=== PATIENT | female | born 1950 | race Caucasian/White ===

== ENCOUNTER 2017-02-26 22:56 | Inpatient (IN) | payer BC ==
[~2017-02-26] VITALS: Ht 154.9 cm; Wt 104.4 kg
[~2017-02-26 22:56] MED LIST: ASPI81TA2 PO; BUME1TAB PO; CARV6.252 PO; CHOL100013 PO; FURO-68 PO; FURO20TA3 PO; HYDR-2666 PO; LEVO88TA4 PO; LISI10TA2 PO; METO25TA4 PO; NAPR375T3 PO; PANT40TA5 PO; PARO20TA3 PO; POTA20TA12 PO; POTA20TA4 PO
[2017-02-26 23:32] LABS: BASO # 0.1 x10^3/uL (0.0-0.2); BASO % 1 % (0-3); EOS % 1 % (0-3); HEMATOCRIT 40.6 % (36.0-47.0); HEMOGLOBIN 13.2 g/dL (12.0-15.5); LYMPH # 2.4 x10^3/uL (1.0-4.8); LYMPH % 21 % (24-48); MEAN CORPUSCULAR HEMOGLOBIN 28 pg (25-35); MEAN CORPUSCULAR HGB CONC 33 g/dL (31-37); MEAN CORPUSCULAR VOLUME 85 fL (79-100); MONO % 6 % (0-9); NEUT % 71 % (31-73); PLATELET COUNT 292 x10^3/uL (140-400); RED CELL DISTRIBUTION WIDTH 15.1 % (11.5-14.5); WHITE BLOOD COUNT 11.2 x10^3/uL (4.0-11.0)
[2017-02-26 23:44] LABS: GFR 55.8; POTASSIUM 3.5 mmol/L (3.5-5.1)
[2017-02-26] MEDS ORDERED: BENZONATATE 100 MG CAPSULE. PO ONE (23:45)
--- NOTE | 2017-02-27 00:04 | PHYS DOC ---
Past Medical History Past Medical History: CHF, Hypertension, Other Additional Past Medical Histor: CARDIOMYOPATHY, SEVERE SLEEP APNEA, SPINAL PROBLEMS Past Surgical History: Other Additional Past Surgical Histo: HERNIA REPAIR, pacemaker Alcohol Use: None Drug Use: None Adult General Chief Complaint Chief Complaint: SHORTNESS OF BREATH HPI HPI Patient is a 66 year old female who presents with cough & shortness of breath. Patient reports illness x 6 days associated with dry cough, nasal congestion, sore throat, shortness of breath. She has dyspnea with very minimal exertion. She reports fever of 101 at home. Denies chest pain, abdominal pain, vomiting, diarrhea, increased lower extremity edema. She has been unable to use CPAP due to congestion & cough. She has history of CHF & sick sinus syndrome with pacemaker, denies asthma, COPD, tobacco use. PCP is Dr. Reyes. Review of Systems Review of Systems Constitutional: Denies fever or chills Eyes: Denies change in visual acuity HENT: 40 nasal congestion and sore throat Respiratory: Reports cough and shortness of breath Cardiovascular: Denies chest pain or edema GI: Denies abdominal pain, nausea, vomiting, or diarrhea Musculoskeletal: Denies back pain or joint pain Integument: Denies rash or skin lesions Neurologic: Denies headache, focal weakness or sensory changes Current Medications Current Medications Current Medications Medications (Trade) Dose Ordered Sig/Anuj Start Time Stop Time Status Last Admin Dose Admin Acetaminophen (Tylenol) 650 mg PRN Q4HRS PRN 02/27/17 00:45 02/28/17 00:44 Benzonatate (Tessalon Perle) 100 mg 1X ONCE 02/26/17 23:45 02/26/17 23:46 DC 02/26/17 23:41 100 MG Furosemide (Lasix) 40 mg 1X ONCE 02/27/17 01:00 02/27/17 01:01 Morphine Sulfate 2 mg PRN Q2HR PRN 02/27/17 00:45 02/28/17 00:44 Ondansetron HCl (Zofran) 4 mg PRN Q8HRS PRN 02/27/17 00:45 02/28/17 00:44 Allergies Allergies Allergies Coded Allergies Type Severity Reaction Last Updated Verified atorvastatin Allergy Intermediate 02/26/17 Yes codeine Allergy Intermediate 10/02/16 Yes erythromycin base Allergy Intermediate 08/25/15 Yes Physical Exam Physical Exam Constitutional: Obese, no acute distress, non-toxic appearance. HENT: Normocephalic, atraumatic, bilateral external ears normal, oropharynx moist, posterior oropharynx mild erythema without tonsillar enlargement or exudate, nose normal. Eyes: conjunctiva normal, no discharge. Neck: supple, no stridor. Cardiovascular: RRR, no murmurs, no edema. Lungs & Thorax: LCTAB, no wheezing, no respiratory distress. Oxygen saturation 99% on room air Abdomen: soft, nontender, nondistended. Skin: Warm, dry, no erythema, no rash. Back: No tenderness. Extremities: No tenderness, no edema. No calf tenderness or swelling Neurologic: Alert and oriented X 3, no focal deficits noted. Psychologic: Affect normal, judgement normal, mood normal. Current Patient Data Vital Signs Vital Signs Date Time Temp Pulse Resp B/P Pulse Ox O2 Delivery O2 Flow Rate FiO2 02/26/17 23:05 99.4 80 18 199/104 95 Room Air 99.4 Lab Values Laboratory Tests Test 02/26/17 23:22 White Blood Count 11.2x10^3/uL (4.0-11.0) H Red Blood Count 4.80x10^6/uL (3.50-5.40) Hemoglobin 13.2g/dL (12.0-15.5) Hematocrit 40.6% (36.0-47.0) Mean Corpuscular Volume 85fL (79-100) Mean Corpuscular Hemoglobin 28pg (25-35) Mean Corpuscular Hemoglobin Concent 33g/dL (31-37) Red Cell Distribution Width 15.1% (11.5-14.5) H Platelet Count 292x10^3/uL (140-400) Neutrophils (%) (Auto) 71% (31-73) Lymphocytes (%) (Auto) 21% (24-48) L Monocytes (%) (Auto) 6% (0-9) Eosinophils (%) (Auto) 1% (0-3) Basophils (%) (Auto) 1% (0-3) Neutrophils # (Auto) 8.0x10^3uL (1.8-7.7) H Lymphocytes # (Auto) 2.4x10^3/uL (1.0-4.8) Monocytes # (Auto) 0.7x10^3/uL (0.0-1.1) Eosinophils # (Auto) 0.1x10^3/uL (0.0-0.7) Basophils # (Auto) 0.1x10^3/uL (0.0-0.2) Sodium Level 142mmol/L (136-145) Potassium Level 3.5mmol/L (3.5-5.1) Chloride Level 107mmol/L (98-107) Carbon Dioxide Level 26mmol/L (21-32) Anion Gap 9 (6-14) Blood Urea Nitrogen 15mg/dL (7-20) Creatinine 1.0mg/dL (0.6-1.0) Estimated GFR (Cockcroft-Gault) 55.8 Glucose Level 107mg/dL (70-99) H Calcium Level 9.0mg/dL (8.5-10.1) Troponin I Quantitative < 0.017ng/mL (0.000-0.055) FH-Xri-S-Type Natriuretic Peptide 896pg/mL (0-124) H Laboratory Tests 02/26/17 23:22 Laboratory Tests 02/26/17 23:22 EKG EKG Interpreted by me: Normal sinus rhythm rate 88, no ST elevation, T waves inverted in leads 1, aVL, V5 through V6, no ST depression, normal intervals, PVCs. [] Radiology/Procedures Radiology/Procedures CXR: interpreted by me: no cardiomegaly, no infiltrate, no pneumothorax, no acute process.[] Course & Med Decision Making Course & Med Decision Making Pertinent Labs and Imaging studies reviewed. (See chart for details) Patient presents with shortness of breath & URI symptoms. She has O2 sat 92-93 % on room air at rest. Lungs are clear, CXR unremarkable for acute process. BNP is mildly elevated, previously admitted for CHF with BNP in 500s. I discussed results with the patient, she does not feel well enough to go home. Will give IV lasix here & admit. She agrees with plan of care. Discussed with Dr. Rashid who agrees to accept for admission to inpatient status, on behalf of Dr. Reyes. Cardiology consult to Dr. Pulliam. Patient admitted in stable condition. [] Dragon Disclaimer Dragon Disclaimer This electronic medical record was generated, in whole or in part, using a voice recognition dictation system. Departure Departure Impression: Primary Impression: Acute on chronic systolic heart failure Additional Impression: Upper respiratory infection Disposition: ADMITTED INPATIENT Admitting Physician: Amandeep Aceves Condition: STABLE Referrals: AMANDEEP REYES MD (PCP) Problem Qualifiers IRAM DWYER MD Feb 27, 2017 00:04
[2017-02-27] MEDS ORDERED: MORPHINE SULFATE 2 MG/ML DISP.SYRIN. IV PRN (00:45)
[2017-02-27] MEDS ORDERED: ONDANSETRON PF 4 MG/2 ML VIAL. IV PRN (00:45)
[2017-02-27] MEDS ORDERED: ACETAMINOPHEN 325 MG TABLET. PO PRN (00:45)
[2017-02-27] MEDS ORDERED: FUROSEMIDE 40 MG/4 ML VIAL. IVP ONE (01:00)
[2017-02-27 03:42] VITALS: BP 146/86
--- NOTE | 2017-02-27 06:26 | ACF ---
Admission Forms Criteria HEART FAILURE: COMMON COMPLICATIONS Clinical Indications for Inpatient Care (Place 'X' for any and all applicable criteria): Ongoing inpatient care may be indicated for heart failure with ANY ONE of the following (1)(2)(3)(4)(5): [ ]I. Ongoing need for care for primary condition requiring frequent therapy adjustments because of changes in cardiac function (eg, drug dosage changes for drugs that are renally metabolized) [ ]II. New-onset heart failure [ ]III. Heart failure with decreased urine output not responsive to attempts to optimize volume status [ ]IV. Acute cardiac ischemia causing or associated with failure [X]V. Complications of heart failure, including ANY ONE of the following: [ ]a) Pericardial effusion [ ]b) Symptomatic pleural effusion [ ]c) O2 saturation <90% or PO2 < 60 mm Hg (8.0 kPa) on room air or require baseline supplemental O2 [ ]d) Tachypnea [X]e) Dyspnea [ ]f) Syncope [ ]g) Change in mental status [ ]h) Acute renal insufficiency that is severe (reduction of more than 50% in estimated glomerular filtration rate from baseline) or progressive reduction of more than 25% in estimated glomerular filtration rate from baseline, with creatinine continuing to rise) [ ]i) Hemodynamic instability [ ]j) Anasarca [ ]k) Clinically significant metabolic abnormalities due to heart failure (eg, new-onset metabolic acidosis) Extended stay beyond goal length of stay for primary condition may be needed until ALL of the following are present(1)(3): [ ]a) Stable and effective diuretic regimen established (or patient on stable dialysis regimen if in chronic renal failure) [ ]b) Breathing comfortably at rest [ ]c) Saturation of arterial oxygen greater than 90% or at acceptable baseline [ ]d) Pulmonary edema absent or improved [ ]e) Hemodynamic stability [ ]f) Volume status acceptable on oral medication [ ]g) Peripheral or sacral edema absent or improved [ ]h) Renal function stable and manageable at a lower level of care [ ]i) Complications (eg, pleural effusion) resolved or manageable at a lower level of care [ ]j) Patient or caregiver has received written discharge instructions or educational material addressing activity level, diet, discharge medications, follow-up appointment, weight monitoring, and what to do if symptoms worsen The original [facility] [employer] [facility] [employer] content created by [employer] has been revised. The portions of the content which have been revised are identified through the use of italic text or in bold, and [facility] has neither reviewed nor approved the modified material.All other unmodified content is copyright [facility]. Please see references footnoted in the original [facility] edition 2016 Admission Criteria Met?: Yes LJ LEBRON Feb 27, 2017 06:26
--- NOTE | 2017-02-27 06:52 | EKG ---
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
[2017-02-27 07:00] VITALS: BP_SYST 126; BP_SYST 138; BP_DIAS 77; BP_DIAS 85
--- NOTE | 2017-02-27 08:20 | RAD ---
Exam: PA and lateral chest radiograph History: Shortness of breath, cough. Comparison: 10/03/2016. Findings: Cardiac silhouette is borderline in size. Dual-lead pacemaker by left subclavian approach is unchanged. Bilateral lung gonzalez are free of focal infiltrate. No pleural effusion is seen. The spine is unchanged with fusion of multiple vertebral bodies, may be on a congenital basis. Midthoracic vertebral compression is unchanged. Impression: No acute cardiopulmonary process.
[2017-02-27] MEDS ORDERED: LEVO100T5 PO (08:29)
[2017-02-27] MEDS ORDERED: METO25TA4 PO (08:29)
[2017-02-27] MEDS ORDERED: FLUO20CA8 PO (08:29)
[2017-02-27] MEDS ORDERED: NAPROXEN 500 MG TABLET PO PRN (08:30)
[2017-02-27] MEDS ORDERED: HYDROCODONE/APAP 5/325MG TABLET. PO PRN (08:30)
--- NOTE | 2017-02-27 08:37 | PDOC ---
PROGRESS NOTES Subjective Subjective Patient reports some SOA persists, not worsening. Denies CP or palpitations. Objective Objective Vital Signs Date Time Temp Pulse Resp B/P Pulse Ox O2 Delivery O2 Flow Rate FiO2 02/27/17 07:00 97.9 77 18 138/85 Room Air 91.0 97.9 02/27/17 03:42 94 Intake and Output 02/27/17 07:00 Intake Total 210 ml Balance 210 ml Intake Oral 210 ml # Voids 1 Physical Exam Abdomen: Normal bowel sounds, Soft, No tenderness Heart: Regular rate Extremities: No edema General: Alert, Oriented X3, No acute distress HEENT: Other (mild TTP over frontal sinus) Lungs: Clear to auscultation Assessment Assessment Problems Medical Problems: (1) Acute on chronic systolic heart failure Status: Acute (2) CHF (congestive heart failure) Status: Acute (3) Upper respiratory infection Status: Acute Plan Plan of Care 1. AE systolic CHF - BNP moderately elevated. Troponin WNL and EKG without acute ischemic changes. Patient may have missed a few days of her Bumex last week with her illness. Not hypoxic on RA. Received one extra dose of Lasix at admission, will continue her usual po Bumex daily. Cardiology consult pending. 2. Acute bronchitis and sinusitis - patient reports she had the onset of cough and fever last week. Fevers have resolved, still having some cough and also developed sinus pain. CXR without infiltrate, patient without wheezing or hx of asthma or smoking. Will start Augmentin and follow. 3. HTN - resume home meds. 4. glucose intolerance - check A1C, ADA diet ordered. 5. AR - meds daily for better control of symptoms. 6. hypothyroidism - lab due, ordered. 7. OA - continue po [place] prn. 8. urinary retention - patient reports she feels her bladder doesn't empty completely. Post-void residuals ordered, check UA also. Comment Review of Relevant I have reviewed the following items lei (where applicable) has been applied. Labs Laboratory Tests Test 02/26/17 23:22 02/27/17 06:35 White Blood Count 11.2x10^3/uL (4.0-11.0) Red Blood Count 4.80x10^6/uL (3.50-5.40) Hemoglobin 13.2g/dL (12.0-15.5) Hematocrit 40.6% (36.0-47.0) Mean Corpuscular Volume 85fL (79-100) Mean Corpuscular Hemoglobin 28pg (25-35) Mean Corpuscular Hemoglobin Concent 33g/dL (31-37) Red Cell Distribution Width 15.1% (11.5-14.5) Platelet Count 292x10^3/uL (140-400) Neutrophils (%) (Auto) 71% (31-73) Lymphocytes (%) (Auto) 21% (24-48) Monocytes (%) (Auto) 6% (0-9) Eosinophils (%) (Auto) 1% (0-3) Basophils (%) (Auto) 1% (0-3) Neutrophils # (Auto) 8.0x10^3uL (1.8-7.7) Lymphocytes # (Auto) 2.4x10^3/uL (1.0-4.8) Monocytes # (Auto) 0.7x10^3/uL (0.0-1.1) Eosinophils # (Auto) 0.1x10^3/uL (0.0-0.7) Basophils # (Auto) 0.1x10^3/uL (0.0-0.2) Sodium Level 142mmol/L (136-145) Potassium Level 3.5mmol/L (3.5-5.1) Chloride Level 107mmol/L (98-107) Carbon Dioxide Level 26mmol/L (21-32) Anion Gap 9 (6-14) Blood Urea Nitrogen 15mg/dL (7-20) Creatinine 1.0mg/dL (0.6-1.0) Estimated GFR (Cockcroft-Gault) 55.8 Glucose Level 107mg/dL (70-99) Calcium Level 9.0mg/dL (8.5-10.1) Troponin I Quantitative < 0.017ng/mL (0.000-0.055) < 0.017ng/mL (0.000-0.055) TY-Ubq-G-Type Natriuretic Peptide 896pg/mL (0-124) Laboratory Tests Test 02/26/17 23:22 02/27/17 06:35 White Blood Count 11.2x10^3/uL (4.0-11.0) Red Blood Count 4.80x10^6/uL (3.50-5.40) Hemoglobin 13.2g/dL (12.0-15.5) Hematocrit 40.6% (36.0-47.0) Mean Corpuscular Volume 85fL (79-100) Mean Corpuscular Hemoglobin 28pg (25-35) Mean Corpuscular Hemoglobin Concent 33g/dL (31-37) Red Cell Distribution Width 15.1% (11.5-14.5) Platelet Count 292x10^3/uL (140-400) Neutrophils (%) (Auto) 71% (31-73) Lymphocytes (%) (Auto) 21% (24-48) Monocytes (%) (Auto) 6% (0-9) Eosinophils (%) (Auto) 1% (0-3) Basophils (%) (Auto) 1% (0-3) Neutrophils # (Auto) 8.0x10^3uL (1.8-7.7) Lymphocytes # (Auto) 2.4x10^3/uL (1.0-4.8) Monocytes # (Auto) 0.7x10^3/uL (0.0-1.1) Eosinophils # (Auto) 0.1x10^3/uL (0.0-0.7) Basophils # (Auto) 0.1x10^3/uL (0.0-0.2) Sodium Level 142mmol/L (136-145) Potassium Level 3.5mmol/L (3.5-5.1) Chloride Level 107mmol/L (98-107) Carbon Dioxide Level 26mmol/L (21-32) Anion Gap 9 (6-14) Blood Urea Nitrogen 15mg/dL (7-20) Creatinine 1.0mg/dL (0.6-1.0) Estimated GFR (Cockcroft-Gault) 55.8 Glucose Level 107mg/dL (70-99) Calcium Level 9.0mg/dL (8.5-10.1) Troponin I Quantitative < 0.017ng/mL (0.000-0.055) < 0.017ng/mL (0.000-0.055) GG-Sfr-A-Type Natriuretic Peptide 896pg/mL (0-124) Medications Current Medications Benzonatate (Tessalon Perle) 100 mg 1X ONCE PO Last administered on 02/26/17 23:41; Start 02/26/17 at 23:45; Stop 02/26/17 at 23:46; Status DC Furosemide (Lasix) 40 mg 1X ONCE IVP Last administered on 02/27/17 02:41; Start 02/27/17 at 01:00; Stop 02/27/17 at 01:01; Status DC Ondansetron HCl (Zofran) 4 mg PRN Q8HRS PRN IV NAUSEA/VOMITING; Start 02/27/17 at 00:45; Stop 02/28/17 at 00:44 Morphine Sulfate 2 mg PRN Q2HR PRN IV SEVERE PAIN; Start 02/27/17 at 00:45; Stop 02/28/17 at 00:44 Acetaminophen (Tylenol) 650 mg PRN Q4HRS PRN PO FEVER; Start 02/27/17 at 00:45; Stop 02/28/17 at 00:44 Aspirin (Children'S Aspirin) 81 mg DAILY PO ; Start 02/27/17 at 09:00; Status UNV Bumetanide (Bumex) 1 mg DAILY PO ; Start 02/27/17 at 09:00; Status UNV Acetaminophen/ Hydrocodone Bitart (Lortab 5/325) 1 tab BID PRN PO PAIN; Start 02/27/17 at 08:30; Status UNV Lisinopril (Prinivil) 40 mg DAILY PO ; Start 02/27/17 at 09:00; Status UNV Pantoprazole Sodium (Protonix) 40 mg DAILYAC PO ; Start 02/28/17 at 07:30; Status UNV Potassium Chloride (Klor-Con) 20 meq DAILY PO ; Start 02/27/17 at 09:00; Status UNV Naproxen (Naprosyn) 500 mg BID PRN PO PAIN; Start 02/27/17 at 08:30; Status UNV Active Scripts Active Levothyroxine Sodium 100 Mcg Tablet 1 Tab PO DAILY Fluoxetine Hcl 20 Mg Capsule 3 Cap PO DAILY Metoprolol Tartrate 25 Mg Tablet 0.5 Tab PO BID Pantoprazole Sodium 40 Mg Tablet.dr 40 Mg PO DAILYAC Bumetanide 1 Mg Tablet 1 Tab PO DAILY Klor-Con M20 (Potassium Chloride) 20 Meq Tab.er.prt 20 Meq PO DAILY Reported Hydrocodone-Apap 5-325 (Hydrocodone Bit/Acetaminophen) 1 Each Tablet 1 Tab PO BID PRN Vitamin D (Cholecalciferol (Vitamin D3)) 1,000 Unit Capsule 1,000 Unit PO Naproxen 375 Mg Tablet 375 Mg PO PRN Aspirin 81 Mg Tab.chew 1 Tab PO DAILY Lisinopril 10 Mg Tablet 4 Tab PO DAILY Vitals/I & O Vital Sign - Last 24 Hours 02/26/17 02/26/17 02/26/17 02/26/17 23:05 23:14 23:22 23:52 Temp 99.4 99.4 Pulse 80 84 80 71 Resp 18 B/P 199/104 184/79 186/91 160/83 Pulse Ox 95 95 93 92 O2 Delivery Room Air Room Air Room Air Room Air 02/27/17 02/27/17 02/27/17 02/27/17 01:22 02:10 02:40 03:42 Temp 98.4 98.4 Pulse 80 77 76 73 Resp 24 B/P 174/80 162/77 155/84 146/86 Pulse Ox 94 95 94 94 O2 Delivery Room Air Room Air Room Air Room Air 02/27/17 02/27/17 04:38 07:00 Temp 97.9 97.9 Pulse 77 Resp 18 B/P 138/85 O2 Delivery Room Air Room Air O2 Flow Rate 91.0 Intake and Output 02/26/17 02/26/17 02/27/17 15:00 23:00 07:00 Intake Total 210 ml Balance 210 ml CHANTEL PRATT MD Feb 27, 2017 08:37
[2017-02-27 09:20] LABS: FREE T4 1.18 ng/dL (0.76-1.46)
[2017-02-27] MEDS: ASPIRIN CHEWABLE 81 MG TABLET. PO SCH (09:29)
[2017-02-27] MEDS: BUMETANIDE 1 MG TABLET. PO SCH (09:29)
[2017-02-27] MEDS: PANTOPRAZOLE 40 MG TABLET.DR. PO SCH (09:29)
[2017-02-27] MEDS: CETIRIZINE HCL 10 MG TABLET. PO SCH (09:29)
[2017-02-27] MEDS: POTASSIUM CHLORIDE 20 MEQ TABLET.ER. PO SCH (09:29)
[2017-02-27] MEDS: AMOXICILLIN/K CLAV 875/125MG TABLET. PO SCH ×2 (09:30→21:27)
[2017-02-27] MEDS: LISINOPRIL 40 MG TABLET. PO SCH (09:30)
--- NOTE | 2017-02-27 09:38 | HP ---
ADMIT DATE: 02/27/2017 CHIEF COMPLAINT: Shortness of breath. HISTORY OF PRESENT ILLNESS: The patient is a 66-year-old female with a known history of nonischemic cardiomyopathy who presented to the Emergency Room with the above complaint. The patient reported the onset of a febrile illness on the previous week. She had temperatures up to 101 and had some cough and fatigue. She stayed home from work and rested for a few days. Her fevers resolved, but she continued to have a cough and started to notice increasing shortness of breath. She had to stop and rest when walking across the room, which was unusual for her. When this persisted, she came to the Emergency Room. Initial evaluation there showed that she was not hypoxic on room air. Chest x-ray was clear. She was afebrile. Her BNP was elevated at 896. She was given a dose of Lasix and admitted for further treatment. PAST MEDICAL HISTORY: Nonischemic cardiomyopathy, ejection fraction 50% on echocardiogram last year, mild diastolic dysfunction also noted; sick sinus syndrome, status post pacemaker placement; hypothyroidism; hypertension; hyperlipidemia; glucose intolerance; GERD; obstructive sleep apnea; depression; osteoarthritis with chronic pain; allergic rhinitis. PAST SURGICAL HISTORY: Pacemaker placement in 09/2016, hernia repair. ALLERGIES: THE PATIENT IS ALLERGIC TO ATORVASTATIN, CODEINE, AND ERYTHROMYCIN. HOME MEDICATIONS: Martin 5/325 p.r.n., aspirin 81 mg daily, bumetanide 1 mg daily, fluoxetine 60 mg daily, levothyroxine 100 mcg daily, lisinopril 40 mg daily, metoprolol tartrate 25 mg tablet one-half tablet b.i.d., Naprosyn p.r.n., omeprazole 40 mg daily, potassium 20 mEq daily, wujk-fyl-viygvad vitamin D daily. FAMILY HISTORY: Noncontributory. SOCIAL HISTORY: The patient is . She lives with her daughter and son-in-law. 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 She does not smoke cigarettes. She does not drink alcohol to excess. REVIEW OF SYSTEMS: The patient had a febrile illness last week as in the HPI. The fever and chills have resolved. She has recently developed sinus pain and drainage. She has allergic rhinitis and has tried taking some mubc-xok-yghypub medication for this. She denies any episodes of chest pain or palpitations. She denies a history of asthma, wheezing, or previous inhaler use. She may have missed several doses of her Bumex when she was not feeling well last week, but states she otherwise has been taking her medications daily. She denies abdominal pain, nausea, vomiting or problems with her bowels. She denies dysuria, but has noticed a feeling of incomplete bladder emptying at times. She has some mild chronic lower extremity edema when she is on her feet at work all day, but wears support hose to help with this. She did receive a flu shot last fall. Her chronic back pain is fairly well controlled with her usual hydrocodone. PHYSICAL EXAMINATION: GENERAL: The patient is alert and oriented x 3, resting comfortably in bed, in no acute distress. HEENT: PERRL, EOMI, sclerae clear. There is mild tenderness to palpation over the frontal sinuses. Oropharynx: Mucous membranes moist. NECK: Supple, without lymphadenopathy. CHEST: Clear to auscultation with normal respiratory effort and good breath sounds throughout. CARDIOVASCULAR: Regular rhythm without murmur. ABDOMEN: Soft and nontender, normoactive bowel sounds are present. EXTREMITIES: Without edema. ASSESSMENT AND PLAN: 1. Acute exacerbation of systolic congestive heart failure. The patient's BNP was moderately elevated, troponin is within normal limits, and an EKG is without acute ischemic change. It is possible that missing several days of her Bumex has had an effect on her. She is not hypoxic on room air. She received one extra dose of Lasix at admission. We will continue her usual p.o. Bumex daily and follow her response to this. Cardiology consult is pending. 2. Acute bronchitis and sinusitis. Chest exam is normal and the chest x-ray did not show acute infiltrate. We will start Augmentin for treatment of possible sinusitis. 3. Hypertension. Continue home medications. 4. Glucose intolerance. Check an A1c. An ADA diet is ordered. 5. Allergic rhinitis. Resume medications daily for better control of her symptoms. 6. Hypothyroidism. The patient is due for her lab on this. This has been ordered and we will continue her levothyroxine, adjusting the dose as indicated. 7. Osteoarthritis, this is stable. Continue p.o. hydrocodone as needed. 8. Urinary retention. This is a new complaint for the patient. A UA is ordered although she does not have other symptoms of urinary tract infection. We will order post-void residuals to be checked while she is here. CHANTEL PRATT MD DR: MATIAS/fredo JOB#: [id number] / [id number] DAVID
[2017-02-27 11:30] VITALS: BP 137/84
[2017-02-27] MEDS: FLUTICASONE 50MCG/NASAL SPRAY 16GM BOTTLE. NS SCH (12:03)
--- NOTE | 2017-02-27 12:14 | PDOC2 ---
CARDIAC CONSULT DATE OF CONSULT Date of Consult DATE: 02/27/17 TIME: 12:01 REASON FOR CONSULT Reason for Consult: CHF REFERRING PHYSICIAN Referring Physician: Dr. Pascal SOURCE Source: Chart review, Patient HISTORY OF PRESENT ILLNESS HISTORY OF PRESENT ILLNESS This is a 66 yo female who presented with complaints of shortness of breath and cough. Patient has a history of chronic systolic heart failure with non- ischemic cardiomyopathy who underwent cardiac cath in 2011, which failed to show any significant CAD. In Oct 2013, Her EF was 25-30%, at which time she refused ICD placement. She underwent repeat echo in Nov, which revealed EF improved to 40%. Most recent echo showed further LV fucntion improvement with an EF of 50%. Additionally history of SVT and underwent LINQ placement. Biotronik dual chamber pacemaker implanted 10/11 for SSS. Patient reports having respiratory illness associated with cough, congestion, chills, fevers, body aches, and fatigue since last Sunday. Reports shortness of breath began over the weekend and progressively worsened. Had some mild LE edema. Missed a couple of doses of Bumex while she was ill. Given IV Lasix in ED. Cough persists but SOA and LE edema has resolved. Denies any chest pain, palpitations, or dizziness. Unable to lay flat in bed due to NURY. Reports living in "cramped" 1-room hotel with daughter, son-in-law, and grandson over the last year as she lost her home due to foreclosure. PAST MEDICAL HISTORY Cardiovascular: AFIB, CHF (systolic with NICM EF ), HTN, Hyperlipidemia, Other (sss s/p PPM, SVT) Pulmonary: Pneumonia, Other (NURY with CPAP) GI: GERD Heme/Onc: No pertinent hx Psych: Anxiety, Depression Musculoskeletal: low back pain, Osteoarthritis, Other (DDD) Infectious disease: No pertinent hx ENT: No pertinent hx Renal/: Other (renal stones) Endocrine: Hypothyroidism Dermatology: Eczema PAST SURGICAL HISTORY Past Surgical History: Pacemaker (Biotronik dual chamber implanted 10/11), Hernia Repair FAMILY HISTORY Family History: Cancer (lung ), Diabetes, Other (renal dx) SOCIAL HISTORY Smoke: No Drugs: None Lives: with Family (in hotel) CURRENT MEDICATIONS CURRENT MEDICATIONS Current Medications Medications (Trade) Dose Ordered Sig/Anuj Route PRN Reason Start Time Stop Time Status Last Admin Dose Admin Benzonatate (Tessalon Perle) 100 mg 1X ONCE PO 02/26/17 23:45 02/26/17 23:46 DC 02/26/17 23:41 Furosemide (Lasix) 40 mg 1X ONCE IVP 02/27/17 01:00 02/27/17 01:01 DC 02/27/17 02:41 Aspirin (Children'S Aspirin) 81 mg DAILY PO 02/27/17 09:00 02/27/17 09:29 Bumetanide (Bumex) 1 mg DAILY PO 02/27/17 09:00 02/27/17 09:29 Lisinopril (Prinivil) 40 mg DAILY PO 02/27/17 09:00 02/27/17 09:30 Pantoprazole Sodium (Protonix) 40 mg DAILYAC PO 02/27/17 09:00 02/27/17 09:29 Potassium Chloride (Klor-Con) 20 meq DAILY PO 02/27/17 09:00 02/27/17 09:29 Cetirizine HCl (Zyrtec) 10 mg DAILY PO 02/27/17 09:00 02/27/17 09:29 Amoxicillin/ Clavulanate Potassium (Augmentin 875/ 125mg) 1 tab BID PO 02/27/17 09:00 02/27/17 09:30 ALLERGIES ALLERGIES: Coded Allergies: atorvastatin (Verified Allergy, Intermediate, 02/26/17) codeine (Verified Allergy, Intermediate, 10/02/16) TOLERATES HYDROCODONE erythromycin base (Verified Allergy, Intermediate, 08/25/15) ROS Review of System 14 point ROS conducted with pertinent positives noted above in HPI. PHYSICAL EXAM General: Alert, Oriented X3, Cooperative, No acute distress HEENT: Atraumatic, Mucous membr. moist/pink Lungs: Clear to auscultation, Normal air movement Heart: Regular rate, Normal S1, Normal S2 Abdomen: Soft, No tenderness Extremities: No edema, Normal pulses Skin: No breakdown, No significant lesion Neuro: Normal speech, Sensation intact Psych/Mental Status: Mental status NL, Mood NL MUSCULOSKELETAL: Osteoarthritic changes both hands VITALS VITALS Vital Signs Date Time Temp Pulse Resp B/P Pulse Ox O2 Delivery O2 Flow Rate FiO2 02/27/17 11:30 98.0 83 18 137/84 Room Air 98.0 98.0 02/27/17 03:42 94 LABS Lab: Laboratory Tests Test 02/26/17 23:22 02/27/17 06:35 White Blood Count 11.2x10^3/uL (4.0-11.0) Red Blood Count 4.80x10^6/uL (3.50-5.40) Hemoglobin 13.2g/dL (12.0-15.5) Hematocrit 40.6% (36.0-47.0) Mean Corpuscular Volume 85fL (79-100) Mean Corpuscular Hemoglobin 28pg (25-35) Mean Corpuscular Hemoglobin Concent 33g/dL (31-37) Red Cell Distribution Width 15.1% (11.5-14.5) Platelet Count 292x10^3/uL (140-400) Neutrophils (%) (Auto) 71% (31-73) Lymphocytes (%) (Auto) 21% (24-48) Monocytes (%) (Auto) 6% (0-9) Eosinophils (%) (Auto) 1% (0-3) Basophils (%) (Auto) 1% (0-3) Neutrophils # (Auto) 8.0x10^3uL (1.8-7.7) Lymphocytes # (Auto) 2.4x10^3/uL (1.0-4.8) Monocytes # (Auto) 0.7x10^3/uL (0.0-1.1) Eosinophils # (Auto) 0.1x10^3/uL (0.0-0.7) Basophils # (Auto) 0.1x10^3/uL (0.0-0.2) Sodium Level 142mmol/L (136-145) Potassium Level 3.5mmol/L (3.5-5.1) Chloride Level 107mmol/L (98-107) Carbon Dioxide Level 26mmol/L (21-32) Anion Gap 9 (6-14) Blood Urea Nitrogen 15mg/dL (7-20) Creatinine 1.0mg/dL (0.6-1.0) Estimated GFR (Cockcroft-Gault) 55.8 Glucose Level 107mg/dL (70-99) Calcium Level 9.0mg/dL (8.5-10.1) Troponin I Quantitative < 0.017ng/mL (0.000-0.055) < 0.017ng/mL (0.000-0.055) VP-Gat-B-Type Natriuretic Peptide 896pg/mL (0-124) Thyroid Stimulating Hormone (TSH) 4.379uIU/mL (0.358-3.74) Free Thyroxine 1.18ng/dL (0.76-1.46) ECHOCARDIOGRAM ECHOCARDIOGRAM <Conclusion> Left ventricle systolic function is low normal. The Ejection Fraction is 50%. Transmitral Doppler flow pattern is Grade I-abnormal relaxation pattern. Trace mitral regurgitation. Mild tricuspid regurgitation. Mild to moderate pulmonary hypertension. The PA pressure was estimated at 40 mmHg. There is no evidence of significant pericardial effusion. DATE: 09/28/16 1301 <Conclusion> Left ventricle systolic function is mild to moderately impaired. The Ejection Fraction is estimated at 40%. Transmitral Doppler flow pattern is Grade I-abnormal relaxation pattern. There is mild concentric left ventricular hypertrophy. The left atrium is mildly dilated. Trace mitral regurgitation. Mild tricuspid regurgitation. The PA pressure was estimated at 39 mmHg. There is no evidence of significant pericardial effusion. DATE: 12/24/15 1657 ASSESSMENT/PLAN ASSESSMENT/PLAN 1. Mild acute on chronic diastolic heart failure with a history of NICM 10/11 echo with LV improved; EF 50% multifactorial given acute illness and missed Bumex NT Pro BNP mildly elevated; CXR without significant pleural fluid improved with IV Lasix in ED appears compensated; continue with routine oral Bumex 2. Dyspnea multifactorial given URI/bronchitis and diastolic HF improved. 3. Hypertension controlled with meds 4. Hyperlipidemia check lipids statin therapy if indicated. 5. h/o ventricular arrhythmia continue rate control agents 6. SSS s/p Biotronik PPM will interrogate device 7. NURY with home CPAP 8. Hypothyroidism on replacement therapy per PCP Problems: MEGHAN ENNIS APRN Feb 27, 2017 12:14
[2017-02-27] MEDS: METOPROLOL TART IMMED RELEASE 25 MG TABLET. PO SCH ×2 (13:55→21:27)
[2017-02-27 15:02] VITALS: BP 138/81
[2017-02-27 15:35] LABS: BILIRUBIN,URINE NEGATIVE (NEG); GLUCOSE,URINE NEGATIVE (NEG); NITRITE,URINE NEGATIVE (NEG); PROTEIN,URINE NEGATIVE (NEG-TRACE); UROBILINOGEN,URINE 0.2 mg/dL (0.2 mg/dL)
[2017-02-27 16:05] LABS: BACTERIA,URINE 0 /HPF (0-FEW); RBC,URINE 0 /HPF (0-2); SQUAMOUS EPITHELIAL CELL,UR FEW /LPF; WBC,URINE 0 /HPF (0-4)
[2017-02-27 19:09] VITALS: BP 138/87
[2017-02-27 23:28] VITALS: BP 132/82
[2017-02-28 03:10] VITALS: BP 137/87
[2017-02-28 06:36] VITALS: BP 142/86
[2017-02-28 06:44] LABS: CALCIUM 9.1 mg/dL (8.5-10.1); CREATININE 0.9 mg/dL (0.6-1.0); POTASSIUM 4.4 mmol/L (3.5-5.1)
[2017-02-28] MEDS ORDERED: LEVOTHYROXINE 100 MCG TABLET PO SCH (07:00)
[2017-02-28 07:15] LABS: CHOLESTEROL/HDL RATIO 4.4
[2017-02-28] MEDS: PANTOPRAZOLE 40 MG TABLET.DR. PO SCH (08:34)
[2017-02-28] MEDS: CETIRIZINE HCL 10 MG TABLET. PO SCH (08:34)
[2017-02-28] MEDS: AMOXICILLIN/K CLAV 875/125MG TABLET. PO SCH (08:34)
[2017-02-28] MEDS: FLUTICASONE 50MCG/NASAL SPRAY 16GM BOTTLE. NS SCH (08:34)
[2017-02-28] MEDS: BUMETANIDE 1 MG TABLET. PO SCH (08:35)
[2017-02-28] MEDS: POTASSIUM CHLORIDE 20 MEQ TABLET.ER. PO SCH (08:35)
[2017-02-28] MEDS: ASPIRIN CHEWABLE 81 MG TABLET. PO SCH (08:35)
[2017-02-28 08:36] VITALS: BP 142/86
[2017-02-28] MEDS: LISINOPRIL 40 MG TABLET. PO SCH (08:36)
[2017-02-28] MEDS: METOPROLOL TART IMMED RELEASE 25 MG TABLET. PO SCH (08:36)
--- NOTE | 2017-02-28 08:43 | PDOC ---
PROGRESS NOTES Subjective Subjective Patient states she feels better, ready to go home. Objective Objective Vital Signs Date Time Temp Pulse Resp B/P Pulse Ox O2 Delivery O2 Flow Rate FiO2 02/28/17 06:36 97.6 69 18 142/86 95 Room Air 97.6 02/27/17 19:13 98.0 Intake and Output 02/28/17 07:00 Intake Total 1130 ml Output Total 1920 ml Balance -790 ml Intake Oral 1130 ml Output Urine Total 1920 ml Physical Exam Abdomen: Normal bowel sounds, Soft, No tenderness Heart: Regular rate Extremities: No edema General: Alert, Oriented X3, No acute distress Lungs: Clear to auscultation Assessment Assessment Problems Medical Problems: (1) Acute on chronic systolic heart failure Status: Acute (2) CHF (congestive heart failure) Status: Acute (3) Upper respiratory infection Status: Acute Plan Plan of Care 1. AE systolic CHF - improved with one extra dose of Lasix. Otherwise stable, no hypoxia. Home today if Cardiology is in agreement. 2. acute sinusitis and bronchitis - symptoms improving, continue Augmentin. 3. AR - continue meds daily. 4. glucose intolerance - diet controlled with A1C 5.7 Continue to watch diet. 5. HTN - controlled, continue home meds. 6. hypothyroidism - TSH mildly increased, will increase Levothyroxine to 112 mcg daily. 7. possible urinary retention - UA unremarkable and no significant PVR when checked yesterday. Comment Review of Relevant I have reviewed the following items lei (where applicable) has been applied. Labs Laboratory Tests Test 02/26/17 23:22 02/27/17 06:35 02/27/17 12:35 02/27/17 14:35 White Blood Count 11.2x10^3/uL (4.0-11.0) Red Blood Count 4.80x10^6/uL (3.50-5.40) Hemoglobin 13.2g/dL (12.0-15.5) Hematocrit 40.6% (36.0-47.0) Mean Corpuscular Volume 85fL (79-100) Mean Corpuscular Hemoglobin 28pg (25-35) Mean Corpuscular Hemoglobin Concent 33g/dL (31-37) Red Cell Distribution Width 15.1% (11.5-14.5) Platelet Count 292x10^3/uL (140-400) Neutrophils (%) (Auto) 71% (31-73) Lymphocytes (%) (Auto) 21% (24-48) Monocytes (%) (Auto) 6% (0-9) Eosinophils (%) (Auto) 1% (0-3) Basophils (%) (Auto) 1% (0-3) Neutrophils # (Auto) 8.0x10^3uL (1.8-7.7) Lymphocytes # (Auto) 2.4x10^3/uL (1.0-4.8) Monocytes # (Auto) 0.7x10^3/uL (0.0-1.1) Eosinophils # (Auto) 0.1x10^3/uL (0.0-0.7) Basophils # (Auto) 0.1x10^3/uL (0.0-0.2) Sodium Level 142mmol/L (136-145) Potassium Level 3.5mmol/L (3.5-5.1) Chloride Level 107mmol/L (98-107) Carbon Dioxide Level 26mmol/L (21-32) Anion Gap 9 (6-14) Blood Urea Nitrogen 15mg/dL (7-20) Creatinine 1.0mg/dL (0.6-1.0) Estimated GFR (Cockcroft-Gault) 55.8 Glucose Level 107mg/dL (70-99) Calcium Level 9.0mg/dL (8.5-10.1) Troponin I Quantitative < 0.017ng/mL (0.000-0.055) < 0.017ng/mL (0.000-0.055) < 0.017ng/mL (0.000-0.055) GG-Utn-F-Type Natriuretic Peptide 896pg/mL (0-124) Hemoglobin A1c 5.7% (4.8-5.6) Thyroid Stimulating Hormone (TSH) 4.379uIU/mL (0.358-3.74) Free Thyroxine 1.18ng/dL (0.76-1.46) Urine Collection Type Unknown Urine Color Yellow Urine Clarity Clear Urine pH 5.0 Urine Specific [place] 1.010 Urine Protein Negativemg/dL (NEG-TRACE) Urine Glucose (UA) Negativemg/dL (NEG) Urine Ketones (Stick) Negativemg/dL (NEG) Urine Blood Negative (NEG) Urine Nitrite Negative (NEG) Urine Bilirubin Negative (NEG) Urine Urobilinogen Dipstick 0.2mg/dL (0.2 mg/dL) Urine Leukocyte Esterase Negative (NEG) Urine RBC 0/HPF (0-2) Urine WBC 0/HPF (0-4) Urine Squamous Epithelial Cells Few/LPF Urine Bacteria 0/HPF (0-FEW) Urine Hyaline Casts Moderate/HPF Urine Mucus Slight/LPF Test 02/28/17 05:05 Sodium Level 145mmol/L (136-145) Potassium Level 4.4mmol/L (3.5-5.1) Chloride Level 107mmol/L (98-107) Carbon Dioxide Level 31mmol/L (21-32) Anion Gap 7 (6-14) Blood Urea Nitrogen 17mg/dL (7-20) Creatinine 0.9mg/dL (0.6-1.0) Estimated GFR (Cockcroft-Gault) 63.0 Glucose Level 100mg/dL (70-99) Calcium Level 9.1mg/dL (8.5-10.1) Triglycerides Level 92mg/dL (0-150) Cholesterol Level 183mg/dL (0-200) LDL Cholesterol, Calculated 123mg/dL (0-100) VLDL Cholesterol, Calculated 18mg/dL (0-40) HDL Cholesterol 42mg/dL (40-60) Cholesterol/HDL Ratio 4.4 Laboratory Tests Test 02/27/17 12:35 02/27/17 14:35 02/28/17 05:05 Troponin I Quantitative < 0.017ng/mL (0.000-0.055) Urine Collection Type Unknown Urine Color Yellow Urine Clarity Clear Urine pH 5.0 Urine Specific [place] 1.010 Urine Protein Negativemg/dL (NEG-TRACE) Urine Glucose (UA) Negativemg/dL (NEG) Urine Ketones (Stick) Negativemg/dL (NEG) Urine Blood Negative (NEG) Urine Nitrite Negative (NEG) Urine Bilirubin Negative (NEG) Urine Urobilinogen Dipstick 0.2mg/dL (0.2 mg/dL) Urine Leukocyte Esterase Negative (NEG) Urine RBC 0/HPF (0-2) Urine WBC 0/HPF (0-4) Urine Squamous Epithelial Cells Few/LPF Urine Bacteria 0/HPF (0-FEW) Urine Hyaline Casts Moderate/HPF Urine Mucus Slight/LPF Sodium Level 145mmol/L (136-145) Potassium Level 4.4mmol/L (3.5-5.1) Chloride Level 107mmol/L (98-107) Carbon Dioxide Level 31mmol/L (21-32) Anion Gap 7 (6-14) Blood Urea Nitrogen 17mg/dL (7-20) Creatinine 0.9mg/dL (0.6-1.0) Estimated GFR (Cockcroft-Gault) 63.0 Glucose Level 100mg/dL (70-99) Calcium Level 9.1mg/dL (8.5-10.1) Triglycerides Level 92mg/dL (0-150) Cholesterol Level 183mg/dL (0-200) LDL Cholesterol, Calculated 123mg/dL (0-100) VLDL Cholesterol, Calculated 18mg/dL (0-40) HDL Cholesterol 42mg/dL (40-60) Cholesterol/HDL Ratio 4.4 Medications Current Medications Benzonatate (Tessalon Perle) 100 mg 1X ONCE PO Last administered on 02/26/17 23:41; Start 02/26/17 at 23:45; Stop 02/26/17 at 23:46; Status DC Furosemide (Lasix) 40 mg 1X ONCE IVP Last administered on 02/27/17 02:41; Start 02/27/17 at 01:00; Stop 02/27/17 at 01:01; Status DC Ondansetron HCl (Zofran) 4 mg PRN Q8HRS PRN IV NAUSEA/VOMITING; Start 02/27/17 at 00:45; Stop 02/28/17 at 00:44; Status DC Morphine Sulfate 2 mg PRN Q2HR PRN IV SEVERE PAIN; Start 02/27/17 at 00:45; Stop 02/28/17 at 00:44; Status DC Acetaminophen (Tylenol) 650 mg PRN Q4HRS PRN PO FEVER; Start 02/27/17 at 00:45; Stop 02/28/17 at 00:44; Status DC Aspirin (Children'S Aspirin) 81 mg DAILY PO Last administered on 02/27/17 09:29 ; Start 02/27/17 at 09:00 Bumetanide (Bumex) 1 mg DAILY PO Last administered on 02/27/17 09:29; Start 02/27/17 at 09:00 Acetaminophen/ Hydrocodone Bitart (Lortab 5/325) 1 tab PRN BID PRN PO PAIN; Start 02/27/17 at 08:30 Lisinopril (Prinivil) 40 mg DAILY PO Last administered on 02/27/17 09:30; Start 02/27/17 at 09:00 Pantoprazole Sodium (Protonix) 40 mg DAILYAC PO Last administered on 02/27/17 09:29; Start 02/27/17 at 09:00 Potassium Chloride (Klor-Con) 20 meq DAILY PO Last administered on 02/27/17 09: 29; Start 02/27/17 at 09:00 Naproxen (Naprosyn) 500 mg PRN BID PRN PO PAIN; Start 02/27/17 at 08:30 Cetirizine HCl (Zyrtec) 10 mg DAILY PO Last administered on 02/27/17 09:29; Start 02/27/17 at 09:00 Fluticasone Propionate (Flonase) 2 spray DAILY NS Last administered on 12:03; Start 02/27/17 at 09:00 Amoxicillin/ Clavulanate Potassium (Augmentin 875/ 125mg) 1 tab BID PO Last administered on 02/27/17 21:27; Start 02/27/17 at 09:00 Levothyroxine Sodium (Synthroid) 100 mcg DAILY07 PO Last administered on 06:41; Start 02/28/17 at 07:00 Metoprolol Tartrate (Lopressor) 12.5 mg BID PO Last administered on 02/27/17 21 :27; Start 02/27/17 at 14:00 Active Scripts Active Levothyroxine Sodium 100 Mcg Tablet 1 Tab PO DAILY Fluoxetine Hcl 20 Mg Capsule 3 Cap PO DAILY Metoprolol Tartrate 25 Mg Tablet 0.5 Tab PO BID Pantoprazole Sodium 40 Mg Tablet.dr 40 Mg PO DAILYAC Bumetanide 1 Mg Tablet 1 Tab PO DAILY Klor-Con M20 (Potassium Chloride) 20 Meq Tab.er.prt 20 Meq PO DAILY Reported Hydrocodone-Apap 5-325 (Hydrocodone Bit/Acetaminophen) 1 Each Tablet 1 Tab PO BID PRN Vitamin D (Cholecalciferol (Vitamin D3)) 1,000 Unit Capsule 1,000 Unit PO Naproxen 375 Mg Tablet 375 Mg PO PRN Aspirin 81 Mg Tab.chew 1 Tab PO DAILY Lisinopril 10 Mg Tablet 4 Tab PO DAILY Vitals/I & O Vital Sign - Last 24 Hours 02/27/17 02/27/17 02/27/17 02/27/17 09:30 11:30 13:55 15:02 Temp 98.0 98.3 98.0 98.3 Pulse 77 83 83 81 Resp B/P 138/85 137/84 137/84 138/81 Pulse Ox 91 O2 Delivery Room Air Room Air O2 Flow Rate 98.0 02/27/17 02/27/17 02/27/17 02/27/17 19:09 19:13 21:27 23:28 Temp 98.2 98.2 98.2 98.2 Pulse 76 76 70 Resp 18 B/P 138/87 138/87 132/82 Pulse Ox 94 95 O2 Delivery Room Air Room Air Room Air O2 Flow Rate 98.0 02/28/17 02/28/17 03:10 06:36 Temp 97.6 97.6 97.6 97.6 Pulse 67 69 B/P 137/87 142/86 Pulse Ox 92 95 O2 Delivery Room Air Room Air Intake and Output 02/27/17 02/27/17 02/28/17 15:00 23:00 07:00 Intake Total 780 ml 350 ml Output Total 500 ml 620 ml 800 ml Balance -500 ml 160 ml -450 ml CHANTEL PRATT MD Feb 28, 2017 08:43
[2017-02-28] MEDS ORDERED: FLUT16SP NS (08:48)
[2017-02-28] MEDS ORDERED: AMOX1TAB61 PO (08:48)
[2017-02-28] MEDS ORDERED: LEVO112T4 PO (08:48)
[2017-02-28] MEDS ORDERED: CETI10TA16 PO (08:48)
--- NOTE | 2017-02-28 09:48 | DS ---
DATE OF DISCHARGE: 02/28/2017 CHIEF COMPLAINT: Shortness of breath. HISTORY OF PRESENT ILLNESS: The patient is a 66-year-old female with a known history of nonischemic cardiomyopathy, who presented to the Emergency Room with the above complaint. The patient reported the onset of febrile illness in the previous week. She had temperature is up to 101 and had some cough and fatigue. She stayed home from work and rest in for few days. Her fever is resolved, but she continued to have a cough and started to notice increasing shortness of breath. She had to stop and rest, when walking across the room, which was unusual for her. When this persisted, she came to the Emergency Room. Initial evaluation there showed that she was not hypoxic on room air. Chest x-ray was clear. She was afebrile. Her BNP was elevated at 896. She was given 1 dose of IV Lasix and admitted for further treatment. HOSPITAL COURSE: The patient was admitted and seen in consultation by Cardiology. She remained afebrile, without hypoxia on room air during her hospital stay. She had some increased diuresis after the IV Lasix. She was also resumed on her usual Bumex daily. She had good improvement in her subjective shortness of breath with this. She was also started on Augmentin for treatment of sinusitis. She reported that this seemed to be helping her symptoms also. ____ any changes to her cardiac medications. The patient's blood pressure was controlled with her usual medications. She has a history of glucose intolerance. An A1c was 5.7 indicating that this is well controlled with diet only and she is advised to continue to watch her diet for this. The patient was due for her usual thyroid lab, they showed a free T4 of 1.18 and a TSH mildly above the normal range at 4.379. Her levothyroxine will be increased to 112 mcg daily. Fasting lipids showed a total cholesterol of 182 with an LDL of 123 and triglycerides of 92. The patient is intolerant of statin, so was advised to continue to watch her diet to avoid fatty foods. She had complained of a feeling of urinary retention or incomplete voiding. UA was checked and was within normal limits. A postvoid residual was done one time yesterday after the patient had voided 300 mL and she had only 64 mL of postvoid residual. On bladder scan which is probably not clinically significant. The patient has allergic rhinitis and is advised to take her medication daily to help with the symptoms of this. She feels much better and will be discharged home today. FINAL DIAGNOSES: 1. Acute exacerbation of systolic congestive heart failure. 2. Acute sinusitis. 3. Acute bronchitis. 4. Allergic rhinitis. 5. Glucose intolerance. 6. Hypertension. 7. Hypothyroidism. DISCHARGE MEDICATIONS: Aspirin 81 mg daily, Augmentin 875 one b.i.d. x 5 days, Zyrtec 10 mg daily, Flonase nasal sprays daily, levothyroxine 112 mcg daily, Bumex 1 mg daily, vitamin D3 of 1000 international units daily, fluoxetine 60 mg daily, [place] 5/325 p.r.n., lisinopril 40 mg daily, metoprolol tartrate 25 mg one-half tablet b.i.d., Naproxen 375 mg p.r.n., pantoprazole 40 mg daily and potassium 20 mEq daily. FOLLOWUP: Followup is with Dr. Reyes within 2 weeks. Follow up with Cardiology as advised. CHANTEL PRATT MD DR: MATIAS/fredo JOB#: [id number] / [id number]
--- NOTE | 2017-02-28 09:52 | PDOC ---
CARDIO Progress Notes Date and Time Date of Service 02/28/17 Time of Evaluation 0915 Subjective Subjective: No Chest Pain, No shortness of breath, Other (intermittent cough persists ) Comments: no acute events overnight Vitals Vitals Vital Signs Date Time Temp Pulse Resp B/P Pulse Ox O2 Delivery O2 Flow Rate FiO2 02/28/17 08:36 69 142/86 02/28/17 06:36 97.6 18 95 Room Air 97.6 02/27/17 19:13 98.0 Weight Weight [ ] Input and Output Intake and Output Intake and Output 02/28/17 07:00 Intake Total 1130 ml Output Total 1920 ml Balance -790 ml Intake Oral 1130 ml Output Urine Total 1920 ml Laboratory Labs Laboratory Tests Test 02/27/17 12:35 02/27/17 14:35 02/28/17 05:05 Troponin I Quantitative < 0.017ng/mL (0.000-0.055) Urine Collection Type Unknown Urine Color Yellow Urine Clarity Clear Urine pH 5.0 Urine Specific [place] 1.010 Urine Protein Negativemg/dL (NEG-TRACE) Urine Glucose (UA) Negativemg/dL (NEG) Urine Ketones (Stick) Negativemg/dL (NEG) Urine Blood Negative (NEG) Urine Nitrite Negative (NEG) Urine Bilirubin Negative (NEG) Urine Urobilinogen Dipstick 0.2mg/dL (0.2 mg/dL) Urine Leukocyte Esterase Negative (NEG) Urine RBC 0/HPF (0-2) Urine WBC 0/HPF (0-4) Urine Squamous Epithelial Cells Few/LPF Urine Bacteria 0/HPF (0-FEW) Urine Hyaline Casts Moderate/HPF Urine Mucus Slight/LPF Sodium Level 145mmol/L (136-145) Potassium Level 4.4mmol/L (3.5-5.1) Chloride Level 107mmol/L (98-107) Carbon Dioxide Level 31mmol/L (21-32) Anion Gap 7 (6-14) Blood Urea Nitrogen 17mg/dL (7-20) Creatinine 0.9mg/dL (0.6-1.0) Estimated GFR (Cockcroft-Gault) 63.0 Glucose Level 100mg/dL (70-99) Calcium Level 9.1mg/dL (8.5-10.1) Triglycerides Level 92mg/dL (0-150) Cholesterol Level 183mg/dL (0-200) LDL Cholesterol, Calculated 123mg/dL (0-100) VLDL Cholesterol, Calculated 18mg/dL (0-40) HDL Cholesterol 42mg/dL (40-60) Cholesterol/HDL Ratio 4.4 Physical Exam HEENT: Neck Supple W Full Motion Chest: Symmetric LUNGS: Clear to Auscultation Heart: S1S2, RRR, other (tele: SR with intermittent pacing) Abdomen: Soft N/T Extremities: 2+ Dorsalis Pedis, No Edema, No Calf Tenderness Neurology: alert, oriented, follow commands Assessment Assessment 1. Mild acute on chronic diastolic heart failure with a history of NICM LV improved; 10/11 echo with EF of 50% compensated; continue with routine oral Bumex- compliance and weight monitor discussed may discharge from CV standpoint and f/u in our office in 4-6 weeks 2. Dyspnea multifactorial given URI/bronchitis and diastolic HF resolved. cough persists- treatment per PCP 3. Hypertension controlled with meds 4. Hyperlipidemia LDL 123 allergy to statins lifestyle/dietary modification 5. h/o ventricular arrhythmia continue rate control agents 6. SSS s/p Biotronik PPM device interrogation with normal device function 7. NURY with home CPAP 8. Hypothyroidism on replacement therapy per PCP MEGHAN ENNIS APRN Feb 28, 2017 09:52
== END 2017-02-28 13:20 | disposition home or self-care (01) | DRG 292 ==
LOC: ER 22:56 → 2 SOUTH 02-27 00:33
PROVIDERS: ADMIT Family Medicine; ATTEND Family Medicine
DX: I50.43 Acute on chronic combined systolic (congestive) and diastolic (congestive) heart failure (principal); I42.8 Other cardiomyopathies; J20.9 Acute bronchitis, unspecified; E03.9 Hypothyroidism, unspecified; E78.5 Hyperlipidemia, unspecified; E74.39 Other disorders of intestinal carbohydrate absorption; K21.9 Gastro-esophageal reflux disease without esophagitis; G47.33 Obstructive sleep apnea (adult) (pediatric); I11.0 Hypertensive heart disease with heart failure; I48.91 Unspecified atrial fibrillation; I49.5 Sick sinus syndrome; J01.90 Acute sinusitis, unspecified; J30.9 Allergic rhinitis, unspecified; M19.90 Unspecified osteoarthritis, unspecified site; R33.9 Retention of urine, unspecified; Z80.1 Family history of malignant neoplasm of trachea, bronchus and lung; Z87.442 Personal history of urinary calculi; Z95.0 Presence of cardiac pacemaker; Z83.3 Family history of diabetes mellitus; Z88.6 Allergy status to analgesic agent; Z88.8 Allergy status to other drugs, medicaments and biological substances; Z79.899 Other long term (current) drug therapy
CPT/HCPCS: 36415; 71020; 80048; 80061; 81001; 83036; 83880; 84439; 84443; 84484; 85027; 93005; 96374; J1940; 99285-25

== ENCOUNTER → 2017-11-22 | Outpatient (CLI) | payer BC ==
[2017-11-22 12:26] LABS: BILIRUBIN,URINE NEGATIVE (NEG); GLUCOSE,URINE NEGATIVE (NEG); HEMATOCRIT 39.2 % (36.0-47.0); HEMOGLOBIN 12.9 g/dL (12.0-15.5); MEAN CORPUSCULAR HEMOGLOBIN 28 pg (25-35); MEAN CORPUSCULAR HGB CONC 33 g/dL (31-37); MEAN CORPUSCULAR VOLUME 85 fL (79-100); NITRITE,URINE NEGATIVE (NEG); PLATELET COUNT 323 x10^3/uL (140-400); PROTEIN,URINE NEGATIVE (NEG-TRACE); RED BLOOD COUNT 4.62 x10^6/uL (3.50-5.40); RED CELL DISTRIBUTION WIDTH 14.9 % (11.5-14.5); UROBILINOGEN,URINE 0.2 mg/dL (0.2 mg/dL); WHITE BLOOD COUNT 7.9 x10^3/uL (4.0-11.0)
[2017-11-22 12:47] LABS: ANION GAP 9 (6-14); BLOOD UREA NITROGEN 15 mg/dL (7-20); CALCIUM 8.7 mg/dL (8.5-10.1); CARBON DIOXIDE 28 mmol/L (21-32); CHLORIDE 105 mmol/L (98-107); CHOLESTEROL 209 mg/dL (0-200); CREATININE 0.8 mg/dL (0.6-1.0); GLUCOSE 88 mg/dL (70-99); HDLC 62 mg/dL (40-60); NON-HDL CHOLESTEROL 147 mg/dL (0-129); POTASSIUM 4.1 mmol/L (3.5-5.1); SODIUM 142 mmol/L (136-145); TRIGLYCERIDES 68 mg/dL (0-150)
[2017-11-22 12:48] LABS: CHOLESTEROL/HDL RATIO 3.4
[2017-11-22 12:54] LABS: BACTERIA,URINE 0 /HPF (0-FEW); RBC,URINE 0 /HPF (0-2); WBC,URINE 0 /HPF (0-4)
== END | disposition home or self-care (01) ==
LOC: LAB 11:45
DX: I10 Essential (primary) hypertension (principal); E03.9 Hypothyroidism, unspecified
CPT/HCPCS: 36415; 80048; 80061; 81001; 84443; 85027

== ENCOUNTER → 2018-07-18 | Outpatient (CLI) | payer OTHER ==
[~2018-07-18] MED LIST changes: +AMOX1TAB61 PO; +ASPI-630 PO; -ASPI81TA2 PO; +CETI10TA16 PO; +FLUO20CA8 PO; +FLUT16SP NS; -HYDR-2666 PO; +HYDR-2758 PO; +LEVO100T5 PO; +LEVO112T4 PO; +NAPR-695 PO; -NAPR375T3 PO
--- NOTE | 2018-07-18 12:43 | CARD ---
MR#: [id number] Date of Study: 07/18/2018 Ordering Physician: TERRY FLORES, Referring Physician: TERRY FLORES, Tech: Jes Cowart JAZMYNE APPROVED REPORT EXAM: Two-dimensional and M-mode echocardiogram with Doppler and color Doppler. Other Information Quality : Good INDICATION Cardiomyopathy Surgery/Intervention Pacemaker: 2D DIMENSIONS RVDd2.9 (2.9-3.5cm)Left Atrium(2D)5.1 (1.6-4.0cm) IVSd1.1 (0.7-1.1cm)Aortic Root(2D)2.8 (2.0-3.7cm) LVDd5.2 (3.9-5.9cm)LVOT Diameter2.2 (1.8-2.4cm) PWd1.1 (0.7-1.1cm)LVDs2.5 (2.5-4.0cm) FS (%) 30.0 %SV105.5 ml LVEF(%)60.0 (>50%) Aortic Valve AoV Peak Tre.139.0cm/sAoV VTI26.1cm AO Peak GR.7.7mmHgLVOT Peak Tre.94.1cm/s AO Mean GR.5mmHgAVA (VMAX)2.55cm2 GALE (VTI)2.50cm2 Mitral Valve MV E Maczfoya46.1cm/sMV DECEL PWUD403bz MV A Ypwckgwj47.0cm/sE/A Ratio0.6 Tricuspid Valve TR P. Kczgjvyp807bk/sRAP DAMRIDAQ0bgCs TR Peak Gr.99ilSmRUTY41kpGe Pulmonary Vein S1 Kqiddext04.4cm/sD2 Fzhcpnmm47.1cm/s LEFT VENTRICLE The left ventricle is normal size. There is normal left ventricular wall thickness. The left ventricu lar systolic function is normal and the ejection fraction is within normal range. The Ejection Fracti on is 55-60%. There is normal LV segmental wall motion. Transmitral Doppler flow pattern is Grade I-a bnormal relaxation pattern. RIGHT VENTRICLE The right ventricle is normal size. The right ventricular systolic function is normal. There is a dev ice lead in the right ventricle. ATRIA The left atrium is mildly to moderately dilated. The right atrium size is normal. A device lead is se en in the right atrium consistent with history. The interatrial septum is intact with no evidence for an atrial septal defect or patent foramen ovale as noted on 2-D or Doppler imaging. AORTIC VALVE The aortic valve is calcified but opens well. Doppler and Color Flow revealed no significant aortic r egurgitation. There is no significant aortic valvular stenosis. MITRAL VALVE The mitral valve is normal in structure. There is no evidence of mitral valve prolapse. There is no m itral valve stenosis. Doppler and Color-flow revealed trace mitral regurgitation. TRICUSPID VALVE The tricuspid valve is normal in structure and function. Doppler and Color Flow revealed mild tricusp id regurgitation. There is mild pulmonary hypertension. The PA pressure was estimated at 38 mmHg. The re is no tricuspid valve stenosis. PULMONIC VALVE The pulmonic valve is not well visualized. Doppler and Color Flow revealed trace to mild pulmonic ayleen vular regurgitation. There is no pulmonic valvular stenosis. GREAT VESSELS The aortic root is normal in size. The ascending aorta is mildly dilated at 3.5 cm. The IVC is normal in size and collapses >50% with inspiration. PERICARDIAL EFFUSION There is no evidence of significant pericardial effusion. Critical Notification Critical Value: No <Conclusion> The left ventricle is normal size. The left ventricular systolic function is normal and the ejection fraction is within normal range. The Ejection Fraction is 55-60%. There is a device lead in the right ventricle. The right atrium size is normal. A device lead is seen in the right atrium consistent with history. There is no significant aortic valvular stenosis. Doppler and Color Flow revealed no significant aortic regurgitation. Doppler and Color-flow revealed trace mitral regurgitation. Doppler and Color Flow revealed mild tricuspid regurgitation. There is mild pulmonary hypertension. The PA pressure was estimated at 38 mmHg. The ascending aorta is mildly dilated at 3.5 cm. Signed by : Terry Flores MD Electronically Approved : 07/18/2018 12:43:06
== END | disposition home or self-care (01) ==
LOC: ECHO 10:24
PROVIDERS: ATTEND Internal Medicine Cardiovascular Disease
DX: I07.1 Rheumatic tricuspid insufficiency (principal); I27.20 Pulmonary hypertension, unspecified; I11.0 Hypertensive heart disease with heart failure; I50.43 Acute on chronic combined systolic (congestive) and diastolic (congestive) heart failure; E11.9 Type 2 diabetes mellitus without complications; E78.5 Hyperlipidemia, unspecified; F32.9 Major depressive disorder, single episode, unspecified; E03.9 Hypothyroidism, unspecified; J44.9 Chronic obstructive pulmonary disease, unspecified; M19.90 Unspecified osteoarthritis, unspecified site; I48.91 Unspecified atrial fibrillation; K21.9 Gastro-esophageal reflux disease without esophagitis; E66.9 Obesity, unspecified; Z95.0 Presence of cardiac pacemaker; Z87.442 Personal history of urinary calculi; Z79.82 Long term (current) use of aspirin; Z80.1 Family history of malignant neoplasm of trachea, bronchus and lung; Z83.3 Family history of diabetes mellitus; Z88.0 Allergy status to penicillin; Z88.1 Allergy status to other antibiotic agents; Z88.8 Allergy status to other drugs, medicaments and biological substances; Z88.5 Allergy status to narcotic agent; Z88.6 Allergy status to analgesic agent
CPT/HCPCS: 93306

== ENCOUNTER 2019-04-16 21:13 | Observation (INO) | payer BC, MEDICARE ==
[~2019-04-16] VITALS: Ht 154.9 cm; Wt 110.8 kg
[~2019-04-16 21:13] MED LIST changes: -BUME1TAB PO; +BUME1TAB3 PO; +CARV6.2511 PO; -CARV6.252 PO; -HYDR-2758 PO; +HYDR-2761 PO
[2019-04-16] MEDS ORDERED: FAMOTIDINE 20 MG/2 ML VIAL IVP ONE (22:00)
[2019-04-16] MEDS ORDERED: methylPREDNISolone SOD SUCC PF 125 MG/2 ML VIAL. IV ONE (22:00)
[2019-04-16] MEDS ORDERED: diphenhydrAMINE 50 MG/ML VIAL IVP ONE (22:00)
[2019-04-16 22:15] LABS: BASO # 0.2 x10^3/uL (0.0-0.2); BASO % 1 % (0-3); EOS # 0.2 x10^3/uL (0.0-0.7); EOS % 1 % (0-3); HEMATOCRIT 35.5 % (36.0-47.0); HEMOGLOBIN 11.4 g/dL (12.0-15.5); LYMPH # 3.6 x10^3/uL (1.0-4.8); LYMPH % 27 % (24-48); MEAN CORPUSCULAR HEMOGLOBIN 27 pg (25-35); MEAN CORPUSCULAR HGB CONC 32 g/dL (31-37); MEAN CORPUSCULAR VOLUME 85 fL (79-100); MONO # 1.1 x10^3/uL (0.0-1.1); MONO % 8 % (0-9); NEUT # 8.3 x10^3uL (1.8-7.7); NEUT % 63 % (31-73); PLATELET COUNT 318 x10^3/uL (140-400); RED CELL DISTRIBUTION WIDTH 15.8 % (11.5-14.5); WHITE BLOOD COUNT 13.3 x10^3/uL (4.0-11.0)
[2019-04-16 22:24] LABS: CALCIUM 8.7 mg/dL (8.5-10.1); CREATININE 1.2 mg/dL (0.6-1.0); GFR 44.9; POTASSIUM 3.8 mmol/L (3.5-5.1)
[2019-04-16 22:31] LABS: ALBUMIN 3.3 g/dL (3.4-5.0); ALBUMIN/GLOBULIN RATIO 0.9 (1.0-1.7); TOTAL BILIRUBIN 0.3 mg/dL (0.2-1.0); TOTAL PROTEIN 6.8 g/dL (6.4-8.2)
[2019-04-16] MEDS ORDERED: IV NORMAL SALINE 1000ML BAG 1,000 ML IV ONE (23:00)
[2019-04-16] MEDS ORDERED: CLINDAMYCIN 900MG PREMIX 50 ML IV ONE (23:00)
--- NOTE | 2019-04-16 23:09 | PHYS DOC ---
Past Medical History Past Medical History: CHF, Hypertension, Other Additional Past Medical Histor: CARDIOMYOPATHY, SEVERE SLEEP APNEA, SPINAL P ROBLEMS Past Surgical History: Pacemaker, Other Additional Past Surgical Histo: HERNIA REPAIR, pacemaker Alcohol Use: None Drug Use: None Adult General Chief Complaint Chief Complaint: DIZZY/LIGHT HEADED HPI HPI Patient is a 68-year-old female who presents with complaint of acute onset of swelling in her neck that started just a couple of hours ago. Patient states that she has pain when she swallows in her neck. She denies any fever. Patient does indicate that she is on an JUANA inhibitor. She denies having had any history of allergic reaction to JUANA inhibitor in the past however. She denies any fever, nausea or vomiting.[] Review of Systems Review of Systems Constitutional: Denies fever or chills [] HENT: Denies nasal congestion. Positive mouth pain and painful swallowing. [] Respiratory: Denies cough or shortness of breath [] Cardiovascular: No additional information not addressed in HPI [] GI: Denies abdominal pain, nausea, vomiting or diarrhea [] Integument: Redness, tenderness and swelling noted below the chin, extending into the neck.[] Neurologic: Denies headache, focal weakness or sensory changes [] All other systems were reviewed and found to be within normal limits, except as documented in this note. Current Medications Current Medications Current Medications Medications (Trade) Dose Ordered Sig/Anuj Start Time Stop Time Status Last Admin Dose Admin Clindamycin Phosphate 50 ml @ 100 mls/hr 1X ONCE 04/16/19 23:00 04/16/19 23:29 DC 04/16/19 23:04 100 MLS/HR Diphenhydramine HCl (Benadryl) 50 mg 1X ONCE 04/16/19 22:00 04/16/19 22:01 DC 04/16/19 22:18 50 MG Famotidine (Pepcid Vial) 20 mg 1X ONCE 04/16/19 22:00 04/16/19 22:01 DC 04/16/19 22:12 20 MG Methylprednisolone Sodium Succinate (SOLU-Medrol 125MG VIAL) 125 mg 1X ONCE 04/16/19 22:00 04/16/19 22:01 DC 04/16/19 22:16 125 MG Sodium Chloride 1,000 ml @ 125 mls/hr 1X ONCE 04/16/19 23:00 04/17/19 06:59 04/16/19 23:03 125 MLS/HR Allergies Allergies Allergies Coded Allergies Type Severity Reaction Last Updated Verified atorvastatin Allergy Intermediate 02/26/17 Yes codeine Allergy Intermediate 10/02/16 Yes erythromycin base Allergy Intermediate 08/25/15 Yes Physical Exam Physical Exam Constitutional: Well developed, well nourished, no acute distress, non-toxic appearance. [] HENT: Normocephalic, atraumatic, bilateral external ears normal, oropharynx moist, no oral exudates, nose normal. [] Eyes: PERRLA, EOMI, conjunctiva normal, no discharge. [] Neck: Normal range of motion, mild erythema is noted to the neck just below the chin with soft tissue swelling and tenderness. [] Cardiovascular: Regular rate and rhythm[] Lungs & Thorax: Bilateral breath sounds clear to auscultation [] Abdomen: Bowel sounds normal, soft, no tenderness. [] Skin: Warm, dry. There is erythema and soft tissue swelling in the neck just below the chin with induration. [] Extremities: No tenderness, no cyanosis, no clubbing, ROM intact. [] Neurologic: Alert and oriented X 3, no focal deficits noted. [] Current Patient Data Vital Signs Vital Signs Date Time Temp Pulse Resp B/P (MAP) Pulse Ox O2 Delivery O2 Flow Rate FiO2 04/16/19 23:41 79 20 97 04/16/19 21:35 97.9 145/79 (101) Room Air 97.9 Lab Values Laboratory Tests Test 04/16/19 22:05 White Blood Count 13.3 x10^3/uL (4.0-11.0) H Red Blood Count 4.20 x10^6/uL (3.50-5.40) Hemoglobin 11.4 g/dL (12.0-15.5) L Hematocrit 35.5 % (36.0-47.0) L Mean Corpuscular Volume 85 fL (79-100) Mean Corpuscular Hemoglobin 27 pg (25-35) Mean Corpuscular Hemoglobin Concent 32 g/dL (31-37) Red Cell Distribution Width 15.8 % (11.5-14.5) H Platelet Count 318 x10^3/uL (140-400) Neutrophils (%) (Auto) 63 % (31-73) Lymphocytes (%) (Auto) 27 % (24-48) Monocytes (%) (Auto) 8 % (0-9) Eosinophils (%) (Auto) 1 % (0-3) Basophils (%) (Auto) 1 % (0-3) Neutrophils # (Auto) 8.3 x10^3uL (1.8-7.7) H Lymphocytes # (Auto) 3.6 x10^3/uL (1.0-4.8) Monocytes # (Auto) 1.1 x10^3/uL (0.0-1.1) Eosinophils # (Auto) 0.2 x10^3/uL (0.0-0.7) Basophils # (Auto) 0.2 x10^3/uL (0.0-0.2) Sodium Level 145 mmol/L (136-145) Potassium Level 3.8 mmol/L (3.5-5.1) Chloride Level 106 mmol/L (98-107) Carbon Dioxide Level 30 mmol/L (21-32) Anion Gap 9 (6-14) Blood Urea Nitrogen 18 mg/dL (7-20) Creatinine 1.2 mg/dL (0.6-1.0) H Estimated GFR (Cockcroft-Gault) 44.9 BUN/Creatinine Ratio 15 (6-20) Glucose Level 83 mg/dL (70-99) Calcium Level 8.7 mg/dL (8.5-10.1) Total Bilirubin 0.3 mg/dL (0.2-1.0) Aspartate Amino Transferase (AST) 14 U/L (15-37) L Alanine Aminotransferase (ALT) 19 U/L (14-59) Alkaline Phosphatase 101 U/L (46-116) Total Protein 6.8 g/dL (6.4-8.2) Albumin 3.3 g/dL (3.4-5.0) L Albumin/Globulin Ratio 0.9 (1.0-1.7) L Laboratory Tests 04/16/19 22:05 Laboratory Tests 04/16/19 22:05 EKG EKG [] Radiology/Procedures Radiology/Procedures [] Impressions: CT SOFT TISSUE NECK WO CONTRST dated 04/16/2019 10:58 PM Indication: Sudden onset of anterior neck swelling possible Ludwigs angina., Pain. Comparison: No comparison is available. Technique: Contiguous axial imaging of the neck performed without the administration of intravenous contrast. One or more of the following individualized dose reduction techniques were utilized for this examination: 1. Automated exposure control 2. Adjustment of the mA and/or kV according to patient size 3. Use of iterative reconstruction technique Findings: There is focal inflammatory stranding surrounding the right submandibular gland which is asymmetrically enlarged compared to the left side. There is no definite calcific stone along the course of Phuc's duct. There may be slight dilation of [place] duct at the tongue base relative to the left side. No significant edema within the muscles on the floor the mouth. No focal fluid collection or soft tissue gas. The airway does not appear to be narrowed the parapharyngeal fat planes are preserved. There are borderline enlarged bilateral submandibular and cervical chain lymph nodes measuring up to 12 mm long axis. Thyroid gland is unremarkable. Parotid glands are unremarkable. Paranasal sinuses are clear. Imaged portions the brain parenchyma unremarkable. Limited images of the lung apices are clear. No acute bony abnormality. Multilevel spondylosis. IMPRESSION: 1. Inflammatory stranding surrounding the right submandibular gland which is asymmetrically enlarged relative to the left side, suggesting acute sialadenitis. There is no definite calcific stone along the course of [place]'s duct. Consider infectious or inflammatory causes of adenitis. 2. No significant edema at the floor the mouth. No evidence of abscess. 3. Borderline enlarged bilateral cervical chain lymph nodes, nonspecific. Electronically signed by: Darío Lopez MD (04/16/2019 11:27 PM) [facility] DICTATED and SIGNED BY: DARÍO LOPEZ MD DATE: 04/16/19 926 Course & Med Decision Making Course & Med Decision Making Pertinent Labs and Imaging studies reviewed. (See chart for details) [] Dragon Disclaimer Dragon Disclaimer This electronic medical record was generated, in whole or in part, using a voice recognition dictation system. Departure Departure Impression: Primary Impression: Cristhian's angina Disposition: ADMITTED INPATIENT Admitting Physician: Darío Lyn Condition: IMPROVED Referrals: AMANDEEP CASTELLON MD (PCP) MENG HILL Jr. DO April 16, 2019 23:09
--- NOTE | 2019-04-16 23:30 | RAD ---
CT SOFT TISSUE NECK WO CONTRST dated 04/16/2019 10:58 PM Indication: Sudden onset of anterior neck swelling possible Ludwigs angina., Pain. Comparison: No comparison is available. Technique: Contiguous axial imaging of the neck performed without the administration of intravenous contrast. One or more of the following individualized dose reduction techniques were utilized for this examination: 1. Automated exposure control 2. Adjustment of the mA and/or kV according to patient size 3. Use of iterative reconstruction technique Findings: There is focal inflammatory stranding surrounding the right submandibular gland which is asymmetrically enlarged compared to the left side. There is no definite calcific stone along the course of [place]'s duct. There may be slight dilation of Phuc duct at the tongue base relative to the left side. No significant edema within the muscles on the floor the mouth. No focal fluid collection or soft tissue gas. The airway does not appear to be narrowed the parapharyngeal fat planes are preserved. There are borderline enlarged bilateral submandibular and cervical chain lymph nodes measuring up to 12 mm long axis. Thyroid gland is unremarkable. Parotid glands are unremarkable. Paranasal sinuses are clear. Imaged portions the brain parenchyma unremarkable. Limited images of the lung apices are clear. No acute bony abnormality. Multilevel spondylosis. IMPRESSION: 1. Inflammatory stranding surrounding the right submandibular gland which is asymmetrically enlarged relative to the left side, suggesting acute sialadenitis. There is no definite calcific stone along the course of Phuc's duct. Consider infectious or inflammatory causes of adenitis. 2. No significant edema at the floor the mouth. No evidence of abscess. 3. Borderline enlarged bilateral cervical chain lymph nodes, nonspecific. Electronically signed by: Darío Lopez MD (04/16/2019 11:27 PM) [facility]
[2019-04-17] MEDS ORDERED: ACETAMINOPHEN 325 MG TABLET. PO PRN (00:15)
[2019-04-17] MEDS ORDERED: ONDANSETRON PF 4 MG/2 ML VIAL. IV PRN (00:15)
[2019-04-17] MEDS ORDERED: METO25TA4 PO (02:07)
[2019-04-17] MEDS ORDERED: METO50TA6 PO (02:07)
[2019-04-17] MEDS ORDERED: HYDR-2765 PO (02:14)
[2019-04-17] MEDS ORDERED: HYDR12.58 PO (02:14)
[2019-04-17] MEDS ORDERED: MULT1TAB52 PO (02:14)
[2019-04-17] MEDS ORDERED: FLUO20CA8 PO (02:14)
[2019-04-17] MEDS ORDERED: LORA10TA68 PO (02:14)
[2019-04-17] MEDS ORDERED: IBUP-1060 PO (02:14)
[2019-04-17] MEDS ORDERED: FURO20TA3 PO (02:14)
[2019-04-17 02:45] VITALS: BP 147/80
--- NOTE | 2019-04-17 06:52 | EKG ---
[facility] [address] [place] [address] Test Date: 2019-04-16 Test Time: 21:36:27 Pat Name: SUGAR BAKER Department: Room: Gender: F Patient Registration Rep: : [id number] Requested By: MENG HILL Order Number: [id number] Reading MD: Measurements Intervals [place] Rate: 69 P: 49 GA: 160 QRS: -8 QRSD: 110 T: 20 QT: 398 QTc: 428 Interpretive Statements SINUS RHYTHM VENTRICULAR PREMATURE COMPLEX(ES) LEFT ATRIAL ABNORMALITY LEFTWARD AXIS T ABNORMALITY IN HIGH LATERAL LEADS ABNORMAL ECG RI6.01 Unconfirmed report No previous ECG available for comparison
[2019-04-17 07:47] VITALS: BP 129/69
[2019-04-17 11:21] VITALS: BP 128/60
[2019-04-17] MEDS ORDERED: HYDROcodone/APAP 7.5/325MG 1 TAB TABLET PO PRN (11:45)
[2019-04-17] MEDS ORDERED: AMOX1TAB61 PO (11:49)
[2019-04-17] MEDS ORDERED: PRED-220 PO (11:49)
[2019-04-17] MEDS ORDERED: AMOXICILLIN/K CLAV 875/125MG TABLET. PO SCH (12:00)
[2019-04-17] MEDS ORDERED: IBUPROFEN 400 MG TABLET. PO PRN (12:00)
[2019-04-17] MEDS ORDERED: predniSONE 20 MG TABLET PO ONE (12:00)
[2019-04-17] MEDS ORDERED: CETIRIZINE HCL 10 MG TABLET. PO SCH (12:00)
[2019-04-17] MEDS ORDERED: MULTIVITAMIN with MINERAL TABLET. PO SCH (12:00)
[2019-04-17] MEDS ORDERED: LEVOTHYROXINE 112 MCG TABLET PO SCH (12:00)
[2019-04-17] MEDS ORDERED: ASPIRIN CHEWABLE 81 MG TABLET. PO SCH (12:00)
[2019-04-17] MEDS ORDERED: hydroCHLOROthiazide 12.5 MG CAPSULE PO SCH (12:00)
[2019-04-17] MEDS ORDERED: METOPROLOL TART IMMED RELEASE 25 MG TABLET. PO SCH (12:00)
[2019-04-17] MEDS ORDERED: POTASSIUM CHLORIDE 20 MEQ TABLET.ER. PO SCH (12:00)
[2019-04-17] MEDS ORDERED: FLUoxetine HCL 20 MG CAPSULE PO SCH (12:00)
[2019-04-17] MEDS ORDERED: PANTOPRAZOLE 40 MG TABLET.DR. PO SCH (12:00)
[2019-04-17] MEDS ORDERED: LISINOPRIL 20 MG TABLET PO SCH (12:00)
--- NOTE | 2019-04-17 12:02 | SSS ---
ADMIT DATE: ADMITTING DIAGNOSIS: Cristhian angina. DISMISSAL DIAGNOSIS: Right salivary gland cellulitis. HISTORY OF PRESENT ILLNESS AND HOSPITAL COURSE: The patient is a 68-year-old female who states she was having dinner and began feeling pain and swelling under her right jaw. She noticed an enlarging mass and pain became persistent. She came to the Emergency Room and x-ray confirmed evidence of inflammation and physical findings confirmed evidence of a mass, which was extraordinarily tender with no fluctuance, concerns of airway compromise were entertained and the patient was admitted for observation, IV antibiotics and IV steroids. Within 12 hours, the patient improved to the point she was able to tolerate diet and had much decreased pain, but continued to have evidence of mass and infection. The patient was transitioned to p.o. medications and was placed on a steroid taper and plans for discharge to home were made. The patient will be excused from work for 3-4 days to recover and told to return to the hospital if increasing symptoms occur or airway issues began. PAST MEDICAL HISTORY: Significant for: 1. Hypothyroidism. 2. Hypertension. 3. High cholesterol. 4. Prediabetes. 5. Morbid obesity. 6. Nonischemic cardiomyopathy with history of ejection fraction of 25%. 7. Sick sinus syndrome with pacer. 8. Esophageal reflux disease. 9. Obstructive sleep apnea. 10. Major depression. 11. Hyperlipidemia. PAST SURGICAL HISTORY: Significant for cardiac catheterization, hernia repair and pacemaker placement. FAMILY HISTORY: Significant for mother who is with lung cancer complications. Father who is with Hodgkin's lymphoma. The patient's brother has type 2 diabetes. SOCIAL HISTORY: The patient has never smoked. She lives with her daughter and son-in-law. She has never used alcohol. ALLERGIES: The patient exhibits ALLERGIES to CODEINE, ERYTHROMYCIN and ATORVASTATIN. REVIEW OF SYSTEMS: The patient was doing well until recent episode of pain and swelling under the right jaw and in neck. She does state that several weeks ago to approximately one month ago, she did have a spider bite in her mouth and also some dental work were planned to be done due to poor dentition. The patient denies nausea, vomiting, fever, cough, congestion, diarrhea or weight gain or weight loss, fever or chills. PHYSICAL EXAMINATION: GENERAL: This is a morbidly obese, female who is alert and oriented x 3. HEENT: Revealed tenderness in the right anterior cervical area with a large 3 x 4 cm mass, which was not fluctuant, but tender to palpation in the right neck. She had no evidence of stridor and no evidence of dysphagia. CARDIAC: Regular rate and rhythm. LUNGS: Clear. ABDOMEN: Soft, nontender, without masses. EXTREMITIES: 2+ pulses without significant edema. NEUROLOGIC: Showed no unilateral findings. ASSESSMENT: Submandibular cellulitis on right. PLAN: To proceed with p.o. antibiotics, p.o. steroids. Continue chronic medications. Discharge the patient if stable and tolerating diet and follow up in the office in 1 week. Give work excuse until 04/21/2019, and told to return to Emergency Room if increasing swelling or pain occur or shortness of breath occur. EWA BOSCH MD DR: FANI/fredo JOB#: [id number] / [id number]
[2019-04-17] MEDS ORDERED: FUROSEMIDE 20 MG TABLET PO SCH (14:00)
[2019-04-17 14:39] VITALS: BP 124/40
[2019-04-17] MEDS ORDERED: METOPROLOL TART IMMED RELEASE 50 MG TABLET. PO SCH (21:00)
== END 2019-04-17 16:29 | disposition home or self-care (01) ==
LOC: ER 21:13 → 6 SOUTH 04-17 00:23 → INTOOBSV 04-17 00:23
PROVIDERS: ADMIT Family Medicine; ATTEND Family Medicine
DX: K12.2 Cellulitis and abscess of mouth (principal); I49.5 Sick sinus syndrome; E03.9 Hypothyroidism, unspecified; E78.00 Pure hypercholesterolemia, unspecified; E66.01 Morbid (severe) obesity due to excess calories; F32.9 Major depressive disorder, single episode, unspecified; E78.5 Hyperlipidemia, unspecified; Z98.890 Other specified postprocedural states; Z80.1 Family history of malignant neoplasm of trachea, bronchus and lung; Z80.7 Family history of other malignant neoplasms of lymphoid, hematopoietic and related tissues; Z83.3 Family history of diabetes mellitus; Z95.0 Presence of cardiac pacemaker; I42.9 Cardiomyopathy, unspecified; I11.0 Hypertensive heart disease with heart failure; I50.9 Heart failure, unspecified; G47.33 Obstructive sleep apnea (adult) (pediatric); K21.9 Gastro-esophageal reflux disease without esophagitis; R73.03 Prediabetes
CPT/HCPCS: 36415; 70490; 80053; 85025; 93005; 96365; 96375; 99284; G0378; J1200; J2930; J3490; J7030; J7512; G0379; 99285-25

== ENCOUNTER 2019-08-19 21:18 | Emergency (ER) | payer BC, MEDICARE ==
[~2019-08-19] VITALS: Ht 154.9 cm; Wt 104.3 kg
[~2019-08-19 21:18] MED LIST changes: +HYDR-2765 PO; +HYDR12.58 PO; +IBUP-1060 PO; +LORA10TA68 PO; +METO50TA6 PO; +MULT1TAB52 PO; -PANT40TA5 PO; +PANT40TA77 PO; +PRED-220 PO
--- NOTE | 2019-08-19 22:14 | PHYS DOC ---
Past Medical History Past Medical History: Other Additional Past Medical Histor: Ludwigs Angina Past Surgical History: Pacemaker, Other Additional Past Surgical Histo: HERNIA REPAIR, pacemaker Alcohol Use: None Drug Use: None Adult General Chief Complaint Chief Complaint: Neck Pain HPI HPI 68-year-old female presents to the emergency department with complaints of redness to her neck under her chin, pain, swelling. Patient's family history of hypertension, congestive heart failure, pacemaker she denies any nausea, vomiting. She does describe pain in her oral mucosa on the left as well as occasional fever. She has a history of Cristhian angina in the past. Patient states nothing makes her pain worse, nothing makes it better. She is nondiabetic. Review of Systems Review of Systems Constitutional: intermittent fever Eyes: Denies change in visual acuity, redness, or eye pain [] HENT: pain in oral mucosa Respiratory: Denies cough or shortness of breath [] Cardiovascular: No additional information not addressed in HPI [] GI: Denies abdominal pain, nausea, vomiting, bloody stools or diarrhea [] Neurologic: Denies headache, focal weakness or sensory changes [] All other systems were reviewed and found to be within normal limits, except as documented in this note. Current Medications Current Medications Current Medications Medications (Trade) Dose Ordered Sig/Anuj Start Time Stop Time Status Last Admin Dose Admin Info (CONTRAST GIVEN -- Rx MONITORING) 1 each PRN DAILY PRN 08/19/19 23:30 08/21/19 23:29 Iohexol (Omnipaque 300 Mg/ml) 60 ml 1X ONCE 08/19/19 23:30 08/19/19 23:31 DC 08/19/19 23:28 60 ML Sodium Chloride 1,000 ml @ 1,000 mls/hr 1X ONCE 08/20/19 00:00 08/20/19 00:59 Vancomycin HCl 250 ml @ 250 mls/hr 1X ONCE 08/19/19 22:15 08/19/19 23:14 DC 08/19/19 23:10 250 MLS/HR Allergies Allergies Allergies Coded Allergies Type Severity Reaction Last Updated Verified atorvastatin Allergy Intermediate 02/26/17 Yes codeine Allergy Intermediate 10/02/16 Yes erythromycin base Allergy Intermediate 08/25/15 Yes pitavastatin Adverse Reaction Mild nausea 08/19/19 Yes Physical Exam Physical Exam Constitutional: Well developed, well nourished, no acute distress, non-toxic appearance. [] HENT: Normocephalic, atraumatic, bilateral external ears normal, oropharynx moist, no oral exudates, nose normal. [] Neck: Normal range of motion, no tenderness, supple, no stridor. cellulitis appreciated to submandibular area, TTP Cardiovascular:Heart rate regular rhythm, no murmur [] Lungs & Thorax: Bilateral breath sounds clear to auscultation [] Abdomen: Bowel sounds normal, soft, no tenderness, no masses, no pulsatile masses. [] Skin: Warm, dry, no erythema, no rash - see above Extremities: No tenderness, no edema. [] Neurologic: Alert and oriented X 3, no focal deficits noted. [] Psychologic: Affect normal, judgement normal, mood normal. [] Current Patient Data Vital Signs Vital Signs Date Time Temp Pulse Resp B/P (MAP) Pulse Ox O2 Delivery O2 Flow Rate FiO2 08/19/19 23:11 68 14 120/59 (79) 96 Room Air 08/19/19 21:38 98.5 98.5 Lab Values Laboratory Tests Test 08/19/19 22:55 White Blood Count 10.2 x10^3/uL (4.0-11.0) Red Blood Count 4.23 x10^6/uL (3.50-5.40) Hemoglobin 12.1 g/dL (12.0-15.5) Hematocrit 36.7 % (36.0-47.0) Mean Corpuscular Volume 87 fL (79-100) Mean Corpuscular Hemoglobin 29 pg (25-35) Mean Corpuscular Hemoglobin Concent 33 g/dL (31-37) Red Cell Distribution Width 15.2 % (11.5-14.5) H Platelet Count 299 x10^3/uL (140-400) Neutrophils (%) (Auto) 63 % (31-73) Lymphocytes (%) (Auto) 29 % (24-48) Monocytes (%) (Auto) 6 % (0-9) Eosinophils (%) (Auto) 2 % (0-3) Basophils (%) (Auto) 1 % (0-3) Neutrophils # (Auto) 6.4 x10^3/uL (1.8-7.7) Lymphocytes # (Auto) 2.9 x10^3/uL (1.0-4.8) Monocytes # (Auto) 0.6 x10^3/uL (0.0-1.1) Eosinophils # (Auto) 0.2 x10^3/uL (0.0-0.7) Basophils # (Auto) 0.1 x10^3/uL (0.0-0.2) Sodium Level 142 mmol/L (136-145) Potassium Level 3.6 mmol/L (3.5-5.1) Chloride Level 107 mmol/L (98-107) Carbon Dioxide Level 28 mmol/L (21-32) Anion Gap 7 (6-14) Blood Urea Nitrogen 21 mg/dL (7-20) H Creatinine 1.0 mg/dL (0.6-1.0) Estimated GFR (Cockcroft-Gault) 55.5 BUN/Creatinine Ratio 21 (6-20) H Glucose Level 137 mg/dL (70-99) H Lactic Acid Level 2.1 mmol/L (0.4-2.0) H Calcium Level 8.9 mg/dL (8.5-10.1) Total Bilirubin 0.3 mg/dL (0.2-1.0) Aspartate Amino Transferase (AST) 15 U/L (15-37) Alanine Aminotransferase (ALT) 13 U/L (14-59) L Alkaline Phosphatase 91 U/L (46-116) Total Protein 7.0 g/dL (6.4-8.2) Albumin 3.1 g/dL (3.4-5.0) L Albumin/Globulin Ratio 0.8 (1.0-1.7) L Laboratory Tests 08/19/19 22:55 Laboratory Tests 08/19/19 22:55 EKG EKG [] Radiology/Procedures Radiology/Procedures [facility] [address] [place] [address] IMAGING REPORT Signed PATIENT: SUGAR BAKER ACCOUNT: [id number] : 1950 LOCATION: ER AGE: 68 SEX: F EXAM STATUS: REG ER ORD. PHYSICIAN: BRIE MAGAÑA MD REASON: cellulitis of submandibular area PROCEDURE: CT SOFT TISSUE NECK W/CONTRAST Examination: CT soft tissue neck with IV contrast HISTORY: History of mandibular cellulitis COMPARISON: 04/16/2019 TECHNIQUE: Axial CT images of the soft tissue neck were performed with IV contrast. Coronal and sagittal reformats are performed Exposure: One or more of the following individualized dose reduction techniques were utilized for this examination: 1. Automated exposure control 2. Adjustment of the mA and/or kV according to patient size 3. Use of iterative reconstruction technique FINDINGS: The visualized intracranial portion grossly appears unremarkable. The bilateral orbital globes appear intact. The bilateral parotid glands, parapharyngeal spaces grossly appears unremarkable. The visualized vallecula, piriform sinuses grossly appears unremarkable. The visualized thyroid gland grossly appears unremarkable. There is mild symmetric fat stranding identified about the left submandibular gland and extending to subcutaneous region of the neck anteriorly could be cellulitis or sialadenitis with cellulitis. Small bilateral cervical level 2 lymph nodes identified with the largest measuring 1 cm on the left. The apical lungs are clear. Mild degenerative changes cervical spine. IMPRESSION: 1. Mild fat stranding identified about the left submandibular gland and extending into the subcutaneous region of the neck anteriorly could be secondary to cellulitis or sialdenitis with cellulitis. 2. Borderline bilateral cervical lymphadenopathy probably reactive. Electronically signed by: Wellington Palma MD (08/19/2019 11:49 PM) [facility] DICTATED and SIGNED BY: WELLINGTON PALMA MD DATE: 08/19/19 2349 [] Course & Med Decision Making Course & Med Decision Making Pertinent Labs and Imaging studies reviewed. (See chart for details) []68-year-old female presents to the emergency department with complaints of redness to her neck under her chin, pain, swelling. Patient's family history of hypertension, congestive heart failure, pacemaker she denies any nausea, vomiting. She does describe pain in her oral mucosa on the left as well as occasional fever. She has a history of Cristhian angina in the past. Patient states nothing makes her pain worse, nothing makes it better. She is nondiabetic. Labs reviewed, hemoglobin stable, white blood cell count 10.2, lactic acid is elevated at 2.1 however patient remained afebrile. CT reveals evidence of cellulitis, there is no evidence of abscess appreciated this and appears to be superficial. No airway obstructive concern. Patient received IV vancomycin in the emergency Department we'll plan for clindamycin upon discharge follow up as an outpatient with her primary care physician. Discussed return precautions with patient. Dragapryl Disclaimer Dragon Disclaimer This electronic medical record was generated, in whole or in part, using a voice recognition dictation system. Departure Departure Impression: Primary Impression: Cellulitis of submandibular region Disposition: 01 HOME, SELF-CARE Condition: STABLE Referrals: CHANTEL PRATT MD (PCP) Patient Instructions: Cellulitis, [id number] Additional Instructions: Recommend follow up with PCP 3 - 5 days Return to the ER with worsening symptoms, intractable pain, fever, altered mental status Tylenol/Motrin as needed for pain Take clindamycin as directed Scripts Clindamycin Hcl (CLINDAMYCIN HCL) 300 Mg Capsule 300 MG PO QID for 10 Days, #40 CAP Prov: BRIE MAGAÑA MD 08/20/19 BRIE MAGAÑA MD Aug 19, 2019 22:14
[2019-08-19] MEDS ORDERED: VANCOMYCIN 1GM IVPB FOR OMNI 250 ML IV ONE (22:15)
[2019-08-19 23:06] LABS: BASO # 0.1 x10^3/uL (0.0-0.2); BASO % 1 % (0-3); EOS # 0.2 x10^3/uL (0.0-0.7); EOS % 2 % (0-3); HEMATOCRIT 36.7 % (36.0-47.0); HEMOGLOBIN 12.1 g/dL (12.0-15.5); LYMPH # 2.9 x10^3/uL (1.0-4.8); LYMPH % 29 % (24-48); MEAN CORPUSCULAR HEMOGLOBIN 29 pg (25-35); MEAN CORPUSCULAR HGB CONC 33 g/dL (31-37); MEAN CORPUSCULAR VOLUME 87 fL (79-100); MONO # 0.6 x10^3/uL (0.0-1.1); MONO % 6 % (0-9); NEUT # 6.4 x10^3/uL (1.8-7.7); NEUT % 63 % (31-73); PLATELET COUNT 299 x10^3/uL (140-400); RED BLOOD COUNT 4.23 x10^6/uL (3.50-5.40); RED CELL DISTRIBUTION WIDTH 15.2 % (11.5-14.5); WHITE BLOOD COUNT 10.2 x10^3/uL (4.0-11.0)
[2019-08-19 23:17] LABS: CALCIUM 8.9 mg/dL (8.5-10.1); GFR 55.5; POTASSIUM 3.6 mmol/L (3.5-5.1)
[2019-08-19 23:24] LABS: ALBUMIN 3.1 g/dL (3.4-5.0); ALBUMIN/GLOBULIN RATIO 0.8 (1.0-1.7); TOTAL BILIRUBIN 0.3 mg/dL (0.2-1.0)
[2019-08-19] MEDS ORDERED: CONTRAST GIVEN. MC PRN (23:30)
[2019-08-19] MEDS ORDERED: IOHEXOL 300 MG/ML 100ML VIAL. IV ONE (23:30)
--- NOTE | 2019-08-19 23:52 | RAD ---
Examination: CT soft tissue neck with IV contrast HISTORY: History of mandibular cellulitis COMPARISON: 04/16/2019 TECHNIQUE: Axial CT images of the soft tissue neck were performed with IV contrast. Coronal and sagittal reformats are performed Exposure: One or more of the following individualized dose reduction techniques were utilized for this examination: 1. Automated exposure control 2. Adjustment of the mA and/or kV according to patient size 3. Use of iterative reconstruction technique FINDINGS: The visualized intracranial portion grossly appears unremarkable. The bilateral orbital globes appear intact. The bilateral parotid glands, parapharyngeal spaces grossly appears unremarkable. The visualized vallecula, piriform sinuses grossly appears unremarkable. The visualized thyroid gland grossly appears unremarkable. There is mild symmetric fat stranding identified about the left submandibular gland and extending to subcutaneous region of the neck anteriorly could be cellulitis or sialadenitis with cellulitis. Small bilateral cervical level 2 lymph nodes identified with the largest measuring 1 cm on the left. The apical lungs are clear. Mild degenerative changes cervical spine. IMPRESSION: 1. Mild fat stranding identified about the left submandibular gland and extending into the subcutaneous region of the neck anteriorly could be secondary to cellulitis or sialdenitis with cellulitis. 2. Borderline bilateral cervical lymphadenopathy probably reactive. Electronically signed by: Wellington Palma MD (08/19/2019 11:49 PM) [facility]
[2019-08-20] MEDS ORDERED: IV NORMAL SALINE 1000ML BAG 1,000 ML IV ONE
[2019-08-20 00:15] VITALS: BP 123/75
[2019-08-20] MEDS ORDERED: CLIN300C8 PO (00:29)
== END 2019-08-20 01:13 | disposition home or self-care (01) ==
LOC: ER 21:18
DX: K12.2 Cellulitis and abscess of mouth (principal); M54.2 Cervicalgia; Z95.0 Presence of cardiac pacemaker; Z88.1 Allergy status to other antibiotic agents; Z88.5 Allergy status to narcotic agent; Z88.8 Allergy status to other drugs, medicaments and biological substances
CPT/HCPCS: 36415; 70491; 80053; 83605; 85025; 96365; 99285; J3370; J7030; Q9967

== ENCOUNTER → 2019-09-03 | Outpatient (CLI) | payer BC, MEDICARE ==
[2019-08-20 00:15] VITALS: BP 123/75
[~2019-09-03] MED LIST changes: +CLIN300C8 PO; +REGADENOSON 0.4 MG/5 ML DISP.SYRIN. IV ONE
--- NOTE | 2019-09-04 10:30 | RAD ---
MR#: [id number] Date of Study: 09/04/2019 Ordering Physician: TERRY CANALES, Referring Physician: GRACIELA MOORE Tech: RT Jamie Ahmadi) (N) APPROVED REPORT Test Type: Pharmacological Stress Nurse/Tech: Jose Danielle RN Test Indications: fatigue Cardiac History: HTN, Heart caths, PPM Medications: See Electronic Medical Record Medical History: See Electronic Medical Record Resting ECG: SR with PVC Resting Heart Rate: 71 bpm Resting Blood Pressure: 131/73mmHg Pretest Chest Pain: None Nurse/Tech Notes lungs CTA, S1S2 Consent: The procedure was explained to the patient in lay terms. Informed consent was witnessed. Manpreet eout was entered into [employer]. History and Stress Test performed by RT Shailesh (R) (N) Pharm. Details Pharmacologic stress testing was performed using 0.4mg per 5ml of regadenoson given intravenously ove r 7-10 seconds. Stress Symptoms no chest pain or symptoms. Patient heart rate 130 at times. she stated this was normal for her. POST EXERCISE Reason for Termination: Reached target heart rate Max HR: 133 bpm Max Blood Pressure: 131/54mmHg Blood Pressure response to exercise: Normal blood pressure response during stress. Heart Rate response to exercise: normal response Chest Pain: No. Arrhythmia: Yes. PVC ST Change: No. INTERPRETATION Stress EKG Conclusion: Baseline EKG showed sinus rhythm with PVC. No ischemic changes at peak stress . PVC's without any significant arrhythmias. Imaging Protocol IMAGE PROTOCOL: Rest Tc-99m/stress Tc-99m 2 days Rest: Stress: Viability: Radiopharm.Tc99m JbavdwtfkGg59f Sestamibi Dose30.2mCi 31mCi Duration 15min. 15min. Img Date 09/03/2019 09/04/2019 Inj-Img Fisy36tve. 60min. Rest Admin Site:IV - Right AntecubitalAdministrator:RT Shailesh (R)(N) Stress Admin Site: IV - Left AntecubitalAdministrator: RT Jamie Cash)(N) STRESS DATA End Diast. Vol.153.0mlLVEDV index BSA75.0ml End Syst. Vol.57.0mlLVESV index BSA28.0ml Myocardial Qtqw402.0gEject. Tuxoyfgr93.0% Stress Scores Regional WT1.00Summed WT11.00 Regional WM0.00Summed WM1.00 Study quality was good. Left Ventricular size was Normal at Rest and Stress. Lung uptake was . Left Ventricular ejection fraction is 63%. The rest and stress images show normal perfusion, normal contraction and thickening. LV Perf. Quant 17 Seg. SSS11.00 17 Seg. SRS3.00 17 Seg. SDS8.00 Stress Defect Extent (% LAD)16.90Rest Defect Extent (% LAD)6.30Rev. Defect Extent (% LAD)12.50 Stress Defect Extent (% LCX) 56.30Rest Defect Extent (% LCX)37.50Rev. Defect Extent (% LCX)28.80 Stress Defect Extent (% RCA)0.00Rest Defect Extent (% RCA)0.00Rev. Defect Extent (% RCA)0.00 Stress Defect Extent (% FLAKITO)23.90Rest Defect Extent (% FLAKITO)11.70Rev. Defect Extent (% FLAKITO)15.00 Conclusion 1. Regadenoson cardioisotope stress test did not show any evidence of ischemia or infarct. 2. Normal left ventricular systolic function with ejection fraction calculated at 63%. 3. Low risk for cardiac events. Signed by : Quinton Cadena, Electronically Approved : 09/04/2019 10:29:48
== END | disposition home or self-care (01) ==
LOC: NM 09:09
PROVIDERS: ATTEND Internal Medicine Cardiovascular Disease
DX: I25.10 Atherosclerotic heart disease of native coronary artery without angina pectoris (principal); R53.83 Other fatigue; I10 Essential (primary) hypertension; Z95.0 Presence of cardiac pacemaker; Z95.828 Presence of other vascular implants and grafts
CPT/HCPCS: 78452; A9500; J2785

== ENCOUNTER → 2019-09-04 | Outpatient (CLI) | payer BC, MEDICARE ==
[2019-08-20 00:15] VITALS: BP 123/75
[~2019-09-04] MED LIST changes: -REGADENOSON 0.4 MG/5 ML DISP.SYRIN. IV ONE
--- NOTE | 2019-09-08 11:24 | CARD ---
MR#: [id number] Date of Study: 09/04/2019 Ordering Physician: ALL FLORES, Referring Physician: ALL FLORES, Tech: [facility] APPROVED REPORT EXAM: Two-dimensional and M-mode echocardiogram with Doppler and color Doppler. Other Information Quality : AverageHR: 70bpm Rhythm : Other INDICATION Cardiomyopathy 2D DIMENSIONS RVDd3.0 (2.9-3.5cm)Left Atrium(2D)4.0 (1.6-4.0cm) IVSd1.2 (0.7-1.1cm)Aortic Root(2D)3.1 (2.0-3.7cm) LVDd6.6 (3.9-5.9cm)LVOT Diameter2.3 (1.8-2.4cm) PWd1.2 (0.7-1.1cm)LVDs5.0 (2.5-4.0cm) FS (%) 24.5 %SV106.9 ml M-Mode DIMENSIONS Left Atrium(MM)4.81 (2.5-4.0cm)Aortic Root3.08 (2.2-3.7cm) Aortic Valve AoV Peak Tre.141.0cm/sAoV VTI30.7cm AO Peak GR.8.0mmHgLVOT Peak Tre.72.5cm/s AO Mean GR.4mmHgAVA (VTI)2.60cm2 Mitral Valve MV E Kxonvhgg76.7cm/sMV DECEL TWTZ156pj MV A Eholoifs27.6cm/sE/A Ratio0.6 Pulmonary Valve PV Peak Iphilxel47.9cm/s Tricuspid Valve TR P. Jzicjzde929db/sRAP KDFLXMGR8poJp TR Peak Gr.03opGhIYTN15ygEv LEFT VENTRICLE The Left Ventricle is mildly dilated. There is mild concentric left ventricular hypertrophy. The syst olic function is mildly impaired. The Ejection Fraction is estimated at 45%. There is mild global hyp okinesis of the left ventricle. Transmitral Doppler flow pattern is Grade I-abnormal relaxation patte rn. RIGHT VENTRICLE The right ventricle is normal size. There is normal right ventricular wall thickness. The right ventr icular systolic function is normal. Device leads noted in RV/RA. ATRIA The left atrium is mildly dilated. The right atrium size is normal. The interatrial septum is intact with no evidence for an atrial septal defect or patent foramen ovale as noted on 2-D or Doppler imagi ng. AORTIC VALVE The aortic valve is trileaflet. The aortic valve is thickened but opens well. Doppler and Color Flow revealed no significant aortic regurgitation. There is no significant aortic valvular stenosis. MITRAL VALVE The mitral valve is normal in structure and function. There is no evidence of mitral valve prolapse. There is no mitral valve stenosis. Doppler and Color-flow revealed mild mitral regurgitation. TRICUSPID VALVE The tricuspid valve is normal in structure and function. Doppler and Color Flow revealed mild tricusp id regurgitation. The PA pressure was estimated at 33 mmHg. There is no tricuspid valve prolapse or v egetation. There is no tricuspid valve stenosis. PULMONIC VALVE The pulmonary valve is normal in structure and function. Doppler and Color Flow revealed mild pulmoni c valvular regurgitation. There is no pulmonic valvular stenosis. GREAT VESSELS The aortic root is normal in size. The ascending aorta is normal in size. The IVC is normal in size a nd collapses >50% with inspiration. PERICARDIAL EFFUSION There is no evidence of significant pericardial effusion. Critical Notification Critical Value: No <Conclusion> The Left Ventricle is mildly dilated. The systolic function is mildly impaired. The Ejection Fraction is estimated at 45%. There is mild global hypokinesis of the left ventricle. There is mild concentric left ventricular hypertrophy. There is no significant aortic valvular stenosis. Doppler and Color Flow revealed no significant aortic regurgitation. Doppler and Color-flow revealed mild mitral regurgitation. Doppler and Color Flow revealed mild tricuspid regurgitation. The PA pressure was estimated at 33 mmHg. Signed by : All Flores MD Electronically Approved : 09/04/2019 11:49:39
== END | disposition home or self-care (01) ==
LOC: ECHO 08:16
PROVIDERS: ATTEND Internal Medicine Cardiovascular Disease
DX: I08.1 Rheumatic disorders of both mitral and tricuspid valves (principal)
CPT/HCPCS: 93017; 93306

== ENCOUNTER → 2019-12-29 | Outpatient (CLI) | payer BC, MEDICARE ==
[~2019-12-29] MED LIST changes: +FLUO20CA20 PO; -FLUO20CA8 PO; +IOHEXOL 240 MG/ML 50ML VIAL. PO ONE; +IOHEXOL 300 MG/ML 100ML VIAL. IV ONE
[2019-12-29 12:06] LABS: CREATININE 1.1 mg/dL (0.6-1.0); GFR 49.5
--- NOTE | 2019-12-29 18:12 | RAD ---
EXAM: CT Abdomen and Pelvis with IV contrast INDICATION: Right lower quadrant abdominal pain TECHNIQUE: Multi-detector row CT images were acquired from the lung bases through the abdomen and pelvis with the use of IV contrast. Sagittal and coronal images were acquired from the transaxial data. All CT scans performed at this facility utilize dose optimization techniques as appropriate to the exam, including the following: Automated exposure control and adjustment of the mA and/or KV according to patient size (this includes techniques or standardized protocols for targeted exams where dose is indication/reason for exam). IV CONTRAST: Administered ORAL CONTRAST: Administered COMPARISON: None FINDINGS: LOWER CHEST: Partially imaged cardiac pacemaker wires. LIVER: Mild hepatomegaly with the liver measuring 19 cm in craniocaudal extent. BILIARY SYSTEM: Gallbladder shows soft tissue filling defects that could represent stones, polyps or other mass. No obvious wall thickening or pericholecystic stranding or fluid.. Bile ducts are not dilated. PANCREAS: Unremarkable SPLEEN: Unremarkable ADRENALS: Unremarkable KIDNEYS & URETERS: The kidneys show a 3 cm right renal cyst and otherwise are unremarkable. BLADDER: Unremarkable REPRODUCTIVE ORGANS: Unremarkable GASTROINTESTINAL: Scattered colonic diverticuli. No CT findings of acute diverticulitis. Stomach, small bowel, and colon are otherwise unremarkable. The appendix is normal. 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 An intraosseous lucency at L4 is compatible with a hemangioma. Degenerative changes in the mid thoracic spine at T7-T8 and T8-T9 also noted. IMPRESSION: 1. Diverticulosis without CT evidence of acute diverticulitis. No specific findings to explain right lower quadrant abdominal pain. 2. Soft tissue in the gallbladder lumen is recommended for correlative ultrasound including color Doppler imaging to assess for a gallbladder mass. Electronically signed by: Soraya Winter MD (12/29/2019 6:09 PM) [facility]
== END | disposition home or self-care (01) ==
LOC: CT 11:41
PROVIDERS: ATTEND Nurse Practitioner Gerontology
DX: R16.0 Hepatomegaly, not elsewhere classified (principal); K57.90 Diverticulosis of intestine, part unspecified, without perforation or abscess without bleeding; M79.89 Other specified soft tissue disorders; M43.16 Spondylolisthesis, lumbar region; I11.0 Hypertensive heart disease with heart failure; I50.9 Heart failure, unspecified; Z88.8 Allergy status to other drugs, medicaments and biological substances
CPT/HCPCS: 36415; 74177; 82565; 84520; Q9966; Q9967

== ENCOUNTER → 2020-01-06 | Outpatient (CLI) | payer BC, MEDICARE ==
[~2020-01-06] MED LIST changes: -IOHEXOL 240 MG/ML 50ML VIAL. PO ONE; -IOHEXOL 300 MG/ML 100ML VIAL. IV ONE
--- NOTE | 2020-01-06 16:00 | KCIC ---
ABDOMEN LTD History: Abnormal gallbladder on CT Comparison: 12/29/2019 CT exam Findings: Multiple sonographic images of the abdomen are submitted. Gallbladder is present. There is a focus of somewhat heterogeneous echogenicity in the gallbladder lumen with some associated shadowing, does not centrally change in position with patient repositioning. This is not associated with significant internal vascularity on color Doppler imaging. This is estimated at least 3 cm in size. Gallbladder wall is not significantly thickened. There is diffuse coarsening of the hepatic echotexture. Right lobe of the liver measured 17.2 cm longitudinal. There is segmental visualization of the inferior vena cava although incompletely visualized due to bowel gas. There is no abnormality of the visualized pancreas, pancreatic tail not well visualized due to bowel gas. Right kidney measured 10.7 x 5.3 x 5.9 cm, no hydronephrosis. There is a hypoechoic lesion of the superior right kidney 3.2 x 2.9 x 3.1 cm not associated with internal vascularity, overall features of a cyst. Common bile duct is within normal limits about 0.5 cm. Impression: 1. Corresponding with CT findings, there is echogenic, shadowing focus in the gallbladder fundus which did not change in position with patient repositioning. Given lack of significant internal vascularity, gallstone seems more likely than mass although MRI without and with contrast is advised for further characterization. 2. There is right renal cyst. Electronically signed by: Yogesh Davis MD (01/06/2020 3:57 PM) [facility]
== END | disposition home or self-care (01) ==
LOC: KCIC US 12:01
PROVIDERS: ATTEND Nurse Practitioner Gerontology
DX: N28.1 Cyst of kidney, acquired (principal); K82.8 Other specified diseases of gallbladder
CPT/HCPCS: 76705

== ENCOUNTER 2020-04-21 14:44 | Inpatient (IN) | payer BC, MEDICARE ==
[~2020-04-21] VITALS: Ht 154.9 cm; Wt 113.5 kg
[~2020-04-21 14:44] MED LIST changes: -LEVO112T4 PO; +LEVO112T49 PO; +MULT-445 PO; -MULT1TAB52 PO
--- NOTE | 2020-04-21 15:43 | EKG ---
[facility] [address] [place] [address] Test Date: 2020-04-21 Test Time: 15:25:10 Pat Name: SUGAR BAKER Department: Room: Gender: F Tax Manager: : 1950 Requested By: ANTOINETTE CASTAÑEDA Order Number: [id number] Reading MD: Gildardo Concepcion MD Measurements Intervals [place] Rate: 64 P: -82 VA: 114 QRS: -4 QRSD: 102 T: 24 QT: 420 QTc: 433 Interpretive Statements SINUS RHYTHM VENTRICULAR PREMATURE COMPLEX(ES) CANNOT RULE OUT ATRIAL PACED RHYTHM Electronically Signed On 04-22-2020 14:59:13 CDT by Gildardo Concepcion MD
[2020-04-21 16:04] LABS: BASO # 0.1 x10^3/uL (0.0-0.2); BASO % 1 % (0-3); EOS # 0.1 x10^3/uL (0.0-0.7); EOS % 2 % (0-3); HEMATOCRIT 36.4 % (36.0-47.0); HEMOGLOBIN 12.1 g/dL (12.0-15.5); LYMPH # 2.4 x10^3/uL (1.0-4.8); LYMPH % 28 % (24-48); MEAN CORPUSCULAR HEMOGLOBIN 28 pg (25-35); MEAN CORPUSCULAR HGB CONC 33 g/dL (31-37); MEAN CORPUSCULAR VOLUME 84 fL (79-100); MONO # 0.6 x10^3/uL (0.0-1.1); MONO % 8 % (0-9); NEUT # 5.2 x10^3/uL (1.8-7.7); NEUT % 62 % (31-73); PLATELET COUNT 298 x10^3/uL (140-400); RED BLOOD COUNT 4.33 x10^6/uL (3.50-5.40); RED CELL DISTRIBUTION WIDTH 16.2 % (11.5-14.5); WHITE BLOOD COUNT 8.4 x10^3/uL (4.0-11.0)
[2020-04-21 16:09] LABS: CALCIUM 8.5 mg/dL (8.5-10.1); CREATININE 1.1 mg/dL (0.6-1.0); GFR 49.5; POTASSIUM 4.3 mmol/L (3.5-5.1)
[2020-04-21 16:21] LABS: ALBUMIN 3.2 g/dL (3.4-5.0); ALBUMIN/GLOBULIN RATIO 0.9 (1.0-1.7); MAGNESIUM 1.7 mg/dL (1.8-2.4); TOTAL BILIRUBIN 0.4 mg/dL (0.2-1.0); TOTAL PROTEIN 6.7 g/dL (6.4-8.2)
--- NOTE | 2020-04-21 16:33 | RAD ---
AP chest. HISTORY: Short of air, cough AP view was taken of the chest. There is a left pacemaker with atrial and ventricular pacing leads. There is mild elevation of the right diaphragm. There are no confluent infiltrates. There has been no change from the old study from February 2017. IMPRESSION: 1. No acute infiltrates. Electronically signed by: Rocco Matthews MD (04/21/2020 4:30 PM) [id number]
--- NOTE | 2020-04-21 16:43 | PHYS DOC ---
Past Medical History Past Medical History: CHF, Hypertension, Kidney Stone, Other Additional Past Medical Histor: Ludwigs Angina, cardiomyopathy, sleep apnea Past Surgical History: Pacemaker, Other Additional Past Surgical Histo: HERNIA REPAIR, pacemaker Smoking Status: Never Smoker Alcohol Use: None Drug Use: None General Adult EDM: Chief Complaint: SHORTNESS OF BREATH HPI: HPI: Patient is a 69 year old female who presented to ER today for evaluation of chest pain and trouble breathing with exertion started around 2:30 PM today. Patient was getting ready to go to work when the symptoms started. She described the chest pain as pressure and heaviness in her chest. She only had trouble breathing whenever she exerted herself. Patient denies any cough, no fever. Patient denies being exposed to anybody who tested positive for COVID- 19. Patient has history of sick sinus syndrome status post pacemaker placement. Patient denies any abdominal pain, no nausea or vomiting. Review of Systems: Review of Systems: Constitutional: Denies fever or chills. [] Eyes: Denies change in visual acuity. [] HENT: Denies nasal congestion or sore throat. [] Respiratory: Denies cough , positive for shortness of breath. [] Cardiovascular: Positive for chest pain and trouble breathing. GI: Denies abdominal pain, nausea, vomiting, bloody stools or diarrhea. [] : Denies dysuria. [] Musculoskeletal: Denies back pain or joint pain. [] Integument: Denies rash. [] Neurologic: Denies headache, focal weakness or sensory changes. [] Endocrine: Denies polyuria or polydipsia. [] Lymphatic: Denies swollen glands. [] Psychiatric: Denies depression or anxiety. [] Heart Score: HEART Score for Chest Pain: HEART Score for Chest Pain Response (Comments) Value History Moderately Suspicious 1 ECG Nonspecific Repolarizatio 1 Age > 65 2 Risk Factors >3 Risk Factors or Hx CAD 2 Troponin < Normal Limit 0 Total 6 Risk Factors: Risk Factors: DM, Current or recent (<one month) smoker, HTN, HLP, family history of CAD, obesity. Risk Scores: Score 0 - 3: 2.5% MACE over next 6 weeks - Discharge Home Score 4 - 6: 20.3% MACE over next 6 weeks - Admit for Clinical Observation Score 7 - 10: 72.7% MACE over next 6 weeks - Early Invasive Strategies Allergies: Allergies: Allergies Coded Allergies Type Severity Reaction Last Updated Verified atorvastatin Allergy Intermediate 02/26/17 Yes codeine Allergy Intermediate 10/02/16 Yes erythromycin base Allergy Intermediate 08/25/15 Yes pitavastatin Adverse Reaction Mild nausea 08/19/19 Yes Physical Exam: PE: Constitutional: Well developed, well nourished, no acute distress, non-toxic appearance. [] HENT: Normocephalic, atraumatic, bilateral external ears normal, oropharynx moist, no oral exudates, nose normal. [] Eyes: PERRLA, EOMI, conjunctiva normal, no discharge. [] Neck: Normal range of motion, no tenderness, supple, no stridor. [] Cardiovascular:Heart rate regular rhythm, no murmur [] Lungs & Thorax: Bilateral breath sounds clear to auscultation [] Abdomen: Bowel sounds normal, soft, no tenderness, no masses, no pulsatile masses. [] Skin: Warm, dry, no erythema, no rash. [] Back: No tenderness, no CVA tenderness. [] Extremities: No tenderness, no cyanosis, no clubbing, ROM intact, no edema. [] Neurologic: Alert and oriented X 3, normal motor function, normal sensory function, no focal deficits noted. [] Psychologic: Affect normal, judgement normal, mood normal. [] Current Patient Data: Labs: Laboratory Tests Test 04/21/20 15:50 White Blood Count 8.4 x10^3/uL (4.0-11.0) Red Blood Count 4.33 x10^6/uL (3.50-5.40) Hemoglobin 12.1 g/dL (12.0-15.5) Hematocrit 36.4 % (36.0-47.0) Mean Corpuscular Volume 84 fL (79-100) Mean Corpuscular Hemoglobin 28 pg (25-35) Mean Corpuscular Hemoglobin Concent 33 g/dL (31-37) Red Cell Distribution Width 16.2 % (11.5-14.5) H Platelet Count 298 x10^3/uL (140-400) Neutrophils (%) (Auto) 62 % (31-73) Lymphocytes (%) (Auto) 28 % (24-48) Monocytes (%) (Auto) 8 % (0-9) Eosinophils (%) (Auto) 2 % (0-3) Basophils (%) (Auto) 1 % (0-3) Neutrophils # (Auto) 5.2 x10^3/uL (1.8-7.7) Lymphocytes # (Auto) 2.4 x10^3/uL (1.0-4.8) Monocytes # (Auto) 0.6 x10^3/uL (0.0-1.1) Eosinophils # (Auto) 0.1 x10^3/uL (0.0-0.7) Basophils # (Auto) 0.1 x10^3/uL (0.0-0.2) Sodium Level 141 mmol/L (136-145) Potassium Level 4.3 mmol/L (3.5-5.1) Chloride Level 106 mmol/L (98-107) Carbon Dioxide Level 32 mmol/L (21-32) Anion Gap 3 (6-14) L Blood Urea Nitrogen 18 mg/dL (7-20) Creatinine 1.1 mg/dL (0.6-1.0) H Estimated GFR (Cockcroft-Gault) 49.5 BUN/Creatinine Ratio 16 (6-20) Glucose Level 97 mg/dL (70-99) Calcium Level 8.5 mg/dL (8.5-10.1) Magnesium Level 1.7 mg/dL (1.8-2.4) L Total Bilirubin 0.4 mg/dL (0.2-1.0) Aspartate Amino Transferase (AST) 22 U/L (15-37) Alanine Aminotransferase (ALT) 20 U/L (14-59) Alkaline Phosphatase 110 U/L (46-116) Troponin I Quantitative < 0.017 ng/mL (0.000-0.055) OL-Otn-M-Type Natriuretic Peptide 578 pg/mL (0-124) H Total Protein 6.7 g/dL (6.4-8.2) Albumin 3.2 g/dL (3.4-5.0) L Albumin/Globulin Ratio 0.9 (1.0-1.7) L Laboratory Tests 04/21/20 15:50 Laboratory Tests 04/21/20 15:50 Vital Signs: Vital Signs Date Time Temp Pulse Resp B/P (MAP) Pulse Ox O2 Delivery O2 Flow Rate FiO2 04/21/20 15:30 99.3 65 20 141/62 (88) 97 Room Air 99.3 EKG: EKG: EKG was done at 1525, heart rate of 64 bpm, sinus rhythm with multiple ventricular premature complex. There is paced rhythm as well. Radiology/Procedures: Radiology/Procedures: [][facility] [address] [place] [address] IMAGING REPORT Signed PATIENT: SUGAR BAKER ACCOUNT: [id number] : 1950 LOCATION: ER AGE: 69 SEX: F EXAM STATUS: REG ER ORD. PHYSICIAN: ANTOINETTE CASTAÑEDA DO REASON: soa, cough 21 /PT WITH NURSE PROCEDURE: CHEST AP ONLY AP chest. HISTORY: Short of air, cough AP view was taken of the chest. There is a left pacemaker with atrial and ventricular pacing leads. There is mild elevation of the right diaphragm. There are no confluent infiltrates. There has been no change from the old study from February 2017. IMPRESSION: 1. No acute infiltrates. Electronically signed by: Rocco Matthews MD (04/21/2020 4:30 PM) [id number] DICTATED and SIGNED BY: ROCCO MATTHEWS MD DATE: 04/21/20 1630 Course & Med Decision Making: Course & Med Decision Making Pertinent Labs and Imaging studies reviewed. (See chart for details) Patient is a 69-year-old female who was evaluated in ER due to chest pain and trouble breathing with exertion. EKG did not show any ST segment elevation however while she was in the ER, the monitor showed she had multiple runs of ventricular tachycardia. Patient feels much better at this time, lab work did not show any acute problem so far .patient will be admitted to hospital for further evaluation and treatment. Dragon Disclaimer: Dragon Disclaimer: This electronic medical record was generated, in whole or in part, using a voice recognition dictation system. Departure Departure Impression: Primary Impression: Chest pain Additional Impression: Dyspnea on exertion Disposition: ADMITTED INPATIENT Admitting Physician: GODFREY (Dr. Woody) Condition: STABLE Referrals: CHANTEL PRATT MD (PCP) ANTOINETTE CASTAÑEDA DO April 21, 2020 16:43
[2020-04-21] MEDS ORDERED: ASPIRIN 325 MG TABLET PO ONE (16:45)
[2020-04-21 16:50] LABS: PROTHROMBIN TIME PATIENT 12.7 SEC (11.7-14.0)
[2020-04-21 19:02] VITALS: BP 149/87
[2020-04-21 19:24] LABS: BILIRUBIN,URINE NEGATIVE (NEG); CLARITY,URINE CLEAR; COLOR,URINE YELLOW; NITRITE,URINE NEGATIVE (NEG); PH,URINE 5.5 (<5.0-8.0); PROTEIN,URINE NEGATIVE (NEG-TRACE); UROBILINOGEN,URINE 0.2 mg/dL (0.2 mg/dL)
[2020-04-21 19:36] LABS: BACTERIA,URINE 0 /HPF (0-FEW); RBC,URINE 0 /HPF (0-2); SQUAMOUS EPITHELIAL CELL,UR OCC /LPF; WBC,URINE 0 /HPF (0-4)
[2020-04-21] MEDS ORDERED: CHOL200044 PO (19:40)
[2020-04-21] MEDS ORDERED: HYDROcodone/APAP 7.5/325MG 1 TAB TABLET PO PRN (19:45)
[2020-04-21] MEDS ORDERED: METOPROLOL TART IMMED RELEASE 50 MG TABLET. PO SCH (21:00)
--- NOTE | 2020-04-21 21:56 | PDOC1 ---
History and Physical Date of Admission Date of Admission DATE: 04/21/20 TIME: 21:55 Identification/Chief Complaint Chief Complaint seen in er with chest tightness 69 year old female who presented to ER today for evaluation of chest pain and trouble breathing with exertion started around 2:30 PM today. was getting ready to go to work when the symptoms started. She described the chest pain as pressure and heaviness in her chest. She only had trouble breathing whenever she exerted herself. //denies any cough, no fever. denies being exposed to anybody who tested positive for COVID-19. Patient has history of sick sinus syndrome status post pacemaker placement. Patient denies any abdominal pain, no nausea or vomiting. Past Medical History Past Medical History Past Medical History Past Medical History: CHF, Hypertension, Kidney Stone, Other Additional Past Medical Histor: [place] Angina, cardiomyopathy, sleep apnea Past Surgical History: Pacemaker, Other Additional Past Surgical Histo: HERNIA REPAIR, pacemaker Smoking Status: Never Smoker Alcohol Use: None Drug Use: None Nonischemic cardiomyopathy, ejection fraction 50% on echocardiogram 2017 , mild diastolic dysfunction also noted; sick sinus syndrome, status post pacemaker placement; hypothyroidism; hypertension; hyperlipidemia; glucose intolerance; GERD; obstructive sleep apnea; depression; osteoarthritis with chronic pain; allergic rhinitis. FHX OBESITY Cardiovascular: AFIB, CHF, HTN, Hyperlipidemia, Other Pulmonary: Pneumonia, Other GI: GERD Heme/Onc: No pertinent hx Psych: Anxiety, Depression Musculoskeletal: low back pain, Osteoarthritis, Other Infectious disease: No pertinent hx Renal/: Other Endocrine: Hypothyroidism Past Surgical History Past Surgical History: Pacemaker, Hernia Repair Family History Family History: Cancer, Diabetes, Hypertension, Other Social History Smoke: No ALCOHOL: none Drugs: None Current Problem List Problem List Problems Medical Problems: (1) Chest pain Status: Acute (2) Dyspnea on exertion Status: Acute Current Medications Current Medications Current Medications Aspirin (Karmen Aspirin) 325 mg 1X ONCE PO Last administered on 04/21/20at 17:27; Start 04/21/20 at 16:45; Stop 04/21/20 at 16:46; Status DC Aspirin (Aspirin Chewable) 81 mg DAILY PO ; Start 04/22/20 at 09:00 Fluoxetine HCl (PROzac) 40 mg DAILY PO ; Start 04/22/20 at 09:00 Furosemide (Lasix) 20 mg BID94 PO ; Start 04/22/20 at 09:00 Acetaminophen/ Hydrocodone Bitart (Lortab 7.5/325) 1 tab PRN Q6HRS PRN PO PAIN; Start 04/21/20 at 19:45 Levothyroxine Sodium (Synthroid) 112 mcg DAILY06 PO ; Start 04/22/20 at 06:00 Lisinopril (Prinivil) 40 mg DAILY PO ; Start 04/22/20 at 09:00 Metoprolol Tartrate (Lopressor) 50 mg HS PO Last administered on 04/21/20at 20:54; Start 04/21/20 at 21:00 Pantoprazole Sodium (Protonix) 40 mg DAILYAC PO ; Start 04/22/20 at 07:30 Potassium Chloride (Klor-Con) 20 meq DAILY PO ; Start 04/22/20 at 09:00 Vitamin D (Vitamin D3) 2,000 unit DAILY PO ; Start 04/22/20 at 09:00 Hydrochlorothiazide (Microzide) 12.5 mg DAILY PO ; Start 04/22/20 at 09:00 Active Scripts Active Levothyroxine Sodium 112 Mcg Tablet 1 Tab PO DAILY Pantoprazole Sodium (Pantoprazole Sodium) 40 Mg Tablet.dr 40 Mg PO DAILYAC Klor-Con M20 (Potassium Chloride) 20 Meq Tab.er.prt 20 Meq PO DAILY Reported D3-2000 (Cholecalciferol (Vitamin D3)) 50 Mcg Capsule 50 Mcg PO DAILY Hydrocodone-Apap 7.5-325 (Hydrocodone Bit/Acetaminophen) 1 Tab Tablet 1 Tab PO PRN Q6HRS PRN Furosemide 20 Mg Tablet 1 Tab PO BID Hydrochlorothiazide Tablet (Hydrochlorothiazide) 12.5 Mg Tablet 12.5 Mg PO DAILY Fluoxetine Hcl 20 Mg Capsule 2 Cap PO DAILY Metoprolol Tartrate 50 Mg Tablet 1 Tab PO HS Aspirin 81 Mg Tab.chew 1 Tab PO DAILY Lisinopril 10 Mg Tablet 4 Tab PO DAILY Allergies Allergies: Coded Allergies: atorvastatin (Verified Allergy, Intermediate, 02/26/17) codeine (Verified Allergy, Intermediate, 10/02/16) TOLERATES HYDROCODONE erythromycin base (Verified Allergy, Intermediate, 08/25/15) pitavastatin (Verified Adverse Reaction, Mild, nausea, 08/19/19) ROS Review of System Review of Systems: Review of Systems: Constitutional: Denies fever or chills. [] Eyes: Denies change in visual acuity. [] HENT: Denies nasal congestion or sore throat. [] Respiratory: Denies cough , positive for shortness of breath. [] Cardiovascular: Positive for chest pain and trouble breathing. GI: Denies abdominal pain, nausea, vomiting, bloody stools or diarrhea. [] : Denies dysuria. [] Musculoskeletal: Denies back pain or joint pain. [] Integument: Denies rash. [] Neurologic: Denies headache, focal weakness or sensory changes. [] Endocrine: Denies polyuria or polydipsia. [] Lymphatic: Denies swollen glands. [] Psychiatric: Denies depression or anxiety. [] 14 PT ROS OTHERWISE NEG PSYCHOLOGICAL ROS: YES: Anxiety Hematological and Lymphatic: No: Bleeding Problems, Blood Clots, Blood Transfusions, Brusing, Night Sweats, Pallor, Swollen Lymph Nodes, Other Respiratory: YES: Shortness of breath, SOB with excertion; No: Cough, Hemoptysis, Orthopnea, Pleuritic Pain, Sputum Changes, Stridor, Tachypnea, Wheezing, Other Gastrointestinal: No Nausea, No Vomiting, No Abdominal Pain, No Diarrhea, No Constipation, No Melena, No Hematochezia, No Other Musculoskeletal: No Gait Disturbance, No Joint Pain, No Joint Stiffness, No Joint Swelling, No Muscle Pain, No Muscular Weakness, No Pain In:, No Swelling In:, No Other Neurological: No Behavorial Changes, No Bowel/Bladder ControlChng, No Confusion, No Dizziness, No Gait Disturbance, No Headaches, No Impaired Coord/balance, No Memory Loss, No Numbness/Tingling, No Seizures, No Speech Problems, No Tremors, No Visual Changes, No Weakness, No Other Physical Exam Physical Exam Physical Exam: PE: Constitutional: Well developed, well nourished, no acute distress, non-toxic appearance. [] HENT: Normocephalic, atraumatic, bilateral external ears normal, oropharynx moist, no oral exudates, nose normal. [] Eyes: PERRLA, EOMI, conjunctiva normal, no discharge. [] Neck: Normal range of motion, no tenderness, supple, no stridor. [] Cardiovascular:Heart rate regular rhythm, no murmur [] Lungs & Thorax: Bilateral breath sounds clear to auscultation [] Abdomen: Bowel sounds normal, soft, no tenderness, no masses, no pulsatile june s. [] Skin: Warm, dry, no erythema, no rash. [] Back: No tenderness, no CVA tenderness. [] Extremities: No tenderness, no cyanosis, no clubbing, ROM intact, no edema. [] Neurologic: Alert and oriented X 3, normal motor function, normal sensory function, no focal deficits noted. [] Psychologic: Affect normal, judgement normal, mood normal. [] General: Alert, Oriented X3, Cooperative HEENT: Atraumatic, EOMI, Mucous membr. moist/pink Lungs: Clear to auscultation, Normal air movement Heart: RRR Breasts: Not examined Abdomen: Normal bowel sounds, Soft Rectal Exam: not examined PELVIC: Examination not indicated Extremities: No cyanosis Neuro: Normal speech, Cranial nerves 3-12 NL Psych/Mental Status: Mental status NL, Mood NL Vitals Vitals Vital Signs Date Time Temp Pulse Resp B/P (MAP) Pulse Ox O2 Delivery O2 Flow Rate FiO2 04/21/20 20:54 76 149/87 04/21/20 19:20 Room Air 04/21/20 19:02 98.3 18 96 98.3 Labs Labs Laboratory Tests Test 04/21/20 15:50 04/21/20 16:30 04/21/20 18:32 04/21/20 19:00 White Blood Count 8.4 x10^3/uL (4.0-11.0) Red Blood Count 4.33 x10^6/uL (3.50-5.40) Hemoglobin 12.1 g/dL (12.0-15.5) Hematocrit 36.4 % (36.0-47.0) Mean Corpuscular Volume 84 fL (79-100) Mean Corpuscular Hemoglobin 28 pg (25-35) Mean Corpuscular Hemoglobin Concent 33 g/dL (31-37) Red Cell Distribution Width 16.2 % (11.5-14.5) Platelet Count 298 x10^3/uL (140-400) Neutrophils (%) (Auto) 62 % (31-73) Lymphocytes (%) (Auto) 28 % (24-48) Monocytes (%) (Auto) 8 % (0-9) Eosinophils (%) (Auto) 2 % (0-3) Basophils (%) (Auto) 1 % (0-3) Neutrophils # (Auto) 5.2 x10^3/uL (1.8-7.7) Lymphocytes # (Auto) 2.4 x10^3/uL (1.0-4.8) Monocytes # (Auto) 0.6 x10^3/uL (0.0-1.1) Eosinophils # (Auto) 0.1 x10^3/uL (0.0-0.7) Basophils # (Auto) 0.1 x10^3/uL (0.0-0.2) Sodium Level 141 mmol/L (136-145) Potassium Level 4.3 mmol/L (3.5-5.1) Chloride Level 106 mmol/L (98-107) Carbon Dioxide Level 32 mmol/L (21-32) Anion Gap 3 (6-14) Blood Urea Nitrogen 18 mg/dL (7-20) Creatinine 1.1 mg/dL (0.6-1.0) Estimated GFR (Cockcroft-Gault) 49.5 BUN/Creatinine Ratio 16 (6-20) Glucose Level 97 mg/dL (70-99) Calcium Level 8.5 mg/dL (8.5-10.1) Magnesium Level 1.7 mg/dL (1.8-2.4) Total Bilirubin 0.4 mg/dL (0.2-1.0) Aspartate Amino Transf (AST/SGOT) 22 U/L (15-37) Alanine Aminotransferase (ALT/SGPT) 20 U/L (14-59) Alkaline Phosphatase 110 U/L (46-116) Troponin I Quantitative < 0.017 ng/mL (0.000-0.055) < 0.017 ng/mL (0.000-0.055) WO-Eot-Z-Type Natriuretic Peptide 578 pg/mL (0-124) Total Protein 6.7 g/dL (6.4-8.2) Albumin 3.2 g/dL (3.4-5.0) Albumin/Globulin Ratio 0.9 (1.0-1.7) Prothrombin Time 12.7 SEC (11.7-14.0) Prothromb Time International Ratio 1.0 (0.8-1.1) Activated Partial Thromboplast Time 25 SEC (24-38) Urine Collection Type Unknown Urine Color Yellow Urine Clarity Clear Urine pH 5.5 (<5.0-8.0) Urine Specific [place] 1.025 (1.000-1.030) Urine Protein Negative mg/dL (NEG-TRACE) Urine Glucose (UA) Negative mg/dL (NEG) Urine Ketones (Stick) Negative mg/dL (NEG) Urine Blood Negative (NEG) Urine Nitrite Negative (NEG) Urine Bilirubin Negative (NEG) Urine Urobilinogen Dipstick 0.2 mg/dL (0.2 mg/dL) Urine Leukocyte Esterase Negative (NEG) Urine RBC 0 /HPF (0-2) Urine WBC 0 /HPF (0-4) Urine Squamous Epithelial Cells Occ /LPF Urine Bacteria 0 /HPF (0-FEW) Urine Mucus Slight /LPF Laboratory Tests Test 04/21/20 15:50 04/21/20 16:30 04/21/20 18:32 04/21/20 19:00 White Blood Count 8.4 x10^3/uL (4.0-11.0) Red Blood Count 4.33 x10^6/uL (3.50-5.40) Hemoglobin 12.1 g/dL (12.0-15.5) Hematocrit 36.4 % (36.0-47.0) Mean Corpuscular Volume 84 fL (79-100) Mean Corpuscular Hemoglobin 28 pg (25-35) Mean Corpuscular Hemoglobin Concent 33 g/dL (31-37) Red Cell Distribution Width 16.2 % (11.5-14.5) Platelet Count 298 x10^3/uL (140-400) Neutrophils (%) (Auto) 62 % (31-73) Lymphocytes (%) (Auto) 28 % (24-48) Monocytes (%) (Auto) 8 % (0-9) Eosinophils (%) (Auto) 2 % (0-3) Basophils (%) (Auto) 1 % (0-3) Neutrophils # (Auto) 5.2 x10^3/uL (1.8-7.7) Lymphocytes # (Auto) 2.4 x10^3/uL (1.0-4.8) Monocytes # (Auto) 0.6 x10^3/uL (0.0-1.1) Eosinophils # (Auto) 0.1 x10^3/uL (0.0-0.7) Basophils # (Auto) 0.1 x10^3/uL (0.0-0.2) Sodium Level 141 mmol/L (136-145) Potassium Level 4.3 mmol/L (3.5-5.1) Chloride Level 106 mmol/L (98-107) Carbon Dioxide Level 32 mmol/L (21-32) Anion Gap 3 (6-14) Blood Urea Nitrogen 18 mg/dL (7-20) Creatinine 1.1 mg/dL (0.6-1.0) Estimated GFR (Cockcroft-Gault) 49.5 BUN/Creatinine Ratio 16 (6-20) Glucose Level 97 mg/dL (70-99) Calcium Level 8.5 mg/dL (8.5-10.1) Magnesium Level 1.7 mg/dL (1.8-2.4) Total Bilirubin 0.4 mg/dL (0.2-1.0) Aspartate Amino Transf (AST/SGOT) 22 U/L (15-37) Alanine Aminotransferase (ALT/SGPT) 20 U/L (14-59) Alkaline Phosphatase 110 U/L (46-116) Troponin I Quantitative < 0.017 ng/mL (0.000-0.055) < 0.017 ng/mL (0.000-0.055) CD-Wuz-L-Type Natriuretic Peptide 578 pg/mL (0-124) Total Protein 6.7 g/dL (6.4-8.2) Albumin 3.2 g/dL (3.4-5.0) Albumin/Globulin Ratio 0.9 (1.0-1.7) Prothrombin Time 12.7 SEC (11.7-14.0) Prothromb Time International Ratio 1.0 (0.8-1.1) Activated Partial Thromboplast Time 25 SEC (24-38) Urine Collection Type Unknown Urine Color Yellow Urine Clarity Clear Urine pH 5.5 (<5.0-8.0) Urine Specific [place] 1.025 (1.000-1.030) Urine Protein Negative mg/dL (NEG-TRACE) Urine Glucose (UA) Negative mg/dL (NEG) Urine Ketones (Stick) Negative mg/dL (NEG) Urine Blood Negative (NEG) Urine Nitrite Negative (NEG) Urine Bilirubin Negative (NEG) Urine Urobilinogen Dipstick 0.2 mg/dL (0.2 mg/dL) Urine Leukocyte Esterase Negative (NEG) Urine RBC 0 /HPF (0-2) Urine WBC 0 /HPF (0-4) Urine Squamous Epithelial Cells Occ /LPF Urine Bacteria 0 /HPF (0-FEW) Urine Mucus Slight /LPF Images Images IV CONTRAST: Administered ORAL CONTRAST: Administered COMPARISON: None FINDINGS: LOWER CHEST: Partially imaged cardiac pacemaker wires. LIVER: Mild hepatomegaly with the liver measuring 19 cm in craniocaudal extent. BILIARY SYSTEM: Gallbladder shows soft tissue filling defects that could represent stones, polyps or other mass. No obvious wall thickening or pericholecystic stranding or fluid.. Bile ducts are not dilated. PANCREAS: Unremarkable SPLEEN: Unremarkable ADRENALS: Unremarkable KIDNEYS & URETERS: The kidneys show a 3 cm right renal cyst and otherwise are unremarkable. BLADDER: Unremarkable REPRODUCTIVE ORGANS: Unremarkable GASTROINTESTINAL: Scattered colonic diverticuli. No CT findings of acute diverticulitis. Stomach, small bowel, and colon are otherwise unremarkable. The appendix is normal. 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 An intraosseous lucency at L4 is compatible with a hemangioma. Degenerative changes in the mid thoracic spine at T7-T8 and T8-T9 also noted. IMPRESSION: 1. Diverticulosis without CT evidence of acute diverticulitis. No specific findings to explain right lower quadrant abdominal pain. 2. Soft tissue in the gallbladder lumen is recommended for correlative ultrasound including color Doppler imaging to assess for a gallbladder mass. Electronically signed by: Kaity Winter MD (12/29/2019 6:09 PM) [facility] DICTATED and SIGNED BY: KAITY WINTER MD DATE: 12/29/19 180 Pharm. Details Pharmacologic stress testing was performed using 0.4mg per 5ml of regadenoson given intravenously over 7-10 seconds. Stress Symptoms no chest pain or symptoms. Patient heart rate 130 at times. she stated this was normal for her. POST EXERCISE Reason for Termination: Reached target heart rate Max HR: 133 bpm Max Blood Pressure: 131/54mmHg Blood Pressure response to exercise: Normal blood pressure response during stress. Heart Rate response to exercise: normal response Chest Pain: No. Arrhythmia: Yes. PVC ST Change: No. INTERPRETATION Stress EKG Conclusion: Baseline EKG showed sinus rhythm with PVC. No ischemic changes at peak stress. PVC's without any significant arrhythmias. Imaging Protocol IMAGE PROTOCOL: Rest Tc-99m/stress Tc-99m 2 days Rest: Stress: Viability: Radiopharm. Tc99m Sestamibi Tc99m Sestamibi Dose 30.2mCi 31mCi Duration 15min. 15min. Img Date 09/03/2019 09/04/2019 Inj-Img Time 60min. 60min. Rest Admin Site: IV - Right Antecubital Stitching Machine Feeder Or Offbearer: RT Shailesh (R)(N) Stress Admin Site: IV - Left Antecubital Stitching Machine Feeder Or Offbearer: RT Shailesh (R)(N) STRESS DATA End Diast. Vol. 153.0ml LVEDV index BSA 75.0ml End Syst. Vol. 57.0ml LVESV index BSA 28.0ml Myocardial Mass 162.0g Eject. Fraction 63.0% Stress Scores Regional WT 1.00 Summed WT 11.00 Regional WM 0.00 Summed WM 1.00 Study quality was good. Left Ventricular size was Normal at Rest and Stress. Lung uptake was . Left Ventricular ejection fraction is 63%. The rest and stress images show normal perfusion, normal contraction and thickening. LV Perf. Quant 17 Seg. SSS 11.00 17 Seg. SRS 3.00 17 Seg. SDS 8.00 Stress Defect Extent (% LAD) 16.90 Rest Defect Extent (% LAD) 6.30 Rev. Defect Extent (% LAD) 12.50 Stress Defect Extent (% LCX) 56.30 Rest Defect Extent (% LCX) 37.50 Rev. Defect Extent (% LCX) 28.80 Stress Defect Extent (% RCA) 0.00 Rest Defect Extent (% RCA) 0.00 Rev. Defect Extent (% RCA) 0.00 Stress Defect Extent (% FLAKITO) 23.90 Rest Defect Extent (% FLAKITO) 11.70 Rev. Defect Extent (% FLAKITO) 15.00 Conclusion 1. Regadenoson cardioisotope stress test did not show any evidence of ischemia or infarct. 2. Normal left ventricular systolic function with ejection fraction calculated at 63%. 3. Low risk for cardiac events. Signed by : Kristen Forbes, Electronically Approved : 09/04/2019 10:29:48 DICTATED and SIGNED BY: KRISTEN FORBES MD DATE: 09/04/19 0859 EXAM: Two-dimensional and M-mode echocardiogram with Doppler and color Doppler. Other Information Quality : Average HR: 70bpm Rhythm : Other INDICATION Cardiomyopathy 2D DIMENSIONS RVDd 3.0 (2.9-3.5cm) Left Atrium(2D) 4.0 (1.6-4.0cm) IVSd 1.2 (0.7-1.1cm) Aortic Root(2D) 3.1 (2.0-3.7cm) LVDd 6.6 (3.9-5.9cm) LVOT Diameter 2.3 (1.8-2.4cm) PWd 1.2 (0.7-1.1cm) LVDs 5.0 (2.5-4.0cm) FS (%) 24.5 % SV 106.9 ml M-Mode DIMENSIONS Left Atrium(MM) 4.81 (2.5-4.0cm) Aortic Root 3.08 (2.2-3.7cm) Aortic Valve AoV Peak Tre. 141.0cm/s AoV VTI 30.7cm AO Peak GR. 8.0mmHg LVOT Peak Tre. 72.5cm/s AO Mean GR. 4mmHg GALE (VTI) 2.60cm2 Mitral Valve MV E Velocity 49.7cm/s MV DECEL TIME 237ms MV A Velocity 83.6cm/s E/A Ratio 0.6 Pulmonary Valve PV Peak Velocity 74.9cm/s Tricuspid Valve TR P. Velocity 273cm/s RAP ESTIMATE 3mmHg TR Peak Gr. 30mmHg RVSP 33mmHg LEFT VENTRICLE The Left Ventricle is mildly dilated. There is mild concentric left ventricular hypertrophy. The systolic function is mildly impaired. The Ejection Fraction is estimated at 45%. There is mild global hypokinesis of the left ventricle. Transmitral Doppler flow pattern is Grade I-abnormal relaxation pattern. RIGHT VENTRICLE The right ventricle is normal size. There is normal right ventricular wall thickness. The right ventricular systolic function is normal. Device leads noted in RV/RA. ATRIA The left atrium is mildly dilated. The right atrium size is normal. The interatrial septum is intact with no evidence for an atrial septal defect or patent foramen ovale as noted on 2-D or Doppler imaging. AORTIC VALVE The aortic valve is trileaflet. The aortic valve is thickened but opens well. Doppler and Color Flow revealed no significant aortic regurgitation. There is no significant aortic valvular stenosis. MITRAL VALVE The mitral valve is normal in structure and function. There is no evidence of mitral valve prolapse. There is no mitral valve stenosis. Doppler and Color-flow revealed mild mitral regurgitation. TRICUSPID VALVE The tricuspid valve is normal in structure and function. Doppler and Color Flow revealed mild tricuspid regurgitation. The PA pressure was estimated at 33 mmHg. There is no tricuspid valve prolapse or vegetation. There is no tricuspid valve stenosis. PULMONIC VALVE The pulmonary valve is normal in structure and function. Doppler and Color Flow revealed mild pulmonic valvular regurgitation. There is no pulmonic valvular stenosis. GREAT VESSELS The aortic root is normal in size. The ascending aorta is normal in size. The IVC is normal in size and collapses >50% with inspiration. PERICARDIAL EFFUSION There is no evidence of significant pericardial effusion. Critical Notification Critical Value: No <Conclusion> The Left Ventricle is mildly dilated. The systolic function is mildly impaired. The Ejection Fraction is estimated at 45%. There is mild global hypokinesis of the left ventricle. There is mild concentric left ventricular hypertrophy. There is no significant aortic valvular stenosis. Doppler and Color Flow revealed no significant aortic regurgitation. Doppler and Color-flow revealed mild mitral regurgitation. Doppler and Color Flow revealed mild tricuspid regurgitation. The PA pressure was estimated at 33 mmHg. Signed by : All Flores MD Electronically Approved : 09/04/2019 11:49:39 P chest. HISTORY: Short of air, cough AP view was taken of the chest. There is a left pacemaker with atrial and ventricular pacing leads. There is mild elevation of the right diaphragm. There are no confluent infiltrates. There has been no change from the old study from February 2017. IMPRESSION: 1. No acute infiltrates. Electronically signed by: Rocco Matthews MD (04/21/2020 4:30 PM) [id number] DICTATED and SIGNED BY: ROCCO MATTHEWS MD DATE: 04/21/20 1630 VTE Prophylaxis Ordered VTE Prophylaxis Devices: Yes VTE Pharmacological Prophylaxi: Yes Assessment/Plan Assessment/Plan IMPRESSION Chest discomfort WITH typical and atypical characteristics Regadenoson cardioisotope stress test did not show any evidence of ischemia or infarct. 09/13 Normal left ventricular systolic function with ejection fraction calculated at 63%. Acute on chronic CHF HX Nonischemic cardiomyopathy, ejection fraction 50% echocardiogram 2018 , mild diastolic dysfunction also noted; sick sinus syndrome, status post pacemaker placement; hypothyroidism; hypertension; hyperlipidemia; glucose intolerance; GERD; shadowing focus of gallbladder fundus gallstone likely ON US 01/15 seems more likely obstructive sleep apnea; depression; osteoarthritis with chronic pain PLAN ADMIT CVC BED Consult cardiology trend troponin i home meds dvt prophylaxis HOME MEDS d/w ER DR LENTZ,IRIS Harvey MD April 21, 2020 21:56
--- NOTE | 2020-04-21 22:02 | NUR ---
The patient, SUGAR BAKER, 69 y/o, F admitted by IRIS WOODY MD, was given written information regarding hospital policies, unit procedures and contact persons. Medications reviewed with Dr. Woody and restarted. Patient arrived at 1900 from ED via wheelchair. Patient denies any chest pain or shortness of breathe. Valuables were checked and, purse, cell phone, cell phone interpreter and translator, watch, glasses, pants, shirt, shoes, socks, and undergarments are with patient.
[2020-04-21 23:45] VITALS: BP 143/69
[2020-04-22 03:36] VITALS: BP 139/79
[2020-04-22] MEDS: LEVOTHYROXINE 112 MCG TABLET PO SCH (05:48)
[2020-04-22 06:29] LABS: CHOLESTEROL/HDL RATIO 4.2
[2020-04-22 07:00] VITALS: BP 131/71
--- NOTE | 2020-04-22 07:50 | EKG ---
[facility] [address] [place] [address] Test Date: 2020-04-22 Test Time: 07:21:33 Pat Name: SUGAR BAKER Department: Room: 206 1 Gender: F [employer]: : 1950 Requested By: ANTOINETTE CASTAÑEDA Order Number: [id number] Reading MD: Gildardo Concepcion MD Measurements Intervals [place] Rate: 62 P: -52 WI: 116 QRS: -12 QRSD: 98 T: 17 QT: 424 QTc: 433 Interpretive Statements SINUS RHYTHM NON-SPECIFIC ST/T CHANGES Electronically Signed On 04-22-2020 15:00:39 CDT by Gildardo Concepcion MD
[2020-04-22] MEDS ORDERED: hydroCHLOROthiazide 12.5 MG CAPSULE PO SCH (09:00)
--- NOTE | 2020-04-22 09:08 | PDOC2 ---
CARDIAC CONSULT DATE OF CONSULT Date of Consult DATE: 04/22/20 TIME: 08:41 REASON FOR CONSULT Reason for Consult: Chest pain REFERRING PHYSICIAN Referring Physician: Michael SOURCE Source: Chart review, Patient HISTORY OF PRESENT ILLNESS HISTORY OF PRESENT ILLNESS This is a pleasant 69 yo female admitted for complains of chest pain. Reports that she has been off work for 2 month and just got back yesterday. She has been having periods of squeezing chest pressure that last sometimes 3-4 minutes at a time with intermittent lightheadedness and sweating. No jaw or arm discomfort but sometimes it is hard for her to take a deep breath due to the discomfort. Denies any palpitations. No recent injuries, falls or passing out. She has been feeling PAZ especially upon using stairs which she has 14 steps at home. She also has gained 10 pounds in the last 2 months and does not have routine exercise. She is compliant with her medications and has been using her CPAP diligently and also taking 50 mg bid of metoprolol and unable to take more than this as it makes her tired ans sleepy at times interfering with her work. Reports her GERD is controlled and takes a pill for it. She is known for past NICM and had unremarkable stress test 08/2019 and last LHC was about 6-7 yrs ago. No complains of significant leg swelling and no orthopnea or PND. No cough or recent respiratory infection. No hx of VTE. PAST MEDICAL HISTORY Past Medical History Cardiovascular: PAFIB, CHF (systolic with NICM EF ), HTN, Hyperlipidemia with statin myalgia, Other (sss s/p PPM, SVT) Pulmonary: Pneumonia, Other (NURY with CPAP) GI: GERD, diverticulosis Heme/Onc: anemia Psych: Anxiety, Depression Musculoskeletal: low back pain, Osteoarthritis, Other (DDD) Infectious disease: No pertinent hx ENT: No pertinent hx Renal/: Other (renal stones), right renal cyst, urinary incontinence Endocrine: Hypothyroidism Dermatology: Eczema PAST SURGICAL HISTORY Past Surgical History Pacemaker (Biotronik dual chamber implanted 10/11), Hernia Repair, [facility] FAMILY HISTORY Family History: Diabetes SOCIAL HISTORY Smoke: No ALCOHOL: none Drugs: None Lives: with Family CURRENT MEDICATIONS CURRENT MEDICATIONS Current Medications Medications (Trade) Dose Ordered Sig/Anuj Route PRN Reason Start Time Stop Time Status Last Admin Dose Admin Aspirin (Karmen Aspirin) 325 mg 1X ONCE PO 04/21/20 16:45 04/21/20 16:46 DC 04/21/20 17:27 Levothyroxine Sodium (Synthroid) 112 mcg DAILY06 PO 04/22/20 06:00 04/22/20 05:48 Metoprolol Tartrate (Lopressor) 50 mg HS PO 04/21/20 21:00 04/21/20 20:54 ALLERGIES ALLERGIES: Coded Allergies: atorvastatin (Verified Allergy, Intermediate, 02/26/17) codeine (Verified Allergy, Intermediate, 10/02/16) TOLERATES HYDROCODONE erythromycin base (Verified Allergy, Intermediate, 08/25/15) pitavastatin (Verified Adverse Reaction, Mild, nausea, 08/19/19) ROS Review of System 14 point ROS evaluated with pertinent positives noted per HPI PHYSICAL EXAM General: Alert, Oriented X3, Cooperative, No acute distress HEENT: Atraumatic, Mucous membr. moist/pink Lungs: Clear to auscultation, Normal air movement Heart: Regular rate (SR with PVCs and intermittent pacing), Normal S1, Normal S2, Other (2/6 systolic murmur to LLS border) Abdomen: Soft, No tenderness, Other (obese) Skin: No breakdown Neuro: Normal speech, Sensation intact Psych/Mental Status: Mental status NL, Mood NL MUSCULOSKELETAL: Osteoarthritic changes both hands VITALS/I&O VITALS/I&O: Vital Signs Date Time Temp Pulse Resp B/P (MAP) Pulse Ox O2 Delivery O2 Flow Rate FiO2 04/22/20 07:00 97.8 69 16 131/71 (91) 94 Nasal Cannula 97.8 I & O 04/21/20 04/21/20 04/22/20 15:00 23:00 07:00 Intake Total 240 ml 340 ml Output Total 200 ml 400 ml Balance 40 ml -60 ml LABS Lab: Laboratory Tests Test 04/21/20 15:50 04/21/20 16:30 04/21/20 18:32 04/21/20 19:00 White Blood Count 8.4 x10^3/uL (4.0-11.0) Red Blood Count 4.33 x10^6/uL (3.50-5.40) Hemoglobin 12.1 g/dL (12.0-15.5) Hematocrit 36.4 % (36.0-47.0) Mean Corpuscular Volume 84 fL (79-100) Mean Corpuscular Hemoglobin 28 pg (25-35) Mean Corpuscular Hemoglobin Concent 33 g/dL (31-37) Red Cell Distribution Width 16.2 % (11.5-14.5) H Platelet Count 298 x10^3/uL (140-400) Neutrophils (%) (Auto) 62 % (31-73) Lymphocytes (%) (Auto) 28 % (24-48) Monocytes (%) (Auto) 8 % (0-9) Eosinophils (%) (Auto) 2 % (0-3) Basophils (%) (Auto) 1 % (0-3) Neutrophils # (Auto) 5.2 x10^3/uL (1.8-7.7) Lymphocytes # (Auto) 2.4 x10^3/uL (1.0-4.8) Monocytes # (Auto) 0.6 x10^3/uL (0.0-1.1) Eosinophils # (Auto) 0.1 x10^3/uL (0.0-0.7) Basophils # (Auto) 0.1 x10^3/uL (0.0-0.2) Sodium Level 141 mmol/L (136-145) Potassium Level 4.3 mmol/L (3.5-5.1) Chloride Level 106 mmol/L (98-107) Carbon Dioxide Level 32 mmol/L (21-32) Anion Gap 3 (6-14) L Blood Urea Nitrogen 18 mg/dL (7-20) Creatinine 1.1 mg/dL (0.6-1.0) H Estimated GFR (Cockcroft-Gault) 49.5 BUN/Creatinine Ratio 16 (6-20) Glucose Level 97 mg/dL (70-99) Calcium Level 8.5 mg/dL (8.5-10.1) Magnesium Level 1.7 mg/dL (1.8-2.4) L Total Bilirubin 0.4 mg/dL (0.2-1.0) Aspartate Amino Transferase (AST) 22 U/L (15-37) Alanine Aminotransferase (ALT) 20 U/L (14-59) Alkaline Phosphatase 110 U/L (46-116) Troponin I Quantitative < 0.017 ng/mL (0.000-0.055) < 0.017 ng/mL (0.000-0.055) RR-Jrb-R-Type Natriuretic Peptide 578 pg/mL (0-124) H Total Protein 6.7 g/dL (6.4-8.2) Albumin 3.2 g/dL (3.4-5.0) L Albumin/Globulin Ratio 0.9 (1.0-1.7) L Prothrombin Time 12.7 SEC (11.7-14.0) Prothrombin Time INR 1.0 (0.8-1.1) Activated Partial Thromboplast Time 25 SEC (24-38) Urine Collection Type Unknown Urine Color Yellow Urine Clarity Clear Urine pH 5.5 (<5.0-8.0) Urine Specific [place] 1.025 (1.000-1.030) Urine Protein Negative mg/dL (NEG-TRACE) Urine Glucose (UA) Negative mg/dL (NEG) Urine Ketones (Stick) Negative mg/dL (NEG) Urine Blood Negative (NEG) Urine Nitrite Negative (NEG) Urine Bilirubin Negative (NEG) Urine Urobilinogen Dipstick 0.2 mg/dL (0.2 mg/dL) Urine Leukocyte Esterase Negative (NEG) Urine RBC 0 /HPF (0-2) Urine WBC 0 /HPF (0-4) Urine Squamous Epithelial Cells Occ /LPF Urine Bacteria 0 /HPF (0-FEW) Urine Mucus Slight /LPF Test 04/22/20 00:10 04/22/20 05:55 Troponin I Quantitative < 0.017 ng/mL (0.000-0.055) < 0.017 ng/mL (0.000-0.055) Triglycerides Level 122 mg/dL (0-150) Cholesterol Level 181 mg/dL (0-200) LDL Cholesterol, Calculated 114 mg/dL (0-100) H VLDL Cholesterol, Calculated 24 mg/dL (0-40) Non-HDL Cholesterol Calculated 138 mg/dL (0-129) H HDL Cholesterol 43 mg/dL (40-60) Cholesterol/HDL Ratio 4.2 Laboratory Tests 04/21/20 15:50 Laboratory Tests 04/21/20 15:50 ECHOCARDIOGRAM ECHOCARDIOGRAM <Conclusion> The Left Ventricle is mildly dilated. The systolic function is mildly impaired. The Ejection Fraction is estimated at 45%. There is mild global hypokinesis of the left ventricle. There is mild concentric left ventricular hypertrophy. There is no significant aortic valvular stenosis. Doppler and Color Flow revealed no significant aortic regurgitation. Doppler and Color-flow revealed mild mitral regurgitation. Doppler and Color Flow revealed mild tricuspid regurgitation. The PA pressure was estimated at 33 mmHg. DATE: 09/04/19 1115 STRESS TEST STRESS TEST Conclusion 1. Regadenoson cardioisotope stress test did not show any evidence of ischemia or infarct. 2. Normal left ventricular systolic function with ejection fraction calculated at 63%. 3. Low risk for cardiac events. DATE: 09/04/19 0859 ASSESSMENT/PLAN ASSESSMENT/PLAN 1. Chest pain: Trops nml. Discomfort likely from frequent PVCs 365/hr per interrogation 2. PPM in situ/SSS: DDD-CLS Biotronik, AFIB burden 0. Impedances stable. RV pacing 22% A pacing 77%. Presently SR with intermittent pacing and PVCs. 3. HTN: controlled 4. HLP: statin intolerant. LDL at 116 5. Anxiety: controlled 6. NURY: CPAP compliant 7. Morbid obesity: poor endurance and continued wt gain contributing to PAZ as well. 8. Hx of NICM: compensated and last LHC was approximately 7 yrs ago. Recommendations 1. Given some typical features and significant ectopies will consider for ischemic workup, will discuss with primary firesetter 2. TTE today and will check BMP and Mg and TSH 3. Encouraged wt loss and routine exercise. Dietitian consult. 4. Continue metoprolol tartrate at 50 mg bid. Would not tolerate higher dosing due to work interferance induced by side effects of fatigue and tiredness. 5. PCSK9i is a consideration pending ischemic workup. 6. DC HCTZ and continue other BP regimen. ADELA GARCIA DEEP FAT FRY COOK April 22, 2020 09:08
[2020-04-22 09:13] LABS: CALCIUM 8.3 mg/dL (8.5-10.1); CREATININE 1.1 mg/dL (0.6-1.0); GFR 49.5; MAGNESIUM 1.8 mg/dL (1.8-2.4); POTASSIUM 3.9 mmol/L (3.5-5.1)
--- NOTE | 2020-04-22 09:49 | RAD ---
Ventilation perfusion exam History: Shortness of air Comparison: Chest radiograph April 21, 2020, no previous similar exam available Findings: Perfusion examination was performed. Ventilation imaging was not performed. Perfusion images were acquired after the patient was injected with 5 mCi of technetium 99m MAA. No significant segmental perfusion defect is identified. Impression: 1. No significant segmental perfusion defect is identified. While there are no ventilation images available, exam is considered low probability for pulmonary embolic disease. Electronically signed by: Yogesh Davis MD (04/22/2020 9:46 AM) [id number]
[2020-04-22] MEDS: FUROSEMIDE 20 MG TABLET PO SCH ×2 (09:53→17:29)
[2020-04-22] MEDS: PANTOPRAZOLE 40 MG TABLET.DR. PO SCH (09:53)
[2020-04-22] MEDS: POTASSIUM CHLORIDE 20 MEQ TABLET.ER. PO SCH (09:53)
[2020-04-22] MEDS: ASPIRIN CHEWABLE 81 MG TABLET. PO SCH (09:53)
[2020-04-22] MEDS: FLUoxetine HCL 20 MG CAPSULE PO SCH (09:53)
[2020-04-22] MEDS: CHOLECALCIFEROL (VITAMIN D3) 1,000 UNIT TABLET PO SCH (09:54)
[2020-04-22] MEDS: LISINOPRIL 20 MG TABLET PO SCH (09:54)
[2020-04-22 11:09] VITALS: BP 164/87
--- NOTE | 2020-04-22 12:01 | NUR ---
SS following up with discharge planning. SS reviewed pt chart and discussed with pt RN. Pt is from home and is currently on room air. Pt having ECHO today and possible heart cath on 04/23/2020. SS will continue to follow for discharge planning.
[2020-04-22] MEDS: METOPROLOL TART IMMED RELEASE 50 MG TABLET. PO SCH ×2 (12:10→20:41)
[2020-04-22] MEDS: NAPROXEN 500 MG TABLET PO PRN ×2 (12:10→20:40)
--- NOTE | 2020-04-22 12:55 | PDOC ---
[facility] [facility] PROGRESS NOTE Chief Complaint Chief Complaint Chest discomfort WITH typical and atypical characteristics Regadenoson cardioisotope stress test did not show any evidence of ischemia or infarct. 09/13 Normal left ventricular systolic function with ejection fraction calculated at 63%. Acute on chronic CHF HX Nonischemic cardiomyopathy, ejection fraction 50% echocardiogram 2017 , mild diastolic dysfunction also noted; sick sinus syndrome, status post pacemaker placement; hypothyroidism; hypertension; hyperlipidemia; glucose intolerance; GERD; shadowing focus of gallbladder fundus gallstone likely ON US 01/15 seems more likely obstructive sleep apnea; depression; osteoarthritis with chronic pain History of Present Illness History of Present Illness 04/22/2020 Patient seen and examined Discussed with RN Discussed with case management Chart reviewed She is apparently going for a echocardiogram today and then cardiac cath in a.m. Vitals/I&O Vitals/I&O: Vital Signs Date Time Temp Pulse Resp B/P (MAP) Pulse Ox O2 Delivery O2 Flow Rate FiO2 04/22/20 12:10 71 164/87 04/22/20 11:09 98.2 18 99 Room Air 98.2 I & O 04/21/20 04/21/20 04/22/20 15:00 23:00 07:00 Intake Total 240 ml 340 ml Output Total 200 ml 400 ml Balance 40 ml -60 ml Physical Exam General: Alert, Oriented X3, Cooperative, No acute distress Heart: Regular rate (SR with PVCs and intermittent pacing), Normal S1, Normal S2, Other (2/6 systolic murmur to LLS border) Lungs: Clear Abdomen: Soft, No tenderness, Other (obese) Extremities: No cyanosis Skin: No breakdown Labs Labs: Laboratory Tests Test 04/21/20 15:50 04/21/20 16:30 04/21/20 18:32 04/21/20 19:00 White Blood Count 8.4 x10^3/uL (4.0-11.0) Red Blood Count 4.33 x10^6/uL (3.50-5.40) Hemoglobin 12.1 g/dL (12.0-15.5) Hematocrit 36.4 % (36.0-47.0) Mean Corpuscular Volume 84 fL (79-100) Mean Corpuscular Hemoglobin 28 pg (25-35) Mean Corpuscular Hemoglobin Concent 33 g/dL (31-37) Red Cell Distribution Width 16.2 % (11.5-14.5) Platelet Count 298 x10^3/uL (140-400) Neutrophils (%) (Auto) 62 % (31-73) Lymphocytes (%) (Auto) 28 % (24-48) Monocytes (%) (Auto) 8 % (0-9) Eosinophils (%) (Auto) 2 % (0-3) Basophils (%) (Auto) 1 % (0-3) Neutrophils # (Auto) 5.2 x10^3/uL (1.8-7.7) Lymphocytes # (Auto) 2.4 x10^3/uL (1.0-4.8) Monocytes # (Auto) 0.6 x10^3/uL (0.0-1.1) Eosinophils # (Auto) 0.1 x10^3/uL (0.0-0.7) Basophils # (Auto) 0.1 x10^3/uL (0.0-0.2) Sodium Level 141 mmol/L (136-145) Potassium Level 4.3 mmol/L (3.5-5.1) Chloride Level 106 mmol/L (98-107) Carbon Dioxide Level 32 mmol/L (21-32) Anion Gap 3 (6-14) Blood Urea Nitrogen 18 mg/dL (7-20) Creatinine 1.1 mg/dL (0.6-1.0) Estimated GFR (Cockcroft-Gault) 49.5 BUN/Creatinine Ratio 16 (6-20) Glucose Level 97 mg/dL (70-99) Calcium Level 8.5 mg/dL (8.5-10.1) Magnesium Level 1.7 mg/dL (1.8-2.4) Total Bilirubin 0.4 mg/dL (0.2-1.0) Aspartate Amino Transf (AST/SGOT) 22 U/L (15-37) Alanine Aminotransferase (ALT/SGPT) 20 U/L (14-59) Alkaline Phosphatase 110 U/L (46-116) Troponin I Quantitative < 0.017 ng/mL (0.000-0.055) < 0.017 ng/mL (0.000-0.055) PU-Lbp-L-Type Natriuretic Peptide 578 pg/mL (0-124) Total Protein 6.7 g/dL (6.4-8.2) Albumin 3.2 g/dL (3.4-5.0) Albumin/Globulin Ratio 0.9 (1.0-1.7) Prothrombin Time 12.7 SEC (11.7-14.0) Prothromb Time International Ratio 1.0 (0.8-1.1) Activated Partial Thromboplast Time 25 SEC (24-38) Urine Collection Type Unknown Urine Color Yellow Urine Clarity Clear Urine pH 5.5 (<5.0-8.0) Urine Specific [place] 1.025 (1.000-1.030) Urine Protein Negative mg/dL (NEG-TRACE) Urine Glucose (UA) Negative mg/dL (NEG) Urine Ketones (Stick) Negative mg/dL (NEG) Urine Blood Negative (NEG) Urine Nitrite Negative (NEG) Urine Bilirubin Negative (NEG) Urine Urobilinogen Dipstick 0.2 mg/dL (0.2 mg/dL) Urine Leukocyte Esterase Negative (NEG) Urine RBC 0 /HPF (0-2) Urine WBC 0 /HPF (0-4) Urine Squamous Epithelial Cells Occ /LPF Urine Bacteria 0 /HPF (0-FEW) Urine Mucus Slight /LPF Test 04/22/20 00:10 04/22/20 05:55 Troponin I Quantitative < 0.017 ng/mL (0.000-0.055) < 0.017 ng/mL (0.000-0.055) Sodium Level 141 mmol/L (136-145) Potassium Level 3.9 mmol/L (3.5-5.1) Chloride Level 103 mmol/L (98-107) Carbon Dioxide Level 31 mmol/L (21-32) Anion Gap 7 (6-14) Blood Urea Nitrogen 18 mg/dL (7-20) Creatinine 1.1 mg/dL (0.6-1.0) Estimated GFR (Cockcroft-Gault) 49.5 Glucose Level 98 mg/dL (70-99) Calcium Level 8.3 mg/dL (8.5-10.1) Magnesium Level 1.8 mg/dL (1.8-2.4) Triglycerides Level 122 mg/dL (0-150) Cholesterol Level 181 mg/dL (0-200) LDL Cholesterol, Calculated 114 mg/dL (0-100) VLDL Cholesterol, Calculated 24 mg/dL (0-40) Non-HDL Cholesterol Calculated 138 mg/dL (0-129) HDL Cholesterol 43 mg/dL (40-60) Cholesterol/HDL Ratio 4.2 Free Thyroxine 1.20 ng/dL (0.76-1.46) Assessment and Plan Assessmemt and Plan Problems Medical Problems: (1) Chest pain Status: Acute (2) Dyspnea on exertion Status: Acute Chest discomfort WITH typical and atypical characteristics Regadenoson cardioisotope stress test did not show any evidence of ischemia or infarct. 09/13 Normal left ventricular systolic function with ejection fraction calculated at 63%. Acute on chronic CHF HX Nonischemic cardiomyopathy, ejection fraction 50% echocardiogram 2018 , mild diastolic dysfunction also noted; sick sinus syndrome, status post pacemaker placement; hypothyroidism; hypertension; hyperlipidemia; glucose intolerance; GERD; shadowing focus of gallbladder fundus gallstone likely ON US 01/15 seems more likely obstructive sleep apnea; depression; osteoarthritis with chronic pain PLAN Echo today then probable cardiac cath in a.m. trend troponin i home meds dvt prophylaxis HOME MEDS Comment Review of Relevant I have reviewed the following items lei (where applicable) has been applied. Medications: Current Medications Medications (Trade) Dose Ordered Sig/Anuj Route PRN Reason Start Time Stop Time Status Last Admin Dose Admin Aspirin (Karmen Aspirin) 325 mg 1X ONCE PO 04/21/20 16:45 04/21/20 16:46 DC 04/21/20 17:27 Aspirin (Aspirin Chewable) 81 mg DAILY PO 04/22/20 09:00 04/22/20 09:53 Fluoxetine HCl (PROzac) 40 mg DAILY PO 04/22/20 09:00 04/22/20 09:53 Furosemide (Lasix) 20 mg BID94 PO 04/22/20 09:00 04/22/20 09:53 Levothyroxine Sodium (Synthroid) 112 mcg DAILY06 PO 04/22/20 06:00 04/22/20 05:48 Lisinopril (Prinivil) 40 mg DAILY PO 04/22/20 09:00 04/22/20 09:54 Metoprolol Tartrate (Lopressor) 50 mg HS PO 04/21/20 21:00 04/22/20 09:57 DC 04/21/20 20:54 Pantoprazole Sodium (Protonix) 40 mg DAILYAC PO 04/22/20 07:30 04/22/20 09:53 Potassium Chloride (Klor-Con) 20 meq DAILY PO 04/22/20 09:00 04/22/20 09:53 Vitamin D (Vitamin D3) 2,000 unit DAILY PO 04/22/20 09:00 04/22/20 09:54 Hydrochlorothiazide (Microzide) 12.5 mg DAILY PO 04/22/20 09:00 04/22/20 11:26 DC 04/22/20 09:54 Metoprolol Tartrate (Lopressor) 50 mg BID PO 04/22/20 11:00 04/22/20 12:10 Naproxen (Naprosyn) 500 mg PRN BID PRN PO PAIN 04/22/20 11:30 04/22/20 12:10 MAYA OHARA III DO April 22, 2020 12:55
[2020-04-22 14:23] VITALS: BP 129/71
--- NOTE | 2020-04-22 16:47 | CARD ---
MR#: [id number] Date of Study: 04/22/2020 Ordering Physician: ADELA GARCIA, Referring Physician: ADELA GARCIA, Tech: Dominique Rosado APPROVED REPORT EXAM: Two-dimensional and M-mode echocardiogram with Doppler and color Doppler. Other Information Quality : AverageHR: 52bpm Rhythm : PacemakerTechnically limited study due to body habitus. INDICATION Arrhythmia Dyspnea Chest Pain Congestive Heart Failure Surgery/Intervention Pacemaker: Date: 2016 RISK FACTORS Hypertension 2D DIMENSIONS RVDd3.5 (2.9-3.5cm)Left Atrium(2D)5.6 (1.6-4.0cm) IVSd1.2 (0.7-1.1cm)Aortic Root(2D)3.4 (2.0-3.7cm) LVDd6.6 (3.9-5.9cm)LVOT Diameter2.1 (1.8-2.4cm) PWd1.2 (0.7-1.1cm)LVDs5.1 (2.5-4.0cm) FS (%) 23.4 %SV103.7 ml Aortic Valve AoV Peak Tre.116.9cm/sAoV VTI23.5cm AO Peak GR.5.5mmHgLVOT Peak Tre.84.7cm/s LVOT VTI 18.15cmAO Mean GR.3mmHg GALE (VMAX)1.40px3TUI (VTI)2.80cm2 Mitral Valve MV E Fnjqlerj21.7cm/sMV E Peak Gr.105mmHg MV DECEL [id number] A Logfyxft47.5cm/s MV E Mean Gr.1mmHgMV VDZ96rm E/A Ratio0.9MVA (PHT)3.42cm2 TDI E/Lateral E'7.2E/Medial E'14.7 Pulmonary Valve PV Peak Fqfsjylo50.1cm/sPV Peak Grad.2mmHg Tricuspid Valve TR P. Wywtsqgx314mh/sRAP ARPEXJGR4efNl TR Peak Gr.46yhPyGMLN51kdCp Pulmonary Vein S1 Ouhltkzm64.5cm/sD2 Tlsycwuc47.9cm/s LEFT VENTRICLE The Left Ventricle is mild to moderately dilated. There is mild concentric left ventricular hypertrop hy. The systolic function is mildly impaired. The Ejection Fraction is 45-50%. Septal motion is consi stent with conduction abnormality. Transmitral Doppler flow pattern is Grade I-abnormal relaxation pa ttern. RIGHT VENTRICLE The right ventricle is normal size. There is normal right ventricular wall thickness. The right ventr icular systolic function is normal. ATRIA The left atrium is mildly dilated. The right atrium size is normal. The interatrial septum is intact with no evidence for an atrial septal defect or patent foramen ovale as noted on 2-D or Doppler imagi ng. AORTIC VALVE The aortic valve is thickened but opens well. Doppler and Color Flow revealed no significant aortic r egurgitation. There is no significant aortic valvular stenosis. MITRAL VALVE The mitral valve is normal in structure and function. There is no evidence of mitral valve prolapse. There is no mitral valve stenosis. Doppler and Color-flow revealed mild to moderate mitral regurgitat ion. TRICUSPID VALVE The tricuspid valve is normal in structure and function. Doppler and Color Flow revealed trace to mil d tricuspid regurgitation with an estimated PAP of 40 mmHg. There is no tricuspid valve stenosis. PULMONIC VALVE The pulmonic valve is not well visualized. Doppler and Color Flow revealed trace pulmonic valvular re gurgitation. GREAT VESSELS The aortic root is normal in size. The IVC is normal in size and collapses >50% with inspiration. PERICARDIAL EFFUSION There is no evidence of significant pericardial effusion. Critical Notification Critical Value: No <Conclusion> The Left Ventricle is mild to moderately dilated. The systolic function is mildly impaired. The Ejection Fraction is 45-50%. Septal motion is consistent with conduction abnormality. There is mild concentric left ventricular hypertrophy. Doppler and Color Flow revealed no significant aortic regurgitation. There is no significant aortic valvular stenosis. Doppler and Color-flow revealed mild to moderate mitral regurgitation. Doppler and Color Flow revealed trace to mild tricuspid regurgitation with an estimated PAP of 40 mmH g. Signed by : All Flores MD Electronically Approved : 04/22/2020 16:47:24
[2020-04-22 18:30] VITALS: BP 126/61
[2020-04-22 23:12] VITALS: BP 149/70
[2020-04-23] VITALS (12 sets, daily range): BP systolic 112–152; BP diastolic 60–83
[2020-04-23] MEDS: LEVOTHYROXINE 112 MCG TABLET PO SCH ×2 (05:18→08:35)
--- NOTE | 2020-04-23 08:43 | PDOC ---
[employer] [facility] PROGRESS NOTE Chief Complaint Chief Complaint Chest discomfort WITH typical and atypical characteristics Regadenoson cardioisotope stress test did not show any evidence of ischemia or infarct. 09/13 Normal left ventricular systolic function with ejection fraction calculated at 63%. Acute on chronic CHF HX Nonischemic cardiomyopathy, ejection fraction 50% echocardiogram 2017 , mild diastolic dysfunction also noted; sick sinus syndrome, status post pacemaker placement; hypothyroidism; hypertension; hyperlipidemia; glucose intolerance; GERD; shadowing focus of gallbladder fundus gallstone likely ON US 01/15 seems more likely obstructive sleep apnea; depression; osteoarthritis with chronic pain History of Present Illness History of Present Illness 04/23/2020 Patient seen and examined She is alert and oriented Chart reviewed Discussed with RN She is going for cardiac cath this morning 04/22/2020 Patient seen and examined Discussed with RN Discussed with case management Chart reviewed She is apparently going for a echocardiogram today and then cardiac cath in a.m. Vitals/I&O Vitals/I&O: Vital Signs Date Time Temp Pulse Resp B/P (MAP) Pulse Ox O2 Delivery O2 Flow Rate FiO2 04/23/20 07:00 97.7 62 16 144/82 (102) 97 Room Air 97.7 I & O 04/22/20 04/22/20 04/23/20 15:00 23:00 07:00 Intake Total 200 ml 240 ml Output Total 500 ml 1400 ml 500 ml Balance -500 ml -1200 ml -260 ml Physical Exam General: Alert, Oriented X3, Cooperative, No acute distress Heart: Regular rate (SR with PVCs and intermittent pacing), Normal S1, Normal S2, Other (2/6 systolic murmur to LLS border) Lungs: Clear Abdomen: Soft, No tenderness, Other (obese) Extremities: No cyanosis Skin: No breakdown Assessment and Plan Assessmemt and Plan Problems Medical Problems: (1) Chest pain Status: Acute (2) Dyspnea on exertion Status: Acute Chest discomfort WITH typical and atypical characteristics Regadenoson cardioisotope stress test did not show any evidence of ischemia or infarct. 09/13 Normal left ventricular systolic function with ejection fraction calculated at 63%. Acute on chronic CHF HX Nonischemic cardiomyopathy, ejection fraction 50% echocardiogram 2018 , mild diastolic dysfunction also noted; sick sinus syndrome, status post pacemaker placement; hypothyroidism; hypertension; hyperlipidemia; glucose intolerance; GERD; shadowing focus of gallbladder fundus gallstone likely ON US 01/15 seems more likely obstructive sleep apnea; depression; osteoarthritis with chronic pain PLAN Cardiac cath today. trend troponin i home meds dvt prophylaxis HOME MEDS Comment Review of Relevant I have reviewed the following items lei (where applicable) has been applied. Medications: Current Medications Medications (Trade) Dose Ordered Sig/Anuj Route PRN Reason Start Time Stop Time Status Last Admin Dose Admin Aspirin (Aspirin Chewable) 81 mg DAILY PO 04/22/20 09:00 04/22/20 09:53 Fluoxetine HCl (PROzac) 40 mg DAILY PO 04/22/20 09:00 04/22/20 09:53 Furosemide (Lasix) 20 mg BID94 PO 04/22/20 09:00 04/22/20 17:29 Lisinopril (Prinivil) 40 mg DAILY PO 04/22/20 09:00 04/22/20 09:54 Potassium Chloride (Klor-Con) 20 meq DAILY PO 04/22/20 09:00 04/22/20 09:53 Vitamin D (Vitamin D3) 2,000 unit DAILY PO 04/22/20 09:00 04/22/20 09:54 Hydrochlorothiazide (Microzide) 12.5 mg DAILY PO 04/22/20 09:00 04/22/20 11:26 DC 04/22/20 09:54 Metoprolol Tartrate (Lopressor) 50 mg BID PO 04/22/20 11:00 04/22/20 20:41 Naproxen (Naprosyn) 500 mg PRN BID PRN PO PAIN 04/22/20 11:30 04/22/20 20:40 MAYA OHARA III DO April 23, 2020 08:43
[2020-04-23] MEDS: LISINOPRIL 20 MG TABLET PO SCH (09:34)
[2020-04-23] MEDS: NAPROXEN 500 MG TABLET PO PRN (09:35)
[2020-04-23] MEDS: ASPIRIN CHEWABLE 81 MG TABLET. PO SCH (09:35)
[2020-04-23] MEDS: METOPROLOL TART IMMED RELEASE 50 MG TABLET. PO SCH (09:35)
[2020-04-23] MEDS: PANTOPRAZOLE 40 MG TABLET.DR. PO SCH (09:35)
[2020-04-23] MEDS ORDERED: LIDOCAINE 1% PF 2 ML VIAL. ONE (10:45)
[2020-04-23] MEDS ORDERED: IODIXANOL 320 MG/ML 100 ML VIAL. ONE (10:45)
[2020-04-23] MEDS ORDERED: HEPARIN for IV BOLUS 10,000 UNIT/10 ML VIAL. ONE (10:54)
[2020-04-23] MEDS ORDERED: MIDAZOLAM HCL/PF 2 MG/2 ML VIAL. ONE (10:54)
[2020-04-23] MEDS ORDERED: fentaNYL PF VIAL 100 MCG/2 ML VIAL ONE (10:54)
[2020-04-23] MEDS ORDERED: NITROGLYCERIN 200 MCG/2 ML SYRINGE FOR CATH/VASC LAB. ONE (10:55)
[2020-04-23] MEDS ORDERED: VERAPAMIL 5 MG/2 ML VIAL. ONE (10:55)
[2020-04-23] MEDS ORDERED: NITROGLYCERIN 200 MCG/2 ML SYRINGE FOR CATH/VASC LAB. IART ONE (11:30)
[2020-04-23] MEDS ORDERED: LIDOCAINE 1% PF 2 ML VIAL. INJ ONE (11:30)
[2020-04-23] MEDS ORDERED: MIDAZOLAM HCL/PF 2 MG/2 ML VIAL. IV ONE (11:30)
[2020-04-23] MEDS ORDERED: fentaNYL PF VIAL 100 MCG/2 ML VIAL IV ONE (11:30)
[2020-04-23] MEDS ORDERED: IODIXANOL 320 MG/ML 100 ML VIAL. IART ONE (11:30)
[2020-04-23] MEDS ORDERED: HEPARIN for IV BOLUS 10,000 UNIT/10 ML VIAL. IART ONE (11:30)
[2020-04-23] MEDS ORDERED: VERAPAMIL 5 MG/2 ML VIAL. IART ONE (11:30)
[2020-04-23] MEDS ORDERED: IV NORMAL SALINE 1000ML BAG 1,000 ML IV SCH (12:12)
[2020-04-23] MEDS ORDERED: NITROGLYCERIN SUBLINGUAL 0.4 MG BOTTLE OF 25. SL PRN (12:15)
[2020-04-23] MEDS ORDERED: 0.9 % SODIUM CHLORIDE 10 ML DISP.SYRIN. IV PRN (12:15)
--- NOTE | 2020-04-23 13:44 | CARD ---
MR#: [id number] Date of Study: 04/23/2020 Ordering Physician: ADELA GARCIA, Referring Physician: ADELA GARCIA, Tech: Ritesh Chaudhari, RT (R) APPROVED REPORT Procedures Left heart catheterization Selective coronary angiogram The patient is a 69-year-old female with a history of a pacemaker. She was admitted for episodes of chest pain. The patient had increasing episodes of chest pain both in frequency and duration. Previ ous non-invasive testing was normal the patient symptoms have increased. Different options were disc ussed with the patient. Risks and benefits of heart catheterization were also discussed. The patien t gave consent to perform cardiac catheterization with possible intervention. After informed consent was obtained the patient was brought to the heart catheterization lab. The ar ea of the right radial artery was prepared in usual manner with Betadine, sterile draping and local a nesthetic after a normal Eric's test. A quick cath device was used to enter the right radial artery , a wire placed and a 6 Austrian sheath placed over the wire. Standard mixture of antispasm and hepari n medications were administered through the sheath. Using a J-wire, a 6 Austrian JL3.5 diagnostic cath eter was advanced to the ascending aorta. It entered the left ventricle and pressures were obtained. It was then pulled back and used to engage the left coronary system. Sequential injections in vari ous views were obtained. Over a J-wire, a 6 Austrian Aung right diagnostic catheter was advanced. It was used to engage the right coronary system and sequential injections of various views were obta ined. The catheter was removed. The sheath was then removed as per standard protocol and sealed wit h a TR band. There were no immediate complications. Findings. Hemodynamics. LV pressure of 106/6, 13. Aortic root pressure of 104/64. Coronaries. Left main. The left main was a short vessel with no lesions. Left anterior descending. The LAD was a moderate size vessel with normal distribution. It had no le sions Left circumflex. The left circumflex with a large vessel. It had no lesions. Right coronary artery. The right coronary was a large vessel. It had no lesions. <Conclusion> No angiographic evidence of significant coronary artery disease. Signed by : All Flores MD Electronically Approved : 04/23/2020 13:43:52
[2020-04-23] MEDS: POTASSIUM CHLORIDE 20 MEQ TABLET.ER. PO SCH (13:45)
[2020-04-23] MEDS: CHOLECALCIFEROL (VITAMIN D3) 1,000 UNIT TABLET PO SCH (13:45)
[2020-04-23] MEDS: FUROSEMIDE 20 MG TABLET PO SCH ×2 (13:46→16:00)
[2020-04-23] MEDS: FLUoxetine HCL 20 MG CAPSULE PO SCH (13:46)
--- NOTE | 2020-04-23 13:58 | NUR ---
SS following up with discharge planning. SS reviewed pt chart and discussed with pt RN. Pt is currently on room air and getting cardiac work up. Pt will discharge to home when ready. SS will continue to follow for discharge planning.
--- NOTE | 2020-04-23 18:12 | NUR ---
Discharge Note: SUGAR BAKER [address] [place] [address] Discharge instructions and discharge home medications reviewed with Patient and a copy given. All questions have been answered and understanding verbalized. The following instructions and handouts were given: Post heart cath Discontinued IV line Patient discharged to home with self care via wheelchair
--- NOTE | 2020-04-24 13:43 | DS ---
DATE OF DISCHARGE: 04/23/2020 ADMISSION DIAGNOSIS: Chest pain. DISCHARGE DIAGNOSIS: Resolving atypical chest pain. PROCEDURES: Cardiac cath, which was negative. HOSPITAL COURSE: The patient is a pleasant 69-year-old female, who presented with chest pain. We did serial enzymes and serial EKGs. We consulted Cardiology. She was taken for a cath, it was negative. We discharged to home. DISPOSITION: Home. ACTIVITY: As tolerated. DIET: Low sodium. MEDICATIONS: Please see the MRAD. TOTAL TIME: 32 minutes. MAYA OHARA DO DR: BRODY/fredo JOB#: [id number] / [id number]
== END 2020-04-23 18:13 | disposition home or self-care (01) | DRG 286 ==
LOC: ER 14:44 → 2 NORTH 17:49 → OBSVTOIN 04-22 13:05
PROVIDERS: ADMIT Family Medicine; ATTEND Family Medicine
PROC: 4A023N7 Measurement of Cardiac Sampling and Pressure, Left Heart, Percutaneous Approach (ICD-10-PCS; principal; 2020-04-23)
PROC: B2111ZZ Fluoroscopy of Multiple Coronary Arteries using Low Osmolar Contrast (ICD-10-PCS; 2020-04-23)
DX: R07.89 Other chest pain (principal); I50.33 Acute on chronic diastolic (congestive) heart failure; Z68.42 Body mass index [BMI] 45.0-49.9, adult; I42.8 Other cardiomyopathies; E03.9 Hypothyroidism, unspecified; E66.01 Morbid (severe) obesity due to excess calories; E74.39 Other disorders of intestinal carbohydrate absorption; E78.5 Hyperlipidemia, unspecified; F32.9 Major depressive disorder, single episode, unspecified; F41.9 Anxiety disorder, unspecified; G47.33 Obstructive sleep apnea (adult) (pediatric); G89.29 Other chronic pain; I11.0 Hypertensive heart disease with heart failure; I48.0 Paroxysmal atrial fibrillation; I49.5 Sick sinus syndrome; K21.9 Gastro-esophageal reflux disease without esophagitis; K57.90 Diverticulosis of intestine, part unspecified, without perforation or abscess without bleeding; K80.20 Calculus of gallbladder without cholecystitis without obstruction; M19.90 Unspecified osteoarthritis, unspecified site; Z82.49 Family history of ischemic heart disease and other diseases of the circulatory system; Z83.3 Family history of diabetes mellitus; Z87.442 Personal history of urinary calculi; Z95.0 Presence of cardiac pacemaker; Z87.01 Personal history of pneumonia (recurrent); Z88.1 Allergy status to other antibiotic agents; Z88.5 Allergy status to narcotic agent; Z88.8 Allergy status to other drugs, medicaments and biological substances
CPT/HCPCS: 36415; 71045; 78580; 80048; 80053; 80061; 81001; 83735; 83880; 84439; 84484; 85025; 85610; 85730; 93005; 93306; 93458; 96374; 99152; 99153; A9540; C1769; C1892; G0378; G0379; J1644; J2250; J3010; J3490; J7030; Q9967; 99285-25

== ENCOUNTER 2020-09-09 01:41 | Inpatient (IN) | payer BC, MEDICARE ==
[~2020-09-09] VITALS: Ht 154.9 cm; Wt 113.1 kg
[~2020-09-09 01:41] MED LIST changes: +CHOL200044 PO
--- NOTE | 2020-09-09 02:45 | PHYS DOC ---
Past Medical History Past Medical History: CHF, Hypertension, Kidney Stone, Other Additional Past Medical Histor: Ludwigs Angina, cardiomyopathy, sleep apnea Past Surgical History: Pacemaker, Other Additional Past Surgical Histo: HERNIA REPAIR, pacemaker Smoking Status: Never Smoker Alcohol Use: None Drug Use: None General Adult EDM: Chief Complaint: SHORTNESS OF BREATH HPI: HPI: Patient is a 69 year old female who arrives with a chief complaint of 1 day of shortness of breath. Symptoms are worse with exertion and laying down. Patient describes some substernal chest discomfort comfort that is nonradiating. Pain is moderate with exertion and mild at rest. Patient denies any cough or fever. There has been no nausea vomiting or diarrhea. Patient does describe inte rmittent episodes of shortness of breath with her heart racing. Review of Systems: Review of Systems: Constitutional: Denies fever or chills. [] Eyes: Denies change in visual acuity. [] HENT: Denies nasal congestion or sore throat. [] Respiratory: Denies cough but has had shortness of breath. [] Cardiovascular: Complains of chest discomfort and leg swelling GI: Denies abdominal pain, nausea, vomiting, bloody stools or diarrhea. [] : Denies dysuria. [] Musculoskeletal: Denies back pain or joint pain. [] Integument: Denies rash. [] Neurologic: Denies headache, focal weakness or sensory changes. [] Endocrine: Denies polyuria or polydipsia. [] Lymphatic: Denies swollen glands. [] Psychiatric: Denies depression or anxiety. [] Heart Score: HEART Score for Chest Pain: HEART Score for Chest Pain Response (Comments) Value History Moderately Suspicious 1 Age > 65 2 Risk Factors >3 Risk Factors or Hx CAD 2 Troponin >1-<3x Normal Limit 1 Total 6 Risk Factors: Risk Factors: DM, Current or recent (<one month) smoker, HTN, HLP, family history of CAD, obesity. Risk Scores: Score 0 - 3: 2.5% MACE over next 6 weeks - Discharge Home Score 4 - 6: 20.3% MACE over next 6 weeks - Admit for Clinical Observation Score 7 - 10: 72.7% MACE over next 6 weeks - Early Invasive Strategies Current Medications: Current Medications Aspirin (Aspirin Chewable) 324 mg 1X ONCE PO Last administered on 09/09/20at 03:09; Start 09/09/20 at 03:00; Stop 09/09/20 at 03:24; Status DC Aspirin (Karmen Aspirin) 325 mg STK-MED ONCE .ROUTE ; Start 09/09/20 at 02:59; Stop 09/09/20 at 02:59; Status DC Active Scripts Active Levothyroxine Sodium 112 Mcg Tablet 1 Tab PO DAILY Pantoprazole Sodium (Pantoprazole Sodium) 40 Mg Tablet.dr 40 Mg PO DAILYAC Klor-Con M20 (Potassium Chloride) 20 Meq Tab.er.prt 20 Meq PO DAILY Reported D3-2000 (Cholecalciferol (Vitamin D3)) 50 Mcg Capsule 50 Mcg PO DAILY Hydrocodone-Apap 7.5-325 (Hydrocodone Bit/Acetaminophen) 1 Tab Tablet 1 Tab PO PRN Q6HRS PRN Furosemide 20 Mg Tablet 1 Tab PO BID Hydrochlorothiazide Tablet (Hydrochlorothiazide) 12.5 Mg Tablet 12.5 Mg PO DAILY Fluoxetine Hcl 20 Mg Capsule 2 Cap PO DAILY Metoprolol Tartrate 50 Mg Tablet 1 Tab PO BID Aspirin 81 Mg Tab.chew 1 Tab PO DAILY Lisinopril 10 Mg Tablet 4 Tab PO DAILY Allergies: Allergies: Allergies Coded Allergies Type Severity Reaction Last Updated Verified atorvastatin Allergy Intermediate 02/26/17 Yes codeine Allergy Intermediate 10/02/16 Yes erythromycin base Allergy Intermediate 08/25/15 Yes pitavastatin Adverse Reaction Mild nausea 08/19/19 Yes Physical Exam: PE: Constitutional: Well developed, well nourished, no acute distress, non-toxic appearance. [] HENT: Normocephalic, atraumatic, bilateral external ears normal, no trismus, nose normal. [] Eyes: PERRLA, EOMI, conjunctiva normal, no discharge. [] Neck: Normal range of motion, no tenderness, supple, no stridor. [] Cardiovascular:Heart rate regular rhythm, peripheral pulses are intact cap refill is brisk Lungs & Thorax: Bilateral breath sounds clear, no wheezing Abdomen: Bowel sounds normal, soft, no tenderness, no masses, no pulsatile masses. [] Skin: Warm, dry, no erythema, no rash. [] Back: No tenderness, no CVA tenderness. [] Extremities: No tenderness, no cyanosis, no clubbing, ROM intact, 2+ bilateral extremity edema Neurologic: Alert and oriented X 3, normal motor function, normal sensory function, no focal deficits noted. [] Psychologic: Affect normal, judgement normal, mood normal. [] Current Patient Data: Labs: Laboratory Tests Test 09/09/20 03:21 White Blood Count 12.3 x10^3/uL Red Blood Count 4.89 x10^6/uL Hemoglobin 12.9 g/dL Hematocrit 39.7 % Mean Corpuscular Volume 81 fL Mean Corpuscular Hemoglobin 26 pg Mean Corpuscular Hemoglobin Concent 32 g/dL Red Cell Distribution Width 16.0 % Platelet Count 328 x10^3/uL Neutrophils (%) (Auto) 76 % Lymphocytes (%) (Auto) 18 % Monocytes (%) (Auto) 5 % Eosinophils (%) (Auto) 1 % Basophils (%) (Auto) 1 % Neutrophils # (Auto) 9.3 x10^3/uL Lymphocytes # (Auto) 2.2 x10^3/uL Monocytes # (Auto) 0.6 x10^3/uL Eosinophils # (Auto) 0.1 x10^3/uL Basophils # (Auto) 0.1 x10^3/uL Prothrombin Time 13.0 SEC Prothromb Time International Ratio 1.0 Activated Partial Thromboplast Time 26 SEC D-Dimer (Hien) 2.58 ug/mlFEU Sodium Level 145 mmol/L Potassium Level 3.6 mmol/L Chloride Level 107 mmol/L Carbon Dioxide Level 25 mmol/L Anion Gap 13 Blood Urea Nitrogen 17 mg/dL Creatinine 1.0 mg/dL Estimated GFR (Cockcroft-Gault) 55.3 BUN/Creatinine Ratio 17 Glucose Level 147 mg/dL Calcium Level 8.7 mg/dL Total Bilirubin 0.4 mg/dL Aspartate Amino Transf (AST/SGOT) 20 U/L Alanine Aminotransferase (ALT/SGPT) 23 U/L Alkaline Phosphatase 117 U/L Troponin I Quantitative 0.151 ng/mL KP-Yuc-A-Type Natriuretic Peptide 7144 pg/mL Total Protein 7.4 g/dL Albumin 3.5 g/dL Albumin/Globulin Ratio 0.9 Current Medications Medications (Trade) Dose Ordered Sig/Anuj Route PRN Reason Start Time Stop Time Status Last Admin Dose Admin Aspirin (Aspirin Chewable) 324 mg 1X ONCE PO 09/09/20 03:00 09/09/20 03:24 DC 09/09/20 03:09 Aspirin (Karmen Aspirin) 325 mg STK-MED ONCE .ROUTE 09/09/20 02:59 09/09/20 02:59 DC Vital Signs: Vital Signs Date Time Temp Pulse Resp B/P (MAP) Pulse Ox O2 Delivery O2 Flow Rate FiO2 09/09/20 01:49 97.9 86 18 149/93 (111) 94 Room Air 97.9 Vital Signs Date Time Temp Pulse Resp B/P (MAP) Pulse Ox O2 Delivery O2 Flow Rate FiO2 09/09/20 01:49 97.9 86 18 149/93 (111) 94 Room Air 97.9 EKG: EKG: EKG interpreted by me normal sinus rhythm with a rate of 90 frequent PVCs left axis deviation prolonged QTC nonspecific ST changes [] Radiology/Procedures: Radiology/Procedures: [][facility] [address] [place] [address] IMAGING REPORT Signed PATIENT: SUGAR BAKER ACCOUNT: [id number] : 1950 LOCATION: ER AGE: 69 SEX: F EXAM STATUS: REG ER ORD. PHYSICIAN: JOHANA KANG MD REASON: soa PROCEDURE: PORTABLE CHEST 1V EXAM: PORTABLE CHEST 1V 09/09/2020 2:47 AM CLINICAL INDICATION: Shortness of breath COMPARISON: Chest radiograph 04/21/2020 TECHNIQUE: AP upright view of the chest FINDINGS: A dual-lead pacemaker is unchanged. Borderline enlarged heart is redemonstrated. Lungs are well-expanded and clear. No pleural effusion or pneumothorax. No acute osseous abnormality. IMPRESSION: No acute cardiopulmonary abnormality. Electronically signed by: Tiffanie Mata MD (09/09/2020 3:46 AM) [id number] DICTATED and SIGNED BY: TIFFANIE MATA MD DATE: 09/09/20 0346 Course & Med Decision Making: Course & Med Decision Making Pertinent Labs and Imaging studies reviewed. (See chart for details) [] Approximately 2:47 AM patient had evidence of wide-complex tachycardia on the monitor. Initially amiodarone was ordered but we realized patient had a pacemaker so that was canceled. [employer] has been contacted and the pacemaker be interrogated this morning. Patient has elevated D-dimer and will need a CT angiogram to rule out pulmonary embolism. Patient has a borderline elevated troponin and will be admitted with a cardiac consult. Dr. Foster will admit. Patient underwent a CT angiogram on the way to the floor and the results of this were still pending I spoke with Dr. Foster. I informed her she will need to follow-up on the CT angiogram as the patient may need to be anticoagulated if pulmonary embolism is present. Radiologist called at 5:58 AM to inform me that patient does have a pulmonary embolism. I will start the patient on a heparin drip and notify the floor. Dragon Disclaimer: Dragon Disclaimer: This electronic medical record was generated, in whole or in part, using a voice recognition dictation system. Departure Departure Impression: Primary Impression: Pulmonary embolism Additional Impression: Dyspnea Disposition: 09 ADMITTED INPT THIS HOSP Admitting Physician: GODFREY (LIZ) Condition: GUARDED Referrals: CHANTEL PRATT MD (PCP) JOHANA KANG MD Sep 09, 2020 02:45
[2020-09-09] MEDS ORDERED: ASPIRIN 325 MG TABLET ONE (02:59)
[2020-09-09] MEDS ORDERED: ASPIRIN CHEWABLE 81 MG TABLET. PO ONE (03:00)
[2020-09-09] MEDS ORDERED: AMIODARONE 450 MG in IV DEXTROSE 5% 250 ML IV PRN (03:30)
[2020-09-09] MEDS ORDERED: AMIODARONE 150 MG in IV DEXTROSE 5% 100ML 100 ML IV ONE (03:30)
[2020-09-09 03:32] LABS: BASO # 0.1 x10^3/uL (0.0-0.2); BASO % 1 % (0-3); EOS # 0.1 x10^3/uL (0.0-0.7); EOS % 1 % (0-3); HEMATOCRIT 39.7 % (36.0-47.0); HEMOGLOBIN 12.9 g/dL (12.0-15.5); LYMPH # 2.2 x10^3/uL (1.0-4.8); LYMPH % 18 % (24-48); MEAN CORPUSCULAR HEMOGLOBIN 26 pg (25-35); MEAN CORPUSCULAR HGB CONC 32 g/dL (31-37); MEAN CORPUSCULAR VOLUME 81 fL (79-100); MONO # 0.6 x10^3/uL (0.0-1.1); MONO % 5 % (0-9); NEUT # 9.3 x10^3/uL (1.8-7.7); NEUT % 76 % (31-73); PLATELET COUNT 328 x10^3/uL (140-400); RED BLOOD COUNT 4.89 x10^6/uL (3.50-5.40); WHITE BLOOD COUNT 12.3 x10^3/uL (4.0-11.0)
[2020-09-09 03:42] LABS: CALCIUM 8.7 mg/dL (8.5-10.1); GFR 55.3; POTASSIUM 3.6 mmol/L (3.5-5.1)
[2020-09-09 03:47] LABS: ALBUMIN 3.5 g/dL (3.4-5.0); ALBUMIN/GLOBULIN RATIO 0.9 (1.0-1.7); TOTAL BILIRUBIN 0.4 mg/dL (0.2-1.0); TOTAL PROTEIN 7.4 g/dL (6.4-8.2)
--- NOTE | 2020-09-09 03:49 | RAD ---
EXAM: PORTABLE CHEST 1V 09/09/2020 2:47 AM CLINICAL INDICATION: Shortness of breath COMPARISON: Chest radiograph 04/21/2020 TECHNIQUE: AP upright view of the chest FINDINGS: A dual-lead pacemaker is unchanged. Borderline enlarged heart is redemonstrated. Lungs are well-expanded and clear. No pleural effusion or pneumothorax. No acute osseous abnormality. IMPRESSION: No acute cardiopulmonary abnormality. Electronically signed by: Tiffanie Mata MD (09/09/2020 3:46 AM) [id number]
[2020-09-09 03:54] LABS: D-DIMER 2.58 ug/mlFEU (0.00-0.50)
--- NOTE | 2020-09-09 04:37 | EKG ---
[facility] [address] [place] [address] Test Date: 2020-09-09 Test Time: 02:46:08 Pat Name: SUGAR BAKER Department: Room: Gender: F Research Intern: : 1950 Requested By: JOHANA KANG Order Number: [id number] Reading MD: Measurements Intervals [place] Rate: 90 P: -89 FL: 112 QRS: -5 QRSD: 100 T: 22 QT: 398 QTc: 491 Interpretive Statements SUPRAVENTRICULAR RHYTHM VENTRICULAR PREMATURE COMPLEX(ES) LEFT ATRIAL ABNORMALITY LEFTWARD AXIS ST & T ABNORMALITY, CONSIDER LATERAL ISCHEMIA OR LEFT VENTRICULAR STRAIN T ABNORMALITY IN INFERIOR LEADS ABNORMAL ECG RI6.02 No previous ECG available for comparison
[2020-09-09] MEDS ORDERED: CONTRAST GIVEN. MC PRN (04:45)
[2020-09-09] MEDS ORDERED: IOHEXOL 350 MG/ML 100 ML VIAL. IV ONE (04:45)
[2020-09-09 04:56] VITALS: BP 149/88
--- NOTE | 2020-09-09 06:03 | RAD ---
Study: CT CHEST WITH CONTRAST - PULMONARY ANGIOGRAM History: Chest pain, elevated d-dimer Comparison: Chest radiograph same day Technique: Helical CT of the chest performed after the administration of 75 mL Omnipaque 350 intravenous contrast and timed for angiographic evaluation of the pulmonary arteries per PE protocol. Coronal and sagittal 3D MIP reformations were obtained. One or more of the following individualized dose reduction techniques were utilized for this examination: 1. Automated exposure control 2. Adjustment of the mA and/or kV according to patient size 3. Use of iterative reconstruction technique. Findings: Pulmonary Arteries: Contrast bolus is adequate. There are multiple bilateral filling defects in the lobar, segmental, and subsegmental pulmonary arteries consistent with acute pulmonary emboli. This involves the bilateral upper and lower lobes, overall moderate to large thrombus burden. Main pulmonary artery is enlarged measuring 3.2 cm. No flattening of the interventricular septum. Heart/Systemic Vasculature: Heart is mildly enlarged. No pericardial effusion. There is a pacemaker/AICD. Mediastinum: No lymphadenopathy. Lungs: The lungs are clear. No pleural effusion. Neck/Axilla/Body Wall: Unremarkable. Upper Abdomen: Normal. Bones: There is an age-indeterminate compression fracture of T8. There is bridging anterior osteophytes at T9-L1. IMPRESSION: Positive exam for acute pulmonary embolism with multiple bilateral lobar, segmental, and subsegmental pulmonary emboli, moderate to large thrombus burden. Results discussed by Dr. Mata with Dr. Kang at 5:58 AM on 09/09/2020 FOR INTERNAL CODING PURPOSES Critical result: Findings discussed with JOHANA KANG at 09/09/2020 5:59 AM. RESULT CODE: (C) Electronically signed by: Tiffanie Mata MD (09/09/2020 6:00 AM) [id number]
[2020-09-09] MEDS ORDERED: HEPARIN for IV BOLUS 10,000 UNIT/10 ML VIAL. IV ONE (06:15)
[2020-09-09] MEDS ORDERED: HEPARIN for IV BOLUS 10,000 UNIT/10 ML VIAL. IV PRN ×2 (06:15)
[2020-09-09] MEDS: HEPARIN 25,000UTS/250ML PREMIX 250 ML IV PRN ×2 (06:36→20:59)
[2020-09-09 07:00] VITALS: BP 123/66
[2020-09-09] MEDS ORDERED: IBUP-1007 PO (07:38)
[2020-09-09] MEDS ORDERED: METO25TA4 PO (07:38)
[2020-09-09] MEDS ORDERED: NAPR220C62 PO (07:38)
[2020-09-09] MEDS ORDERED: CYCL5TAB PO (07:38)
[2020-09-09] MEDS ORDERED: OMEG100021 PO (07:38)
[2020-09-09] MEDS ORDERED: FLUO60TA PO (07:38)
[2020-09-09] MEDS ORDERED: MULT-245 PO (07:38)
[2020-09-09] MEDS ORDERED: MELO15TA23 PO (07:38)
[2020-09-09] MEDS ORDERED: AMOX500T PO (07:41)
[2020-09-09] MEDS ORDERED: METO50TA6 PO (09:35)
--- NOTE | 2020-09-09 09:38 | CONS ---
DATE OF CONSULTATION: 09/09/2020 PULMONARY CONSULTATION ATTENDING PHYSICIAN: Renata Hernandez DO REASON FOR CONSULTATION: Pulmonary embolism. HISTORY OF PRESENT ILLNESS: The patient is a 69-year-old obese female with a BMI of 46.9. The patient has no prior history of pulmonary embolism. She presented to the hospital with 1-day history of shortness of breath. She said she had some squiggly sensation in her chest, but denies any obvious chest pains. She has no wheezing, no cough, no fever or chills. She says she always has some lower extremity edema. No nausea, vomiting or diarrhea. She was seen in the Emergency Room and a CTA chest was performed, which was reviewed by me. The patient has evidence of pulmonary embolism. There are multiple bilateral filling defects in the lobar segmental and subsegmental pulmonary arteries consistent with acute pulmonary embolism. The clot burden is moderate. Main pulmonary artery is about 3.2 cm. There is no bowing of the ventricular septum. No definite infarction seen. The patient denies any history of pulmonary embolism in the past. She has no known cancers. She has put down 20 pounds since last 6 months. She is not on any hormone replacement treatment. She said she had a surgery on her shoulder in June, but she did not had any shortness of breath at that time. 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 PAST MEDICAL HISTORY: Significant for history of CHF, history of cardiomyopathy with an EF of 45%, hypertension, renal stone. Cristhian's angina and sleep apnea. PAST SURGICAL HISTORY: Pacemaker, hernia repair. ALLERGIES: ATORVASTATIN, CODEINE, ERYTHROMYCIN AND PITAVASTATIN. MEDICATIONS: Reviewed as listed in the MRAD including heparin per PE protocol. REVIEW OF SYSTEMS: Twelve-point system obtained. Pertinent positives discussed in my history of present illness, otherwise noncontributory. All systems that were negative were reviewed as well. FAMILY HISTORY: Noncontributory to lungs. SOCIAL HISTORY: Denies any significant tobacco use. 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 PHYSICAL EXAMINATION: VITAL SIGNS: Reviewed. Blood pressure 123/66, afebrile, pulse ox 94% on room air. NECK: Supple. LUNGS: Clear. CARDIOVASCULAR: With a regular rate. ABDOMEN: Soft, nontender. EXTREMITIES: With trace nonpitting edema. LABORATORY DATA: Reviewed. White cell count 12.3, hemoglobin 12.9, and platelets are 328. BUN 17, creatinine 1.0. CTA chest findings are discussed in my history of present illness. IMPRESSION: 1. Acute pulmonary embolism. The blood clots were seen bilaterally and clot burden was moderate. No significant hemodynamic instability. No known history of pulmonary embolism. Risk factors being underlying obesity and relative immobilization. She has no known cancers. 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 She is not on any hormonal replacement treatment and has had a shoulder surgery in June, but did not have any symptoms of dyspnea at that time. 2. Wide complex tachycardia on admission. Treated with amiodarone. 3. The patient with known cardiomyopathy with an ejection fraction of 45% based on the last echo. There was also [id number]-um-nomitmfa mitral regurgitation. No obvious congestive heart failure on chest x-ray. 4. No significant tobacco history. RECOMMENDATIONS: 1. We will continue with present heparin per protocol. 2. Obtain venous Dopplers of lower extremities. 3. She needs to lose weight. 4. Duration of anticoagulation depends on the workup and the identifying risk factors. At present, 3-6 months would be reasonable. 5. Obtain an echo to better assess for pulmonary artery pressures. 6. Follow cardiology recommendations regarding wide complex tachycardia. 7. We will initiate Eliquis in the next 24-48 hours. 8. Obtain venous Dopplers of lower extremities. 9. Discussed with RN and we will follow along with you. ROSANA SANDOVAL MD DR: YARELI/fredo JOB#: [id number] / [id number]
--- NOTE | 2020-09-09 10:43 | RAD ---
EXAM: Bilateral lower extremity venous Doppler. HISTORY: Bilateral lower extremity pain/swelling. COMPARISON: None. FINDINGS: Grayscale and Doppler analysis of the both lower extremity deep venous systems was performed with graded compression and augmentation. The common femoral, greater saphenous, superficial femoral, popliteal and calf veins were assessed. There is no evidence of deep venous thrombosis. IMPRESSION: 1. No evidence of deep venous thrombosis. Electronically signed by: Soraya Winter MD (09/09/2020 10:40 AM) [id number]
[2020-09-09 10:49] VITALS: BP 119/63
--- NOTE | 2020-09-09 10:52 | HP ---
ADMIT DATE: 09/09/2020 CHIEF COMPLAINT: Shortness of breath. 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 She basically was at work yesterday and kept becoming short of breath. She then went home and put her BiPAP on, but was still short of breath. She then called her daughter and her daughter brought her to the ER, we did a CAT scan. She does have a pulmonary embolism. She is now on a heparin drip. She is rating her symptoms at 9/10. She has associated weakness. It has been occurring for about 24 hours, worse with moving, better with sitting still, described as very irritating. I discussed the case with ER physician. We admitted the patient with consultation to Pulmonary Medicine. PAST MEDICAL HISTORY: Obesity, CHF, hyperlipidemia, cardiomyopathy, hypertension, kidney stone, Cristhian angina, obstructive sleep apnea, pacemaker, hernia repair. ALLERGIES: ATORVASTATIN, CODEINE, AND ERYTHROMYCIN. FAMILY HISTORY: Diabetes. SOCIAL HISTORY: She does not drink, smoke or take drugs. MEDICATIONS: Were reviewed, please refer to the MRAD. REVIEW OF SYSTEMS: GENERAL: No history of weight change, weakness or fevers. SKIN: No bruising, hair changes or rashes. EYES: No blurred, double or loss of vision. NOSE AND THROAT: No history of nosebleeds, hoarseness or sore throat. HEART: No history of palpitations, chest pain or shortness of breath on exertion. LUNGS: She complains of shortness of breath. GASTROINTESTINAL: Denies changes in appetite, nausea, vomiting, diarrhea or constipation. GENITOURINARY: No history of frequency, urgency, hesitancy or nocturia. NEUROLOGIC: Denies history of numbness, tingling, tremor or weakness. PSYCHIATRIC: No history of panic, anxiety or depression. ENDOCRINE: No history of heat or cold intolerance, polyuria or polydipsia. EXTREMITIES: Denies muscle weakness, joint pain, pain on walking or stiffness. PHYSICAL EXAMINATION: VITALS: Within normal limits and are stable. GENERAL: She is obese. HEENT: Normocephalic atraumatic, external auditory canals are patent. EYES: Extraocular muscles are intact, pupils are equally round and reactive to light and accommodation. MUSCULOSKELETAL: Well developed, well nourished, good range of motion. ENDOCRINE: No thyromegaly was palpated. LYMPHATICS: No cervical chain or axillary nodes were noted. HEMATOPOIETIC: No bruising. NECK: Supple, no JVD, no thyromegaly was noted. LUNGS: Clear to auscultation in all lung gonzalez without rhonchi or wheezing. HEART: RRR, S1, S2 present. Peripheral pulses intact, no obvious murmurs were noted. ABDOMEN: Soft, nontender. Positive bowel sounds no organomegaly, normal bowel sounds. EXTREMITIES: Without any cyanosis, clubbing, or edema. Pedal pulses intact, Homans sign is negative. NEUROLOGIC: Normal speech, normal tone. A & O x3, moves all extremities, no obvious focal deficits. PSYCHIATRIC: Normal affect, normal mood. Stable. SKIN: No ulcerations or rashes, good skin turgor, no jaundice. VASCULAR: Good capillary refill, neurovascular bundle appears to be intact. LABORATORY DATA: White count 12. Electrolytes are normal. Troponin was high at 0.15. INR is 1. CT of the chest shows pulmonary embolism in multiple bilateral lobar segmental and subsegmental pulmonary areas. ASSESSMENT AND PLAN: Pulmonary emboli. The patient has been admitted. We started her on a heparin protocol. Consult Pulmonary Medicine. Echocardiogram. Lower extremity Dopplers. Flu vaccine. Trend labs. Consult Cardiology. Long-term prognosis is guarded. CRITICAL CARE TIME: 31 minutes. MAYA OHARA DO DR: BRODY/fredo JOB#: [id number] / [id number]
--- NOTE | 2020-09-09 11:11 | NUR ---
SS following for discharge planning. SS reviewed pt chart and discussed with pt RN. Pt is from home and is currently on room air. Pt on Heparin drip. Cardiology and pulmonology consulted. SS will continue to follow for discharge planning.
[2020-09-09] MEDS ORDERED: LEVO112T55 PO (11:31)
[2020-09-09] MEDS: LEVOTHYROXINE 112 MCG TABLET PO SCH (11:44)
[2020-09-09] MEDS ORDERED: NAPROXEN 500 MG TABLET PO PRN (11:45)
[2020-09-09] MEDS: CHOLECALCIFEROL (VITAMIN D3) 1,000 UNIT TABLET PO SCH (12:48)
[2020-09-09] MEDS: LISINOPRIL 20 MG TABLET PO SCH (12:49)
[2020-09-09] MEDS: PANTOPRAZOLE 40 MG TABLET.DR. PO SCH (12:49)
[2020-09-09] MEDS: ASPIRIN CHEWABLE 81 MG TABLET. PO SCH (12:49)
[2020-09-09] MEDS: FUROSEMIDE 20 MG TABLET PO SCH ×2 (12:49→16:00)
[2020-09-09] MEDS: FLUoxetine HCL 20 MG CAPSULE PO SCH (12:50)
[2020-09-09] MEDS: METOPROLOL TART IMMED RELEASE 25 MG TABLET. PO SCH (12:50)
[2020-09-09] MEDS: POTASSIUM CHLORIDE 20 MEQ TABLET.ER. PO SCH (12:50)
--- NOTE | 2020-09-09 12:57 | PDOC2 ---
ADELA GARCIA OFFICE SYSTEM ANALYST 09/09/20 1257: CARDIAC CONSULT DATE OF CONSULT Date of Consult DATE: 09/09/20 TIME: 12:31 REASON FOR CONSULT Reason for Consult: elevated troponin, PE REFERRING PHYSICIAN Referring Physician: David SOURCE Source: Chart review, Patient HISTORY OF PRESENT ILLNESS HISTORY OF PRESENT ILLNESS This is a pleasant 69 yo female admitted for complains of shortness of breath. Reports that she has been SOA in the last 2 days. No chest pain but felt at times that her chest is sinking and maybe racing. Further imaging revealed that she has acute PE and per review as she has a PPM revealed no significant arrhythmias and does intermittently pacing. No passing out or recent falls. She did have some right leg pain and was checked for DVT about 2 weeks ago and none was noted. Her left leg was not checked. She did have arthroscopic surgery to her left shoulder and her mobility has been limited since then. PAST MEDICAL HISTORY Past Medical History Cardiovascular: CHF (systolic with NICM EF ), HTN, Hyperlipidemia with statin myalgia, Other (sss s/p PPM, SVT), MR Pulmonary: Pneumonia, Other (NURY with CPAP) GI: GERD, diverticulosis Heme/Onc: anemia Psych: Anxiety, Depression Musculoskeletal: low back pain, Osteoarthritis, Other (DDD) Infectious disease: No pertinent hx ENT: No pertinent hx Renal/: Other (renal stones), right renal cyst, urinary incontinence Endocrine: Hypothyroidism Dermatology: Eczema Cardiovascular: Hyperlipidemia PAST SURGICAL HISTORY Past Surgical History: Pacemaker, Arthroscopy (left shoulder), Hernia Repair, Other (LHC) FAMILY HISTORY Family History: Hypertension SOCIAL HISTORY Smoke: No ALCOHOL: none Drugs: None Lives: with Family CURRENT MEDICATIONS CURRENT MEDICATIONS Current Medications Medications (Trade) Dose Ordered Sig/Anuj Route PRN Reason Start Time Stop Time Status Last Admin Dose Admin Aspirin (Aspirin Chewable) 324 mg 1X ONCE PO 09/09/20 03:00 09/09/20 03:24 DC 09/09/20 03:09 Iohexol (Omnipaque 350 Mg/ml) 75 ml 1X ONCE IV 09/09/20 04:45 09/09/20 04:46 DC 09/09/20 04:45 Heparin Sodium (Porcine) (Heparin Sodium) 9,000 unit 1X ONCE IV 09/09/20 06:15 09/09/20 06:16 DC 09/09/20 06:44 Heparin Sodium/ Dextrose 250 ml @ 0 mls/hr CONT PRN IV PER PROTOCOL 09/09/20 06:15 09/09/20 06:36 Levothyroxine Sodium (Synthroid) 112 mcg DAILY06 PO 09/09/20 12:00 09/09/20 11:44 ALLERGIES ALLERGIES: Coded Allergies: atorvastatin (Verified Allergy, Intermediate, 02/26/17) codeine (Verified Allergy, Intermediate, 10/02/16) TOLERATES HYDROCODONE erythromycin base (Verified Allergy, Intermediate, 08/25/15) pitavastatin (Verified Adverse Reaction, Mild, nausea, 08/19/19) ROS Review of System 14 point ROS evaluated with pertinent positives noted per HPI PHYSICAL EXAM General: Alert, Oriented X3, Cooperative, No acute distress HEENT: Atraumatic, Mucous membr. moist/pink Lungs: Clear to auscultation, Normal air movement Heart: Regular rate (SR with intermittent pacing), Other (systolic 3/6 apical murmur) Abdomen: Soft, No tenderness Extremities: No cyanosis, Other (1+ bilateral LE pitting edema) Skin: No breakdown, No significant lesion Neuro: Normal speech, Sensation intact Psych/Mental Status: Mental status NL, Mood NL MUSCULOSKELETAL: Osteoarthritic changes both hands VITALS/I&O VITALS/I&O: Vital Signs Date Time Temp Pulse Resp B/P (MAP) Pulse Ox O2 Delivery O2 Flow Rate FiO2 09/09/20 10:49 98.0 84 18 119/63 (81) 94 Room Air 98.0 I & O 09/08/20 09/08/20 09/09/20 15:00 23:00 07:00 Output Total 200 ml Balance -200 ml LABS Lab: Laboratory Tests Test 09/09/20 03:21 09/09/20 06:55 09/09/20 10:00 White Blood Count 12.3 x10^3/uL (4.0-11.0) H Red Blood Count 4.89 x10^6/uL (3.50-5.40) Hemoglobin 12.9 g/dL (12.0-15.5) Hematocrit 39.7 % (36.0-47.0) Mean Corpuscular Volume 81 fL (79-100) Mean Corpuscular Hemoglobin 26 pg (25-35) Mean Corpuscular Hemoglobin Concent 32 g/dL (31-37) Red Cell Distribution Width 16.0 % (11.5-14.5) H Platelet Count 328 x10^3/uL (140-400) Neutrophils (%) (Auto) 76 % (31-73) H Lymphocytes (%) (Auto) 18 % (24-48) L Monocytes (%) (Auto) 5 % (0-9) Eosinophils (%) (Auto) 1 % (0-3) Basophils (%) (Auto) 1 % (0-3) Neutrophils # (Auto) 9.3 x10^3/uL (1.8-7.7) H Lymphocytes # (Auto) 2.2 x10^3/uL (1.0-4.8) Monocytes # (Auto) 0.6 x10^3/uL (0.0-1.1) Eosinophils # (Auto) 0.1 x10^3/uL (0.0-0.7) Basophils # (Auto) 0.1 x10^3/uL (0.0-0.2) Prothrombin Time 13.0 SEC (11.7-14.0) Prothrombin Time INR 1.0 (0.8-1.1) Activated Partial Thromboplast Time 26 SEC (24-38) D-Dimer (Hien) 2.58 ug/mlFEU (0.00-0.50) H Sodium Level 145 mmol/L (136-145) Potassium Level 3.6 mmol/L (3.5-5.1) Chloride Level 107 mmol/L (98-107) Carbon Dioxide Level 25 mmol/L (21-32) Anion Gap 13 (6-14) Blood Urea Nitrogen 17 mg/dL (7-20) Creatinine 1.0 mg/dL (0.6-1.0) Estimated GFR (Cockcroft-Gault) 55.3 BUN/Creatinine Ratio 17 (6-20) Glucose Level 147 mg/dL (70-99) H Calcium Level 8.7 mg/dL (8.5-10.1) Total Bilirubin 0.4 mg/dL (0.2-1.0) Aspartate Amino Transferase (AST) 20 U/L (15-37) Alanine Aminotransferase (ALT) 23 U/L (14-59) Alkaline Phosphatase 117 U/L (46-116) H Troponin I Quantitative 0.151 ng/mL (0.000-0.055) 0.154 ng/mL (0.000-0.055) 0.119 ng/mL (0.000-0.055) LD-Phw-C-Type Natriuretic Peptide 7144 pg/mL (0-124) H Total Protein 7.4 g/dL (6.4-8.2) Albumin 3.5 g/dL (3.4-5.0) Albumin/Globulin Ratio 0.9 (1.0-1.7) L Laboratory Tests 09/09/20 03:21 Laboratory Tests 09/09/20 03:21 ECHOCARDIOGRAM ECHOCARDIOGRAM <Conclusion> The Left Ventricle is mild to moderately dilated. The systolic function is mildly impaired. The Ejection Fraction is 45-50%. Septal motion is consistent with conduction abnormality. There is mild concentric left ventricular hypertrophy. Doppler and Color Flow revealed no significant aortic regurgitation. There is no significant aortic valvular stenosis. Doppler and Color-flow revealed mild to moderate mitral regurgitation. Doppler and Color Flow revealed trace to mild tricuspid regurgitation with an estimated PAP of 40 mmHg. DATE: 04/22/20 1624 STRESS TEST STRESS TEST Conclusion 1. Regadenoson cardioisotope stress test did not show any evidence of ischemia or infarct. 2. Normal left ventricular systolic function with ejection fraction calculated at 63%. 3. Low risk for cardiac events. DATE: 09/04/19 0859 HEART CATH HEART CATH Findings. Hemodynamics. LV pressure of 106/6, 13. Aortic root pressure of 104/64. Coronaries. Left main. The left main was a short vessel with no lesions. Left anterior descending. The LAD was a moderate size vessel with normal distribution. It had no lesions Left circumflex. The left circumflex with a large vessel. It had no lesions. Right coronary artery. The right coronary was a large vessel. It had no lesions. <Conclusion> No angiographic evidence of significant coronary artery disease. DATE: 04/23/20 1214 ASSESSMENT/PLAN ASSESSMENT/PLAN 1. Dyspnea: due to acute PE 2. Arrhythmia: brief episode 4 beat of NSVT otherwise SR/reactive sinus tachycardia with intermittent pacing 3. PPM in situ with hx of SSS: Biotronik. Impedances are normal. 18% pacing with no significant arrhythmias. 0 AFIB burden 4. Chronic diastolic/systolic CHF: compensated 5. HX of NICM 6. HTN: controlled 7. Morbid obesity 8. Statin myalgias 9. Hypothyroidism: on replacement 10. Mild troponin elevation: demand mediated due to PE 11. Limited mobility due to leg pain and recent left shoulder surgery in june Recommendations 1. Consult pulmonary, heparin in place. Defer coag workup and anticoagulation to pulmonary. Venous doppler pending. Will do limited TTE 2. Continue metoprolol and lisinopril 3. Supportive care TERRY CANALES MD 09/09/20 1800: CARDIAC CONSULT ASSESSMENT/PLAN ASSESSMENT/PLAN Patient seen and examined Dyspnea. Acute PE as above. On heparin. Pulmonary evaluating. Echo pending Arrhythmias. Now sinus tachycardia with intermittent pacing. 4 beat episode of nonsustained VT overnight. Continue to monitor and treat underlying conditions. Permanent pacemaker. Secondary to sick sinus syndrome. 18% pacing with no s ignificant arrhythmias. Compensated heart failure. Controlled hypertension. Mildly elevated troponin. Monitoring. Consistent with demand ischemia secondary to patient's PE. Thank you for allowing us to participate in the care of your patient. ADELA GARCIA APRN Sep 09, 2020 12:57 TERRY CANALES MD Sep 09, 2020 18:00
[2020-09-09 15:15] VITALS: BP 144/88
--- NOTE | 2020-09-09 16:09 | CARD ---
MR#: [id number] Date of Study: 09/09/2020 Ordering Physician: ADELA GARCIA, Referring Physician: ADELA GARCIA, Tech: Dominique Rosado APPROVED REPORT EXAM: LIMITED Two-dimensional echocardiogram with contrast. Other Information Quality : AverageHR: 92bpm Technically limited study due to Obesity INDICATION Dyspnea Congestive Heart Failure Pulmonary Embolism Echo Enhancing Agent Indication: Rule Out Septal Defect Agent/Amount Used: Agitated Saline 10mL Surgery/Intervention Pacemaker: Date: 2016 2D DIMENSIONS RVDd3.8 (2.9-3.5cm)Left Atrium(2D)4.5 (1.6-4.0cm) IVSd1.3 (0.7-1.1cm)Aortic Root(2D)3.4 (2.0-3.7cm) LVDd5.4 (3.9-5.9cm)LVOT Diameter2.0 (1.8-2.4cm) PWd1.3 (0.7-1.1cm)LVDs4.0 (2.5-4.0cm) FS (%) 25.8 %SV70.7 ml Tricuspid Valve TR P. [id number]/sRAP [id number] TR Peak Gr.[id number] LEFT VENTRICLE The left ventricle is normal size. There is mild concentric left ventricular hypertrophy. The left ve ntricular systolic function is normal and the ejection fraction is within normal limits. Left ventric ular ejection fraction is 50-55%. Septal motion consistent with conduction abnormality. RIGHT VENTRICLE The right ventricle is mildly dilated. There is normal right ventricular wall thickness. Systolic fun ction is mildly reduced. ATRIA The left atrium is borderline dilated. The right atrium is mildly dilated. The interatrial septum is intact with no evidence for an atrial septal defect or patent foramen ovale as noted on 2-D or Dopple r imaging. Bubble study is negative. AORTIC VALVE The aortic valve is thickened but opens well. Doppler and color-flow analysis was not performed. Ther e is no significant aortic valvular stenosis. MITRAL VALVE The mitral valve is thickened but opens well. There is no evidence of mitral valve prolapse. There is no mitral valve stenosis. Doppler and color-flow analysis was not performed. TRICUSPID VALVE The tricuspid valve is normal in structure and function. Doppler and Color Flow revealed trace to mil d tricuspid regurgitation with an estimated PAP of 41 mmHg. There is no tricuspid valve stenosis. PULMONIC VALVE The pulmonic valve is not visualized. Doppler and color-flow analysis was not performed. GREAT VESSELS The aortic root is normal in size. The ascending aorta is normal in size. The IVC is dilated. PERICARDIAL EFFUSION There is no evidence of significant pericardial effusion. Critical Notification Critical Value: No <Conclusion> The left ventricle is normal size. The left ventricular systolic function is normal and the ejection fraction is within normal limits. Left ventricular ejection fraction is 50-55%. There is mild concentric left ventricular hypertrophy. The interatrial septum is intact with no evidence for an atrial septal defect or patent foramen ovale as noted on 2-D or Doppler imaging. Bubble study is negative. Doppler and Color Flow revealed trace to mild tricuspid regurgitation with an estimated PAP of 41 mmH g. Signed by : All Flores MD Electronically Approved : 09/09/2020 16:09:16
[2020-09-09] MEDS: ACETAMINOPHEN 325 MG TABLET. PO PRN ×2 (18:00→23:19)
[2020-09-09] MEDS: ONDANSETRON PF 4 MG/2 ML VIAL. IV PRN ×2 (18:00→23:11)
[2020-09-09 19:14] VITALS: BP 109/68
[2020-09-09] MEDS: METOPROLOL TART IMMED RELEASE 50 MG TABLET. PO SCH (20:43)
[2020-09-09 23:22] VITALS: BP 112/63
[2020-09-10 03:32] VITALS: BP 107/71
[2020-09-10 06:12] VITALS: BP 118/80
[2020-09-10] MEDS: ONDANSETRON PF 4 MG/2 ML VIAL. IVP PRN ×2 (06:22→09:27)
[2020-09-10] MEDS: ACETAMINOPHEN 325 MG TABLET. PO PRN ×3 (06:22→22:00)
[2020-09-10] MEDS: LEVOTHYROXINE 112 MCG TABLET PO SCH (06:22)
--- NOTE | 2020-09-10 08:47 | PDOC ---
PULMONARY PROGRESS NOTES DATE: 09/10/20 TIME: 08:43 Subjective soa with exertion. Vitals Vital Signs Date Time Temp Pulse Resp B/P (MAP) Pulse Ox O2 Delivery O2 Flow Rate FiO2 09/10/20 06:12 97.7 67 16 118/80 (93) 96 Nasal Cannula 2.0 97.7 General: Alert, No acute distress Lungs: Clear Cardiovascular: S1 Abdomen: Soft Neuro Exam: Alert Extremities: No Edema Skin: Warm Labs Laboratory Tests Test 09/09/20 03:21 09/09/20 06:55 09/09/20 10:00 09/09/20 13:06 White Blood Count 12.3 x10^3/uL (4.0-11.0) Red Blood Count 4.89 x10^6/uL (3.50-5.40) Hemoglobin 12.9 g/dL (12.0-15.5) Hematocrit 39.7 % (36.0-47.0) Mean Corpuscular Volume 81 fL (79-100) Mean Corpuscular Hemoglobin 26 pg (25-35) Mean Corpuscular Hemoglobin Concent 32 g/dL (31-37) Red Cell Distribution Width 16.0 % (11.5-14.5) Platelet Count 328 x10^3/uL (140-400) Neutrophils (%) (Auto) 76 % (31-73) Lymphocytes (%) (Auto) 18 % (24-48) Monocytes (%) (Auto) 5 % (0-9) Eosinophils (%) (Auto) 1 % (0-3) Basophils (%) (Auto) 1 % (0-3) Neutrophils # (Auto) 9.3 x10^3/uL (1.8-7.7) Lymphocytes # (Auto) 2.2 x10^3/uL (1.0-4.8) Monocytes # (Auto) 0.6 x10^3/uL (0.0-1.1) Eosinophils # (Auto) 0.1 x10^3/uL (0.0-0.7) Basophils # (Auto) 0.1 x10^3/uL (0.0-0.2) Prothrombin Time 13.0 SEC (11.7-14.0) Prothromb Time International Ratio 1.0 (0.8-1.1) Activated Partial Thromboplast Time 26 SEC (24-38) D-Dimer (Hien) 2.58 ug/mlFEU (0.00-0.50) Sodium Level 145 mmol/L (136-145) Potassium Level 3.6 mmol/L (3.5-5.1) Chloride Level 107 mmol/L (98-107) Carbon Dioxide Level 25 mmol/L (21-32) Anion Gap 13 (6-14) Blood Urea Nitrogen 17 mg/dL (7-20) Creatinine 1.0 mg/dL (0.6-1.0) Estimated GFR (Cockcroft-Gault) 55.3 BUN/Creatinine Ratio 17 (6-20) Glucose Level 147 mg/dL (70-99) Calcium Level 8.7 mg/dL (8.5-10.1) Total Bilirubin 0.4 mg/dL (0.2-1.0) Aspartate Amino Transf (AST/SGOT) 20 U/L (15-37) Alanine Aminotransferase (ALT/SGPT) 23 U/L (14-59) Alkaline Phosphatase 117 U/L (46-116) Troponin I Quantitative 0.151 ng/mL (0.000-0.055) 0.154 ng/mL (0.000-0.055) 0.119 ng/mL (0.000-0.055) XE-Xfl-Y-Type Natriuretic Peptide 7144 pg/mL (0-124) Total Protein 7.4 g/dL (6.4-8.2) Albumin 3.5 g/dL (3.4-5.0) Albumin/Globulin Ratio 0.9 (1.0-1.7) Magnesium Level 1.9 mg/dL (1.8-2.4) Heparin Anti-Xa Act, Unfractionated > 1.10 IU/mL (0.30-0.70) Test 09/09/20 20:13 09/10/20 03:15 Heparin Anti-Xa Act, Unfractionated 0.92 IU/mL (0.30-0.70) 0.60 IU/mL (0.30-0.70) Laboratory Tests Test 09/09/20 10:00 09/09/20 13:06 09/09/20 20:13 09/10/20 03:15 Magnesium Level 1.9 mg/dL (1.8-2.4) Troponin I Quantitative 0.119 ng/mL (0.000-0.055) Heparin Anti-Xa Act, Unfractionated > 1.10 IU/mL (0.30-0.70) 0.92 IU/mL (0.30-0.70) 0.60 IU/mL (0.30-0.70) Medications Active Scripts Medications Dose Route/Sig Max Daily Dose Days Date Category Euthyrox (Levothyroxine Sodium) 112 Mcg Tablet 112 Mcg PO DAILY06 09/09/20 Reported Metoprolol Tartrate 50 Mg Tablet 50 Mg PO HS 09/09/20 Reported Naproxen Sodium 220 Mg Capsule 2 Cap PO DAILY 7 09/09/20 Reported Fluoxetine Hcl 60 Mg Tablet 60 Mg PO DAILY 09/09/20 Reported Metoprolol Tartrate 25 Mg Tablet 25 Mg PO DAILY 09/09/20 Reported D3-2000 (Cholecalciferol (Vitamin D3)) 50 Mcg Capsule 50 Mcg PO DAILY 04/21/20 Reported Hydrocodone-Apap 7.5-325 (Hydrocodone Bit/Acetaminophen) 1 Tab Tablet 1 Tab PO PRN Q6HRS PRN 04/17/19 Reported Furosemide 20 Mg Tablet 1 Tab PO BID 04/17/19 Reported Pantoprazole Sodium (Pantoprazole Sodium) 40 Mg Tablet.dr 40 Mg PO DAILYAC 09/17/16 Rx Klor-Con M20 (Potassium Chloride) 20 Meq Tab.er.prt 20 Meq PO DAILY 09/17/16 Rx Aspirin 81 Mg Tab.chew 1 Tab PO DAILY 08/27/15 Reported Lisinopril 10 Mg Tablet 4 Tab PO DAILY 08/24/15 Reported Impression . 1. Acute pulmonary embolism. The blood clots were seen bilaterally and clot burden was moderate. No significant hemodynamic instability. No known history of pulmonary embolism. Risk factors being underlying obesity and relative immobilization. She has no known cancers. 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 She is not on any hormonal replacement treatment and has had a shoulder surgery in June, but did not have any symptoms of dyspnea at that time. 2. Wide complex tachycardia on admission. Treated with amiodarone. 3. The patient with known cardiomyopathy with an ejection fraction of 45% based on the last echo. There was also [id number] mitral regurgitation. No obvious congestive heart failure on chest x-ray. 4. No significant tobacco history. Plan . 1. We will continue with present heparin per protocol. Initiate Eliquis. Needs to loose weight. 2. Neg venous Dopplers of lower extremities. 3. She needs dental extraction. I have told her to wait till 3 weeks. 4. Duration of anticoagulation depends on the workup and the identifying risk factors. At present, 3-6 months would be reasonable. 5. Obtain an echo to better assess for pulmonary artery pressures. 6. Follow cardiology recommendations regarding wide complex tachycardia. 7. Eliquis 8. Discussed with RN and we will follow along with you. 9. F/U with me post dc in late Sep with CTA prior ROSANA SANDOVAL MD Sep 10, 2020 08:47
[2020-09-10] MEDS ORDERED: FLU VACC QS 2020-21(6MOS+)/PF 0.5 ML SYRINGE. VAX IM ONE (09:00)
[2020-09-10] MEDS: CHOLECALCIFEROL (VITAMIN D3) 1,000 UNIT TABLET PO SCH (09:08)
[2020-09-10] MEDS: FLUoxetine HCL 20 MG CAPSULE PO SCH (09:09)
[2020-09-10] MEDS: ASPIRIN CHEWABLE 81 MG TABLET. PO SCH (09:09)
[2020-09-10] MEDS: METOPROLOL TART IMMED RELEASE 25 MG TABLET. PO SCH (09:10)
[2020-09-10] MEDS: LISINOPRIL 20 MG TABLET PO SCH (09:10)
[2020-09-10] MEDS: PANTOPRAZOLE 40 MG TABLET.DR. PO SCH (09:11)
[2020-09-10] MEDS: POTASSIUM CHLORIDE 20 MEQ TABLET.ER. PO SCH (09:11)
[2020-09-10] MEDS: FUROSEMIDE 20 MG TABLET PO SCH ×2 (09:12→15:28)
[2020-09-10] MEDS: APIXABAN 5 MG TABLET. PO SCH ×2 (09:27→20:56)
[2020-09-10 11:00] VITALS: BP 120/73
--- NOTE | 2020-09-10 11:04 | PDOC ---
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 She basically was at work yesterday and kept becoming short of breath. She then went home and put her BiPAP on, but was still short of breath. She then called her daughter and her daughter brought her to the ER, we did a CAT scan. She does have a pulmonary embolism. She is now on a heparin drip. She is rating her symptoms at 9/10. She has associated weakness. It has been occurring for about 24 hours, worse with moving, better with sitting still, described as very irritating. I discussed the case with ER physician. We admitted the patient with consultation to Pulmonary Medicine. 09/10/20 pt seen and examined DW RN SOLITARIO case management Vitals/I&O Vitals/I&O: Vital Signs Date Time Temp Pulse Resp B/P (MAP) Pulse Ox O2 Delivery O2 Flow Rate FiO2 09/10/20 09:10 67 118/80 09/10/20 06:12 97.7 16 96 Nasal Cannula 2.0 97.7 I & O 09/09/20 09/09/20 09/10/20 15:00 23:00 07:00 Intake Total 720 ml 360 ml 350 ml Output Total 225 ml Balance 495 ml 360 ml 350 ml Physical Exam General: Alert, Oriented X3, Cooperative, No acute distress Heart: Regular rate (SR with intermittent pacing), Other (systolic 3/6 apical murmur) Lungs: Clear, Other (no wheezing or crackles) Abdomen: Soft, No tenderness Extremities: No cyanosis, Other (1+ bilateral LE pitting edema) Skin: No breakdown, No significant lesion Labs Labs: Laboratory Tests Test 09/09/20 13:06 09/09/20 20:13 09/10/20 03:15 Heparin Anti-Xa Act, Unfractionated > 1.10 IU/mL (0.30-0.70) 0.92 IU/mL (0.30-0.70) 0.60 IU/mL (0.30-0.70) Review of Systems Review of Systems: co hunger denies chest pain Assessment and Plan Assessmemt and Plan Problems Medical Problems: (1) Dyspnea Status: Acute (2) NSTEMI (non-ST elevated myocardial infarction) Status: Acute (3) Pulmonary embolism Status: Acute (4) V tach Status: Acute Assessment Pulmonary embolus dyspnea NSTEMI Obesity CHF hyperlipidemia cardiomyopathy, hypertension kidney stone Cristhian angina obstructive sleep apnea pacemaker hernia repair Plan Pulmonary embolus Recieved first dose of PO antibiotics On heparin protocol Pulmonary following Cardiology following Echocardiogram confirmed PE U/S showed no evidence of DVT Flu vaccine. Trend labs Comment Review of Relevant I have reviewed the following items lei (where applicable) has been applied. Medications: Current Medications Medications (Trade) Dose Ordered Sig/Anuj Route PRN Reason Start Time Stop Time Status Last Admin Dose Admin Metoprolol Tartrate (Lopressor) 50 mg HS PO 09/09/20 21:00 09/09/20 20:43 Levothyroxine Sodium (Synthroid) 112 mcg DAILY06 PO 09/09/20 12:00 09/10/20 06:22 Pantoprazole Sodium (Protonix) 40 mg DAILYAC PO 09/09/20 12:00 09/10/20 09:11 Vitamin D (Vitamin D3) 2,000 unit DAILY PO 09/09/20 12:00 09/10/20 09:08 Fluoxetine HCl (PROzac) 60 mg DAILY PO 09/09/20 12:00 09/10/20 09:09 Naproxen (Naprosyn) 500 mg PRN BID PRN PO INFLAMMATION 09/09/20 11:45 09/09/20 12:49 Acetaminophen (Tylenol) 650 mg PRN Q6HRS PRN PO MILD PAIN / TEMP > 100.3'F 09/09/20 18:00 09/10/20 06:22 Ondansetron HCl (Zofran) 4 mg PRN Q6HRS PRN IVP NAUSEA/VOMITING 09/10/20 06:00 09/10/20 09:27 Apixaban (Eliquis) 10 mg BID PO 09/10/20 09:30 09/10/20 09:27 Justifications for Admission Other Justification MAYA OHARA III DO Sep 10, 2020 11:04
--- NOTE | 2020-09-10 12:09 | NUR ---
SS following up with discharge planning. SS reviewed pt chart and discussed with pt RN. Pt is currently requiring oxygen. Pt on Heparin drip. PT/OT ordered. SS will continue to follow for discharge planning.
--- NOTE | 2020-09-10 13:56 | PDOC ---
ADELA GARCIA MILK COLLECTOR 09/10/20 1355: CARDIO Progress Notes Date and Time Date of Service 09/10/2020 Time of Evaluation 1130 Subjective Subjective: No Chest Pain, No shortness of breath, No Palpitations Vitals Vitals Vital Signs Date Time Temp Pulse Resp B/P (MAP) Pulse Ox O2 Delivery O2 Flow Rate FiO2 09/10/20 11:00 98.6 59 18 120/73 (89) 94 Nasal Cannula 2.0 98.6 Weight Weight [ ] Input and Output Intake and Output Intake and Output 09/10/20 07:00 Intake Total 1430 ml Output Total 225 ml Balance 1205 ml Intake Oral 1430 ml Output Urine Total 225 ml Laboratory Labs Laboratory Tests Test 09/09/20 20:13 09/10/20 03:15 Heparin Anti-Xa Act, Unfractionated 0.92 IU/mL (0.30-0.70) 0.60 IU/mL (0.30-0.70) Physical Exam HEENT: Neck Supple W Full Motion Chest: Symmetric LUNGS: Clear to Auscultation Heart: S1S2, RRR (V paced) Abdomen: Soft N/T, Other (obese) Extremities: No Calf Tenderness Neurology: alert, oriented, follow commands Assessment Assessment 1. Dyspnea: due to acute PE, venous doppler negative for DVT 2. Arrhythmia: brief episode 4 beat of NSVT, none further SR with intermittent V pacing 3. PPM in situ with hx of SSS: Biotronik. Impedances are normal. 18% pacing with no significant arrhythmias. 0 AFIB burden 4. Chronic diastolic/systolic CHF: compensated. EF nml with no PFO/ASD per bubble study 5. HX of NICM: resolved 6. HTN: controlled 7. Morbid obesity 8. Statin myalgias 9. Hypothyroidism: on replacement 10. Mild troponin elevation: demand mediated due to PE 11. Limited mobility due to leg pain and recent left shoulder surgery in june 1. Transitioning to eliquis 2. Continue metoprolol and lisinopril 3. Follow up in office in October 19 at 1:30 Justicifation of Admission Dx: Justifications for Admission: Justification of Admission Dx: Yes TERRY CANALES MD 09/10/20 2788: CARDIO Progress Notes Assessment Assessment Patient seen and examined Dyspnea: due to acute PE, venous doppler negative for DVT. Transitioning to Eliquis. Office follow-up as above Arrhythmia: brief episode 4 beat of NSVT, none further SR with intermittent V pacing PPM in situ with hx of SSS: Biotronik. Impedances are normal. 18% pacing with no significant arrhythmias. 0 AFIB burden Chronic diastolic/systolic CHF: compensated. EF nml with no PFO/ASD per bubble study HX of NICM: resolved HTN: controlled Statin myalgias Mild troponin elevation: demand mediated due to PE ADELA GARCIA APRN Sep 10, 2020 13:55 TERRY CANALES MD Sep 10, 2020 17:28
[2020-09-10 15:00] VITALS: BP 120/73
[2020-09-10 19:40] VITALS: BP 127/97
--- NOTE | 2020-09-10 19:55 | NUR ---
Assessment completed vss poc explained pt c/o a toothache and requested tylenol when it is time will resume care and continue to monitor pt. Call light in reach.
[2020-09-10] MEDS: METOPROLOL TART IMMED RELEASE 50 MG TABLET. PO SCH (20:56)
[2020-09-10 23:50] VITALS: BP 119/68
[2020-09-11 03:09] VITALS: BP 120/73
[2020-09-11] MEDS: PANTOPRAZOLE 40 MG TABLET.DR. PO SCH (06:19)
[2020-09-11] MEDS: LEVOTHYROXINE 112 MCG TABLET PO SCH (06:19)
[2020-09-11 07:00] VITALS: BP 93/72
[2020-09-11] MEDS: ACETAMINOPHEN 325 MG TABLET. PO PRN ×2 (07:23→12:59)
[2020-09-11 08:42] LABS: BASO # 0.1 x10^3/uL (0.0-0.2); BASO % 1 % (0-3); EOS # 0.4 x10^3/uL (0.0-0.7); EOS % 5 % (0-3); HEMATOCRIT 37.8 % (36.0-47.0); HEMOGLOBIN 12.1 g/dL (12.0-15.5); LYMPH # 3.2 x10^3/uL (1.0-4.8); LYMPH % 36 % (24-48); MEAN CORPUSCULAR HEMOGLOBIN 26 pg (25-35); MEAN CORPUSCULAR HGB CONC 32 g/dL (31-37); MEAN CORPUSCULAR VOLUME 82 fL (79-100); MONO # 0.6 x10^3/uL (0.0-1.1); MONO % 7 % (0-9); NEUT # 4.7 x10^3/uL (1.8-7.7); NEUT % 52 % (31-73); PLATELET COUNT 309 x10^3/uL (140-400); RED BLOOD COUNT 4.62 x10^6/uL (3.50-5.40); RED CELL DISTRIBUTION WIDTH 15.8 % (11.5-14.5); WHITE BLOOD COUNT 9.1 x10^3/uL (4.0-11.0)
[2020-09-11 09:05] LABS: CALCIUM 8.9 mg/dL (8.5-10.1); CREATININE 1.2 mg/dL (0.6-1.0); GFR 44.8; POTASSIUM 4.7 mmol/L (3.5-5.1)
[2020-09-11] MEDS: POTASSIUM CHLORIDE 20 MEQ TABLET.ER. PO SCH (09:12)
[2020-09-11] MEDS: APIXABAN 5 MG TABLET. PO SCH ×2 (09:12→21:22)
[2020-09-11] MEDS: ASPIRIN CHEWABLE 81 MG TABLET. PO SCH (09:12)
[2020-09-11] MEDS: FLUoxetine HCL 20 MG CAPSULE PO SCH (09:13)
[2020-09-11] MEDS: CHOLECALCIFEROL (VITAMIN D3) 1,000 UNIT TABLET PO SCH (09:13)
[2020-09-11] MEDS: FUROSEMIDE 20 MG TABLET PO SCH ×2 (09:13→17:40)
[2020-09-11] MEDS: LISINOPRIL 20 MG TABLET PO SCH (09:14)
[2020-09-11] MEDS: METOPROLOL TART IMMED RELEASE 25 MG TABLET. PO SCH (09:14)
--- NOTE | 2020-09-11 10:04 | PDOC ---
PULMONARY PROGRESS NOTES DATE: 09/11/20 TIME: 10:02 Subjective soa with exertion, better, denies cough, cp Vitals Vital Signs Date Time Temp Pulse Resp B/P (MAP) Pulse Ox O2 Delivery O2 Flow Rate FiO2 09/11/20 09:14 55 93/72 09/11/20 07:00 97.7 18 91 Room Air 97.7 09/10/20 11:00 2.0 ROS: No Nausea General: Alert, No acute distress Lungs: Clear Cardiovascular: S1, S2 Abdomen: Soft, Non-tender Neuro Exam: Alert Extremities: No Edema Skin: Warm Labs Laboratory Tests Test 09/09/20 13:06 09/09/20 20:13 09/10/20 03:15 09/11/20 08:25 Heparin Anti-Xa Act, Unfractionated > 1.10 IU/mL (0.30-0.70) 0.92 IU/mL (0.30-0.70) 0.60 IU/mL (0.30-0.70) White Blood Count 9.1 x10^3/uL (4.0-11.0) Red Blood Count 4.62 x10^6/uL (3.50-5.40) Hemoglobin 12.1 g/dL (12.0-15.5) Hematocrit 37.8 % (36.0-47.0) Mean Corpuscular Volume 82 fL (79-100) Mean Corpuscular Hemoglobin 26 pg (25-35) Mean Corpuscular Hemoglobin Concent 32 g/dL (31-37) Red Cell Distribution Width 15.8 % (11.5-14.5) Platelet Count 309 x10^3/uL (140-400) Neutrophils (%) (Auto) 52 % (31-73) Lymphocytes (%) (Auto) 36 % (24-48) Monocytes (%) (Auto) 7 % (0-9) Eosinophils (%) (Auto) 5 % (0-3) Basophils (%) (Auto) 1 % (0-3) Neutrophils # (Auto) 4.7 x10^3/uL (1.8-7.7) Lymphocytes # (Auto) 3.2 x10^3/uL (1.0-4.8) Monocytes # (Auto) 0.6 x10^3/uL (0.0-1.1) Eosinophils # (Auto) 0.4 x10^3/uL (0.0-0.7) Basophils # (Auto) 0.1 x10^3/uL (0.0-0.2) Sodium Level 145 mmol/L (136-145) Potassium Level 4.7 mmol/L (3.5-5.1) Chloride Level 107 mmol/L (98-107) Carbon Dioxide Level 30 mmol/L (21-32) Anion Gap 8 (6-14) Blood Urea Nitrogen 23 mg/dL (7-20) Creatinine 1.2 mg/dL (0.6-1.0) Estimated GFR (Cockcroft-Gault) 44.8 Glucose Level 108 mg/dL (70-99) Calcium Level 8.9 mg/dL (8.5-10.1) Laboratory Tests Test 09/11/20 08:25 White Blood Count 9.1 x10^3/uL (4.0-11.0) Red Blood Count 4.62 x10^6/uL (3.50-5.40) Hemoglobin 12.1 g/dL (12.0-15.5) Hematocrit 37.8 % (36.0-47.0) Mean Corpuscular Volume 82 fL (79-100) Mean Corpuscular Hemoglobin 26 pg (25-35) Mean Corpuscular Hemoglobin Concent 32 g/dL (31-37) Red Cell Distribution Width 15.8 % (11.5-14.5) Platelet Count 309 x10^3/uL (140-400) Neutrophils (%) (Auto) 52 % (31-73) Lymphocytes (%) (Auto) 36 % (24-48) Monocytes (%) (Auto) 7 % (0-9) Eosinophils (%) (Auto) 5 % (0-3) Basophils (%) (Auto) 1 % (0-3) Neutrophils # (Auto) 4.7 x10^3/uL (1.8-7.7) Lymphocytes # (Auto) 3.2 x10^3/uL (1.0-4.8) Monocytes # (Auto) 0.6 x10^3/uL (0.0-1.1) Eosinophils # (Auto) 0.4 x10^3/uL (0.0-0.7) Basophils # (Auto) 0.1 x10^3/uL (0.0-0.2) Sodium Level 145 mmol/L (136-145) Potassium Level 4.7 mmol/L (3.5-5.1) Chloride Level 107 mmol/L (98-107) Carbon Dioxide Level 30 mmol/L (21-32) Anion Gap 8 (6-14) Blood Urea Nitrogen 23 mg/dL (7-20) Creatinine 1.2 mg/dL (0.6-1.0) Estimated GFR (Cockcroft-Gault) 44.8 Glucose Level 108 mg/dL (70-99) Calcium Level 8.9 mg/dL (8.5-10.1) Medications Active Scripts Medications Dose Route/Sig Max Daily Dose Days Date Category Euthyrox (Levothyroxine Sodium) 112 Mcg Tablet 112 Mcg PO DAILY06 09/09/20 Reported Metoprolol Tartrate 50 Mg Tablet 50 Mg PO HS 09/09/20 Reported Naproxen Sodium 220 Mg Capsule 2 Cap PO DAILY 7 09/09/20 Reported Fluoxetine Hcl 60 Mg Tablet 60 Mg PO DAILY 09/09/20 Reported Metoprolol Tartrate 25 Mg Tablet 25 Mg PO DAILY 09/09/20 Reported D3-2000 (Cholecalciferol (Vitamin D3)) 50 Mcg Capsule 50 Mcg PO DAILY 04/21/20 Reported Hydrocodone-Apap 7.5-325 (Hydrocodone Bit/Acetaminophen) 1 Tab Tablet 1 Tab PO PRN Q6HRS PRN 04/17/19 Reported Furosemide 20 Mg Tablet 1 Tab PO BID 04/17/19 Reported Pantoprazole Sodium (Pantoprazole Sodium) 40 Mg Tablet.dr 40 Mg PO DAILYAC 09/17/16 Rx Klor-Con M20 (Potassium Chloride) 20 Meq Tab.er.prt 20 Meq PO DAILY 09/17/16 Rx Aspirin 81 Mg Tab.chew 1 Tab PO DAILY 08/27/15 Reported Lisinopril 10 Mg Tablet 4 Tab PO DAILY 08/24/15 Reported Impression . 1. Acute pulmonary embolism. The blood clots were seen bilaterally and clot burden was moderate. No significant hemodynamic instability. No known history of pulmonary embolism. Risk factors being underlying obesity and relative immobilization. She has no known cancers. 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. She is not on any hormonal replacement treatment and has had a shoulder surgery in June, but did not have any symptoms of dyspnea at that time. 2. Wide complex tachycardia on admission. Treated with amiodarone. 3. The patient with known cardiomyopathy with an ejection fraction of 45% based on the last echo. There was also [id number] mitral regurgitation. No obvious congestive heart failure on chest x-ray. 4. No significant tobacco history. Plan . 1. cont Eliquis. Needs to lose weight. 2. Neg venous Dopplers of lower extremities. 3. She needs dental extraction. wait at least for 3 weeks. 4. Duration of anticoagulation depends on the workup and the identifying risk factors. At present, 3-6 months would be reasonable. 5. Obtain an echo to better assess for pulmonary artery pressures. 6. Follow cardiology recommendations regarding wide complex tachycardia. 7. Eliquis 8. Discussed with RN and we will follow along with you. 9. F/U with dr justine stallworth dc in late Sep with CTA prior CARLA JAMES MD Sep 11, 2020 10:03
[2020-09-11 11:00] VITALS: BP 127/66
--- NOTE | 2020-09-11 11:25 | PDOC ---
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 She basically was at work yesterday and kept becoming short of breath. She then went home and put her BiPAP on, but was still short of breath. She then called her daughter and her daughter brought her to the ER, we did a CAT scan. She does have a pulmonary embolism. She is now on a heparin drip. She is rating her symptoms at 9/10. She has associated weakness. It has been occurring for about 24 hours, worse with moving, better with sitting still, described as very irritating. I discussed the case with ER physician. We admitted the patient with consultation to Pulmonary Medicine. 09/11/20 pt seen and examined SOLITARIO RN SOLITARIO case management 09/10/20 pt seen and examined SOLITARIO RN SOLITARIO case management Vitals/I&O Vitals/I&O: Vital Signs Date Time Temp Pulse Resp B/P (MAP) Pulse Ox O2 Delivery O2 Flow Rate FiO2 09/11/20 09:14 55 93/72 09/11/20 07:00 97.7 18 91 Room Air 97.7 09/10/20 11:00 2.0 I & O 09/10/20 09/10/20 09/11/20 15:00 23:00 07:00 Intake Total 300 ml 600 ml 700 ml Balance 300 ml 600 ml 700 ml Physical Exam General: Alert, Oriented X3, Cooperative, No acute distress Heart: Regular rate (SR with intermittent pacing), Other (systolic 3/6 apical murmur) Lungs: Clear, Other (no wheezing or crackles) Abdomen: Soft, No tenderness Extremities: No cyanosis, Other (1+ bilateral LE pitting edema) Skin: No breakdown, No significant lesion Labs Labs: Laboratory Tests Test 09/11/20 08:25 White Blood Count 9.1 x10^3/uL (4.0-11.0) Red Blood Count 4.62 x10^6/uL (3.50-5.40) Hemoglobin 12.1 g/dL (12.0-15.5) Hematocrit 37.8 % (36.0-47.0) Mean Corpuscular Volume 82 fL (79-100) Mean Corpuscular Hemoglobin 26 pg (25-35) Mean Corpuscular Hemoglobin Concent 32 g/dL (31-37) Red Cell Distribution Width 15.8 % (11.5-14.5) Platelet Count 309 x10^3/uL (140-400) Neutrophils (%) (Auto) 52 % (31-73) Lymphocytes (%) (Auto) 36 % (24-48) Monocytes (%) (Auto) 7 % (0-9) Eosinophils (%) (Auto) 5 % (0-3) Basophils (%) (Auto) 1 % (0-3) Neutrophils # (Auto) 4.7 x10^3/uL (1.8-7.7) Lymphocytes # (Auto) 3.2 x10^3/uL (1.0-4.8) Monocytes # (Auto) 0.6 x10^3/uL (0.0-1.1) Eosinophils # (Auto) 0.4 x10^3/uL (0.0-0.7) Basophils # (Auto) 0.1 x10^3/uL (0.0-0.2) Sodium Level 145 mmol/L (136-145) Potassium Level 4.7 mmol/L (3.5-5.1) Chloride Level 107 mmol/L (98-107) Carbon Dioxide Level 30 mmol/L (21-32) Anion Gap 8 (6-14) Blood Urea Nitrogen 23 mg/dL (7-20) Creatinine 1.2 mg/dL (0.6-1.0) Estimated GFR (Cockcroft-Gault) 44.8 Glucose Level 108 mg/dL (70-99) Calcium Level 8.9 mg/dL (8.5-10.1) Review of Systems Review of Systems: denies chest pain denies blurry vision Assessment and Plan Assessmemt and Plan Problems Medical Problems: (1) Dyspnea Status: Acute (2) NSTEMI (non-ST elevated myocardial infarction) Status: Acute (3) Pulmonary embolism Status: Acute (4) V tach Status: Acute Assessment Pulmonary embolus dyspnea NSTEMI Obesity CHF hyperlipidemia cardiomyopathy, hypertension kidney stone Cristhian angina obstructive sleep apnea pacemaker hernia repair Plan Transitioned to eliquis beta blockade and rosie inhibitor Cardiology encouraged followup in September Pulmonary embolus Recieved first dose of PO antibiotics Pulmonary following Cardiology following Echocardiogram confirmed PE U/S showed no evidence of DVT Flu vaccine. Trend labs Comment Review of Relevant I have reviewed the following items lei (where applicable) has been applied. Justifications for Admission Other Justification MAYA OHARA III DO Sep 11, 2020 11:25
[2020-09-11] MEDS: BISACODYL 5 MG TABLET.DR. PO PRN (12:59)
[2020-09-11 15:00] VITALS: BP 136/82
[2020-09-11] MEDS: HYDROcodone/APAP 7.5/325MG 1 TAB TABLET PO PRN (17:40)
[2020-09-11 19:35] VITALS: BP 135/73
--- NOTE | 2020-09-11 20:45 | NUR ---
Pt denied pain at time of assessment poc explained vss will resume care and continue to monitor pt.Call light in reach.
[2020-09-11] MEDS: NYSTATIN TOPICAL POWDER 15GM BOTTLE. TP SCH (21:23)
[2020-09-11] MEDS: METOPROLOL TART IMMED RELEASE 50 MG TABLET. PO SCH (21:23)
[2020-09-11 22:48] VITALS: BP 125/83
[2020-09-12] MEDS: ACETAMINOPHEN 325 MG TABLET. PO PRN ×3 (00:02→17:34)
[2020-09-12 03:25] VITALS: BP 122/79
[2020-09-12] MEDS: PANTOPRAZOLE 40 MG TABLET.DR. PO SCH (05:53)
[2020-09-12] MEDS: LEVOTHYROXINE 112 MCG TABLET PO SCH (05:54)
[2020-09-12] MEDS: HYDROcodone/APAP 7.5/325MG 1 TAB TABLET PO PRN ×3 (06:01→21:27)
[2020-09-12 07:00] VITALS: BP 145/85
[2020-09-12] MEDS ORDERED: ANTI-COAG MONITOR BY PHARMACY. MC PRN (08:15)
--- NOTE | 2020-09-12 08:36 | PDOC ---
PULMONARY PROGRESS NOTES DATE: 09/12/20 TIME: 08:34 Subjective soa with exertion, better, denies cough, cp, forgot to use cpap last night, has toothache Vitals Vital Signs Date Time Temp Pulse Resp B/P (MAP) Pulse Ox O2 Delivery O2 Flow Rate FiO2 09/12/20 07:04 18 91 Room Air 09/12/20 07:00 97.8 63 145/85 (105) 97.8 ROS: No Nausea General: Alert, No acute distress Lungs: Clear Cardiovascular: S1, S2 Abdomen: Soft, Non-tender Neuro Exam: Alert Extremities: No Edema Skin: Warm Labs Laboratory Tests Test 09/11/20 08:25 White Blood Count 9.1 x10^3/uL (4.0-11.0) Red Blood Count 4.62 x10^6/uL (3.50-5.40) Hemoglobin 12.1 g/dL (12.0-15.5) Hematocrit 37.8 % (36.0-47.0) Mean Corpuscular Volume 82 fL (79-100) Mean Corpuscular Hemoglobin 26 pg (25-35) Mean Corpuscular Hemoglobin Concent 32 g/dL (31-37) Red Cell Distribution Width 15.8 % (11.5-14.5) Platelet Count 309 x10^3/uL (140-400) Neutrophils (%) (Auto) 52 % (31-73) Lymphocytes (%) (Auto) 36 % (24-48) Monocytes (%) (Auto) 7 % (0-9) Eosinophils (%) (Auto) 5 % (0-3) Basophils (%) (Auto) 1 % (0-3) Neutrophils # (Auto) 4.7 x10^3/uL (1.8-7.7) Lymphocytes # (Auto) 3.2 x10^3/uL (1.0-4.8) Monocytes # (Auto) 0.6 x10^3/uL (0.0-1.1) Eosinophils # (Auto) 0.4 x10^3/uL (0.0-0.7) Basophils # (Auto) 0.1 x10^3/uL (0.0-0.2) Sodium Level 145 mmol/L (136-145) Potassium Level 4.7 mmol/L (3.5-5.1) Chloride Level 107 mmol/L (98-107) Carbon Dioxide Level 30 mmol/L (21-32) Anion Gap 8 (6-14) Blood Urea Nitrogen 23 mg/dL (7-20) Creatinine 1.2 mg/dL (0.6-1.0) Estimated GFR (Cockcroft-Gault) 44.8 Glucose Level 108 mg/dL (70-99) Calcium Level 8.9 mg/dL (8.5-10.1) Medications Active Scripts Medications Dose Route/Sig Max Daily Dose Days Date Category Euthyrox (Levothyroxine Sodium) 112 Mcg Tablet 112 Mcg PO DAILY06 09/09/20 Reported Metoprolol Tartrate 50 Mg Tablet 50 Mg PO HS 09/09/20 Reported Naproxen Sodium 220 Mg Capsule 2 Cap PO DAILY 7 09/09/20 Reported Fluoxetine Hcl 60 Mg Tablet 60 Mg PO DAILY 09/09/20 Reported Metoprolol Tartrate 25 Mg Tablet 25 Mg PO DAILY 09/09/20 Reported D3-2000 (Cholecalciferol (Vitamin D3)) 50 Mcg Capsule 50 Mcg PO DAILY 04/21/20 Reported Hydrocodone-Apap 7.5-325 (Hydrocodone Bit/Acetaminophen) 1 Tab Tablet 1 Tab PO PRN Q6HRS PRN 04/17/19 Reported Furosemide 20 Mg Tablet 1 Tab PO BID 04/17/19 Reported Pantoprazole Sodium (Pantoprazole Sodium) 40 Mg Tablet.dr 40 Mg PO DAILYAC 09/17/16 Rx Klor-Con M20 (Potassium Chloride) 20 Meq Tab.er.prt 20 Meq PO DAILY 09/17/16 Rx Aspirin 81 Mg Tab.chew 1 Tab PO DAILY 08/27/15 Reported Lisinopril 10 Mg Tablet 4 Tab PO DAILY 08/24/15 Reported Comments echo The left ventricle is normal size. The left ventricular systolic function is normal and the ejection fraction is within normal limits. Left ventricular ejection fraction is 50-55%. There is mild concentric left ventricular hypertrophy. The interatrial septum is intact with no evidence for an atrial septal defect or patent foramen ovale as noted on 2-D or Doppler imaging. Bubble study is negative. Doppler and Color Flow revealed trace to mild tricuspid regurgitation with an estimated PAP of 41 mmHg. Impression . 1. Acute pulmonary embolism. The blood clots were seen bilaterally and clot burden was moderate. No significant hemodynamic instability. No known history of pulmonary embolism. Risk factors being underlying obesity and relative immobilization. She has no known cancers. 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 She is not on any hormonal replacement treatment and has had a shoulder surgery in June, but did not have any symptoms of dyspnea at that time. 2. Wide complex tachycardia on admission. Treated with amiodarone. 3. The patient with known cardiomyopathy with an ejection fraction of 45% based on the last echo. There was also [id number] mitral regurgitation. No obvious congestive heart failure on chest x-ray. 4. No significant tobacco history. 5. mae on cpap Plan . 1. cont Eliquis. Needs to lose weight. 2. Neg venous Dopplers of lower extremities. 3. She needs dental extraction. wait at least for 3 weeks. 4. Duration of anticoagulation depends on the workup and the identifying risk factors. At present, 3-6 months would be reasonable. 5. echo reviewed, PAP of 41 mmHg. 6. Follow cardiology recommendations regarding wide complex tachycardia. 7. use cpap during sleep, the importance of mae tx discussed 8. Discussed with RN and we will follow along with you. 9. F/U with dr justine stallworth dc in late Sep with CTA prior CARLA JAMES MD Sep 12, 2020 08:35
[2020-09-12] MEDS: FLUoxetine HCL 20 MG CAPSULE PO SCH (08:42)
[2020-09-12] MEDS: CHOLECALCIFEROL (VITAMIN D3) 1,000 UNIT TABLET PO SCH (08:42)
[2020-09-12] MEDS: ASPIRIN CHEWABLE 81 MG TABLET. PO SCH (08:42)
[2020-09-12] MEDS: BISACODYL 5 MG TABLET.DR. PO PRN (08:43)
[2020-09-12] MEDS: APIXABAN 5 MG TABLET. PO SCH ×2 (08:43→21:26)
[2020-09-12] MEDS: POTASSIUM CHLORIDE 20 MEQ TABLET.ER. PO SCH (08:44)
[2020-09-12] MEDS: FUROSEMIDE 20 MG TABLET PO SCH ×2 (08:44→16:31)
[2020-09-12] MEDS: METOPROLOL TART IMMED RELEASE 25 MG TABLET. PO SCH (08:44)
[2020-09-12] MEDS: NYSTATIN TOPICAL POWDER 15GM BOTTLE. TP SCH ×2 (08:45→21:28)
[2020-09-12] MEDS: LISINOPRIL 20 MG TABLET PO SCH (08:45)
[2020-09-12 09:06] LABS: BASO # 0.1 x10^3/uL (0.0-0.2); BASO % 1 % (0-3); EOS # 0.4 x10^3/uL (0.0-0.7); EOS % 4 % (0-3); HEMATOCRIT 39.6 % (36.0-47.0); HEMOGLOBIN 12.8 g/dL (12.0-15.5); LYMPH % 31 % (24-48); MEAN CORPUSCULAR HEMOGLOBIN 27 pg (25-35); MEAN CORPUSCULAR HGB CONC 32 g/dL (31-37); MEAN CORPUSCULAR VOLUME 82 fL (79-100); MONO # 0.6 x10^3/uL (0.0-1.1); MONO % 6 % (0-9); NEUT # 5.6 x10^3/uL (1.8-7.7); NEUT % 58 % (31-73); PLATELET COUNT 313 x10^3/uL (140-400); RED BLOOD COUNT 4.82 x10^6/uL (3.50-5.40); RED CELL DISTRIBUTION WIDTH 15.9 % (11.5-14.5); WHITE BLOOD COUNT 9.7 x10^3/uL (4.0-11.0)
[2020-09-12 09:18] LABS: CALCIUM 8.9 mg/dL (8.5-10.1); CREATININE 1.2 mg/dL (0.6-1.0); GFR 44.8; POTASSIUM 4.2 mmol/L (3.5-5.1)
[2020-09-12 11:00] VITALS: BP 137/81
--- NOTE | 2020-09-12 12:12 | PDOC ---
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 She basically was at work yesterday and kept becoming short of breath. She then went home and put her BiPAP on, but was still short of breath. She then called her daughter and her daughter brought her to the ER, we did a CAT scan. She does have a pulmonary embolism. She is now on a heparin drip. She is rating her symptoms at 9/10. She has associated weakness. It has been occurring for about 24 hours, worse with moving, better with sitting still, described as very irritating. I discussed the case with ER physician. We admitted the patient with consultation to Pulmonary Medicine. 09/11/20 pt seen and examined. SOLITARIO RN 09/11/20 pt seen and examined SOLITARIO RN SOLITARIO case management 09/10/20 pt seen and examined SOLITARIO RN SOLITARIO case management Vitals/I&O Vitals/I&O: Vital Signs Date Time Temp Pulse Resp B/P (MAP) Pulse Ox O2 Delivery O2 Flow Rate FiO2 09/12/20 11:00 97.7 62 18 137/81 (99) 91 Room Air 97.7 I & O 09/11/20 09/11/20 09/12/20 15:00 23:00 07:00 Intake Total 400 ml 500 ml 400 ml Output Total 300 ml Balance 400 ml 200 ml 400 ml Physical Exam General: Alert, Oriented X3, Cooperative, No acute distress Heart: Regular rate (SR with intermittent pacing), Other (systolic 3/6 apical murmur) Lungs: Clear, Other (no wheezing or crackles) Abdomen: Soft, No tenderness Extremities: No cyanosis, Other (1+ bilateral LE pitting edema) Skin: No breakdown, No significant lesion Labs Labs: Laboratory Tests Test 09/12/20 08:25 White Blood Count 9.7 x10^3/uL (4.0-11.0) Red Blood Count 4.82 x10^6/uL (3.50-5.40) Hemoglobin 12.8 g/dL (12.0-15.5) Hematocrit 39.6 % (36.0-47.0) Mean Corpuscular Volume 82 fL (79-100) Mean Corpuscular Hemoglobin 27 pg (25-35) Mean Corpuscular Hemoglobin Concent 32 g/dL (31-37) Red Cell Distribution Width 15.9 % (11.5-14.5) Platelet Count 313 x10^3/uL (140-400) Neutrophils (%) (Auto) 58 % (31-73) Lymphocytes (%) (Auto) 31 % (24-48) Monocytes (%) (Auto) 6 % (0-9) Eosinophils (%) (Auto) 4 % (0-3) Basophils (%) (Auto) 1 % (0-3) Neutrophils # (Auto) 5.6 x10^3/uL (1.8-7.7) Lymphocytes # (Auto) 3.0 x10^3/uL (1.0-4.8) Monocytes # (Auto) 0.6 x10^3/uL (0.0-1.1) Eosinophils # (Auto) 0.4 x10^3/uL (0.0-0.7) Basophils # (Auto) 0.1 x10^3/uL (0.0-0.2) Sodium Level 141 mmol/L (136-145) Potassium Level 4.2 mmol/L (3.5-5.1) Chloride Level 105 mmol/L (98-107) Carbon Dioxide Level 27 mmol/L (21-32) Anion Gap 9 (6-14) Blood Urea Nitrogen 23 mg/dL (7-20) Creatinine 1.2 mg/dL (0.6-1.0) Estimated GFR (Cockcroft-Gault) 44.8 Glucose Level 120 mg/dL (70-99) Calcium Level 8.9 mg/dL (8.5-10.1) Review of Systems Review of Systems: denies headache denies vision changes denies chest pain Assessment and Plan Assessmemt and Plan Problems Medical Problems: (1) Dyspnea Status: Acute (2) NSTEMI (non-ST elevated myocardial infarction) Status: Acute (3) Pulmonary embolism Status: Acute (4) V tach Status: Acute Assessment Pulmonary embolus dyspnea NSTEMI Obesity CHF hyperlipidemia cardiomyopathy, hypertension kidney stone Cristhian angina obstructive sleep apnea pacemaker hernia repair Plan PO anticoagulation beta blockade and rosie inhibitor Cardiology encouraged followup in September Pulmonary embolus Recieved first dose of PO antibiotics Pulmonary following Cardiology following Trend labs d/c when ok with subspecialty input Comment Review of Relevant I have reviewed the following items lei (where applicable) has been applied. Medications: Current Medications Medications (Trade) Dose Ordered Sig/Anuj Route PRN Reason Start Time Stop Time Status Last Admin Dose Admin Nystatin (Nystop) 1 william BID TP 09/11/20 21:00 09/12/20 08:45 Justifications for Admission Other Justification MAYA OHARA III DO Sep 12, 2020 12:12
[2020-09-12 15:00] VITALS: BP 132/84
[2020-09-12 19:50] VITALS: BP 153/89
[2020-09-12] MEDS: METOPROLOL TART IMMED RELEASE 50 MG TABLET. PO SCH (21:26)
[2020-09-12 23:20] VITALS: BP 150/102
[2020-09-13] VITALS (7 sets, daily range): BP systolic 133–199; BP diastolic 82–119
[2020-09-13 04:45] LABS: BASO # 0.1 x10^3/uL (0.0-0.2); BASO % 1 % (0-3); EOS # 0.4 x10^3/uL (0.0-0.7); EOS % 4 % (0-3); HEMATOCRIT 36.2 % (36.0-47.0); HEMOGLOBIN 11.8 g/dL (12.0-15.5); LYMPH # 3.4 x10^3/uL (1.0-4.8); LYMPH % 37 % (24-48); MEAN CORPUSCULAR HEMOGLOBIN 27 pg (25-35); MEAN CORPUSCULAR HGB CONC 33 g/dL (31-37); MEAN CORPUSCULAR VOLUME 82 fL (79-100); MONO # 0.6 x10^3/uL (0.0-1.1); MONO % 6 % (0-9); NEUT # 4.8 x10^3/uL (1.8-7.7); NEUT % 52 % (31-73); PLATELET COUNT 312 x10^3/uL (140-400); RED BLOOD COUNT 4.45 x10^6/uL (3.50-5.40); WHITE BLOOD COUNT 9.2 x10^3/uL (4.0-11.0)
[2020-09-13 05:23] LABS: CALCIUM 8.9 mg/dL (8.5-10.1); CREATININE 1.2 mg/dL (0.6-1.0); GFR 44.8; POTASSIUM 4.5 mmol/L (3.5-5.1)
[2020-09-13] MEDS: LEVOTHYROXINE 112 MCG TABLET PO SCH ×2 (05:55→08:11)
[2020-09-13] MEDS: LISINOPRIL 20 MG TABLET PO SCH (08:12)
[2020-09-13] MEDS: FUROSEMIDE 20 MG TABLET PO SCH ×2 (08:12→16:07)
[2020-09-13] MEDS: METOPROLOL TART IMMED RELEASE 25 MG TABLET. PO SCH ×2 (08:13→10:15)
[2020-09-13] MEDS: ASPIRIN CHEWABLE 81 MG TABLET. PO SCH (08:13)
[2020-09-13] MEDS: CHOLECALCIFEROL (VITAMIN D3) 1,000 UNIT TABLET PO SCH (08:13)
[2020-09-13] MEDS: FLUoxetine HCL 20 MG CAPSULE PO SCH (08:14)
[2020-09-13] MEDS: APIXABAN 5 MG TABLET. PO SCH ×2 (08:15→19:21)
[2020-09-13] MEDS: PANTOPRAZOLE 40 MG TABLET.DR. PO SCH (08:16)
[2020-09-13] MEDS: POTASSIUM CHLORIDE 20 MEQ TABLET.ER. PO SCH (08:17)
[2020-09-13] MEDS: HYDROcodone/APAP 7.5/325MG 1 TAB TABLET PO PRN ×2 (08:17→16:10)
[2020-09-13] MEDS: NYSTATIN TOPICAL POWDER 15GM BOTTLE. TP SCH ×2 (08:18→19:23)
--- NOTE | 2020-09-13 08:42 | PDOC ---
PULMONARY PROGRESS NOTES DATE: 09/13/20 TIME: 08:42 Subjective Patient reports that she still has some shortness of breath with exertion, denies shortness of breath at rest, denies chest pain or cough No overnight concerns from nursing Vitals Vital Signs Date Time Temp Pulse Resp B/P (MAP) Pulse Ox O2 Delivery O2 Flow Rate FiO2 09/13/20 08:13 79 175/93 09/13/20 07:32 97.9 18 96 Room Air 97.9 09/12/20 22:27 2.0 ROS: No Nausea, No Chest Pain, No Abdominal Pain, No Increase Cough General: Alert, No acute distress Lungs: Clear, Other (no wheezing or crackles) Cardiovascular: S1, S2 Abdomen: Soft, Non-tender Neuro Exam: Alert Extremities: No Edema Skin: Warm, Dry Labs Laboratory Tests Test 09/12/20 08:25 09/13/20 04:30 White Blood Count 9.7 x10^3/uL (4.0-11.0) 9.2 x10^3/uL (4.0-11.0) Red Blood Count 4.82 x10^6/uL (3.50-5.40) 4.45 x10^6/uL (3.50-5.40) Hemoglobin 12.8 g/dL (12.0-15.5) 11.8 g/dL (12.0-15.5) Hematocrit 39.6 % (36.0-47.0) 36.2 % (36.0-47.0) Mean Corpuscular Volume 82 fL (79-100) 82 fL (79-100) Mean Corpuscular Hemoglobin 27 pg (25-35) 27 pg (25-35) Mean Corpuscular Hemoglobin Concent 32 g/dL (31-37) 33 g/dL (31-37) Red Cell Distribution Width 15.9 % (11.5-14.5) 16.0 % (11.5-14.5) Platelet Count 313 x10^3/uL (140-400) 312 x10^3/uL (140-400) Neutrophils (%) (Auto) 58 % (31-73) 52 % (31-73) Lymphocytes (%) (Auto) 31 % (24-48) 37 % (24-48) Monocytes (%) (Auto) 6 % (0-9) 6 % (0-9) Eosinophils (%) (Auto) 4 % (0-3) 4 % (0-3) Basophils (%) (Auto) 1 % (0-3) 1 % (0-3) Neutrophils # (Auto) 5.6 x10^3/uL (1.8-7.7) 4.8 x10^3/uL (1.8-7.7) Lymphocytes # (Auto) 3.0 x10^3/uL (1.0-4.8) 3.4 x10^3/uL (1.0-4.8) Monocytes # (Auto) 0.6 x10^3/uL (0.0-1.1) 0.6 x10^3/uL (0.0-1.1) Eosinophils # (Auto) 0.4 x10^3/uL (0.0-0.7) 0.4 x10^3/uL (0.0-0.7) Basophils # (Auto) 0.1 x10^3/uL (0.0-0.2) 0.1 x10^3/uL (0.0-0.2) Sodium Level 141 mmol/L (136-145) 143 mmol/L (136-145) Potassium Level 4.2 mmol/L (3.5-5.1) 4.5 mmol/L (3.5-5.1) Chloride Level 105 mmol/L (98-107) 106 mmol/L (98-107) Carbon Dioxide Level 27 mmol/L (21-32) 29 mmol/L (21-32) Anion Gap 9 (6-14) 8 (6-14) Blood Urea Nitrogen 23 mg/dL (7-20) 21 mg/dL (7-20) Creatinine 1.2 mg/dL (0.6-1.0) 1.2 mg/dL (0.6-1.0) Estimated GFR (Cockcroft-Gault) 44.8 44.8 Glucose Level 120 mg/dL (70-99) 100 mg/dL (70-99) Calcium Level 8.9 mg/dL (8.5-10.1) 8.9 mg/dL (8.5-10.1) Laboratory Tests Test 09/13/20 04:30 White Blood Count 9.2 x10^3/uL (4.0-11.0) Red Blood Count 4.45 x10^6/uL (3.50-5.40) Hemoglobin 11.8 g/dL (12.0-15.5) Hematocrit 36.2 % (36.0-47.0) Mean Corpuscular Volume 82 fL (79-100) Mean Corpuscular Hemoglobin 27 pg (25-35) Mean Corpuscular Hemoglobin Concent 33 g/dL (31-37) Red Cell Distribution Width 16.0 % (11.5-14.5) Platelet Count 312 x10^3/uL (140-400) Neutrophils (%) (Auto) 52 % (31-73) Lymphocytes (%) (Auto) 37 % (24-48) Monocytes (%) (Auto) 6 % (0-9) Eosinophils (%) (Auto) 4 % (0-3) Basophils (%) (Auto) 1 % (0-3) Neutrophils # (Auto) 4.8 x10^3/uL (1.8-7.7) Lymphocytes # (Auto) 3.4 x10^3/uL (1.0-4.8) Monocytes # (Auto) 0.6 x10^3/uL (0.0-1.1) Eosinophils # (Auto) 0.4 x10^3/uL (0.0-0.7) Basophils # (Auto) 0.1 x10^3/uL (0.0-0.2) Sodium Level 143 mmol/L (136-145) Potassium Level 4.5 mmol/L (3.5-5.1) Chloride Level 106 mmol/L (98-107) Carbon Dioxide Level 29 mmol/L (21-32) Anion Gap 8 (6-14) Blood Urea Nitrogen 21 mg/dL (7-20) Creatinine 1.2 mg/dL (0.6-1.0) Estimated GFR (Cockcroft-Gault) 44.8 Glucose Level 100 mg/dL (70-99) Calcium Level 8.9 mg/dL (8.5-10.1) Medications Active Scripts Medications Dose Route/Sig Max Daily Dose Days Date Category Euthyrox (Levothyroxine Sodium) 112 Mcg Tablet 112 Mcg PO DAILY06 09/09/20 Reported Metoprolol Tartrate 50 Mg Tablet 50 Mg PO HS 09/09/20 Reported Naproxen Sodium 220 Mg Capsule 2 Cap PO DAILY 7 09/09/20 Reported Fluoxetine Hcl 60 Mg Tablet 60 Mg PO DAILY 09/09/20 Reported Metoprolol Tartrate 25 Mg Tablet 25 Mg PO DAILY 09/09/20 Reported D3-2000 (Cholecalciferol (Vitamin D3)) 50 Mcg Capsule 50 Mcg PO DAILY 04/21/20 Reported Hydrocodone-Apap 7.5-325 (Hydrocodone Bit/Acetaminophen) 1 Tab Tablet 1 Tab PO PRN Q6HRS PRN 04/17/19 Reported Furosemide 20 Mg Tablet 1 Tab PO BID 04/17/19 Reported Pantoprazole Sodium (Pantoprazole Sodium) 40 Mg Tablet.dr 40 Mg PO DAILYAC 09/17/16 Rx Klor-Con M20 (Potassium Chloride) 20 Meq Tab.er.prt 20 Meq PO DAILY 09/17/16 Rx Aspirin 81 Mg Tab.chew 1 Tab PO DAILY 08/27/15 Reported Lisinopril 10 Mg Tablet 4 Tab PO DAILY 08/24/15 Reported Comments echo The left ventricle is normal size. The left ventricular systolic function is normal and the ejection fraction is within normal limits. Left ventricular ejection fraction is 50-55%. There is mild concentric left ventricular hypertrophy. The interatrial septum is intact with no evidence for an atrial septal defect or patent foramen ovale as noted on 2-D or Doppler imaging. Bubble study is negative. Doppler and Color Flow revealed trace to mild tricuspid regurgitation with an estimated PAP of 41 mmHg. Impression . 1. Acute pulmonary embolism. The blood clots were seen bilaterally and clot burden was moderate. No significant hemodynamic instability. No known history of pulmonary embolism. Risk factors being underlying obesity and relative immobilization. She has no known cancers. 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 She is not on any hormonal replacement treatment and has had a shoulder surgery in June, but did not have any symptoms of dyspnea at that time. 2. Wide complex tachycardia on admission. Treated with amiodarone. 3. The patient with known cardiomyopathy with an ejection fraction of 45% based on the last echo. There was also [id number] mitral regurgitation. No obvious congestive heart failure on chest x-ray. 4. No significant tobacco history. 5. mae on cpap Plan . Continue supplemental oxygen to keep oxygen saturations greater than 92%, currently 2 L nasal cannula 6-minute walk prior to discharge Educated on the importance of weight loss Continue Eliquis, will need anticoagulation for 3 to 6 months Lower extremity Dopplers were negative for DVT She will need to wait at least 3 weeks for her dental extraction, and will need to hold Eliquis 3 to 4 days prior to dental extraction function per her dentist recommendations Echo reviewed, PAP of 41 Follow cardiology recommendations Continue CPAP at hour of sleep and with daytime napping Patient is to follow-up with Dr. Siddiqi in September with a CTA of chest prior to appointment Discussed with MAGGI Kim to discharge home from our standpoint LAQUITA KAUR MD Sep 13, 2020 08:42
--- NOTE | 2020-09-13 09:58 | PDOC ---
PROGRESS NOTES Date of Service: DATE: 09/13/20 TIME: 09:56 Chief Complaint Chief Complaint impression Pulmonary embolus Positive exam for acute pulmonary embolism with multiple bilateral lobar, segmental, and subsegmental pulmonary emboli, moderate to large thrombus burden. dyspnea NSTEMI Obesity, morbid CHF hyperlipidemia cardiomyopathy, Left ventricular ejection fraction is 50-55%. mild concentric left ventricular h ypertrophy. mild tricuspid regurgitation with an estimated PAP of 41 mmHg. 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 She basically was at work and kept becoming short of breath. She then went home and put her BiPAP on, but was still short of breath. She then called her daughter and her daughter brought her to the ER, we did a CAT scan. She does have a pulmonary embolism. She is now on a heparin drip. She is rating her symptoms at 9/10. She has associated weakness. It has been occurring for about 24 hours, worse with moving, better with sitting still, described as very irritating. I discussed the case with ER physician. We admitted the patient with consultation to Pulmonary Medicine. 09/11/20 pt seen and examined. SOLITARIO RN 09/11/20 pt seen and examined SOLITARIO RN SOLITARIO case management 09/10/20 pt seen and examined SOLITARIO RN SOLITARIO case management Vitals Vitals Vital Signs Date Time Temp Pulse Resp B/P (MAP) Pulse Ox O2 Delivery O2 Flow Rate FiO2 09/13/20 08:13 79 175/93 09/13/20 07:32 97.9 18 96 Room Air 97.9 09/12/20 22:27 2.0 Physical Exam General: Alert, Oriented X3, Cooperative, No acute distress Heart: Regular rate (SR with intermittent pacing), Other (systolic 3/6 apical murmur) Lungs: Clear, Other (no wheezing or crackles) Abdomen: Normal bowel sounds, Soft, No tenderness Extremities: No cyanosis, Other (1+ bilateral LE pitting edema) Skin: No breakdown, No significant lesion Labs LABS Study: CT CHEST WITH CONTRAST - PULMONARY ANGIOGRAM History: Chest pain, elevated d-dimer Comparison: Chest radiograph same day Technique: Helical CT of the chest performed after the administration of 75 mL Omnipaque 350 intravenous contrast and timed for angiographic evaluation of the pulmonary arteries per PE protocol. Coronal and sagittal 3D MIP reformations were obtained. One or more of the following individualized dose reduction techniques were utilized for this examination: 1. Automated exposure control 2. Adjustment of the mA and/or kV according to patient size 3. Use of iterative reconstruction technique. Findings: Pulmonary Arteries: Contrast bolus is adequate. There are multiple bilateral filling defects in the lobar, segmental, and subsegmental pulmonary arteries consistent with acute pulmonary emboli. This involves the bilateral upper and lower lobes, overall moderate to large thrombus burden. Main pulmonary artery is enlarged measuring 3.2 cm. No flattening of the interventricular septum. Heart/Systemic Vasculature: Heart is mildly enlarged. No pericardial effusion. There is a pacemaker/AICD. Mediastinum: No lymphadenopathy. Lungs: The lungs are clear. No pleural effusion. Neck/Axilla/Body Wall: Unremarkable. Upper Abdomen: Normal. Bones: There is an age-indeterminate compression fracture of T8. There is bridging anterior osteophytes at T9-L1. IMPRESSION: Positive exam for acute pulmonary embolism with multiple bilateral lobar, segmental, and subsegmental pulmonary emboli, moderate to large thrombus burden. Results discussed by Dr. Mata with Dr. Marlow at 5:58 AM on 09/09/2020 Tricuspid Valve TR P. Velocity 286cm/s RAP ESTIMATE 8mmHg TR Peak Gr. 33mmHg RVSP 41mmHg LEFT VENTRICLE The left ventricle is normal size. There is mild concentric left ventricular hypertrophy. The left ventricular systolic function is normal and the ejection fraction is within normal limits. Left ventricular ejection fraction is 50-55%. Septal motion consistent with conduction abnormality. RIGHT VENTRICLE The right ventricle is mildly dilated. There is normal right ventricular wall thickness. Systolic function is mildly reduced. ATRIA The left atrium is borderline dilated. The right atrium is mildly dilated. The interatrial septum is intact with no evidence for an atrial septal defect or patent foramen ovale as noted on 2-D or Doppler imaging. Bubble study is negative. AORTIC VALVE The aortic valve is thickened but opens well. Doppler and color-flow analysis was not performed. There is no significant aortic valvular stenosis. MITRAL VALVE The mitral valve is thickened but opens well. There is no evidence of mitral valve prolapse. There is no mitral valve stenosis. Doppler and color-flow analysis was not performed. TRICUSPID VALVE The tricuspid valve is normal in structure and function. Doppler and Color Flow revealed trace to mild tricuspid regurgitation with an estimated PAP of 41 mmHg. There is no tricuspid valve stenosis. PULMONIC VALVE The pulmonic valve is not visualized. Doppler and color-flow analysis was not performed. GREAT VESSELS The aortic root is normal in size. The ascending aorta is normal in size. The IVC is dilated. PERICARDIAL EFFUSION There is no evidence of significant pericardial effusion. Critical Notification Critical Value: No <Conclusion> The left ventricle is normal size. The left ventricular systolic function is normal and the ejection fraction is within normal limits. Left ventricular ejection fraction is 50-55%. There is mild concentric left ventricular hypertrophy. The interatrial septum is intact with no evidence for an atrial septal defect or patent foramen ovale as noted on 2-D or Doppler imaging. Bubble study is negative. Doppler and Color Flow revealed trace to mild tricuspid regurgitation with an estimated PAP of 41 mmHg. Signed by : Terry Flores MD Electronically Approved : 09/09/2020 16:09:16 DICTATED and SIGNED BY: TERRY FLORES MD Laboratory Tests Test 09/13/20 04:30 White Blood Count 9.2 x10^3/uL (4.0-11.0) Red Blood Count 4.45 x10^6/uL (3.50-5.40) Hemoglobin 11.8 g/dL (12.0-15.5) Hematocrit 36.2 % (36.0-47.0) Mean Corpuscular Volume 82 fL (79-100) Mean Corpuscular Hemoglobin 27 pg (25-35) Mean Corpuscular Hemoglobin Concent 33 g/dL (31-37) Red Cell Distribution Width 16.0 % (11.5-14.5) Platelet Count 312 x10^3/uL (140-400) Neutrophils (%) (Auto) 52 % (31-73) Lymphocytes (%) (Auto) 37 % (24-48) Monocytes (%) (Auto) 6 % (0-9) Eosinophils (%) (Auto) 4 % (0-3) Basophils (%) (Auto) 1 % (0-3) Neutrophils # (Auto) 4.8 x10^3/uL (1.8-7.7) Lymphocytes # (Auto) 3.4 x10^3/uL (1.0-4.8) Monocytes # (Auto) 0.6 x10^3/uL (0.0-1.1) Eosinophils # (Auto) 0.4 x10^3/uL (0.0-0.7) Basophils # (Auto) 0.1 x10^3/uL (0.0-0.2) Sodium Level 143 mmol/L (136-145) Potassium Level 4.5 mmol/L (3.5-5.1) Chloride Level 106 mmol/L (98-107) Carbon Dioxide Level 29 mmol/L (21-32) Anion Gap 8 (6-14) Blood Urea Nitrogen 21 mg/dL (7-20) Creatinine 1.2 mg/dL (0.6-1.0) Estimated GFR (Cockcroft-Gault) 44.8 Glucose Level 100 mg/dL (70-99) Calcium Level 8.9 mg/dL (8.5-10.1) Assessment and Plan Assessmemt and Plan Problems Medical Problems: (1) Dyspnea Status: Acute (2) NSTEMI (non-ST elevated myocardial infarction) Status: Acute (3) Pulmonary embolism Status: Acute (4) V tach Status: Acute Comment Review of Relevant I have reviewed the following items lei (where applicable) has been applied. Labs Laboratory Tests Test 09/12/20 08:25 09/13/20 04:30 White Blood Count 9.7 x10^3/uL (4.0-11.0) 9.2 x10^3/uL (4.0-11.0) Red Blood Count 4.82 x10^6/uL (3.50-5.40) 4.45 x10^6/uL (3.50-5.40) Hemoglobin 12.8 g/dL (12.0-15.5) 11.8 g/dL (12.0-15.5) Hematocrit 39.6 % (36.0-47.0) 36.2 % (36.0-47.0) Mean Corpuscular Volume 82 fL (79-100) 82 fL (79-100) Mean Corpuscular Hemoglobin 27 pg (25-35) 27 pg (25-35) Mean Corpuscular Hemoglobin Concent 32 g/dL (31-37) 33 g/dL (31-37) Red Cell Distribution Width 15.9 % (11.5-14.5) 16.0 % (11.5-14.5) Platelet Count 313 x10^3/uL (140-400) 312 x10^3/uL (140-400) Neutrophils (%) (Auto) 58 % (31-73) 52 % (31-73) Lymphocytes (%) (Auto) 31 % (24-48) 37 % (24-48) Monocytes (%) (Auto) 6 % (0-9) 6 % (0-9) Eosinophils (%) (Auto) 4 % (0-3) 4 % (0-3) Basophils (%) (Auto) 1 % (0-3) 1 % (0-3) Neutrophils # (Auto) 5.6 x10^3/uL (1.8-7.7) 4.8 x10^3/uL (1.8-7.7) Lymphocytes # (Auto) 3.0 x10^3/uL (1.0-4.8) 3.4 x10^3/uL (1.0-4.8) Monocytes # (Auto) 0.6 x10^3/uL (0.0-1.1) 0.6 x10^3/uL (0.0-1.1) Eosinophils # (Auto) 0.4 x10^3/uL (0.0-0.7) 0.4 x10^3/uL (0.0-0.7) Basophils # (Auto) 0.1 x10^3/uL (0.0-0.2) 0.1 x10^3/uL (0.0-0.2) Sodium Level 141 mmol/L (136-145) 143 mmol/L (136-145) Potassium Level 4.2 mmol/L (3.5-5.1) 4.5 mmol/L (3.5-5.1) Chloride Level 105 mmol/L (98-107) 106 mmol/L (98-107) Carbon Dioxide Level 27 mmol/L (21-32) 29 mmol/L (21-32) Anion Gap 9 (6-14) 8 (6-14) Blood Urea Nitrogen 23 mg/dL (7-20) 21 mg/dL (7-20) Creatinine 1.2 mg/dL (0.6-1.0) 1.2 mg/dL (0.6-1.0) Estimated GFR (Cockcroft-Gault) 44.8 44.8 Glucose Level 120 mg/dL (70-99) 100 mg/dL (70-99) Calcium Level 8.9 mg/dL (8.5-10.1) 8.9 mg/dL (8.5-10.1) Laboratory Tests Test 09/13/20 04:30 White Blood Count 9.2 x10^3/uL (4.0-11.0) Red Blood Count 4.45 x10^6/uL (3.50-5.40) Hemoglobin 11.8 g/dL (12.0-15.5) Hematocrit 36.2 % (36.0-47.0) Mean Corpuscular Volume 82 fL (79-100) Mean Corpuscular Hemoglobin 27 pg (25-35) Mean Corpuscular Hemoglobin Concent 33 g/dL (31-37) Red Cell Distribution Width 16.0 % (11.5-14.5) Platelet Count 312 x10^3/uL (140-400) Neutrophils (%) (Auto) 52 % (31-73) Lymphocytes (%) (Auto) 37 % (24-48) Monocytes (%) (Auto) 6 % (0-9) Eosinophils (%) (Auto) 4 % (0-3) Basophils (%) (Auto) 1 % (0-3) Neutrophils # (Auto) 4.8 x10^3/uL (1.8-7.7) Lymphocytes # (Auto) 3.4 x10^3/uL (1.0-4.8) Monocytes # (Auto) 0.6 x10^3/uL (0.0-1.1) Eosinophils # (Auto) 0.4 x10^3/uL (0.0-0.7) Basophils # (Auto) 0.1 x10^3/uL (0.0-0.2) Sodium Level 143 mmol/L (136-145) Potassium Level 4.5 mmol/L (3.5-5.1) Chloride Level 106 mmol/L (98-107) Carbon Dioxide Level 29 mmol/L (21-32) Anion Gap 8 (6-14) Blood Urea Nitrogen 21 mg/dL (7-20) Creatinine 1.2 mg/dL (0.6-1.0) Estimated GFR (Cockcroft-Gault) 44.8 Glucose Level 100 mg/dL (70-99) Calcium Level 8.9 mg/dL (8.5-10.1) Medications Current Medications Aspirin (Aspirin Chewable) 324 mg 1X ONCE PO Last administered on 09/09/20at 03:09; Start 09/09/20 at 03:00; Stop 09/09/20 at 03:24; Status DC Aspirin (Karmen Aspirin) 325 mg STK-MED ONCE .ROUTE ; Start 09/09/20 at 02:59; Stop 09/09/20 at 02:59; Status DC Amiodarone HCl 150 mg/Dextrose 103 ml @ 618 mls/hr 1X ONCE IV ; Start 09/09/20 at 03:30; Stop 09/09/20 at 03:28; Status DC Amiodarone HCl 450 mg/Dextrose 259 ml @ 0 mls/hr CONT PRN IV SEE I/O RECORD; Start 09/09/20 at 03:30; Stop 09/09/20 at 03:28; Status DC Ondansetron HCl (Zofran) 4 mg PRN Q8HRS PRN IV NAUSEA/VOMITING Last administered on 09/09/20at 23:11; Start 09/09/20 at 03:30; Stop 09/10/20 at 03:29; Status DC Iohexol (Omnipaque 350 Mg/ml) 75 ml 1X ONCE IV Last administered on 09/09/20at 04:45; Start 09/09/20 at 04:45; Stop 09/09/20 at 04:46; Status DC Info (CONTRAST GIVEN -- Rx MONITORING) 1 each PRN DAILY PRN MC SEE COMMENTS; Start 09/09/20 at 04:45; Stop 09/11/20 at 04:44; Status DC Heparin Sodium (Porcine) (Heparin Sodium) 9,000 unit 1X ONCE IV Last administered on 09/09/20at 06:44; Start 09/09/20 at 06:15; Stop 09/09/20 at 06:16; Status DC Heparin Sodium/ Dextrose 250 ml @ 0 mls/hr CONT PRN IV PER PROTOCOL Last administered on 09/09/20at 20:59; Start 09/09/20 at 06:15; Stop 09/10/20 at 12:20; Status DC Heparin Sodium (Porcine) (Heparin Sodium) 3,400 unit PRN Q6HRS PRN IV FOR UFH LEVEL LESS THAN 0.2; Start 09/09/20 at 06:15; Stop 09/10/20 at 12:20; Status DC Heparin Sodium (Porcine) (Heparin Sodium) 1,700 unit PRN Q6HRS PRN IV FOR UFH LEVEL 0.2 - 0.29; Start 09/09/20 at 06:15; Stop 09/10/20 at 12:20; Status DC Influenza Virus Vaccine Quadrival (Fluzone Quad 1604-2391 Syringe) 0.5 ml ONCE ONCE VAX IM ; Start 09/10/20 at 09:00; Stop 09/10/20 at 09:01; Status DC Aspirin (Aspirin Chewable) 81 mg DAILY PO Last administered on 09/13/20at 08:13; Start 09/09/20 at 10:30 Furosemide (Lasix) 20 mg BID94 PO Last administered on 09/13/20at 08:12; Start 09/09/20 at 10:30 Lisinopril (Prinivil) 40 mg DAILY PO Last administered on 09/13/20at 08:12; Start 09/09/20 at 10:30 Metoprolol Tartrate (Lopressor) 25 mg DAILY PO Last administered on 09/13/20at 08:13; Start 09/09/20 at 10:30 Metoprolol Tartrate (Lopressor) 50 mg HS PO Last administered on 09/12/20at 21:26; Start 09/09/20 at 21:00 Potassium Chloride (Klor-Con) 20 meq DAILY PO Last administered on 09/13/20at 08:17; Start 09/09/20 at 10:30 Acetaminophen/ Hydrocodone Bitart (Lortab 7.5/325) 1 tab PRN Q6HRS PRN PO MODERATE PAIN, SEVERE PAIN Last administered on 09/13/20at 08:17; Start 09/09/20 at 11:30 Levothyroxine Sodium (Synthroid) 112 mcg DAILY06 PO Last administered on 09/13/20 08:11; Start 09/09/20 at 12:00 Pantoprazole Sodium (Protonix) 40 mg DAILYAC PO Last administered on 09/13/20 08:16; Start 09/09/20 at 12:00 Vitamin D (Vitamin D3) 2,000 unit DAILY PO Last administered on 09/13/20 08:13; Start 09/09/20 at 12:00 Fluoxetine HCl (PROzac) 60 mg DAILY PO Last administered on 09/13/20 08:14; Start 09/09/20 at 12:00 Naproxen (Naprosyn) 500 mg PRN BID PRN PO INFLAMMATION Last administered on 09/09/20at 12:49; Start 09/09/20 at 11:45 Acetaminophen (Tylenol) 650 mg PRN Q6HRS PRN PO MILD PAIN / TEMP > 100.3'F Last administered on 09/12/20at 17:34; Start 09/09/20 at 18:00 Ondansetron HCl (Zofran) 4 mg PRN Q6HRS PRN IVP NAUSEA/VOMITING Last administered on 09/10/20 09:27; Start 09/10/20 at 06:00 Apixaban (Eliquis) 10 mg BID PO Last administered on 09/13/20at 08:15; Start 09/10/20 at 09:30; Stop 09/16/20 at 21:01 Apixaban (Eliquis) 5 mg BID PO ; Start 09/17/20 at 21:00; Stop 09/17/20 at 21:01 Nystatin (Nystop) 1 william BID TP Last administered on 09/13/20 08:18; Start 09/11/20 at 21:00 Bisacodyl (Dulcolax Tab) 10 mg PRN DAILY PRN PO CONSTIPATION Last administered on 09/12/20at 08:43; Start 09/11/20 at 11:15 Info (Anti-Coagulation Monitoring By Pharmacy) 1 each PRN DAILY PRN MC SEE COMMENTS; Start 09/12/20 at 08:15 Active Scripts Active Pantoprazole Sodium (Pantoprazole Sodium) 40 Mg Tablet. 40 Mg PO DAILYAC Klor-Con M20 (Potassium Chloride) 20 Meq Tab.er.prt 20 Meq PO DAILY Reported Euthyrox (Levothyroxine Sodium) 112 Mcg Tablet 112 Mcg PO DAILY06 Metoprolol Tartrate 50 Mg Tablet 50 Mg PO HS Naproxen Sodium 220 Mg Capsule 2 Cap PO DAILY 7 Days Fluoxetine Hcl 60 Mg Tablet 60 Mg PO DAILY Metoprolol Tartrate 25 Mg Tablet 25 Mg PO DAILY D3-2000 (Cholecalciferol (Vitamin D3)) 50 Mcg Capsule 50 Mcg PO DAILY Hydrocodone-Apap 7.5-325 (Hydrocodone Bit/Acetaminophen) 1 Tab Tablet 1 Tab PO PRN Q6HRS PRN Furosemide 20 Mg Tablet 1 Tab PO BID Aspirin 81 Mg Tab.chew 1 Tab PO DAILY Lisinopril 10 Mg Tablet 4 Tab PO DAILY Vitals/I & O Vital Sign - Last 24 Hours 09/12/20 09/12/20 09/12/20 09/12/20 11:00 12:30 13:30 15:00 Temp 97.7 98.3 97.7 98.3 Pulse 62 62 Resp 18 19 B/P (MAP) 137/81 (99) 132/84 (100) Pulse Ox 91 91 O2 Delivery Room Air Room Air Room Air Room Air 09/12/20 09/12/20 09/12/20 09/12/20 19:50 20:00 21:26 21:27 Temp 98.3 98.3 Pulse 70 70 Resp 18 18 B/P (MAP) 153/89 (110) 153/89 Pulse Ox 93 93 O2 Delivery Room Air Room Air Room Air O2 Flow Rate 2.0 2.0 09/12/20 09/12/20 09/13/20 09/13/20 22:27 23:20 03:30 07:32 Temp 98.5 97.7 97.9 98.5 97.7 97.9 Pulse 67 74 71 Resp 18 18 18 18 B/P (MAP) 150/102 (118) 146/94 (111) 199/119 (145) Pulse Ox 93 94 94 96 O2 Delivery Room Air Room Air Room Air Room Air O2 Flow Rate 2.0 09/13/20 09/13/20 09/13/20 07:54 08:12 08:13 Pulse 79 79 79 B/P (MAP) 175/93 (120) 175/93 175/93 Intake and Output 09/12/20 09/12/20 09/13/20 15:00 23:00 07:00 Intake Total 300 ml 100 ml 600 ml Output Total 400 ml Balance 300 ml -300 ml 600 ml Justicifation of Admission Dx: Justifications for Admission: Justification of Admission Dx: Yes IRIS LENTZ MD Sep 13, 2020 09:58
[2020-09-13] MEDS ORDERED: METOPROLOL TART IMMED RELEASE 25 MG TABLET. PO ONE ×2 (10:30→22:00)
[2020-09-13] MEDS: AMOXICILLIN 250 MG CAPSULE. PO SCH ×2 (13:45→19:21)
--- NOTE | 2020-09-13 14:11 | NUR ---
SS following up with discharge planning. SS reviewed pt chart and discussed with pt RN. Pt is currently on room air. PT/OT recommended home. Six minute walk ordered. Discharge plan is to home when medically ready. SS will continue to follow for discharge planning.
[2020-09-13] MEDS ORDERED: METOPROLOL TARTRATE 5 MG/5 ML VIAL. IVP PRN (15:30)
[2020-09-13] MEDS: ACETAMINOPHEN 325 MG TABLET. PO PRN (19:20)
[2020-09-13] MEDS: METOPROLOL TART IMMED RELEASE 50 MG TABLET. PO SCH (19:21)
[2020-09-13] MEDS ORDERED: METOPROLOL SUCC 24HR ER 25 MG TAB.ER.24H. PO SCH (20:30)
[2020-09-13] MEDS ORDERED: METOPROLOL TART IMMED RELEASE 25 MG TABLET. PO SCH (20:37)
[2020-09-13] MEDS: LACTOBACILLUS RHAMNOSUS GG 1 CAPSULE. PO SCH (21:32)
[2020-09-14 03:15] VITALS: BP 131/81
[2020-09-14] MEDS: LEVOTHYROXINE 112 MCG TABLET PO SCH (04:09)
[2020-09-14 07:00] VITALS: BP 172/88
[2020-09-14 07:39] LABS: BASO # 0.1 x10^3/uL (0.0-0.2); BASO % 1 % (0-3); EOS # 0.3 x10^3/uL (0.0-0.7); EOS % 4 % (0-3); HEMATOCRIT 38.6 % (36.0-47.0); HEMOGLOBIN 12.7 g/dL (12.0-15.5); LYMPH % 36 % (24-48); MEAN CORPUSCULAR HEMOGLOBIN 27 pg (25-35); MEAN CORPUSCULAR HGB CONC 33 g/dL (31-37); MEAN CORPUSCULAR VOLUME 81 fL (79-100); MONO # 0.7 x10^3/uL (0.0-1.1); MONO % 9 % (0-9); NEUT # 4.2 x10^3/uL (1.8-7.7); NEUT % 51 % (31-73); PLATELET COUNT 335 x10^3/uL (140-400); RED BLOOD COUNT 4.76 x10^6/uL (3.50-5.40); RED CELL DISTRIBUTION WIDTH 16.1 % (11.5-14.5); WHITE BLOOD COUNT 8.2 x10^3/uL (4.0-11.0)
[2020-09-14 07:58] LABS: CALCIUM 8.9 mg/dL (8.5-10.1); GFR 55.3; POTASSIUM 4.4 mmol/L (3.5-5.1)
--- NOTE | 2020-09-14 08:40 | PDOC ---
PULMONARY PROGRESS NOTES DATE: 09/14/20 TIME: 08:40 Subjective Patient reports that she still has some shortness of breath with exertion, denies shortness of breath at rest, denies chest pain or cough No overnight concerns from nursing Vitals Vital Signs Date Time Temp Pulse Resp B/P (MAP) Pulse Ox O2 Delivery O2 Flow Rate FiO2 09/14/20 07:00 97.6 60 18 172/88 (116) 94 Room Air 97.6 09/13/20 20:00 2.0 ROS: No Nausea, No Chest Pain, No Abdominal Pain, No Increase Cough General: Alert, No acute distress Lungs: Clear, Other (no wheezing or crackles) Cardiovascular: S1, S2 Abdomen: Soft, Non-tender Neuro Exam: Alert Extremities: No Edema Skin: Warm, Dry Labs Laboratory Tests Test 09/13/20 04:30 09/14/20 07:01 White Blood Count 9.2 x10^3/uL (4.0-11.0) 8.2 x10^3/uL (4.0-11.0) Red Blood Count 4.45 x10^6/uL (3.50-5.40) 4.76 x10^6/uL (3.50-5.40) Hemoglobin 11.8 g/dL (12.0-15.5) 12.7 g/dL (12.0-15.5) Hematocrit 36.2 % (36.0-47.0) 38.6 % (36.0-47.0) Mean Corpuscular Volume 82 fL (79-100) 81 fL (79-100) Mean Corpuscular Hemoglobin 27 pg (25-35) 27 pg (25-35) Mean Corpuscular Hemoglobin Concent 33 g/dL (31-37) 33 g/dL (31-37) Red Cell Distribution Width 16.0 % (11.5-14.5) 16.1 % (11.5-14.5) Platelet Count 312 x10^3/uL (140-400) 335 x10^3/uL (140-400) Neutrophils (%) (Auto) 52 % (31-73) 51 % (31-73) Lymphocytes (%) (Auto) 37 % (24-48) 36 % (24-48) Monocytes (%) (Auto) 6 % (0-9) 9 % (0-9) Eosinophils (%) (Auto) 4 % (0-3) 4 % (0-3) Basophils (%) (Auto) 1 % (0-3) 1 % (0-3) Neutrophils # (Auto) 4.8 x10^3/uL (1.8-7.7) 4.2 x10^3/uL (1.8-7.7) Lymphocytes # (Auto) 3.4 x10^3/uL (1.0-4.8) 3.0 x10^3/uL (1.0-4.8) Monocytes # (Auto) 0.6 x10^3/uL (0.0-1.1) 0.7 x10^3/uL (0.0-1.1) Eosinophils # (Auto) 0.4 x10^3/uL (0.0-0.7) 0.3 x10^3/uL (0.0-0.7) Basophils # (Auto) 0.1 x10^3/uL (0.0-0.2) 0.1 x10^3/uL (0.0-0.2) Sodium Level 143 mmol/L (136-145) 142 mmol/L (136-145) Potassium Level 4.5 mmol/L (3.5-5.1) 4.4 mmol/L (3.5-5.1) Chloride Level 106 mmol/L (98-107) 105 mmol/L (98-107) Carbon Dioxide Level 29 mmol/L (21-32) 30 mmol/L (21-32) Anion Gap 8 (6-14) 7 (6-14) Blood Urea Nitrogen 21 mg/dL (7-20) 19 mg/dL (7-20) Creatinine 1.2 mg/dL (0.6-1.0) 1.0 mg/dL (0.6-1.0) Estimated GFR (Cockcroft-Gault) 44.8 55.3 Glucose Level 100 mg/dL (70-99) 92 mg/dL (70-99) Calcium Level 8.9 mg/dL (8.5-10.1) 8.9 mg/dL (8.5-10.1) Laboratory Tests Test 09/14/20 07:01 White Blood Count 8.2 x10^3/uL (4.0-11.0) Red Blood Count 4.76 x10^6/uL (3.50-5.40) Hemoglobin 12.7 g/dL (12.0-15.5) Hematocrit 38.6 % (36.0-47.0) Mean Corpuscular Volume 81 fL (79-100) Mean Corpuscular Hemoglobin 27 pg (25-35) Mean Corpuscular Hemoglobin Concent 33 g/dL (31-37) Red Cell Distribution Width 16.1 % (11.5-14.5) Platelet Count 335 x10^3/uL (140-400) Neutrophils (%) (Auto) 51 % (31-73) Lymphocytes (%) (Auto) 36 % (24-48) Monocytes (%) (Auto) 9 % (0-9) Eosinophils (%) (Auto) 4 % (0-3) Basophils (%) (Auto) 1 % (0-3) Neutrophils # (Auto) 4.2 x10^3/uL (1.8-7.7) Lymphocytes # (Auto) 3.0 x10^3/uL (1.0-4.8) Monocytes # (Auto) 0.7 x10^3/uL (0.0-1.1) Eosinophils # (Auto) 0.3 x10^3/uL (0.0-0.7) Basophils # (Auto) 0.1 x10^3/uL (0.0-0.2) Sodium Level 142 mmol/L (136-145) Potassium Level 4.4 mmol/L (3.5-5.1) Chloride Level 105 mmol/L (98-107) Carbon Dioxide Level 30 mmol/L (21-32) Anion Gap 7 (6-14) Blood Urea Nitrogen 19 mg/dL (7-20) Creatinine 1.0 mg/dL (0.6-1.0) Estimated GFR (Cockcroft-Gault) 55.3 Glucose Level 92 mg/dL (70-99) Calcium Level 8.9 mg/dL (8.5-10.1) Medications Active Scripts Medications Dose Route/Sig Max Daily Dose Days Date Category Euthyrox (Levothyroxine Sodium) 112 Mcg Tablet 112 Mcg PO DAILY06 09/09/20 Reported Metoprolol Tartrate 50 Mg Tablet 50 Mg PO HS 09/09/20 Reported Naproxen Sodium 220 Mg Capsule 2 Cap PO DAILY 7 09/09/20 Reported Fluoxetine Hcl 60 Mg Tablet 60 Mg PO DAILY 09/09/20 Reported Metoprolol Tartrate 25 Mg Tablet 25 Mg PO DAILY 09/09/20 Reported D3-2000 (Cholecalciferol (Vitamin D3)) 50 Mcg Capsule 50 Mcg PO DAILY 04/21/20 Reported Hydrocodone-Apap 7.5-325 (Hydrocodone Bit/Acetaminophen) 1 Tab Tablet 1 Tab PO PRN Q6HRS PRN 04/17/19 Reported Furosemide 20 Mg Tablet 1 Tab PO BID 04/17/19 Reported Pantoprazole Sodium (Pantoprazole Sodium) 40 Mg Tablet.dr 40 Mg PO DAILYAC 09/17/16 Rx Klor-Con M20 (Potassium Chloride) 20 Meq Tab.er.prt 20 Meq PO DAILY 09/17/16 Rx Aspirin 81 Mg Tab.chew 1 Tab PO DAILY 08/27/15 Reported Lisinopril 10 Mg Tablet 4 Tab PO DAILY 08/24/15 Reported Comments echo The left ventricle is normal size. The left ventricular systolic function is normal and the ejection fraction is within normal limits. Left ventricular ejection fraction is 50-55%. There is mild concentric left ventricular hypertrophy. The interatrial septum is intact with no evidence for an atrial septal defect or patent foramen ovale as noted on 2-D or Doppler imaging. Bubble study is negative. Doppler and Color Flow revealed trace to mild tricuspid regurgitation with an estimated PAP of 41 mmHg. Impression . 1. Acute pulmonary embolism. The blood clots were seen bilaterally and clot burden was moderate. No significant hemodynamic instability. No known history of pulmonary embolism. Risk factors being underlying obesity and relative immobilization. She has no known cancers. 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 She is not on any hormonal replacement treatment and has had a shoulder surgery in June, but did not have any symptoms of dyspnea at that time. 2. Wide complex tachycardia on admission. Treated with amiodarone. 3. The patient with known cardiomyopathy with an ejection fraction of 45% based on the last echo. There was also [id number] mitral regurgitation. No obvious congestive heart failure on chest x-ray. 4. No significant tobacco history. 5. mae on cpap Plan . Continue supplemental oxygen to keep oxygen saturations greater than 92%, currently 2 L nasal cannula 6-minute walk prior to discharge Educated on the importance of weight loss Continue Eliquis, will need anticoagulation for 3 to 6 months Lower extremity Dopplers were negative for DVT She will need to wait at least 3 weeks for her dental extraction, and will need to hold Eliquis 3 to 4 days prior to dental extraction function per her dentist recommendations Echo reviewed, PAP of 41 Follow cardiology recommendations Continue CPAP at hour of sleep and with daytime napping Patient is to follow-up with Dr. Siddiqi in September with a CTA of chest prior to appointment Discussed with MAGGI Kim to discharge home from our standpoint LAQUITA KAUR MD Sep 14, 2020 08:40
[2020-09-14] MEDS: ASPIRIN CHEWABLE 81 MG TABLET. PO SCH (08:54)
[2020-09-14] MEDS: PANTOPRAZOLE 40 MG TABLET.DR. PO SCH (08:54)
[2020-09-14] MEDS: LACTOBACILLUS RHAMNOSUS GG 1 CAPSULE. PO SCH (08:54)
[2020-09-14] MEDS: CHOLECALCIFEROL (VITAMIN D3) 1,000 UNIT TABLET PO SCH (08:54)
[2020-09-14] MEDS: FLUoxetine HCL 20 MG CAPSULE PO SCH (08:54)
[2020-09-14] MEDS: AMOXICILLIN 250 MG CAPSULE. PO SCH (08:55)
[2020-09-14] MEDS: APIXABAN 5 MG TABLET. PO SCH (08:55)
[2020-09-14] MEDS: POTASSIUM CHLORIDE 20 MEQ TABLET.ER. PO SCH (08:55)
[2020-09-14] MEDS: FUROSEMIDE 20 MG TABLET PO SCH (08:55)
[2020-09-14] MEDS: LISINOPRIL 20 MG TABLET PO SCH (08:56)
[2020-09-14] MEDS: METOPROLOL TART IMMED RELEASE 25 MG TABLET. PO SCH (08:56)
[2020-09-14] MEDS: HYDROcodone/APAP 7.5/325MG 1 TAB TABLET PO PRN (09:01)
[2020-09-14] MEDS: NYSTATIN TOPICAL POWDER 15GM BOTTLE. TP SCH (09:02)
[2020-09-14 10:56] VITALS: BP 154/83
--- NOTE | 2020-09-14 11:16 | PDOC ---
PROGRESS NOTES Date of Service: DATE: 09/14/20 TIME: 11:15 Chief Complaint Chief Complaint impression Pulmonary embolus Positive exam for acute pulmonary embolism with multiple bilateral lobar, segmental, and subsegmental pulmonary emboli, moderate to large thrombus burden. dyspnea NSTEMI Obesity, morbid CHF hyperlipidemia cardiomyopathy, Left ventricular ejection fraction is 50-55%. mild concentric left ventricular h ypertrophy. mild tricuspid regurgitation with an estimated PAP of 41 mmHg. 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 She basically was at work and kept becoming short of breath. She then went home and put her BiPAP on, but was still short of breath. She then called her daughter and her daughter brought her to the ER, we did a CAT scan. She does have a pulmonary embolism. She is now on a heparin drip. She is rating her symptoms at 9/10. She has associated weakness. It has been occurring for about 24 hours, worse with moving, better with sitting still, described as very irritating. I discussed the case with ER physician. We admitted the patient with consultation to Pulmonary Medicine. 09/11/20 pt seen and examined. SOLITARIO RN 09/11/20 pt seen and examined SOLITARIO RN SOLITARIO case management 09/10/20 pt seen and examined SOLITARIO RN SOLITARIO case management Vitals Vitals Vital Signs Date Time Temp Pulse Resp B/P (MAP) Pulse Ox O2 Delivery O2 Flow Rate FiO2 09/14/20 10:56 98.2 64 18 154/83 (106) 91 Room Air 98.2 09/13/20 20:00 2.0 Physical Exam General: Alert, Oriented X3, Cooperative, No acute distress Heart: Regular rate (SR with intermittent pacing), Other (systolic 3/6 apical murmur) Lungs: Clear, Other (no wheezing or crackles) Abdomen: Normal bowel sounds, Soft, No tenderness, No hepatosplenomegaly, No masses Extremities: No clubbing, No cyanosis, No edema, Other (1+ bilateral LE pitting edema) Skin: No breakdown, No significant lesion Labs LABS Laboratory Tests Test 09/14/20 07:01 White Blood Count 8.2 x10^3/uL (4.0-11.0) Red Blood Count 4.76 x10^6/uL (3.50-5.40) Hemoglobin 12.7 g/dL (12.0-15.5) Hematocrit 38.6 % (36.0-47.0) Mean Corpuscular Volume 81 fL (79-100) Mean Corpuscular Hemoglobin 27 pg (25-35) Mean Corpuscular Hemoglobin Concent 33 g/dL (31-37) Red Cell Distribution Width 16.1 % (11.5-14.5) Platelet Count 335 x10^3/uL (140-400) Neutrophils (%) (Auto) 51 % (31-73) Lymphocytes (%) (Auto) 36 % (24-48) Monocytes (%) (Auto) 9 % (0-9) Eosinophils (%) (Auto) 4 % (0-3) Basophils (%) (Auto) 1 % (0-3) Neutrophils # (Auto) 4.2 x10^3/uL (1.8-7.7) Lymphocytes # (Auto) 3.0 x10^3/uL (1.0-4.8) Monocytes # (Auto) 0.7 x10^3/uL (0.0-1.1) Eosinophils # (Auto) 0.3 x10^3/uL (0.0-0.7) Basophils # (Auto) 0.1 x10^3/uL (0.0-0.2) Sodium Level 142 mmol/L (136-145) Potassium Level 4.4 mmol/L (3.5-5.1) Chloride Level 105 mmol/L (98-107) Carbon Dioxide Level 30 mmol/L (21-32) Anion Gap 7 (6-14) Blood Urea Nitrogen 19 mg/dL (7-20) Creatinine 1.0 mg/dL (0.6-1.0) Estimated GFR (Cockcroft-Gault) 55.3 Glucose Level 92 mg/dL (70-99) Calcium Level 8.9 mg/dL (8.5-10.1) Assessment and Plan Assessmemt and Plan Problems Medical Problems: (1) Dyspnea Status: Acute (2) NSTEMI (non-ST elevated myocardial infarction) Status: Acute (3) Pulmonary embolism Status: Acute (4) V tach Status: Acute Comment Review of Relevant I have reviewed the following items lei (where applicable) has been applied. Labs Laboratory Tests Test 09/13/20 04:30 09/14/20 07:01 White Blood Count 9.2 x10^3/uL (4.0-11.0) 8.2 x10^3/uL (4.0-11.0) Red Blood Count 4.45 x10^6/uL (3.50-5.40) 4.76 x10^6/uL (3.50-5.40) Hemoglobin 11.8 g/dL (12.0-15.5) 12.7 g/dL (12.0-15.5) Hematocrit 36.2 % (36.0-47.0) 38.6 % (36.0-47.0) Mean Corpuscular Volume 82 fL (79-100) 81 fL (79-100) Mean Corpuscular Hemoglobin 27 pg (25-35) 27 pg (25-35) Mean Corpuscular Hemoglobin Concent 33 g/dL (31-37) 33 g/dL (31-37) Red Cell Distribution Width 16.0 % (11.5-14.5) 16.1 % (11.5-14.5) Platelet Count 312 x10^3/uL (140-400) 335 x10^3/uL (140-400) Neutrophils (%) (Auto) 52 % (31-73) 51 % (31-73) Lymphocytes (%) (Auto) 37 % (24-48) 36 % (24-48) Monocytes (%) (Auto) 6 % (0-9) 9 % (0-9) Eosinophils (%) (Auto) 4 % (0-3) 4 % (0-3) Basophils (%) (Auto) 1 % (0-3) 1 % (0-3) Neutrophils # (Auto) 4.8 x10^3/uL (1.8-7.7) 4.2 x10^3/uL (1.8-7.7) Lymphocytes # (Auto) 3.4 x10^3/uL (1.0-4.8) 3.0 x10^3/uL (1.0-4.8) Monocytes # (Auto) 0.6 x10^3/uL (0.0-1.1) 0.7 x10^3/uL (0.0-1.1) Eosinophils # (Auto) 0.4 x10^3/uL (0.0-0.7) 0.3 x10^3/uL (0.0-0.7) Basophils # (Auto) 0.1 x10^3/uL (0.0-0.2) 0.1 x10^3/uL (0.0-0.2) Sodium Level 143 mmol/L (136-145) 142 mmol/L (136-145) Potassium Level 4.5 mmol/L (3.5-5.1) 4.4 mmol/L (3.5-5.1) Chloride Level 106 mmol/L (98-107) 105 mmol/L (98-107) Carbon Dioxide Level 29 mmol/L (21-32) 30 mmol/L (21-32) Anion Gap 8 (6-14) 7 (6-14) Blood Urea Nitrogen 21 mg/dL (7-20) 19 mg/dL (7-20) Creatinine 1.2 mg/dL (0.6-1.0) 1.0 mg/dL (0.6-1.0) Estimated GFR (Cockcroft-Gault) 44.8 55.3 Glucose Level 100 mg/dL (70-99) 92 mg/dL (70-99) Calcium Level 8.9 mg/dL (8.5-10.1) 8.9 mg/dL (8.5-10.1) Laboratory Tests Test 09/14/20 07:01 White Blood Count 8.2 x10^3/uL (4.0-11.0) Red Blood Count 4.76 x10^6/uL (3.50-5.40) Hemoglobin 12.7 g/dL (12.0-15.5) Hematocrit 38.6 % (36.0-47.0) Mean Corpuscular Volume 81 fL (79-100) Mean Corpuscular Hemoglobin 27 pg (25-35) Mean Corpuscular Hemoglobin Concent 33 g/dL (31-37) Red Cell Distribution Width 16.1 % (11.5-14.5) Platelet Count 335 x10^3/uL (140-400) Neutrophils (%) (Auto) 51 % (31-73) Lymphocytes (%) (Auto) 36 % (24-48) Monocytes (%) (Auto) 9 % (0-9) Eosinophils (%) (Auto) 4 % (0-3) Basophils (%) (Auto) 1 % (0-3) Neutrophils # (Auto) 4.2 x10^3/uL (1.8-7.7) Lymphocytes # (Auto) 3.0 x10^3/uL (1.0-4.8) Monocytes # (Auto) 0.7 x10^3/uL (0.0-1.1) Eosinophils # (Auto) 0.3 x10^3/uL (0.0-0.7) Basophils # (Auto) 0.1 x10^3/uL (0.0-0.2) Sodium Level 142 mmol/L (136-145) Potassium Level 4.4 mmol/L (3.5-5.1) Chloride Level 105 mmol/L (98-107) Carbon Dioxide Level 30 mmol/L (21-32) Anion Gap 7 (6-14) Blood Urea Nitrogen 19 mg/dL (7-20) Creatinine 1.0 mg/dL (0.6-1.0) Estimated GFR (Cockcroft-Gault) 55.3 Glucose Level 92 mg/dL (70-99) Calcium Level 8.9 mg/dL (8.5-10.1) Medications Current Medications Aspirin (Aspirin Chewable) 324 mg 1X ONCE PO Last administered on 09/09/20at 03:09; Start 09/09/20 at 03:00; Stop 09/09/20 at 03:24; Status DC Aspirin (Karmen Aspirin) 325 mg STK-MED ONCE .ROUTE ; Start 09/09/20 at 02:59; Stop 09/09/20 at 02:59; Status DC Amiodarone HCl 150 mg/Dextrose 103 ml @ 618 mls/hr 1X ONCE IV ; Start 09/09/20 at 03:30; Stop 09/09/20 at 03:28; Status DC Amiodarone HCl 450 mg/Dextrose 259 ml @ 0 mls/hr CONT PRN IV SEE I/O RECORD; Start 09/09/20 at 03:30; Stop 09/09/20 at 03:28; Status DC Ondansetron HCl (Zofran) 4 mg PRN Q8HRS PRN IV NAUSEA/VOMITING Last administered on 09/09/20at 23:11; Start 09/09/20 at 03:30; Stop 09/10/20 at 03:29; Status DC Iohexol (Omnipaque 350 Mg/ml) 75 ml 1X ONCE IV Last administered on 09/09/20at 04:45; Start 09/09/20 at 04:45; Stop 09/09/20 at 04:46; Status DC Info (CONTRAST GIVEN -- Rx MONITORING) 1 each PRN DAILY PRN MC SEE COMMENTS; Start 09/09/20 at 04:45; Stop 09/11/20 at 04:44; Status DC Heparin Sodium (Porcine) (Heparin Sodium) 9,000 unit 1X ONCE IV Last administered on 09/09/20at 06:44; Start 09/09/20 at 06:15; Stop 09/09/20 at 06:16; Status DC Heparin Sodium/ Dextrose 250 ml @ 0 mls/hr CONT PRN IV PER PROTOCOL Last administered on 09/09/20at 20:59; Start 09/09/20 at 06:15; Stop 09/10/20 at 12:20; Status DC Heparin Sodium (Porcine) (Heparin Sodium) 3,400 unit PRN Q6HRS PRN IV FOR UFH LEVEL LESS THAN 0.2; Start 09/09/20 at 06:15; Stop 09/10/20 at 12:20; Status DC Heparin Sodium (Porcine) (Heparin Sodium) 1,700 unit PRN Q6HRS PRN IV FOR UFH LEVEL 0.2 - 0.29; Start 09/09/20 at 06:15; Stop 09/10/20 at 12:20; Status DC Influenza Virus Vaccine Quadrival (Fluzone Quad Syringe) 0.5 ml ONCE ONCE VAX IM ; Start 09/10/20 at 09:00; Stop 09/10/20 at 09:01; Status DC Aspirin (Aspirin Chewable) 81 mg DAILY PO Last administered on 09/14/20 08:54; Start 09/09/20 at 10:30 Furosemide (Lasix) 20 mg [id number] PO Last administered on 09/14/20 08:55; Start 09/09/20 at 10:30 Lisinopril (Prinivil) 40 mg DAILY PO Last administered on 09/14/20 08:56; Start 09/09/20 at 10:30 Metoprolol Tartrate (Lopressor) 25 mg DAILY PO Last administered on 09/13/20 08:13; Start 09/09/20 at 10:30; Stop 09/13/20 at 10:02; Status DC Metoprolol Tartrate (Lopressor) 50 mg HS PO Last administered on 09/13/20 19:21; Start 09/09/20 at 21:00; Stop 09/13/20 at 20:35; Status DC Potassium Chloride (Klor-Con) 20 meq DAILY PO Last administered on 09/14/20 08:55; Start 09/09/20 at 10:30 Acetaminophen/ Hydrocodone Bitart (Lortab 7.5/325) 1 tab PRN Q6HRS PRN PO MODERATE PAIN, SEVERE PAIN Last administered on 09/14/20 09:01; Start 09/09/20 at 11:30 Levothyroxine Sodium (Synthroid) 112 mcg DAILY06 PO Last administered on 09/14/20 04:09; Start 09/09/20 at 12:00 Pantoprazole Sodium (Protonix) 40 mg DAILYAC PO Last administered on 09/14/20 08:54; Start 09/09/20 at 12:00 Vitamin D (Vitamin D3) 2,000 unit DAILY PO Last administered on 09/14/20 08:54; Start 09/09/20 at 12:00 Fluoxetine HCl (PROzac) 60 mg DAILY PO Last administered on 09/14/20 08:54; Start 09/09/20 at 12:00 Naproxen (Naprosyn) 500 mg PRN BID PRN PO INFLAMMATION Last administered on 09/09/20 12:49; Start 09/09/20 at 11:45 Acetaminophen (Tylenol) 650 mg PRN Q6HRS PRN PO MILD PAIN / TEMP > 100.3'F Last administered on 09/13/20at 19:20; Start 09/09/20 at 18:00 Ondansetron HCl (Zofran) 4 mg PRN Q6HRS PRN IVP NAUSEA/VOMITING Last administered on 09/10/20at 09:27; Start 09/10/20 at 06:00 Apixaban (Eliquis) 10 mg BID PO Last administered on 09/14/20at 08:55; Start 09/10/20 at 09:30; Stop 09/16/20 at 21:01 Apixaban (Eliquis) 5 mg BID PO ; Start 09/17/20 at 21:00; Stop 09/17/20 at 21:01 Nystatin (Nystop) 1 william BID TP Last administered on 09/14/20at 09:02; Start 09/11/20 at 21:00 Bisacodyl (Dulcolax Tab) 10 mg PRN DAILY PRN PO CONSTIPATION Last administered on 09/12/20at 08:43; Start 09/11/20 at 11:15 Info (Anti-Coagulation Monitoring By Pharmacy) 1 each PRN DAILY PRN MC SEE COMMENTS; Start 09/12/20 at 08:15 Metoprolol Tartrate (Lopressor) 50 mg DAILY PO Last administered on 09/14/20at 08:56; Start 09/13/20 at 10:15 Metoprolol Tartrate (Lopressor) 25 mg 1X ONCE PO Last administered on 09/13/20at 10:51; Start 09/13/20 at 10:30; Stop 09/13/20 at 10:32; Status DC Amoxicillin (Amoxil) 250 mg [id number] PO Last administered on 09/14/20at 08:55; Start 09/13/20 at 14:00 Metoprolol Tartrate (Lopressor Vial) 5 mg Q6HRS PRN IVP ELEVATED BP, SEE COMMENTS; Start 09/13/20 at 15:30 Lactobacillus Rhamnosus (Culturelle) 1 cap BID PO Last administered on 09/14/20at 08:54; Start 09/13/20 at 21:00 Metoprolol Succinate (Toprol Xl) 75 mg HS PO ; Start 09/13/20 at 20:30; Stop 10/19/20 at 20:37; Status DC Metoprolol Tartrate (Lopressor) 75 mg HS PO ; Start 09/13/20 at 20:37 Metoprolol Tartrate (Lopressor) 25 mg 1X ONCE PO Last administered on 09/13/20at 22:32; Start 09/13/20 at 22:00; Stop 09/13/20 at 22:01; Status DC Active Scripts Active Pantoprazole Sodium (Pantoprazole Sodium) 40 Mg Tablet.dr 40 Mg PO DAILYAC Klor-Con M20 (Potassium Chloride) 20 Meq Tab.er.prt 20 Meq PO DAILY Reported Euthyrox (Levothyroxine Sodium) 112 Mcg Tablet 112 Mcg PO DAILY06 Metoprolol Tartrate 50 Mg Tablet 50 Mg PO HS Naproxen Sodium 220 Mg Capsule 2 Cap PO DAILY 7 Days Fluoxetine Hcl 60 Mg Tablet 60 Mg PO DAILY Metoprolol Tartrate 25 Mg Tablet 25 Mg PO DAILY D3-2000 (Cholecalciferol (Vitamin D3)) 50 Mcg Capsule 50 Mcg PO DAILY Hydrocodone-Apap 7.5-325 (Hydrocodone Bit/Acetaminophen) 1 Tab Tablet 1 Tab PO PRN Q6HRS PRN Furosemide 20 Mg Tablet 1 Tab PO BID Aspirin 81 Mg Tab.chew 1 Tab PO DAILY Lisinopril 10 Mg Tablet 4 Tab PO DAILY Vitals/I & O Vital Sign - Last 24 Hours 09/13/20 09/13/20 09/13/20 09/13/20 14:48 16:10 17:22 19:21 Temp 97.9 97.9 Pulse 64 64 Resp 18 B/P (MAP) 162/82 (108) 162/82 Pulse Ox 93 93 93 O2 Delivery Room Air Room Air Room Air O2 Flow Rate 2.0 2.0 09/13/20 09/13/20 09/13/20 09/13/20 19:45 20:00 21:00 22:32 Temp 98.4 98.4 Pulse 65 65 65 Resp 20 B/P (MAP) 152/92 (112) 152/92 152/92 Pulse Ox 94 O2 Delivery Room Air Room Air O2 Flow Rate 2.0 09/13/20 09/14/20 09/14/20 09/14/20 22:55 03:15 07:00 08:56 Temp 98.6 97.7 97.6 98.6 97.7 97.6 Pulse 59 60 60 60 Resp 18 18 18 B/P (MAP) 133/82 (99) 131/81 (98) 172/88 (116) 172/88 Pulse Ox 94 92 94 O2 Delivery Room Air Room Air Room Air 09/14/20 09/14/20 09/14/20 08:56 09:01 10:56 Temp 98.2 98.2 Pulse 60 64 Resp 18 18 B/P (MAP) 172/88 154/83 (106) Pulse Ox 94 91 O2 Delivery Room Air Room Air Intake and Output 09/13/20 09/13/20 09/14/20 15:00 23:00 07:00 Intake Total 300 ml 240 ml Balance 300 ml 240 ml Justicifation of Admission Dx: Justifications for Admission: Justification of Admission Dx: Yes IRIS LENTZ MD Sep 14, 2020 11:16
--- NOTE | 2020-09-14 12:16 | PDOC3 ---
Discharge Summary Date of Admission: Sep 09, 2020 Date of Discharge: Sep 14, 2020 Follow-Up: 3-5 days Admitting Diagnosis comment: DISCHARGE DX Chief Complaint impression Pulmonary embolus Positive exam for acute pulmonary embolism with multiple bilateral lobar, segmental, and subsegmental pulmonary emboli, moderate to large thrombus burden. dyspnea NSTEMI Obesity, morbid CHF hyperlipidemia cardiomyopathy, Left ventricular ejection fraction is 50-55%. mild concentric left ventricular hypertrophy. mild tricuspid regurgitation with an estimated PAP of 41 mmHg. 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 She basically was at work and kept becoming short of breath. She then went home and put her BiPAP on, but was still short of breath. She then called her daughter and her daughter brought her to the ER, we did a CAT scan. She does have a pulmonary embolism. She is now on a heparin drip. She is rating her symptoms at 9/10. She has associated weakness. It has been occurring for about 24 hours, worse with moving, better with sitting still, described as very irritating. I discussed the case with ER physician. We admitted the patient with consultation to Pulmonary Medicine. 09/11/20 pt seen and examined. SOLITARIO RN 09/11/20 pt seen and examined SOLITARIO RN SOLITARIO case management 09/10/20 pt seen and examined SOLITARIO RN SOLITARIO case management Vitals Vitals Vital Signs Date Time Temp Pulse Resp B/P (MAP) Pulse Ox O2 Delivery O2 Flow Rate FiO2 09/14/20 10:56 98.2 64 18 154/83 (106) 91 Room Air 98.2 09/13/20 20:00 2.0 Physical Exam General: Alert, Oriented X3, Cooperative, No acute distress Heart: Regular rate (SR with intermittent pacing), Other (systolic 3/6 apical murmur) Lungs: Clear, Other (no wheezing or crackles) Abdomen: Normal bowel sounds, Soft, No tenderness, No hepatosplenomegaly, No masses Extremities: No clubbing, No cyanosis, No edema, Other (1+ bilateral LE pitting edema) Skin: No breakdown, No significant lesion FINAL DIAGNOSIS Problems Medical Problems: (1) Dyspnea Status: Acute (2) NSTEMI (non-ST elevated myocardial infarction) Status: Acute (3) Pulmonary embolism Status: Acute (4) V tach Status: Acute Brief Hospital Course Ms. Welch is a 69 old [sex] who presented with [ ACUTE PULM EMBOLI, RESP FAILURE ] CONDITION AT DISCHARGE: Improved Discharge Medications Current Medications Aspirin (Aspirin Chewable) 324 mg 1X ONCE PO Last administered on 09/09/20at 03:09; Start 09/09/20 at 03:00; Stop 09/09/20 at 03:24; Status DC Aspirin (Karmen Aspirin) 325 mg STK-MED ONCE .ROUTE ; Start 09/09/20 at 02:59; Stop 09/09/20 at 02:59; Status DC Amiodarone HCl 150 mg/Dextrose 103 ml @ 618 mls/hr 1X ONCE IV ; Start at 03:30; Stop 09/09/20 at 03:28; Status DC Amiodarone HCl 450 mg/Dextrose 259 ml @ 0 mls/hr CONT PRN IV SEE I/O RECORD; Start 09/09/20 at 03:30; Stop 09/09/20 at 03:28; Status DC Ondansetron HCl (Zofran) 4 mg PRN Q8HRS PRN IV NAUSEA/VOMITING Last administered on 09/09/20at 23:11; Start 09/09/20 at 03:30; Stop 09/10/20 at 03:29; Status DC Iohexol (Omnipaque 350 Mg/ml) 75 ml 1X ONCE IV Last administered on 09/09/20at 04:45; Start 09/09/20 at 04:45; Stop 09/09/20 at 04:46; Status DC Info (CONTRAST GIVEN -- Rx MONITORING) 1 each PRN DAILY PRN SEE COMMENTS; Start 09/09/20 at 04:45; Stop 09/11/20 at 04:44; Status DC Heparin Sodium (Porcine) (Heparin Sodium) 9,000 unit 1X ONCE IV Last administered on 09/09/20at 06:44; Start 09/09/20 at 06:15; Stop 09/09/20 at 06:16; Status DC Heparin Sodium/ Dextrose 250 ml @ 0 mls/hr CONT PRN IV PER PROTOCOL Last administered on 09/09/20at 20:59; Start 09/09/20 at 06:15; Stop 09/10/20 at 12:20; Status DC Heparin Sodium (Porcine) (Heparin Sodium) 3,400 unit PRN Q6HRS PRN IV FOR UFH LEVEL LESS THAN 0.2; Start 09/09/20 at 06:15; Stop 09/10/20 at 12:20; Status DC Heparin Sodium (Porcine) (Heparin Sodium) 1,700 unit PRN Q6HRS PRN IV FOR UFH LEVEL 0.2 - 0.29; Start 09/09/20 at 06:15; Stop 09/10/20 at 12:20; Status DC Influenza Virus Vaccine Quadrival (Fluzone Quad Syringe) 0.5 ml ONCE ONCE VAX IM ; Start 09/10/20 at 09:00; Stop 09/10/20 at 09:01; Status DC Aspirin (Aspirin Chewable) 81 mg DAILY PO Last administered on 09/14/20at 08:5 4; Start 09/09/20 at 10:30 Furosemide (Lasix) 20 mg [id number] PO Last administered on 09/14/20at 08:55; Start 09/09/20 at 10:30 Lisinopril (Prinivil) 40 mg DAILY PO Last administered on 09/14/20at 08:56; Start 09/09/20 at 10:30 Metoprolol Tartrate (Lopressor) 25 mg DAILY PO Last administered on 09/13/20at 08:13; Start 09/09/20 at 10:30; Stop 09/13/20 at 10:02; Status DC Metoprolol Tartrate (Lopressor) 50 mg HS PO Last administered on 09/13/20at 19:21; Start 09/09/20 at 21:00; Stop 09/13/20 at 20:35; Status DC Potassium Chloride (Klor-Con) 20 meq DAILY PO Last administered on 09/14/20 08:55; Start 09/09/20 at 10:30 Acetaminophen/ Hydrocodone Bitart (Lortab 7.5/325) 1 tab PRN Q6HRS PRN PO MODERATE PAIN, SEVERE PAIN Last administered on 09/14/20 09:01; Start 09/09/20 at 11:30 Levothyroxine Sodium (Synthroid) 112 mcg DAILY06 PO Last administered on 09/14/20 04:09; Start 09/09/20 at 12:00 Pantoprazole Sodium (Protonix) 40 mg DAILYAC PO Last administered on 09/14/20 08:54; Start 09/09/20 at 12:00 Vitamin D (Vitamin D3) 2,000 unit DAILY PO Last administered on 09/14/20 08:54; Start 09/09/20 at 12:00 Fluoxetine HCl (PROzac) 60 mg DAILY PO Last administered on 09/14/20 08:54; Start 09/09/20 at 12:00 Naproxen (Naprosyn) 500 mg PRN BID PRN PO INFLAMMATION Last administered on 09/09/20at 12:49; Start 09/09/20 at 11:45 Acetaminophen (Tylenol) 650 mg PRN Q6HRS PRN PO MILD PAIN / TEMP > 100.3'F Last administered on 09/13/20at 19:20; Start 09/09/20 at 18:00 Ondansetron HCl (Zofran) 4 mg PRN Q6HRS PRN IVP NAUSEA/VOMITING Last administered on 09/10/20at 09:27; Start 09/10/20 at 06:00 Apixaban (Eliquis) 10 mg BID PO Last administered on 09/14/20 08:55; Start 09/10/20 at 09:30; Stop 09/16/20 at 21:01 Apixaban (Eliquis) 5 mg BID PO ; Start 09/17/20 at 21:00; Stop 09/17/20 at 21:01 Nystatin (Nystop) 1 william BID TP Last administered on 09/14/20 09:02; Start 09/11/20 at 21:00 Bisacodyl (Dulcolax Tab) 10 mg PRN DAILY PRN PO CONSTIPATION Last administered on 09/12/20at 08:43; Start 09/11/20 at 11:15 Info (Anti-Coagulation Monitoring By Pharmacy) 1 each PRN DAILY PRN MC SEE COMMENTS; Start 09/12/20 at 08:15 Metoprolol Tartrate (Lopressor) 50 mg DAILY PO Last administered on 09/14/20at 08:56; Start 09/13/20 at 10:15 Metoprolol Tartrate (Lopressor) 25 mg 1X ONCE PO Last administered on 09/13/20at 10:51; Start 09/13/20 at 10:30; Stop 09/13/20 at 10:32; Status DC Amoxicillin (Amoxil) 250 mg [id number] PO Last administered on 09/14/20at 08:55; Start 09/13/20 at 14:00 Metoprolol Tartrate (Lopressor Vial) 5 mg Q6HRS PRN IVP ELEVATED BP, SEE COMMENTS; Start 09/13/20 at 15:30 Lactobacillus Rhamnosus (Culturelle) 1 cap BID PO Last administered on 09/14/20at 08:54; Start 09/13/20 at 21:00 Metoprolol Succinate (Toprol Xl) 75 mg HS PO ; Start 09/13/20 at 20:30; Stop 09/13/20 at 20:37; Status DC Metoprolol Tartrate (Lopressor) 75 mg HS PO ; Start 09/13/20 at 20:37 Metoprolol Tartrate (Lopressor) 25 mg 1X ONCE PO Last administered on 09/13/20at 22:32; Start 09/13/20 at 22:00; Stop 09/13/20 at 22:01; Status DC Active Scripts Active Pantoprazole Sodium (Pantoprazole Sodium) 40 Mg Tablet.dr 40 Mg PO DAILYAC Klor-Con M20 (Potassium Chloride) 20 Meq Tab.er.prt 20 Meq PO DAILY Reported Euthyrox (Levothyroxine Sodium) 112 Mcg Tablet 112 Mcg PO DAILY06 Metoprolol Tartrate 50 Mg Tablet 50 Mg PO HS Naproxen Sodium 220 Mg Capsule 2 Cap PO DAILY 7 Days Fluoxetine Hcl 60 Mg Tablet 60 Mg PO DAILY Metoprolol Tartrate 25 Mg Tablet 25 Mg PO DAILY D3-2000 (Cholecalciferol (Vitamin D3)) 50 Mcg Capsule 50 Mcg PO DAILY Hydrocodone-Apap 7.5-325 (Hydrocodone Bit/Acetaminophen) 1 Tab Tablet 1 Tab PO PRN Q6HRS PRN Furosemide 20 Mg Tablet 1 Tab PO BID Aspirin 81 Mg Tab.chew 1 Tab PO DAILY Lisinopril 10 Mg Tablet 4 Tab PO DAILY Vital Signs Vital Signs Date Time Temp Pulse Resp B/P (MAP) Pulse Ox O2 Delivery O2 Flow Rate FiO2 09/14/20 10:56 98.2 64 18 154/83 (106) 91 Room Air 98.2 09/13/20 20:00 2.0 Labs Laboratory Tests Test 09/13/20 04:30 09/14/20 07:01 White Blood Count 9.2 x10^3/uL (4.0-11.0) 8.2 x10^3/uL (4.0-11.0) Red Blood Count 4.45 x10^6/uL (3.50-5.40) 4.76 x10^6/uL (3.50-5.40) Hemoglobin 11.8 g/dL (12.0-15.5) 12.7 g/dL (12.0-15.5) Hematocrit 36.2 % (36.0-47.0) 38.6 % (36.0-47.0) Mean Corpuscular Volume 82 fL (79-100) 81 fL (79-100) Mean Corpuscular Hemoglobin 27 pg (25-35) 27 pg (25-35) Mean Corpuscular Hemoglobin Concent 33 g/dL (31-37) 33 g/dL (31-37) Red Cell Distribution Width 16.0 % (11.5-14.5) 16.1 % (11.5-14.5) Platelet Count 312 x10^3/uL (140-400) 335 x10^3/uL (140-400) Neutrophils (%) (Auto) 52 % (31-73) 51 % (31-73) Lymphocytes (%) (Auto) 37 % (24-48) 36 % (24-48) Monocytes (%) (Auto) 6 % (0-9) 9 % (0-9) Eosinophils (%) (Auto) 4 % (0-3) 4 % (0-3) Basophils (%) (Auto) 1 % (0-3) 1 % (0-3) Neutrophils # (Auto) 4.8 x10^3/uL (1.8-7.7) 4.2 x10^3/uL (1.8-7.7) Lymphocytes # (Auto) 3.4 x10^3/uL (1.0-4.8) 3.0 x10^3/uL (1.0-4.8) Monocytes # (Auto) 0.6 x10^3/uL (0.0-1.1) 0.7 x10^3/uL (0.0-1.1) Eosinophils # (Auto) 0.4 x10^3/uL (0.0-0.7) 0.3 x10^3/uL (0.0-0.7) Basophils # (Auto) 0.1 x10^3/uL (0.0-0.2) 0.1 x10^3/uL (0.0-0.2) Sodium Level 143 mmol/L (136-145) 142 mmol/L (136-145) Potassium Level 4.5 mmol/L (3.5-5.1) 4.4 mmol/L (3.5-5.1) Chloride Level 106 mmol/L (98-107) 105 mmol/L (98-107) Carbon Dioxide Level 29 mmol/L (21-32) 30 mmol/L (21-32) Anion Gap 8 (6-14) 7 (6-14) Blood Urea Nitrogen 21 mg/dL (7-20) 19 mg/dL (7-20) Creatinine 1.2 mg/dL (0.6-1.0) 1.0 mg/dL (0.6-1.0) Estimated GFR (Cockcroft-Gault) 44.8 55.3 Glucose Level 100 mg/dL (70-99) 92 mg/dL (70-99) Calcium Level 8.9 mg/dL (8.5-10.1) 8.9 mg/dL (8.5-10.1) Laboratory Tests Test 09/14/20 07:01 White Blood Count 8.2 x10^3/uL (4.0-11.0) Red Blood Count 4.76 x10^6/uL (3.50-5.40) Hemoglobin 12.7 g/dL (12.0-15.5) Hematocrit 38.6 % (36.0-47.0) Mean Corpuscular Volume 81 fL (79-100) Mean Corpuscular Hemoglobin 27 pg (25-35) Mean Corpuscular Hemoglobin Concent 33 g/dL (31-37) Red Cell Distribution Width 16.1 % (11.5-14.5) Platelet Count 335 x10^3/uL (140-400) Neutrophils (%) (Auto) 51 % (31-73) Lymphocytes (%) (Auto) 36 % (24-48) Monocytes (%) (Auto) 9 % (0-9) Eosinophils (%) (Auto) 4 % (0-3) Basophils (%) (Auto) 1 % (0-3) Neutrophils # (Auto) 4.2 x10^3/uL (1.8-7.7) Lymphocytes # (Auto) 3.0 x10^3/uL (1.0-4.8) Monocytes # (Auto) 0.7 x10^3/uL (0.0-1.1) Eosinophils # (Auto) 0.3 x10^3/uL (0.0-0.7) Basophils # (Auto) 0.1 x10^3/uL (0.0-0.2) Sodium Level 142 mmol/L (136-145) Potassium Level 4.4 mmol/L (3.5-5.1) Chloride Level 105 mmol/L (98-107) Carbon Dioxide Level 30 mmol/L (21-32) Anion Gap 7 (6-14) Blood Urea Nitrogen 19 mg/dL (7-20) Creatinine 1.0 mg/dL (0.6-1.0) Estimated GFR (Cockcroft-Gault) 55.3 Glucose Level 92 mg/dL (70-99) Calcium Level 8.9 mg/dL (8.5-10.1) Allergies Allergies Coded Allergies Type Severity Reaction Last Updated Verified atorvastatin Allergy Intermediate 02/26/17 Yes codeine Allergy Intermediate 10/02/16 Yes erythromycin base Allergy Intermediate 08/25/15 Yes pitavastatin Adverse Reaction Mild nausea 08/19/19 Yes Disposition/Orders: D/C to Home Justicifation of Admission Dx: Justifications for Admission: Justification of Admission Dx: Yes IRIS LENTZ MD Sep 14, 2020 12:16
[2020-09-14] MEDS ORDERED: FURO20TA3 PO (12:23)
[2020-09-14] MEDS ORDERED: NYST15PO2 TP (12:23)
[2020-09-14] MEDS ORDERED: APIX5TAB PO (12:23)
[2020-09-14] MEDS ORDERED: BISA5TAB4 PO (12:23)
[2020-09-14] MEDS ORDERED: METO25TA4 PO ×2 (12:23)
[2020-09-14] MEDS ORDERED: LISI-130 PO (12:23)
[2020-09-14] MEDS ORDERED: ACET325T9 PO (12:23)
[2020-09-14] MEDS ORDERED: LACT1CAP19 PO (12:23)
[2020-09-14] MEDS ORDERED: CHOL10003 PO (12:23)
[2020-09-14] MEDS ORDERED: AMOX250C PO (12:23)
--- NOTE | 2020-09-14 12:24 | DISCH ---
DISCHARGE INSTRUCTIONS Condition on Discharge Condition on Discharge: Stable Activity After Discharge Activity Instructions for Disc: Activity as tolerated, Other, see below Bathing Instructions: Shower-keep dressing dry, No Tub Bath until see Lifting Instructions after Dis: Do not lift >10 pounds Exercise Instruction after Dis: Exercise per Card. Rehab Driving Instructions after Dis: Do not drive, Do not drive today Weight Bearing Status after Di: Other, see below Diet after Discharge Diet after Discharge: Cardiac Diet Texture: Regular Liquid Texture: Thin Liquid Swallowing Supervision: None needed Wound Incision Care Wound/Incision Care: Other, see below Checks after Discharge Checks after discharge: Check blood press - daily, Weigh Yourself Daily Contacting the DRMarina after DC Call your doctor for: If your condition worsens Follow-Up Follow up with: PCP THIS WEEK Follow Up With: PULMONARY 3 WEEKS Treatment/Equipment after DC Adaptive Equipment Issued: IRIS Guidry MD Sep 14, 2020 12:24
--- NOTE | 2020-09-14 16:04 | NUR ---
Discharge Note: SUGAR BAKER [address] Discharge instructions and discharge home medications reviewed with patient and a copy given. All questions have been answered and understanding verbalized. The following instructions and handouts were given: Take home meds as directed. Eliquis 10 mg BID then 5 mgBID as directed Watch out for signs of bleeding-gum bleeding, melena, hematochezia Follow up with Dr. Siddiqi as scheduled FF up with PCP this week. Discontinued lines; peripheral IV intact, patient tolerated removal, no complications noted Patient discharged to home via wheelchair accompanied by family member at 1400
[2020-09-17] MEDS ORDERED: APIXABAN 5 MG TABLET. PO SCH (21:00)
== END 2020-09-14 14:00 | disposition home or self-care (01) | DRG 175 ==
LOC: ER 01:41 → 2 SOUTH 03:20
PROVIDERS: ADMIT Internal Medicine; ATTEND Internal Medicine
DX: I26.94 Multiple subsegmental thrombotic pulmonary emboli without acute cor pulmonale (principal); I21.4 Non-ST elevation (NSTEMI) myocardial infarction; J96.90 Respiratory failure, unspecified, unspecified whether with hypoxia or hypercapnia; I50.42 Chronic combined systolic (congestive) and diastolic (congestive) heart failure; Z68.42 Body mass index [BMI] 45.0-49.9, adult; I47.2 Ventricular tachycardia; I42.8 Other cardiomyopathies; K12.2 Cellulitis and abscess of mouth; F32.9 Major depressive disorder, single episode, unspecified; F41.9 Anxiety disorder, unspecified; K21.9 Gastro-esophageal reflux disease without esophagitis; I34.0 Nonrheumatic mitral (valve) insufficiency; I49.5 Sick sinus syndrome; M19.90 Unspecified osteoarthritis, unspecified site; E03.9 Hypothyroidism, unspecified; E78.5 Hyperlipidemia, unspecified; E66.01 Morbid (severe) obesity due to excess calories; I11.0 Hypertensive heart disease with heart failure; G47.33 Obstructive sleep apnea (adult) (pediatric); I27.20 Pulmonary hypertension, unspecified; I48.91 Unspecified atrial fibrillation; Z95.0 Presence of cardiac pacemaker; Z87.442 Personal history of urinary calculi; Z88.5 Allergy status to narcotic agent; Z88.8 Allergy status to other drugs, medicaments and biological substances; Z83.3 Family history of diabetes mellitus; Z82.49 Family history of ischemic heart disease and other diseases of the circulatory system
CPT/HCPCS: 99285; C8924; 36415; 71045; 71275; 80048; 80053; 83735; 83880; 84484; 85025; 85379; 85520; 85610; 85730; 93005; 93970; 94618; J1644; J2405; Q9967; 97116-GP; G0378

== ENCOUNTER → 2020-10-15 | Outpatient (CLI) | payer BC ==
[~2020-10-15] MED LIST changes: +ACET325T9 PO; +AMOX250C PO; +AMOX500T PO; +APIX5TAB PO; +BISA5TAB4 PO; +CHOL10003 PO; +CYCL5TAB PO; +FLUO60TA PO; +IBUP-1007 PO; +IOHEXOL 350 MG/ML 100 ML VIAL. IV ONE; +LACT1CAP19 PO; +LEVO112T55 PO; +LISI-130 PO; +MELO15TA23 PO; +MULT-245 PO; +NAPR220C62 PO; +NYST15PO2 TP; +OMEG100021 PO
--- NOTE | 2020-10-15 09:18 | RAD ---
EXAM: CT ANGIOGRAPHY OF THE CHEST WITH AND WITHOUT CONTRAST. HISTORY: Chest pain, pulmonary embolism. TECHNIQUE: Computed tomographic angiography of the chest was performed before and after the intravenous administration of iodinated contrast. 3-D maximum intensity projections were also performed. One or more of the following individualized dose reduction techniques were utilized for this examination: 1. Automated exposure control. 2. Adjustment of the mA and/or kV according to patient size. 3. Use of iterative reconstruction technique. COMPARISON: 09/09/2020. FINDINGS: Images of the upper abdomen reveal a cyst in the right renal upper pole measuring 2.2 cm. Subcentimeter nodules in the left adrenal gland are lower in attenuation and likely reflect small adenomas. Bone windows reveal no suspicious lesions. 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 There is a chronic moderate superior plate compression deformity at T8. Suboptimal contrast opacification of the pulmonary arterial tree limits sensitivity for small peripheral emboli. None are seen. Previously noted emboli have resolved. There is no aortic dissection or aneurysm. There are no pathologically enlarged mediastinal or axillary lymph nodes. There is no pleural or pericardial effusion. The heart is not enlarged. A left-sided pacemaker has its leads in the right atrium and right ventricle. Lung windows reveal mild basilar atelectasis. IMPRESSION: 1. Interval resolution of previously noted pulmonary emboli. 2. Subcentimeter left adrenal nodules are likely benign adenomas. Electronically signed by: Yun Mcintosh MD (10/15/2020 9:15 AM) [id number]
== END ==
LOC: CT 08:09
PROVIDERS: ATTEND Internal Medicine Pulmonary Disease
DX: R07.9 Chest pain, unspecified (principal); R59.9 Enlarged lymph nodes, unspecified; E27.9 Disorder of adrenal gland, unspecified; N28.1 Cyst of kidney, acquired; M43.8X4 Other specified deforming dorsopathies, thoracic region; M43.25 Fusion of spine, thoracolumbar region; Z95.0 Presence of cardiac pacemaker; Z86.711 Personal history of pulmonary embolism
CPT/HCPCS: 71275; Q9967

== ENCOUNTER 2020-12-14 22:27 | Inpatient (IN) | payer BC ==
[~2020-12-14] VITALS: Ht 154.9 cm; Wt 114.5 kg
[~2020-12-14 22:27] MED LIST changes: -CHOL10003 PO; +CHOL10004 PO; -CLIN300C8 PO; +CLIN300C9 PO; -IOHEXOL 350 MG/ML 100 ML VIAL. IV ONE; +LISI10TA16 PO; -LISI10TA2 PO
--- NOTE | 2020-12-14 22:46 | PHYS DOC ---
Past Medical History Past Medical History: CHF, Hypertension, Kidney Stone, Other Additional Past Medical Histor: Ludwigs Angina, cardiomyopathy, sleep apnea Past Surgical History: Pacemaker, Other Additional Past Surgical Histo: HERNIA REPAIR, pacemaker Smoking Status: Never Smoker Alcohol Use: None Drug Use: None General Adult EDM: Chief Complaint: SHORTNESS OF BREATH HPI: HPI: 71 yo F PMH SSS w/biotronik PM, HFrEF (ef 55% mod pulm htn), HTN, HLD, NURY, afib, PE on eliquis, and morbid obesity, presents to the ed with c/o shortness of breath for the past week and a half reporting she can no longer go up her 14 steps to her apartment without feeling winded after a few steps. Reports associated fatigue and malaise. States she is working 6 days a week, 12 hours a day at a local [employer]. Has never been tested for Covid. Reports " I feel as if my heart is working harder than it should." Has now associated chest pain pressure, upper back pain or neurologic deficits. Longstanding history of orthopnea. Believes she has gained 20 to 30 pounds in the past few months with abdominal fullness and right leg swelling. Patient states after work she has to elevate both lower extremities due to significant pedal edema. Reports compliance with Eliquis and Lasix. No history of underlying lung disease, has never smoked. Is on CPAP at night but no supplemental oxygen. History of bilateral lobar, segmental and subsegmental PEs with moderate to large thrombus burden. EMR reviewed and CTA September 2020 showed resolution of this. Review of Systems: Review of Systems: Constitutional: Denies fever or chills, or loss of taste or smell Eyes: Denies change in visual acuity or red eye or eye discharge HENT: Denies nasal congestion or sore throat or sinus pressure Respiratory: Denies cough or hemoptysis Cardiovascular: Denies chest pain or edema. [] GI: Denies abdominal pain, nausea, vomiting, bloody stools or diarrhea. [] : Denies dysuria or hematuria Musculoskeletal: Denies back pain or joint pain. [] Integument: Denies rash or diaphoresis Neurologic: Denies headache, neck stiffness, focal weakness or sensory changes. [] Endocrine: Denies polyuria or polydipsia. [] Lymphatic: Denies swollen glands. [] Psychiatric: Denies depression or anxiety. [] Heart Score: Risk Factors: Risk Factors: DM, Current or recent (<one month) smoker, HTN, HLP, family history of CAD, obesity. Risk Scores: Score 0 - 3: 2.5% MACE over next 6 weeks - Discharge Home Score 4 - 6: 20.3% MACE over next 6 weeks - Admit for Clinical Observation Score 7 - 10: 72.7% MACE over next 6 weeks - Early Invasive Strategies Allergies: Allergies: Allergies Coded Allergies Type Severity Reaction Last Updated Verified atorvastatin Allergy Intermediate 02/26/17 Yes codeine Allergy Intermediate 10/02/16 Yes erythromycin base Allergy Intermediate 08/25/15 Yes pitavastatin Adverse Reaction Mild nausea 08/19/19 Yes Physical Exam: PE: Constitutional: Well developed, well nourished, no acute distress, non-toxic appearance. HENT: Normocephalic, atraumatic, Eyes: EOMI, conjunctiva normal, no discharge. Neck: Normal range of motion, supple, Cardiovascular: S1/2 present, regular rhythm Lungs & Thorax: Speaking in full sentences, bilateral equal chest rise, no tachypnea or increased work of breathing, clear lung sounds with no wheezing, rales or crackles Abdomen: soft, no focal tenderness, obese, near guarding Skin: Warm, dry, no erythema, no rash. [] Back: No tenderness, no CVA tenderness. [] Extremities: No tenderness, no cyanosis, no pedal edema, Neurologic: Alert and oriented X 3, normal motor function, normal sensory function, no focal deficits noted. [] Psychologic: Affect normal, judgement normal, mood normal. [] EKG: EKG: Sinus rhythm at 81 bpm, left axis deviation, normal intervals, no T wave inversions, no ST elevations, possible ST segment depressions in leads I and aVL, w/PVCs Radiology/Procedures: Radiology/Procedures: IMAGING REPORT Signed PATIENT: SUGAR BAKER ACCOUNT: [id number] : 1950 LOCATION: ER AGE: 70 SEX: F EXAM STATUS: REG ER ORD. PHYSICIAN: KHRIS FOY DO REASON: soa PROCEDURE: PORTABLE CHEST 1V EXAM: XR CHEST 1V 12/14/2020 11:02 PM CLINICAL INDICATION: Shortness of breath COMPARISON: Chest radiograph 09/10/[address] chest 10/15/2020 TECHNIQUE: AP upright view of the chest FINDINGS: The heart is normal in size. Pacemaker is unchanged. The lungs are well-expanded and clear. No consolidation, pleural effusion, or pneumothorax. No acute osseous abnormality. IMPRESSION: No acute cardiopulmonary abnormality. Electronically signed by: Tiffanie Mata MD (12/14/2020 11:06 PM) [id number] DICTATED and SIGNED BY: TIFFANIE MATA MD DATE: 12/14/20 [id number] 0 Course & Med Decision Making: Course & Med Decision Making Pertinent Labs and Imaging studies reviewed. (See chart for details) EMR was reviewed and patient's weight today is 111.4 kg, was 113 kg in August and March 2020. Chest x-ray clear. Patient speaking in full sentences, not requiring any supplemental oxygen. EKG with PVCs. Concern for exertional dyspnea in the setting of known CHF, Covid test pending. Patient's antecubital IV blew during VQ scan-awaiting further contrast. Reports she will repeat scan around 6 AM. Labs with renal insufficiency likely acute kidney injury (thus V/Q not CTA chest). Pending full Biotronik interrogation. Patient is hemodynamically stable and agrees with plan for admission and further medical management. Patient stable at time of admission. I have spoken with the patient and/or caregivers. I have explained the patient's condition, diagnosis and treatment plan based on the information available to me at this time. I have answered the patient's and/or caregivers questions and answered any concerns. The patient and/or caregivers have as good an understanding of the patient's diagnosis, condition and treatment plan as can be expected at this point. The patient has been stabilized within the capability of the emergency department. The patient will be transported for further care and management or will be moved to an observation or inpatient service. I have communicated with the staff or medical practitioner taking over this patient's care. Dragon Disclaimer: Dragon Disclaimer: This electronic medical record was generated, in whole or in part, using a voice recognition dictation system. Departure Departure Impression: Primary Impression: Dyspnea on exertion Additional Impressions: Person under investigation for COVID-19 History of pulmonary embolism CHF (congestive heart failure) HALEIGH (acute kidney injury) Disposition: 09 ADMITTED INPT THIS HOSP Admitting Physician: GODFREY (Dr. Proctor) Condition: STABLE Referrals: CHANTEL PRATT MD (PCP) KHRIS FOY DO Dec 14, 2020 22:46
[2020-12-14 23:04] LABS: BASO # 0.1 x10^3/uL (0.0-0.2); BASO % 1 % (0-3); EOS # 0.2 x10^3/uL (0.0-0.7); EOS % 2 % (0-3); HEMATOCRIT 39.8 % (36.0-47.0); HEMOGLOBIN 12.8 g/dL (12.0-15.5); LYMPH # 3.4 x10^3/uL (1.0-4.8); LYMPH % 29 % (24-48); MEAN CORPUSCULAR HEMOGLOBIN 26 pg (25-35); MEAN CORPUSCULAR HGB CONC 32 g/dL (31-37); MEAN CORPUSCULAR VOLUME 81 fL (79-100); MONO % 8 % (0-9); NEUT # 7.1 x10^3/uL (1.8-7.7); NEUT % 60 % (31-73); PLATELET COUNT 346 x10^3/uL (140-400); RED BLOOD COUNT 4.91 x10^6/uL (3.50-5.40); WHITE BLOOD COUNT 11.8 x10^3/uL (4.0-11.0)
--- NOTE | 2020-12-14 23:09 | RAD ---
EXAM: XR CHEST 1V 12/14/2020 11:02 PM CLINICAL INDICATION: Shortness of breath COMPARISON: Chest radiograph 09/10/[address] chest 10/15/2020 TECHNIQUE: AP upright view of the chest FINDINGS: The heart is normal in size. Pacemaker is unchanged. The lungs are well-expanded and clear . No consolidation, pleural effusion, or pneumothorax. No acute osseous abnormality. IMPRESSION: No acute cardiopulmonary abnormality. Electronically signed by: Tiffanie Mata MD (12/14/2020 11:06 PM) [id number]
[2020-12-14 23:16] LABS: CREATININE 1.2 mg/dL (0.6-1.0); GFR 44.7; POTASSIUM 4.5 mmol/L (3.5-5.1)
[2020-12-14 23:23] LABS: ALBUMIN 3.2 g/dL (3.4-5.0); DIRECT BILIRUBIN 0.1 mg/dL (0.0-0.2); TOTAL BILIRUBIN 0.5 mg/dL (0.2-1.0); TOTAL PROTEIN 7.5 g/dL (6.4-8.2)
[2020-12-14 23:59] LABS: INFLUENZA A PATIENT NEGATIVE (NEGATIVE); INFLUENZA B PATIENT NEGATIVE (NEGATIVE)
[2020-12-15 03:00] VITALS: BP 162/96
[2020-12-15] MEDS ORDERED: IV NORMAL SALINE 250ML 250 ML IV ONE (07:30)
--- NOTE | 2020-12-15 07:37 | EKG ---
[facility] [address] [place] [address] Test Date: 2020-12-14 Test Time: 22:41:06 Pat Name: SUGAR BAKER Department: Room: Gender: F Carbonator: : 1950 Requested By: KHRIS FOY Order Number: [id number] Reading MD: Measurements Intervals [place] Rate: 91 P: -51 ND: 80 QRS: -6 QRSD: 102 T: 39 QT: 354 QTc: 437 Interpretive Statements SUPRAVENTRICULAR RHYTHM VENTRICULAR PREMATURE COMPLEX(ES) LEFTWARD AXIS T ABNORMALITY IN HIGH LATERAL LEADS ABNORMAL ECG RI6.01 No previous ECG available for comparison
--- NOTE | 2020-12-15 07:44 | PDOC1 ---
History and Physical Date of Admission Date of Admission DATE: 12/15/20 TIME: 07:05 Identification/Chief Complaint Chief Complaint Shortness of breath Source Source: Chart review, Patient History of Present Illness History of Present Illness Patient 71-year-old female with past medical history of sick sinus syndrome with pacemaker, HFpEF, and PE on Eliquis, who presents to the ER with complaints of shortness of breath for the past week. Patient states her symptoms are aggravated by exertion, stating she feels like her "heart is working harder" ever since she started back working full-time at a local [employer]. She reports associated fatigue, malaise, and bilateral lower extremity swelling, especially after long days of walking and standing on her feet. She will elevate her legs that gets home and her swelling will resolve. She states she is not always compliant with her Lasix 20 mg twice daily, especially at night but she does not want to be getting up in the middle the night to urinate. She is compliant with her Eliquis and states she supposed to be on this medication through the end of November. V/Q scan was attempted in the ER due to HALEIGH, however patient's IV blew and this scan was ordered for the following morning. Will admit patient for further medical management. Past Medical History Cardiovascular: Hyperlipidemia Pulmonary: Pneumonia, Other GI: GERD Heme/Onc: No pertinent hx Psych: Anxiety, Depression Musculoskeletal: low back pain, Osteoarthritis, Other Infectious disease: No pertinent hx Renal/: Other Endocrine: Hypothyroidism Past Surgical History Past Surgical History: Pacemaker, Arthroscopy, Hernia Repair, Other Family History Family History: Hypertension Social History Smoke: No ALCOHOL: none Drugs: None Current Problem List Problem List Problems Medical Problems: (1) HALEIGH (acute kidney injury) Status: Acute (2) CHF (congestive heart failure) Status: Acute (3) Dyspnea on exertion Status: Acute (4) History of pulmonary embolism Status: Acute (5) Person under investigation for COVID-19 Status: Acute Current Medications Current Medications Active Scripts Active Vitamin D3 (Cholecalciferol (Vitamin D3)) 25 Mcg Tablet 2,000 Unit PO DAILY 30 Days Nyamyc (Nystatin) 15 Gm Powder 1 Jose TP BID 14 Days Culturelle (Lactobacillus Rhamnosus Gg) 1 Each Cap.sprink 1 Cap PO BID 30 Days Bisacodyl 5 Mg Tablet.dr 10 Mg PO PRN DAILY PRN 30 Days Furosemide 20 Mg Tablet 20 Mg PO BID94 30 Days Tylenol (Acetaminophen) 325 Mg Tablet 650 Mg PO PRN Q6HRS PRN 30 Days Lisinopril 40 Mg Tablet 40 Mg PO DAILY 30 Days Metoprolol Tartrate 25 Mg Tablet 50 Mg PO DAILY 30 Days Metoprolol Tartrate 25 Mg Tablet 75 Mg PO HS 30 Days Eliquis (Apixaban) 5 Mg Tablet 10 Mg PO BID MDD 20 MG 14 Days Eliquis (Apixaban) 5 Mg Tablet 5 Mg PO BID 30 Days Amoxicillin 250 Mg Capsule 250 Mg PO GHE220 10 Days Pantoprazole Sodium (Pantoprazole Sodium) 40 Mg Tablet.dr 40 Mg PO DAILYAC Klor-Con M20 (Potassium Chloride) 20 Meq Tab.er.prt 20 Meq PO DAILY Reported Euthyrox (Levothyroxine Sodium) 112 Mcg Tablet 112 Mcg PO DAILY06 Fluoxetine Hcl 60 Mg Tablet 60 Mg PO DAILY Aspirin 81 Mg Tab.chew 1 Tab PO DAILY Allergies Allergies: Coded Allergies: atorvastatin (Verified Allergy, Intermediate, 02/26/17) codeine (Verified Allergy, Intermediate, 10/02/16) TOLERATES HYDROCODONE erythromycin base (Verified Allergy, Intermediate, 08/25/15) pitavastatin (Verified Adverse Reaction, Mild, nausea, 08/19/19) ROS Review of System GENERAL: Weight gain, fatigue, malaise. Denies fever. SKIN: No bruising, hair changes or rashes. EYES: No blurred, double or loss of vision. NOSE AND THROAT: No history of nosebleeds, hoarseness or sore throat. HEART: Denies chest pain, denies palpitations. LUNGS: Dyspnea with exertion. Denies cough, hemoptysis, wheezing. GASTROINTESTINAL: Denies nausea, vomiting, abdominal pain. GENITOURINARY: Denies dysuria, frequency, urgency, hematuria. NEUROLOGIC: Denies history of numbness, tingling, tremor or weakness. PSYCHIATRIC: Denies anxiety, denies depression. ENDOCRINE: No history of heat or cold intolerance, polyuria or polydipsia. EXTREMITIES: Denies muscle weakness, joint pain, pain on walking or stiffness. Physical Exam Physical Exam General: Alert, Oriented X3, Cooperative. Morbidly obese. HEENT: Atraumatic, EOMI Lungs: Decreased breath sounds Heart: RRR, no rubs Cardiovascular: S1, S2 Abdomen: Normal bowel sounds, Soft, No tenderness Extremities: +1 Bilateral leg edema Skin: No breakdown, No significant lesion Neuro: Normal speech, Sensation intact Psych/Mental Status: Mental status NL, Mood NL Vitals Vitals Vital Signs Date Time Temp Pulse Resp B/P (MAP) Pulse Ox O2 Delivery O2 Flow Rate FiO2 12/15/20 03:03 Room Air 12/15/20 03:00 98.3 74 22 162/96 (118) 96 98.3 Labs Labs Laboratory Tests Test 12/14/20 22:50 12/14/20 23:35 White Blood Count 11.8 x10^3/uL (4.0-11.0) Red Blood Count 4.91 x10^6/uL (3.50-5.40) Hemoglobin 12.8 g/dL (12.0-15.5) Hematocrit 39.8 % (36.0-47.0) Mean Corpuscular Volume 81 fL (79-100) Mean Corpuscular Hemoglobin 26 pg (25-35) Mean Corpuscular Hemoglobin Concent 32 g/dL (31-37) Red Cell Distribution Width 16.0 % (11.5-14.5) Platelet Count 346 x10^3/uL (140-400) Neutrophils (%) (Auto) 60 % (31-73) Lymphocytes (%) (Auto) 29 % (24-48) Monocytes (%) (Auto) 8 % (0-9) Eosinophils (%) (Auto) 2 % (0-3) Basophils (%) (Auto) 1 % (0-3) Neutrophils # (Auto) 7.1 x10^3/uL (1.8-7.7) Lymphocytes # (Auto) 3.4 x10^3/uL (1.0-4.8) Monocytes # (Auto) 1.0 x10^3/uL (0.0-1.1) Eosinophils # (Auto) 0.2 x10^3/uL (0.0-0.7) Basophils # (Auto) 0.1 x10^3/uL (0.0-0.2) Sodium Level 144 mmol/L (136-145) Potassium Level 4.5 mmol/L (3.5-5.1) Chloride Level 105 mmol/L (98-107) Carbon Dioxide Level 29 mmol/L (21-32) Anion Gap 10 (6-14) Blood Urea Nitrogen 18 mg/dL (7-20) Creatinine 1.2 mg/dL (0.6-1.0) Estimated GFR (Cockcroft-Gault) 44.7 Glucose Level 98 mg/dL (70-99) Calcium Level 9.0 mg/dL (8.5-10.1) Magnesium Level 2.0 mg/dL (1.8-2.4) Total Bilirubin 0.5 mg/dL (0.2-1.0) Direct Bilirubin 0.1 mg/dL (0.0-0.2) Aspartate Amino Transf (AST/SGOT) 17 U/L (15-37) Alanine Aminotransferase (ALT/SGPT) 26 U/L (14-59) Alkaline Phosphatase 139 U/L (46-116) Creatine Kinase 63 U/L (26-192) Troponin I Quantitative < 0.017 ng/mL (0.000-0.055) FE-Jfb-K-Type Natriuretic Peptide 834 pg/mL (0-124) Total Protein 7.5 g/dL (6.4-8.2) Albumin 3.2 g/dL (3.4-5.0) Influenza Type A Antigen Negative (NEGATIVE) Influenza Type B Antigen Negative (NEGATIVE) Laboratory Tests Test 12/14/20 22:50 12/14/20 23:35 White Blood Count 11.8 x10^3/uL (4.0-11.0) Red Blood Count 4.91 x10^6/uL (3.50-5.40) Hemoglobin 12.8 g/dL (12.0-15.5) Hematocrit 39.8 % (36.0-47.0) Mean Corpuscular Volume 81 fL (79-100) Mean Corpuscular Hemoglobin 26 pg (25-35) Mean Corpuscular Hemoglobin Concent 32 g/dL (31-37) Red Cell Distribution Width 16.0 % (11.5-14.5) Platelet Count 346 x10^3/uL (140-400) Neutrophils (%) (Auto) 60 % (31-73) Lymphocytes (%) (Auto) 29 % (24-48) Monocytes (%) (Auto) 8 % (0-9) Eosinophils (%) (Auto) 2 % (0-3) Basophils (%) (Auto) 1 % (0-3) Neutrophils # (Auto) 7.1 x10^3/uL (1.8-7.7) Lymphocytes # (Auto) 3.4 x10^3/uL (1.0-4.8) Monocytes # (Auto) 1.0 x10^3/uL (0.0-1.1) Eosinophils # (Auto) 0.2 x10^3/uL (0.0-0.7) Basophils # (Auto) 0.1 x10^3/uL (0.0-0.2) Sodium Level 144 mmol/L (136-145) Potassium Level 4.5 mmol/L (3.5-5.1) Chloride Level 105 mmol/L (98-107) Carbon Dioxide Level 29 mmol/L (21-32) Anion Gap 10 (6-14) Blood Urea Nitrogen 18 mg/dL (7-20) Creatinine 1.2 mg/dL (0.6-1.0) Estimated GFR (Cockcroft-Gault) 44.7 Glucose Level 98 mg/dL (70-99) Calcium Level 9.0 mg/dL (8.5-10.1) Magnesium Level 2.0 mg/dL (1.8-2.4) Total Bilirubin 0.5 mg/dL (0.2-1.0) Direct Bilirubin 0.1 mg/dL (0.0-0.2) Aspartate Amino Transf (AST/SGOT) 17 U/L (15-37) Alanine Aminotransferase (ALT/SGPT) 26 U/L (14-59) Alkaline Phosphatase 139 U/L (46-116) Creatine Kinase 63 U/L (26-192) Troponin I Quantitative < 0.017 ng/mL (0.000-0.055) FD-Mix-C-Type Natriuretic Peptide 834 pg/mL (0-124) Total Protein 7.5 g/dL (6.4-8.2) Albumin 3.2 g/dL (3.4-5.0) Influenza Type A Antigen Negative (NEGATIVE) Influenza Type B Antigen Negative (NEGATIVE) Images Images PORTABLE CHEST 1V EXAM: XR CHEST 1V 12/14/2020 11:02 PM CLINICAL INDICATION: Shortness of breath COMPARISON: Chest radiograph 09/10/[address] chest 10/15/2020 TECHNIQUE: AP upright view of the chest FINDINGS: The heart is normal in size. Pacemaker is unchanged. The lungs are well-expanded and clear. No consolidation, pleural effusion, or pneumothorax. No acute osseous abnormality. IMPRESSION: No acute cardiopulmonary abnormality. VTE Prophylaxis Ordered VTE Prophylaxis Devices: No VTE Pharmacological Prophylaxi: Yes Assessment/Plan Assessment/Plan Acute diastolic CHF Exertional dyspnea COVID-19 PUI Morbid obesity Vasomotor neuropathy Malnutrition Plan: Will continue diuresis with home medication; Consult to Cardiology No significant leg swelling on exam today. Will attempt to interrogate patient's Biotronik pacemaker, but I believe this could also be done outpatient and may not be a contributor to her presenting symptoms. Provide IV fluids and attempt to obtain CTA to rule out PE; this will provide more information than VQ scan. I have low suspicion since patient states that she has been compliant with her home Eliquis. Continue home medications If CTA negative believe patient may be able to discharge home today. FEN - Cardiac diet PPX - Eliquis FULL CODE Dispo - observation for above Justifications for Admission Other Justification PATY WHITE MD Dec 15, 2020 07:44
[2020-12-15 07:57] VITALS: BP 158/91
[2020-12-15 08:10] LABS: BASO # 0.1 x10^3/uL (0.0-0.2); BASO % 1 % (0-3); EOS # 0.2 x10^3/uL (0.0-0.7); EOS % 2 % (0-3); HEMATOCRIT 36.3 % (36.0-47.0); HEMOGLOBIN 11.8 g/dL (12.0-15.5); LYMPH % 31 % (24-48); MEAN CORPUSCULAR HEMOGLOBIN 26 pg (25-35); MEAN CORPUSCULAR HGB CONC 32 g/dL (31-37); MEAN CORPUSCULAR VOLUME 81 fL (79-100); MONO # 0.9 x10^3/uL (0.0-1.1); MONO % 9 % (0-9); NEUT # 5.7 x10^3/uL (1.8-7.7); NEUT % 58 % (31-73); PLATELET COUNT 293 x10^3/uL (140-400); RED BLOOD COUNT 4.46 x10^6/uL (3.50-5.40); RED CELL DISTRIBUTION WIDTH 16.1 % (11.5-14.5); WHITE BLOOD COUNT 9.8 x10^3/uL (4.0-11.0)
[2020-12-15 08:40] LABS: CALCIUM 8.7 mg/dL (8.5-10.1); GFR 55.1
[2020-12-15] MEDS ORDERED: LISINOPRIL 20 MG TABLET PO SCH (09:00)
[2020-12-15] MEDS ORDERED: APIXABAN 5 MG TABLET. PO SCH (09:00)
[2020-12-15] MEDS ORDERED: PANTOPRAZOLE 40 MG TABLET.DR. PO SCH (09:00)
[2020-12-15] MEDS ORDERED: METOPROLOL TART IMMED RELEASE 50 MG TABLET. PO SCH ×2 (09:00→21:00)
[2020-12-15] MEDS ORDERED: POTASSIUM CHLORIDE 20 MEQ TABLET.ER. PO SCH (09:00)
[2020-12-15] MEDS ORDERED: LEVOTHYROXINE 112 MCG TABLET PO SCH (09:00)
[2020-12-15] MEDS ORDERED: FUROSEMIDE 20 MG TABLET PO SCH (09:00)
--- NOTE | 2020-12-15 09:12 | PDOC2 ---
MEGHAN ENNIS PRINCIPAL MECHANICAL ENGINEER 12/15/20 0912: CARDIAC CONSULT DATE OF CONSULT Date of Consult DATE: 12/15/20 TIME: 08:59 REASON FOR CONSULT Reason for Consult: CHF REFERRING PHYSICIAN Referring Physician: Dr. Spivey SOURCE Source: Chart review, Patient HISTORY OF PRESENT ILLNESS HISTORY OF PRESENT ILLNESS This is a 70 yo female who presented secondary to shortness of breath. Has been short of air for the last week or so. Is more winded going up the stairs to her apartment. Reports fatigue. Does not feel rested after sleep despite wearing CPAP. Has had weight gain over the last couple of months. Reports significant LE edema and the end of the days. Works as [employer], 12 hour shifts working 6 days per week. Has a h/o PE and is on Eliquis. Has been compliant with meds. PAST MEDICAL HISTORY Past Medical History Cardiovascular: CHF (systolic with NICM), HTN, Hyperlipidemia with statin myalgia, Other (sss s/p PPM, SVT), MR Pulmonary: Pneumonia, Other (NURY with CPAP) GI: GERD, diverticulosis Heme/Onc: anemia Psych: Anxiety, Depression Musculoskeletal: low back pain, Osteoarthritis, Other (DDD) Infectious disease: No pertinent hx ENT: No pertinent hx Renal/: Other (renal stones), right renal cyst, urinary incontinence Endocrine: Hypothyroidism Dermatology: Eczema Cardiovascular: Hyperlipidemia PAST SURGICAL HISTORY Past Surgical History Pacemaker, Arthroscopy (left shoulder), Hernia Repair, Other ([facility]) FAMILY HISTORY Family History: Hypertension SOCIAL HISTORY Social History Smoke: No ALCOHOL: none Drugs: None Lives: with Family CURRENT MEDICATIONS CURRENT MEDICATIONS Current Medications Medications (Trade) Dose Ordered Sig/Anuj Route PRN Reason Start Time Stop Time Status Last Admin Dose Admin Sodium Chloride 250 ml @ 250 mls/hr 1X ONCE IV 12/15/20 07:30 12/15/20 08:29 DC 12/15/20 08:08 Apixaban (Eliquis) 5 mg BID PO 12/15/20 09:00 12/15/20 08:51 Furosemide (Lasix) 20 mg BID94 PO 12/15/20 09:00 12/15/20 08:52 Levothyroxine Sodium (Synthroid) 112 mcg DAILY06 PO 12/15/20 09:00 12/15/20 08:52 Lisinopril (Prinivil) 40 mg DAILY PO 12/15/20 09:00 12/15/20 08:52 Metoprolol Tartrate (Lopressor) 50 mg DAILY PO 12/15/20 09:00 12/15/20 08:51 Pantoprazole Sodium (Protonix) 40 mg DAILYAC PO 12/15/20 09:00 12/15/20 08:51 Potassium Chloride (Klor-Con) 20 meq DAILY PO 12/15/20 09:00 12/15/20 08:51 ALLERGIES ALLERGIES: Coded Allergies: atorvastatin (Verified Allergy, Intermediate, 02/26/17) codeine (Verified Allergy, Intermediate, 10/02/16) TOLERATES HYDROCODONE erythromycin base (Verified Allergy, Intermediate, 08/25/15) pitavastatin (Verified Adverse Reaction, Mild, nausea, 08/19/19) ROS Review of System 14 point ROS conducted with pertinent positives noted above in HPI PHYSICAL EXAM PHYSICAL EXAM General: Alert, Oriented X3, Cooperative, No acute distress HEENT: Atraumatic, Mucous membr. moist/pink Lungs: Clear to auscultation, Normal air movement Heart: Regular rate (SR with intermittent A and V pacing), Other (systolic 3/6 apical murmur) Abdomen: Soft, No tenderness Extremities: No cyanosis, Other (1+ bilateral LE pitting edema) Skin: No breakdown, No significant lesion Neuro: Normal speech, Sensation intact Psych/Mental Status: Mental status NL, Mood NL MUSCULOSKELETAL: Osteoarthritic changes both hands VITALS/I&O VITALS/I&O: Vital Signs Date Time Temp Pulse Resp B/P (MAP) Pulse Ox O2 Delivery O2 Flow Rate FiO2 12/15/20 08:52 81 158/91 12/15/20 07:57 97.0 20 94 Room Air 97.0 I & O 12/14/20 12/14/20 12/15/20 15:00 23:00 07:00 Intake Total 240 ml Balance 240 ml LABS Lab: Laboratory Tests Test 12/14/20 22:50 12/14/20 23:35 12/15/20 07:50 White Blood Count 11.8 x10^3/uL (4.0-11.0) H 9.8 x10^3/uL (4.0-11.0) Red Blood Count 4.91 x10^6/uL (3.50-5.40) 4.46 x10^6/uL (3.50-5.40) Hemoglobin 12.8 g/dL (12.0-15.5) 11.8 g/dL (12.0-15.5) L Hematocrit 39.8 % (36.0-47.0) 36.3 % (36.0-47.0) Mean Corpuscular Volume 81 fL (79-100) 81 fL (79-100) Mean Corpuscular Hemoglobin 26 pg (25-35) 26 pg (25-35) Mean Corpuscular Hemoglobin Concent 32 g/dL (31-37) 32 g/dL (31-37) Red Cell Distribution Width 16.0 % (11.5-14.5) H 16.1 % (11.5-14.5) H Platelet Count 346 x10^3/uL (140-400) 293 x10^3/uL (140-400) Neutrophils (%) (Auto) 60 % (31-73) 58 % (31-73) Lymphocytes (%) (Auto) 29 % (24-48) 31 % (24-48) Monocytes (%) (Auto) 8 % (0-9) 9 % (0-9) Eosinophils (%) (Auto) 2 % (0-3) 2 % (0-3) Basophils (%) (Auto) 1 % (0-3) 1 % (0-3) Neutrophils # (Auto) 7.1 x10^3/uL (1.8-7.7) 5.7 x10^3/uL (1.8-7.7) Lymphocytes # (Auto) 3.4 x10^3/uL (1.0-4.8) 3.0 x10^3/uL (1.0-4.8) Monocytes # (Auto) 1.0 x10^3/uL (0.0-1.1) 0.9 x10^3/uL (0.0-1.1) Eosinophils # (Auto) 0.2 x10^3/uL (0.0-0.7) 0.2 x10^3/uL (0.0-0.7) Basophils # (Auto) 0.1 x10^3/uL (0.0-0.2) 0.1 x10^3/uL (0.0-0.2) Sodium Level 144 mmol/L (136-145) 141 mmol/L (136-145) Potassium Level 4.5 mmol/L (3.5-5.1) 4.0 mmol/L (3.5-5.1) Chloride Level 105 mmol/L (98-107) 106 mmol/L (98-107) Carbon Dioxide Level 29 mmol/L (21-32) 29 mmol/L (21-32) Anion Gap 10 (6-14) 6 (6-14) Blood Urea Nitrogen 18 mg/dL (7-20) 16 mg/dL (7-20) Creatinine 1.2 mg/dL (0.6-1.0) H 1.0 mg/dL (0.6-1.0) Estimated GFR (Cockcroft-Gault) 44.7 55.1 Glucose Level 98 mg/dL (70-99) 97 mg/dL (70-99) Calcium Level 9.0 mg/dL (8.5-10.1) 8.7 mg/dL (8.5-10.1) Magnesium Level 2.0 mg/dL (1.8-2.4) Total Bilirubin 0.5 mg/dL (0.2-1.0) Direct Bilirubin 0.1 mg/dL (0.0-0.2) Aspartate Amino Transferase (AST) 17 U/L (15-37) Alanine Aminotransferase (ALT) 26 U/L (14-59) Alkaline Phosphatase 139 U/L (46-116) H Creatine Kinase 63 U/L (26-192) Troponin I Quantitative < 0.017 ng/mL (0.000-0.055) UL-Cbf-L-Type Natriuretic Peptide 834 pg/mL (0-124) H Total Protein 7.5 g/dL (6.4-8.2) Albumin 3.2 g/dL (3.4-5.0) L Influenza Type A Antigen Negative (NEGATIVE) Influenza Type B Antigen Negative (NEGATIVE) Laboratory Tests 12/14/20 22:50 12/15/20 07:50 Laboratory Tests 12/14/20 22:50 12/15/20 07:50 ECHOCARDIOGRAM ECHOCARDIOGRAM <Conclusion> The Left Ventricle is mild to moderately dilated. The systolic function is mildly impaired. The Ejection Fraction is 45-50%. Septal motion is consistent with conduction abnormality. There is mild concentric left ventricular hypertrophy. Doppler and Color Flow revealed no significant aortic regurgitation. There is no significant aortic valvular stenosis. Doppler and Color-flow revealed mild to moderate mitral regurgitation. Doppler and Color Flow revealed trace to mild tricuspid regurgitation with an estimated PAP of 40 mmHg. DATE: 04/22/20 1624 <Conclusion> The left ventricle is normal size. The left ventricular systolic function is normal and the ejection fraction is within normal limits. Left ventricular ejection fraction is 50-55%. There is mild concentric left ventricular hypertrophy. The interatrial septum is intact with no evidence for an atrial septal defect or patent foramen ovale as noted on 2-D or Doppler imaging. Bubble study is negative. Doppler and Color Flow revealed trace to mild tricuspid regurgitation with an estimated PAP of 41 mmHg. DATE: 09/09/20 1601 STRESS TEST STRESS TEST Conclusion 1. Regadenoson cardioisotope stress test did not show any evidence of ischemia or infarct. 2. Normal left ventricular systolic function with ejection fraction calculated at 63%. 3. Low risk for cardiac events. DATE: 09/04/19 0859 HEART CATH HEART CATH Findings. Hemodynamics. LV pressure of 106/6, 13. Aortic root pressure of 104/64. Coronaries. Left main. The left main was a short vessel with no lesions. Left anterior descending. The LAD was a moderate size vessel with normal dist ribution. It had no lesions Left circumflex. The left circumflex with a large vessel. It had no lesions. Right coronary artery. The right coronary was a large vessel. It had no lesions. <Conclusion> No angiographic evidence of significant coronary artery disease. DATE: 04/23/20 1214 ASSESSMENT/PLAN ASSESSMENT/PLAN 1. Dyspnea; multifactorial 2. Mild acute on chronic diastolic CHF; NT Pro BNP 800. CXR without vascular congestion. Appears compensated 3. H/o NICM; most recent echo with recovered LV function with an EF of 50% as noted above. Cath 04/14 without significant obstructive CAD 4. SSS s/p PPM (Biotronik). Device check 10/07/20 with normal function. No VT,VF. 0% AFIB burden 5. H/o PE; on Eliquis therapy 6. Hypertension ; controlled overall 7. Morbid obesity, NRUY with CPAP 8. Hypothyroidism: on replacement 9. PUI; COVID pending Recommendations Continue oral Lasix; additional PRN HF optimization with metoprolol, lisinopril Continue Elquis therapy Supportive care TERRY CANALES MD 12/15/20 1432: CARDIAC CONSULT ASSESSMENT/PLAN ASSESSMENT/PLAN Patient seen and evaluated I agree with our nurse practitioners assessment and plan as above. Acute on chronic diastolic heart failure. BNP mildly elevated at 800. Chest x- ray without vascular congestion. Continue present treatment. History of a nonischemic cardiomyopathy but with a echo last year showing normalized ejection fraction of 50%. Catheterization also the last year showed no significant coronary artery disease. We will continue medical treatment. Sick sinus syndrome. Status post permanent pacemaker. Normal device check 2 months ago. Rhythm appears stable. History of pulmonary embolism. Continuing on anticoagulation. Controlled hypertension. Morbid obesity. MEGHAN ENNIS APRN Dec 15, 2020 09:12 TERRY CANALES MD Dec 15, 2020 14:32
[2020-12-15] MEDS ORDERED: IOHEXOL 350 MG/ML 100 ML VIAL. IV ONE (09:45)
[2020-12-15] MEDS ORDERED: CONTRAST GIVEN. MC PRN (10:00)
--- NOTE | 2020-12-15 11:13 | RAD ---
Examination: CT angiography chest with IV contrast HISTORY: History of pulmonary embolism, shortness of breath COMPARISON: 10/15/2020 TECHNIQUE: Axial CT angiographic images of the chest were performed with IV contrast. Coronal and sag ittal 3-D MIP reformats are performed Exposure: One or more of the following individualized dose reduction techniques were utilized for thi s examination: 1. Automated exposure control 2. Adjustment of the mA and/or kV according to patient size 3. Use of iterative reconstruction technique FINDINGS: The visualized thyroid gland grossly appears unremarkable. Central airways are patent. Mild cardiomegaly. The caliber of the aorta grossly appears unremarkable. There is no evidence of moses ling defect identified in the main pulmonary arterial trunk and right and left main bronchus and the visualized lobar, segmental branches of the pulmonary arteries. There is mild airspace opacities iden tified in the left lingula likely atelectasis or infiltrate. Minimal bibasilar lung atelectasis. The visualized liver, spleen, adrenals grossly appears unremarkable. Cystic structure identified in the right kidney measuring 3 3 cm could be a cyst or cystic lesion, un changed. Moderate degenerative changes thoracic spine with bony fusion of the lower thoracic vertebral bodies. IMPRESSION: 1. No evidence of pulmonary embolism. 2.Mild airspace opacity identified in the left lingula likely atelectasis or infiltrate. Follow-up to resolution. Electronically signed by: Wellington Palma MD (12/15/2020 11:10 AM) [id number]
[2020-12-15 11:17] VITALS: BP 159/79
--- NOTE | 2020-12-15 13:38 | PDOC3 ---
Discharge Summary Visit Information Date of Admission: Dec 15, 2020 Date of Discharge: Dec 15, 2020 Final Diagnosis Problems Medical Problems: (1) HALEIGH (acute kidney injury) Status: Acute (2) CHF (congestive heart failure) Status: Acute (3) Dyspnea on exertion Status: Acute (4) History of pulmonary embolism Status: Acute (5) Person under investigation for COVID-19 Status: Acute Brief Hospital Course Allergies Allergies Coded Allergies Type Severity Reaction Last Updated Verified atorvastatin Allergy Intermediate 02/26/17 Yes codeine Allergy Intermediate 10/02/16 Yes erythromycin base Allergy Intermediate 08/25/15 Yes pitavastatin Adverse Reaction Mild nausea 08/19/19 Yes Vital Signs Vital Signs Date Time Temp Pulse Resp B/P (MAP) Pulse Ox O2 Delivery O2 Flow Rate FiO2 12/15/20 11:17 97.9 83 20 159/79 (105) 94 Room Air 97.9 Lab Results Laboratory Tests Test 12/14/20 22:50 12/14/20 23:35 12/15/20 07:50 White Blood Count 11.8 x10^3/uL (4.0-11.0) 9.8 x10^3/uL (4.0-11.0) Red Blood Count 4.91 x10^6/uL (3.50-5.40) 4.46 x10^6/uL (3.50-5.40) Hemoglobin 12.8 g/dL (12.0-15.5) 11.8 g/dL (12.0-15.5) Hematocrit 39.8 % (36.0-47.0) 36.3 % (36.0-47.0) Mean Corpuscular Volume 81 fL (79-100) 81 fL (79-100) Mean Corpuscular Hemoglobin 26 pg (25-35) 26 pg (25-35) Mean Corpuscular Hemoglobin Concent 32 g/dL (31-37) 32 g/dL (31-37) Red Cell Distribution Width 16.0 % (11.5-14.5) 16.1 % (11.5-14.5) Platelet Count 346 x10^3/uL (140-400) 293 x10^3/uL (140-400) Neutrophils (%) (Auto) 60 % (31-73) 58 % (31-73) Lymphocytes (%) (Auto) 29 % (24-48) 31 % (24-48) Monocytes (%) (Auto) 8 % (0-9) 9 % (0-9) Eosinophils (%) (Auto) 2 % (0-3) 2 % (0-3) Basophils (%) (Auto) 1 % (0-3) 1 % (0-3) Neutrophils # (Auto) 7.1 x10^3/uL (1.8-7.7) 5.7 x10^3/uL (1.8-7.7) Lymphocytes # (Auto) 3.4 x10^3/uL (1.0-4.8) 3.0 x10^3/uL (1.0-4.8) Monocytes # (Auto) 1.0 x10^3/uL (0.0-1.1) 0.9 x10^3/uL (0.0-1.1) Eosinophils # (Auto) 0.2 x10^3/uL (0.0-0.7) 0.2 x10^3/uL (0.0-0.7) Basophils # (Auto) 0.1 x10^3/uL (0.0-0.2) 0.1 x10^3/uL (0.0-0.2) Sodium Level 144 mmol/L (136-145) 141 mmol/L (136-145) Potassium Level 4.5 mmol/L (3.5-5.1) 4.0 mmol/L (3.5-5.1) Chloride Level 105 mmol/L (98-107) 106 mmol/L (98-107) Carbon Dioxide Level 29 mmol/L (21-32) 29 mmol/L (21-32) Anion Gap 10 (6-14) 6 (6-14) Blood Urea Nitrogen 18 mg/dL (7-20) 16 mg/dL (7-20) Creatinine 1.2 mg/dL (0.6-1.0) 1.0 mg/dL (0.6-1.0) Estimated GFR (Cockcroft-Gault) 44.7 55.1 Glucose Level 98 mg/dL (70-99) 97 mg/dL (70-99) Calcium Level 9.0 mg/dL (8.5-10.1) 8.7 mg/dL (8.5-10.1) Magnesium Level 2.0 mg/dL (1.8-2.4) Total Bilirubin 0.5 mg/dL (0.2-1.0) Direct Bilirubin 0.1 mg/dL (0.0-0.2) Aspartate Amino Transf (AST/SGOT) 17 U/L (15-37) Alanine Aminotransferase (ALT/SGPT) 26 U/L (14-59) Alkaline Phosphatase 139 U/L (46-116) Creatine Kinase 63 U/L (26-192) Troponin I Quantitative < 0.017 ng/mL (0.000-0.055) ES-Kqm-M-Type Natriuretic Peptide 834 pg/mL (0-124) Total Protein 7.5 g/dL (6.4-8.2) Albumin 3.2 g/dL (3.4-5.0) Influenza Type A Antigen Negative (NEGATIVE) Influenza Type B Antigen Negative (NEGATIVE) Laboratory Tests Test 12/14/20 22:50 12/14/20 23:35 12/15/20 07:50 White Blood Count 11.8 x10^3/uL (4.0-11.0) 9.8 x10^3/uL (4.0-11.0) Red Blood Count 4.91 x10^6/uL (3.50-5.40) 4.46 x10^6/uL (3.50-5.40) Hemoglobin 12.8 g/dL (12.0-15.5) 11.8 g/dL (12.0-15.5) Hematocrit 39.8 % (36.0-47.0) 36.3 % (36.0-47.0) Mean Corpuscular Volume 81 fL (79-100) 81 fL (79-100) Mean Corpuscular Hemoglobin 26 pg (25-35) 26 pg (25-35) Mean Corpuscular Hemoglobin Concent 32 g/dL (31-37) 32 g/dL (31-37) Red Cell Distribution Width 16.0 % (11.5-14.5) 16.1 % (11.5-14.5) Platelet Count 346 x10^3/uL (140-400) 293 x10^3/uL (140-400) Neutrophils (%) (Auto) 60 % (31-73) 58 % (31-73) Lymphocytes (%) (Auto) 29 % (24-48) 31 % (24-48) Monocytes (%) (Auto) 8 % (0-9) 9 % (0-9) Eosinophils (%) (Auto) 2 % (0-3) 2 % (0-3) Basophils (%) (Auto) 1 % (0-3) 1 % (0-3) Neutrophils # (Auto) 7.1 x10^3/uL (1.8-7.7) 5.7 x10^3/uL (1.8-7.7) Lymphocytes # (Auto) 3.4 x10^3/uL (1.0-4.8) 3.0 x10^3/uL (1.0-4.8) Monocytes # (Auto) 1.0 x10^3/uL (0.0-1.1) 0.9 x10^3/uL (0.0-1.1) Eosinophils # (Auto) 0.2 x10^3/uL (0.0-0.7) 0.2 x10^3/uL (0.0-0.7) Basophils # (Auto) 0.1 x10^3/uL (0.0-0.2) 0.1 x10^3/uL (0.0-0.2) Sodium Level 144 mmol/L (136-145) 141 mmol/L (136-145) Potassium Level 4.5 mmol/L (3.5-5.1) 4.0 mmol/L (3.5-5.1) Chloride Level 105 mmol/L (98-107) 106 mmol/L (98-107) Carbon Dioxide Level 29 mmol/L (21-32) 29 mmol/L (21-32) Anion Gap 10 (6-14) 6 (6-14) Blood Urea Nitrogen 18 mg/dL (7-20) 16 mg/dL (7-20) Creatinine 1.2 mg/dL (0.6-1.0) 1.0 mg/dL (0.6-1.0) Estimated GFR (Cockcroft-Gault) 44.7 55.1 Glucose Level 98 mg/dL (70-99) 97 mg/dL (70-99) Calcium Level 9.0 mg/dL (8.5-10.1) 8.7 mg/dL (8.5-10.1) Magnesium Level 2.0 mg/dL (1.8-2.4) Total Bilirubin 0.5 mg/dL (0.2-1.0) Direct Bilirubin 0.1 mg/dL (0.0-0.2) Aspartate Amino Transf (AST/SGOT) 17 U/L (15-37) Alanine Aminotransferase (ALT/SGPT) 26 U/L (14-59) Alkaline Phosphatase 139 U/L (46-116) Creatine Kinase 63 U/L (26-192) Troponin I Quantitative < 0.017 ng/mL (0.000-0.055) SF-Fpl-F-Type Natriuretic Peptide 834 pg/mL (0-124) Total Protein 7.5 g/dL (6.4-8.2) Albumin 3.2 g/dL (3.4-5.0) Influenza Type A Antigen Negative (NEGATIVE) Influenza Type B Antigen Negative (NEGATIVE) Brief Hospital Course Ms. Welch is a 70 old female who presented with exertional dyspnea. Symptoms are concerning for possible PE. Given HALEIGH, patient was given IV fluids to properly hydrate and prior to CTA chest. CTA chest obtained and was negative for PE. Intermittent leg swelling symptoms secondary to Lasix noncompliance and working long days on her feet at a [employer]. Will discharge patient home with close PCP follow-up. Discharge Information Condition at Discharge: Stable Follow Up: Weeks Disposition/Orders: D/C to Home Scheduled Apixaban (Eliquis) 5 Mg Tablet, 5 MG PO BID for PULM EMBOLUS for 30 Days, #60 Prescribed by: IRIS LENTZ MD on 09/14/201222 Last Action: Continued on 12/15/20727 by PATY WHITE MD Aspirin (Aspirin) 81 Mg Tab.chew, 1 TAB PO DAILY, #30 Ref 3 (Reported) Entered as Reported by: ADY TELLEZ on 08/27/15 9184 Last Action: HELD on 12/15/20727 by PATY WHITE MD Cholecalciferol (Vitamin D3) (Vitamin D3) 25 Mcg Tablet, 2,000 UNIT PO DAILY for SUPPLEMENT for 30 Days, #60 Prescribed by: IRIS LENTZ MD on 09/14/201222 Last Action: HELD on 12/15/20727 by PATY WHITE MD Fluoxetine Hcl (Fluoxetine Hcl) 60 Mg Tablet, 60 MG PO DAILY for depression, (Reported) Entered as Reported by: YOON LEE RN on 09/09/20737 Last Action: HELD on 12/15/20727 by PATY WHITE MD Furosemide (Furosemide) 20 Mg Tablet, 20 MG PO BID94 for HEART for 30 Days, #60 Prescribed by: IRIS LENTZ MD on 09/14/201222 Last Action: Continued on 12/15/20727 by PATY WHITE MD Lactobacillus Rhamnosus Gg (Culturelle) 1 Each Cap.sprink, 1 CAP PO BID for SUPPLEMENT for 30 Days, #60 Prescribed by: IRIS LENTZ MD on 09/14/201222 Last Action: HELD on 12/15/20727 by PATY WHITE MD Levothyroxine Sodium (Euthyrox) 112 Mcg Tablet, 112 MCG PO DAILY06 for thyroid, (Reported) Entered as Reported by: LINH MEDELLIN on 09/09/201130 Last Action: Continued on 12/15/20727 by PATY WHITE MD Lisinopril (Lisinopril) 40 Mg Tablet, 40 MG PO DAILY for BLOOD PRESSURE for 30 Days, #30 Prescribed by: IRIS LENTZ MD on 09/14/201222 Last Action: Continued on 12/15/20727 by PATY WHITE MD Metoprolol Tartrate (Metoprolol Tartrate) 25 Mg Tablet, 75 MG PO HS for BLOOD PRESSURE for 30 Days, #90 Prescribed by: IRIS LENTZ MD on 09/14/201222 Metoprolol Tartrate (Metoprolol Tartrate) 25 Mg Tablet, 50 MG PO DAILY for BLOOD PRESSURE for 30 Days, #60 Prescribed by: IRIS LENTZ MD on 09/14/201222 Last Action: Continued on 12/15/20727 by PATY WHITE MD Nystatin (Nyamyc) 15 Gm Powder, 1 VIKTOR TP BID for RASH for 14 Days, #60 Prescribed by: IRIS LENTZ MD on 09/14/201222 Pantoprazole Sodium (Pantoprazole Sodium ) 40 Mg Tablet.dr, 40 MG PO DAILYAC, #30 Prescribed by: KLAUS DAMICO on 09/17/161241 Last Action: Continued on 12/15/20727 by PATY WHITE MD Potassium Chloride (Klor-Con M20) 20 Meq Tab.er.prt, 20 MEQ PO DAILY, #30 Prescribed by: KLAUS DAMICO on 09/17/161240 Last Action: Continued on 12/15/20727 by PATY WHITE MD Scheduled PRN Acetaminophen (Tylenol) 325 Mg Tablet, 650 MG PO PRN Q6HRS PRN for MILD PAIN / TEMP > 100.3'F for 30 Days, #90 Prescribed by: IRIS LENTZ MD on 09/14/201222 Last Action: HELD on 12/15/20727 by PATY WHITE MD Bisacodyl (Bisacodyl) 5 Mg Tablet.dr, 10 MG PO PRN DAILY PRN for CONSTIPATION for 30 Days, #30 Prescribed by: IRIS LENTZ MD on 09/14/201222 Last Action: HELD on 12/15/20727 by PATY WHITE MD Discontinued Medications Amoxicillin (Amoxicillin) 250 Mg Capsule, 250 MG PO CML001 for DENTAL INFECTION for 10 Days, #30 Prescribed by: IRIS LENTZ MD on 09/14/201222 Last Action: HELD on 12/15/20727 by PATY WHITE MD Apixaban (Eliquis) 5 Mg Tablet, 10 MG PO BID for PULM EMBOLUS MDD 20 MG for 14 Days, #56 Prescribed by: IRIS LENTZ MD on 09/14/201222 Last Action: HELD on 12/15/20727 by PATY WHITE MD Justicifation of Admission Dx: Justifications for Admission: Justification of Admission Dx: Yes PATY WHITE MD Dec 15, 2020 13:38
[2020-12-15 14:30] VITALS: BP 143/78
--- NOTE | 2020-12-15 14:45 | NUR ---
Discharge Note: SUGAR BAKER [address] Discharge instructions and discharge home medications reviewed with Patient and a copy given. All questions have been answered and understanding verbalized. The following instructions and handouts were given: F/U with PCP within one week. F/U with Dr. Pulliam as needed. Infection control team will call you with COVID results. Discontinued lines and drains: Peripheral IV intact. Patient discharged to Home or Self Care with Self via Wheelchair. All belongings with patient at the time of discharge.
--- NOTE | 2020-12-15 15:36 | NUR ---
SW following for discharge planning. Spoke with RN and reviewed chart. Pt discharged home, self-care. No further SW needs at this time.
--- NOTE | 2020-12-16 11:28 | NUR ---
IP: Attempted to call pt concerning COVID results. No answer. Left a voicemail to return the call.
--- NOTE | 2020-12-16 13:31 | NUR ---
IP: Pt returned call. I informed her of the negative COVID test. Pt verbalized understanding.
== END 2020-12-15 14:45 | disposition home or self-care (01) | DRG 682 ==
LOC: ER 22:27 → 6 SOUTH 12-15 01:30
PROVIDERS: ADMIT Internal Medicine; ATTEND Internal Medicine
DX: N17.9 Acute kidney failure, unspecified (principal); I50.43 Acute on chronic combined systolic (congestive) and diastolic (congestive) heart failure; E46 Unspecified protein-calorie malnutrition; Z68.42 Body mass index [BMI] 45.0-49.9, adult; I42.8 Other cardiomyopathies; I11.0 Hypertensive heart disease with heart failure; Z20.822 Contact with and (suspected) exposure to COVID-19; E03.9 Hypothyroidism, unspecified; E66.01 Morbid (severe) obesity due to excess calories; G47.33 Obstructive sleep apnea (adult) (pediatric); E78.5 Hyperlipidemia, unspecified; G62.9 Polyneuropathy, unspecified; T50.1X6A Underdosing of loop [high-ceiling] diuretics, initial encounter; I49.5 Sick sinus syndrome; I48.91 Unspecified atrial fibrillation; F32.9 Major depressive disorder, single episode, unspecified; F41.9 Anxiety disorder, unspecified; N28.1 Cyst of kidney, acquired; K21.9 Gastro-esophageal reflux disease without esophagitis; K57.90 Diverticulosis of intestine, part unspecified, without perforation or abscess without bleeding; I07.1 Rheumatic tricuspid insufficiency; M19.90 Unspecified osteoarthritis, unspecified site; I27.20 Pulmonary hypertension, unspecified; Y92.89 Other specified places as the place of occurrence of the external cause; Z86.711 Personal history of pulmonary embolism; Z82.49 Family history of ischemic heart disease and other diseases of the circulatory system; Z87.442 Personal history of urinary calculi; Z79.01 Long term (current) use of anticoagulants; Z95.0 Presence of cardiac pacemaker; Z87.01 Personal history of pneumonia (recurrent); Z88.1 Allergy status to other antibiotic agents; Z88.5 Allergy status to narcotic agent; Z88.8 Allergy status to other drugs, medicaments and biological substances
CPT/HCPCS: 36415; 71045; 71275; 80048; 80076; 82550; 83735; 83880; 84484; 85025; 87804; 93005; J7050; Q9967; U0003; 99285-25; G0378; J7030

== ENCOUNTER → 2021-05-03 | Outpatient (CLI) | payer BC ==
--- NOTE | 2021-05-03 17:12 | CARD ---
MR#: [id number] Date of Study: 05/03/2021 Ordering Physician: TERRY CANALES, Referring Physician: TERRY CANALES, Tech: Dany Galarza, RUST APPROVED REPORT EXAM: Two-dimensional and M-mode echocardiogram with Doppler and color Doppler. Other Information Quality : Technically LimitedHR: 63bpm Rhythm : Pacemaker INDICATION Dyspnea RISK FACTORS Hypertension Obesity 2D DIMENSIONS RVDd3.1 (2.9-3.5cm)Left Atrium(2D)4.7 (1.6-4.0cm) IVSd1.1 (0.7-1.1cm)Aortic Root(2D)3.5 (2.0-3.7cm) LVDd5.3 (3.9-5.9cm)LVOT Diameter2.6 (1.8-2.4cm) PWd1.3 (0.7-1.1cm)LVDs4.8 (2.5-4.0cm) FS (%) 9.4 %SV27.8 ml Aortic Valve AoV Peak Tre.156.5cm/sAoV VTI34.4cm AO Peak GR.9.8mmHgLVOT Peak Tre.106.1cm/s AO Mean GR.4mmHgAVA (VMAX)3.73cm2 Mitral Valve MV E Gaawriwu76.9cm/sMV DECEL HFOC706su MV A Qajrlysi97.2cm/sE/A Ratio0.8 Tricuspid Valve TR P. Vmsjivgr086tx/sTR Peak Gr.38mmHg Pulmonary Vein S1 Zoutwdao15.0cm/sD2 Dbqvydip72.3cm/s PVa [id number] LEFT VENTRICLE The left ventricle is normal size. There is borderline to mild concentric left ventricular hypertroph y. The left ventricular systolic function is normal. The ejection fraction is estimated at 50-55%. Se ptal wall motion consistent with conduction abnormality. RIGHT VENTRICLE The right ventricle is normal size. There is normal right ventricular wall thickness. The right ventr icular systolic function is normal. ATRIA The left atrium is mildly dilated. The right atrium size is normal. The interatrial septum is intact with no evidence for an atrial septal defect or patent foramen ovale as noted on 2-D or Doppler imagi ng. AORTIC VALVE The aortic valve is normal in structure and function. Doppler and Color Flow revealed trace aortic re gurgitation. There is no significant aortic valvular stenosis. MITRAL VALVE The mitral valve is normal in structure and function. There is no evidence of mitral valve prolapse. There is no mitral valve stenosis. Doppler and Color-flow revealed moderate to severe mitral regurgit ation. TRICUSPID VALVE The tricuspid valve is normal in structure and function. Doppler and Color Flow revealed mild tricusp id regurgitation. Estimated PAP 40-50%. There is no tricuspid valve stenosis. PULMONIC VALVE The pulmonary valve is normal in structure and function. Doppler and Color Flow revealed mild pulmoni c valvular regurgitation. GREAT VESSELS The aortic root is normal in size. The ascending aorta is normal in size. The IVC is dilated and regino apses <50% with inspiration. PERICARDIAL EFFUSION There is no evidence of significant pericardial effusion. Critical Notification Critical Value: No <Conclusion> The left ventricular systolic function is normal. The ejection fraction is estimated at 50-55%. Septal wall motion consistent with conduction abnormality. Moderate to severe mitral regurgitation. Mild tricuspid regurgitation. Estimated PAP 40-50%. There is no evidence of significant pericardial effusion. Signed by : Quinton Cadena, Electronically Approved : 05/03/2021 17:12:16
== END ==
LOC: ECHO 12:48
PROVIDERS: ATTEND Internal Medicine Cardiovascular Disease
DX: I08.8 Other rheumatic multiple valve diseases (principal); I50.42 Chronic combined systolic (congestive) and diastolic (congestive) heart failure
CPT/HCPCS: 93306

== ENCOUNTER 2021-05-26 21:41 | Emergency (ER) | payer BC ==
[~2021-05-26] VITALS: Ht 154.9 cm; Wt 97.7 kg
--- NOTE | 2021-05-26 22:54 | PHYS DOC ---
Past Medical History Past Medical History: CHF, Hypertension, Kidney Stone, Other Additional Past Medical Histor: Ludwigs Angina, cardiomyopathy, sleep apnea Past Surgical History: Pacemaker, Other Additional Past Surgical Histo: HERNIA REPAIR, pacemaker Smoking Status: Never Smoker Alcohol Use: None Drug Use: None General Adult EDM: Chief Complaint: LOWER EXT PAIN HPI: HPI: Patient is a 70 year old female who present to ER due to left lower extremity pain and swelling for about 2 weeks. The pain is in her left calf, radiates up to the back of her left thigh and her left knee pain. Patient has history of DVT in the past. patient is not on a blood thinner. Review of Systems: Review of Systems: Constitutional: Denies fever or chills. [] Eyes: Denies change in visual acuity. [] HENT: Denies nasal congestion or sore throat. [] Respiratory: Denies cough or shortness of breath. [] Cardiovascular: Denies chest pain or edema. [] GI: Denies abdominal pain, nausea, vomiting, bloody stools or diarrhea. [] : Denies dysuria. [] Musculoskeletal: Denies back pain , positive for left leg pain Integument: Denies rash. [] Neurologic: Denies headache, focal weakness or sensory changes. [] Endocrine: Denies polyuria or polydipsia. [] Lymphatic: Denies swollen glands. [] Psychiatric: Denies depression or anxiety. [] Heart Score: C/O Chest Pain: N/A Risk Factors: Risk Factors: DM, Current or recent (<one month) smoker, HTN, HLP, family history of CAD, obesity. Risk Scores: Score 0 - 3: 2.5% MACE over next 6 weeks - Discharge Home Score 4 - 6: 20.3% MACE over next 6 weeks - Admit for Clinical Observation Score 7 - 10: 72.7% MACE over next 6 weeks - Early Invasive Strategies Allergies: Allergies: Allergies Coded Allergies Type Severity Reaction Last Updated Verified atorvastatin Allergy Intermediate 02/26/17 Yes codeine Allergy Intermediate 10/02/16 Yes erythromycin base Allergy Intermediate 08/25/15 Yes pitavastatin Adverse Reaction Mild nausea 08/19/19 Yes Physical Exam: PE: Constitutional: Well developed, well nourished, no acute distress, non-toxic appearance. [] HENT: Normocephalic, atraumatic, bilateral external ears normal, oropharynx moist, no oral exudates, nose normal. [] Eyes: PERRLA, EOMI, conjunctiva normal, no discharge. [] Neck: Normal range of motion, no tenderness, supple, no stridor. [] Cardiovascular:Heart rate regular rhythm, no murmur [] Lungs & Thorax: Bilateral breath sounds clear to auscultation [] Abdomen: Bowel sounds normal, soft, no tenderness, no masses, no pulsatile masses. [] Skin: Warm, dry, no erythema, no rash. [] Back: No tenderness, no CVA tenderness. [] Extremities: No tenderness, no cyanosis, no clubbing, ROM intact, no edema. [] Neurologic: Alert and oriented X 3, normal motor function, normal sensory function, no focal deficits noted. [] Psychologic: Affect normal, judgement normal, mood normal. [] Current Patient Data: Labs: Laboratory Tests Test 05/27/21 02:30 White Blood Count 10.7 x10^3/uL Red Blood Count 4.50 x10^6/uL Hemoglobin 12.2 g/dL Hematocrit 37.3 % Mean Corpuscular Volume 83 fL Mean Corpuscular Hemoglobin 27 pg Mean Corpuscular Hemoglobin Concent 33 g/dL Red Cell Distribution Width 15.5 % Platelet Count 313 x10^3/uL Neutrophils (%) (Auto) 55 % Lymphocytes (%) (Auto) 35 % Monocytes (%) (Auto) 8 % Eosinophils (%) (Auto) 2 % Basophils (%) (Auto) 1 % Neutrophils # (Auto) 5.8 x10^3/uL Lymphocytes # (Auto) 3.7 x10^3/uL Monocytes # (Auto) 0.8 x10^3/uL Eosinophils # (Auto) 0.2 x10^3/uL Basophils # (Auto) 0.1 x10^3/uL Sodium Level 143 mmol/L Potassium Level 3.9 mmol/L Chloride Level 107 mmol/L Carbon Dioxide Level 27 mmol/L Anion Gap 9 Blood Urea Nitrogen 13 mg/dL Creatinine 1.0 mg/dL Estimated GFR (Cockcroft-Gault) 55.1 BUN/Creatinine Ratio 13 Glucose Level 84 mg/dL Calcium Level 8.6 mg/dL Magnesium Level Pending Total Bilirubin Pending Aspartate Amino Transf (AST/SGOT) Pending Alanine Aminotransferase (ALT/SGPT) Pending Alkaline Phosphatase Pending Total Protein Pending Albumin Pending Albumin/Globulin Ratio Pending Current Medications Medications (Trade) Dose Ordered Sig/Anuj Route PRN Reason Start Time Stop Time Status Last Admin Dose Admin Gelatin (Gelfoam Size 12-7mm) 1 each STK-MED ONCE .ROUTE 05/27/21 00:34 05/27/21 00:34 DC Vital Signs: Vital Signs Date Time Temp Pulse Resp B/P (MAP) Pulse Ox O2 Delivery O2 Flow Rate FiO2 05/26/21 22:15 98.6 66 16 148/76 (100) 97 Room Air 98.6 EKG: EKG: [] Radiology/Procedures: Radiology/Procedures: [][facility] [address] [place] [address] IMAGING REPORT Signed PATIENT: SUGAR BAKER ACCOUNT: [id number] : 1950 LOCATION: ER AGE: 70 SEX: F EXAM STATUS: REG ER ORD. PHYSICIAN: ANTOINETTE CASTAÑEDA DO REASON: left leg pain and swelling for 2 weeks, hx of DVT PROCEDURE: VENOUS LOWER EXTREMITY LEFT Exam: US DPLX VENOUS EXTREMITY LOWER LT Indication: Reason: left leg pain and swelling for 2 weeks, hx of DVT / Spl. Instructions: / History: Technique: Color-flow and pulsed wave duplex ultrasound with compression of venous structures of the left lower extremity. Comparison: None Available. Findings: Duplex ultrasound with compression of the deep venous structures of the left lower extremity from the common femoral vein through the popliteal vein is negative for DVT. The posterior tibial and peroneal veins are segmentally visualized and patent where seen. Normal venous waveforms and augmentation are noted throughout. Impression: No evidence for DVT in the left lower extremity. Electronically signed by: Josh Lind MD (05/27/2021 2:04 AM) [facility] DICTATED and SIGNED BY: JOSH LIND MD DATE: 05/27/21 [id number] 0 Course & Med Decision Making: Course & Med Decision Making Pertinent Labs and Imaging studies reviewed. (See chart for details) Patient is a 70-year-old female who present to ER due to left leg pain, her lab work was within normal limits. Patient will be discharged home. Dragon Disclaimer: Dragapryl Disclaimer: This electronic medical record was generated, in whole or in part, using a voice recognition dictation system. Departure Departure Impression: Primary Impression: Leg pain, left Disposition: HOME / SELF CARE / HOMELESS Condition: STABLE Referrals: CHANTEL PRATT MD (PCP) Follow up with your doctor as needed Patient Instructions: Leg Cramps Additional Instructions: Thank you for visiting our Emergency Department. We appreciate you trusting us with your care. If any additional problems come up don't hesitate to return to visit us. Please follow up with your primary care provider so they can plan additional care if needed and know about the problem that you had. If symptoms worsen come back to the Emergency Department. Any concerning symptoms that start such as chest pain, shortness of air, weakness or numbness on one side of the body, running high fevers or any other concerning symptoms return to the ER. ANTOINETTE CASTAÑEDA DO May 26, 2021 22:54
[2021-05-27] MEDS ORDERED: GELATIN SPONGE SIZE 12-7MM SPONGE. ONE (00:34)
--- NOTE | 2021-05-27 02:06 | RAD ---
Exam: US DPLX VENOUS EXTREMITY LOWER LT Indication: Reason: left leg pain and swelling for 2 weeks, hx of DVT / Spl. Instructions: / History : Technique: Color-flow and pulsed wave duplex ultrasound with compression of venous structures of the left lower extremity. Comparison: None Available. Findings: Duplex ultrasound with compression of the deep venous structures of the left lower extremit y from the common femoral vein through the popliteal vein is negative for DVT. The posterior tibial a nd peroneal veins are segmentally visualized and patent where seen. Normal venous waveforms and augme ntation are noted throughout. Impression: No evidence for DVT in the left lower extremity. Electronically signed by: Yogesh Lind MD (05/27/2021 2:04 AM) LORI
[2021-05-27 02:42] LABS: BASO # 0.1 x10^3/uL (0.0-0.2); BASO % 1 % (0-3); EOS # 0.2 x10^3/uL (0.0-0.7); EOS % 2 % (0-3); HEMATOCRIT 37.3 % (36.0-47.0); HEMOGLOBIN 12.2 g/dL (12.0-15.5); LYMPH # 3.7 x10^3/uL (1.0-4.8); LYMPH % 35 % (24-48); MEAN CORPUSCULAR HEMOGLOBIN 27 pg (25-35); MEAN CORPUSCULAR HGB CONC 33 g/dL (31-37); MEAN CORPUSCULAR VOLUME 83 fL (79-100); MONO # 0.8 x10^3/uL (0.0-1.1); MONO % 8 % (0-9); NEUT # 5.8 x10^3/uL (1.8-7.7); NEUT % 55 % (31-73); PLATELET COUNT 313 x10^3/uL (140-400); RED CELL DISTRIBUTION WIDTH 15.5 % (11.5-14.5); WHITE BLOOD COUNT 10.7 x10^3/uL (4.0-11.0)
[2021-05-27 02:53] LABS: CALCIUM 8.6 mg/dL (8.5-10.1); GFR 55.1; POTASSIUM 3.9 mmol/L (3.5-5.1)
[2021-05-27 02:57] VITALS: BP 131/61
[2021-05-27 02:59] LABS: ALBUMIN 3.2 g/dL (3.4-5.0); ALBUMIN/GLOBULIN RATIO 0.9 (1.0-1.7); TOTAL BILIRUBIN 0.6 mg/dL (0.2-1.0); TOTAL PROTEIN 6.9 g/dL (6.4-8.2)
--- NOTE | 2021-05-27 04:36 | EKG ---
[facility] [address] [place] [address] Test Date: 2021-05-26 Test Time: 22:35:14 Pat Name: SUGAR BAKER Department: Room: Gender: F [employer]: : 1950 Requested By: ANTOINETTE CASTAÑEDA Order Number: [id number] Reading MD: Measurements Intervals Girard Rate: 78 P: -62 PA: 90 QRS: -8 QRSD: 98 T: 16 QT: 414 QTc: 476 Interpretive Statements SUPRAVENTRICULAR RHYTHM LEFTWARD AXIS PROLONGED QT BORDERLINE ECG RI6.02 No previous ECG available for comparison
== END 2021-05-27 03:11 | disposition home or self-care (01) ==
LOC: ER 21:41
DX: M79.605 Pain in left leg (principal); M25.562 Pain in left knee; R22.42 Localized swelling, mass and lump, left lower limb; I11.0 Hypertensive heart disease with heart failure; I50.9 Heart failure, unspecified; Z87.442 Personal history of urinary calculi; Z95.0 Presence of cardiac pacemaker; Z86.718 Personal history of other venous thrombosis and embolism; Z88.1 Allergy status to other antibiotic agents; Z88.5 Allergy status to narcotic agent; Z88.8 Allergy status to other drugs, medicaments and biological substances
CPT/HCPCS: 36415; 80053; 83735; 85025; 93005; 93971; 99285-25

== ENCOUNTER 2021-11-27 13:48 | Emergency (ER) | payer BC ==
[~2021-11-27] VITALS: Ht 154.9 cm; Wt 113.0 kg
[~2021-11-27 13:48] MED LIST changes: +CLIN-94 PO; -CLIN300C9 PO; -FLUO20CA20 PO; +FLUO20CA22 PO; +POTA-121 PO; -POTA20TA4 PO
--- NOTE | 2021-11-27 18:24 | PHYS DOC ---
Past Medical History Past Medical History: CHF, Hypertension, Kidney Stone, Other Additional Past Medical Histor: Ludwigs Angina, cardiomyopathy, sleep apnea (CHRIS ARAUJO APRN) Past Surgical History: Pacemaker, Other Additional Past Surgical Histo: HERNIA REPAIR, pacemaker (CHRIS ARAUJO APRN) Smoking Status: Never Smoker Alcohol Use: None Drug Use: None (CHRIS ARAUJO APRN) General Adult EDM: Chief Complaint: FLU SYMPTOM HPI: HPI: Patient is a 71-year-old female who presents today with cough and difficulty breathing. Patient states she works at the [employer] where multiple coworkers have had COVID-19 and since yesterday she has had cough with difficulty breathing. Patient denies chest pain or fever. (CHRIS ARAUJO SHED BOSS) Review of Systems: Review of Systems: Constitutional: Denies fever or chills. [] Eyes: Denies change in visual acuity. [] HENT: Denies nasal congestion or sore throat. [] Respiratory: cough or shortness of breath. [] Cardiovascular: Denies chest pain or edema. [] GI: Denies abdominal pain, nausea, vomiting, bloody stools or diarrhea. [] : Denies dysuria. [] Musculoskeletal: Denies back pain or joint pain. [] Integument: Denies rash. [] Neurologic: Denies headache, focal weakness or sensory changes. [] Endocrine: Denies polyuria or polydipsia. [] Lymphatic: Denies swollen glands. [] Psychiatric: Denies depression or anxiety. [] (CHRIS ARAUJO SHED BOSS) Heart Score: C/O Chest Pain: N/A Risk Factors: Risk Factors: DM, Current or recent (<one month) smoker, HTN, HLP, family history of CAD, obesity. Risk Scores: Score 0 - 3: 2.5% MACE over next 6 weeks - Discharge Home Score 4 - 6: 20.3% MACE over next 6 weeks - Admit for Clinical Observation Score 7 - 10: 72.7% MACE over next 6 weeks - Early Invasive Strategies (CHRIS ARAUJO APRN) Allergies: Allergies: Allergies Coded Allergies Type Severity Reaction Last Updated Verified atorvastatin Allergy Intermediate 02/26/17 Yes codeine Allergy Intermediate 10/02/16 Yes erythromycin base Allergy Intermediate 08/25/15 Yes pitavastatin Adverse Reaction Mild nausea 08/19/19 Yes (CHRIS ARAUJO APRN) Physical Exam: PE: Constitutional: Well developed, well nourished, no acute distress, non-toxic appearance. [] HENT: Normocephalic, atraumatic, bilateral external ears normal, oropharynx moist, no oral exudates, nose normal. [] Eyes: PERRLA, EOMI, conjunctiva normal, no discharge. [] Neck: Normal range of motion, no tenderness, supple, no stridor. [] Cardiovascular:Heart rate regular rhythm, no murmur [] Lungs & Thorax: Bilateral breath sounds clear to auscultation, no increase work of breathing Abdomen: Bowel sounds normal, soft, no tenderness, no masses, no pulsatile masses. [] Skin: Warm, dry, no erythema, no rash. [] Back: No tenderness, no CVA tenderness. [] Extremities: No tenderness, no cyanosis, no clubbing, ROM intact, no edema. [] Neurologic: Alert and oriented X 3, normal motor function, normal sensory function, no focal deficits noted. [] Psychologic: Affect normal, judgement normal, mood normal. [] (CHRIS ARAUJO APRN) Current Patient Data: Labs: Laboratory Tests Test 11/27/21 18:29 Influenza Type A Antigen Negative Influenza Type B Antigen Negative SARS-CoV-2 Antigen (Rapid) Positive Current Medications Medications (Trade) Dose Ordered Sig/Anuj Route PRN Reason Start Time Stop Time Status Last Admin Dose Admin Ketorolac Tromethamine (Toradol 30mg Vial) 30 mg 1X ONCE IVP 11/27/21 19:00 11/27/21 19:01 Cancel Vital Signs: Vital Signs Date Time Temp Pulse Resp B/P (MAP) Pulse Ox O2 Delivery O2 Flow Rate FiO2 11/27/21 18:18 99.4 89 16 182/103 (129) 99 Room Air 99.4 (CHRIS ARAUJO APRN) EKG: EKG: [] (CHRIS ARAUJO APRN) Radiology/Procedures: Radiology/Procedures: Conferred with Dr. Escalona regarding chest x-ray he did not see any acute process at this time [] (CHRIS ARAUJO APRN) Course & Med Decision Making: Course & Med Decision Making Pertinent Labs and Imaging studies reviewed. (See chart for details) [1930: B/P 166/87, 74, sat 100%, of Covid status patient verbalizes understanding of need for quarantine for 10 days will be given a work excuse. Patient also informed we will give her prescription for some antibiotics Augme ntin and Tessalon Perles for cough. Patient is encouraged to call her primary care physician tomorrow to let them know of her Covid status patient instructed to return to the emergency department for increased shortness of breath, inability to catch her breath, bluing of her lips, or inability to keep by mouth fluids down. Patient verbalizes understanding of all discharge instructions and is comfortable going home at this time. (CHRIS ARAUJO APRN) Dragon Disclaimer: Dragon Disclaimer: This electronic medical record was generated, in whole or in part, using a voice recognition dictation system. (CHRIS ARAUJO APRN) Departure Departure Impression: Primary Impression: COVID-19 Disposition: 01 HOME / SELF CARE / HOMELESS Condition: STABLE Referrals: CHANTEL PRATT MD (PCP) Additional Instructions: Augmentin one tablet twice daily Tesselon Perles take one tablet three times daily as needed for cough Return to ED for increase shortness of breath, bluing of your lips, inability to keep by mouth fluids down or fever that is not controlled by Tylenol and/or ibuprofen Tylenol and/or ibuprofen as needed for fever and pain Increase by mouth fluids stay well-hydrated Call your primary care physician to inform them of your Covid status. You have been tested for or diagnosed with COVID-19. It is an infection caused by a new type of coronavirus. COVID-19 will cause cold-like or mild flu symptoms in most. It can cause more severe symptoms like problems breathing in some. There is no treatment for COVID-19. The body will clear the infection over time. Self-care will help to ease discomfort. Steps to Take: Self-Care Rest as needed. Healthy habits may help you feel better. Steps include: Choose healthy foods including fruits and vegetables. Drink water throughout the day. Get plenty of sleep each night. If you smoke, try to quit. It may ease breathing. Avoid alcohol. Keep Others Healthy The virus can spread to others. Droplets are released every time you sneeze or cough. The droplets can get into the mouth, nose, or eyes of people near you and lead to infection. To lower the chances of spreading COVID-19 to others: Stay at home until your doctor has said it is safe to leave. If you tested positive this will mean staying isolated until both of the following are true: At least 10 days have passed since the start of illness. You are free of fever for at least 72 hours without the use of medicine. During this time: - Avoid public areas, events, or transportation. Do not return to work or school until your doctor has said it is safe to do so. - Call ahead if you need to go to a medical center. Let them know you may have COVID-19. It will help them guide you where to go. They may also ask you to wear a facemask when you come to the office. - If you call for emergency medical services, let them know you may have COVID- 19. While at home: - Try to avoid close contact with others. Stay about 6 feet away. - If possible, spend most of your time in a separate room from others. - Use a face mask if you will be in close contact with others such as sharing a room or vehicle. - Have someone wipe down common surfaces in the home. Use household sanitation truck cleaner every day on areas like doorknobs, counters, or sinks. - Cough or sneeze into a tissue. Throw the tissue away right after use. If a tissue is not available, cough or sneeze into your elbow. - Wash your hands often. Wash them after sneezing or coughing. Use soap and water and wash for at least 20 seconds. Alcohol based hand photo mask cleaner can be used if soap and water is not available. - Do not prepare food for others. Avoid sharing personal items like forks, spoons, or toothbrushes. - Avoid close contact with pets while you are sick. There is no evidence of the virus passing to pets. This is a safety step until more is known about this virus. Isolation can be frustrating. Social interaction can help. Keep in touch with friends and family through phone and tech options. You can still interact with others in your home, just keep a safe distance of about 6 feet. Follow-up: Your doctors office will check in with you to see if there are any changes in your health. You may be asked to keep track of symptoms to share with them. They will also let you know when you are clear to be in public again. Problems to Look Out For: Contact your doctor if your recovery is not going as you expect. Get emergency care if you have problems such as: - Trouble breathing - Nonstop chest pain or pressure - Changes in awareness, confusion, or problems waking - Lips or face have bluish color - Worsening of symptoms If you think you have an emergency, call for emergency medical services right away. As taken from [facility] Benzonatate (BENZONATATE) 100 Mg Capsule 1 CAP PO TID PRN PRN for COUGH, #30 CAP Prov: CHRIS ARAUJO SHED BOSS 11/27/21 Amoxicillin/Potassium Clav (AUGMENTIN 875-125 TABLET) 1 Each Tablet 1 TAB PO BID for 10 Days, #20 TAB 0 Refills Prov: CHRIS ARAUJO APRN 11/27/21 Attending Signature Attending Signature I have reviewed the PA/PRODUCE ASSOCIATE's note and plan of care. I was available for consultation as needed during the patient's visit in the emergency department. I agree with the clinical impression, plan, and disposition. (EWA ESCALONA DO) CHRIS ARAUJO APRN Nov 27, 2021 18:24 EWA ESCALONA DO Dec 02, 2021 10:35
[2021-11-27] MEDS ORDERED: KETOROLAC 30 MG/ML VIAL. IVP ONE (19:00)
[2021-11-27 19:23] LABS: INFLUENZA A PATIENT NEGATIVE (NEGATIVE); INFLUENZA B PATIENT NEGATIVE (NEGATIVE)
[2021-11-27] MEDS ORDERED: BENZ-8 PO (19:39)
[2021-11-27] MEDS ORDERED: AMOX1TAB61 PO (19:39)
[2021-11-27 20:00] VITALS: BP 166/87
--- NOTE | 2021-11-28 06:21 | RAD ---
EXAM: AP View of the chest DATE: 11/27/2021 7:00 PM INDICATION: Reason: cough / Spl. Instructions: / History: COMPARISON: 12/14/2020 09/09/2020 FINDINGS/ IMPRESSION: Cardiac generator pack obscures a portion of the left chest with leads in stable position. The heart is not enlarged. Linear opacities left lower lung. No pleural effusion or pneumothorax. Electronically signed by: Cordell Mejia MD (11/28/2021 6:18 AM) ERAN
== END 2021-11-27 20:00 | disposition home or self-care (01) ==
LOC: ER 13:48
DX: U07.1 COVID-19 (principal); I11.0 Hypertensive heart disease with heart failure; I50.9 Heart failure, unspecified; Z95.0 Presence of cardiac pacemaker; Z88.1 Allergy status to other antibiotic agents; Z88.5 Allergy status to narcotic agent; Z88.8 Allergy status to other drugs, medicaments and biological substances
CPT/HCPCS: 71045; 87426; 87804; 99284